=== PATIENT | female | born 1990 | race Caucasian/White ===

== ENCOUNTER 2016-11-12 21:35 | Emergency (ER) | payer OTHER ==
[2016-11-12] MEDS ORDERED: HYDROmorphone 1 MG/ML SYRINGE IM STA (22:03)
[2016-11-12] MEDS ORDERED: DEXAMETHASONE 10 MG/ML VIAL PO STA (22:03)
[2016-11-12] MEDS ORDERED: HYDROmorphone 1 MG/ML SYRINGE ONE (22:05)
[2016-11-12] MEDS ORDERED: DEXAMETHASONE 10 MG/ML VIAL ONE (22:06)
[2016-11-12] MEDS ORDERED: CHERRY SYRUP 10 ML UDC PO ONE (22:06)
== END 2016-11-12 22:32 | disposition home or self-care (01) ==
DX: S39.012A Strain of muscle, fascia and tendon of lower back, initial encounter (principal); V48.4XXA Person boarding or alighting a car injured in noncollision transport accident, initial encounter; M54.41 Lumbago with sciatica, right side; F17.200 Nicotine dependence, unspecified, uncomplicated
CPT/HCPCS: 96372; 99283; 99284; A9270; J1170

== ENCOUNTER 2017-05-27 13:02 | Emergency (ER) | payer OTHER ==
--- NOTE | 2017-05-27 13:28 | ED Physician Documentation ---
History of Present Illness - Stated complaint Stated Complaint: LEFT ARM PX AND SHOULDERS - Chief complaint Chief Complaint: Ext Problem - History obtained from History obtained from: Patient - History of Present Illness Timing: How many weeks ago (1) Pain level max: 6 Pain level now: 6 Improved by: prednisone Worsened by: movement - Additonal information Additional information: Patient is a 27-year-old female who presents to the emergency department complaint of neck pain for the last week. On Monday she saw her primary care provider and was radiating down the right arm. Started on prednisone and Robaxin. States this was improving until she stopped the prednisone because of moodiness. States that now the pain is going down the left arm with numbness and tingling. No chest pain. No shortness of breath. No recent trauma. No falls. 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 : Kidney stones HEENT: None Psych: Depression, Claustrophobia Musculoskeletal: Chronic back pain Derm: None - Past Surgical History Past Surgical History: Yes General: Cholecystectomy, Appendectomy Ortho: Other - Present Medications Home Medications: Ambulatory Orders Medication Instructions Recorded Confirmed traZODone [Desyrel] 25 mg PO QPM 03/31/14 05/27/17 Citalopram [CeleXA] 20 mg PO DAILY PM 08/06/15 05/27/17 traMADol [Ultram] 100 mg PO DAILY 08/06/15 05/27/17 Methocarbamol [Robaxin] 1,000 mg PO Q6H PRN 05/27/17 05/27/17 Prednisone 40 mg PO DAILY 05/27/17 05/27/17 - Allergies Allergies/Adverse Reactions: Allergies Allergy/AdvReac Type Severity Reaction Status Date / Time ketorolac tromethamine * Allergy Severe Respiratory Verified 05/27/17 13:14 [From Toradol] cefazolin Allergy Itching Verified 05/27/17 13:14 latex AdvReac Mild Itching Verified 05/27/17 13:14 - Social History Does the pt smoke?: Yes Smoking Status: Current some day smoker Does the pt drink ETOH?: Yes Does the pt have substance abuse?: No - Immunizations Immunizations are current?: Yes Immunizations: TDAP >10years/unknown - POLST Patient has POLST: No PD ED PE NORMAL - Vitals Vital signs reviewed: Yes - General General: Alert and oriented X 3, No acute distress - HEENT HEENT: Atraumatic, PERRL, Ears normal, Moist mucous membranes, Other (+ spurling test to the L) - Neck Neck: Supple, no meningeal sign, No bony TTP, No JVD, No bruit - Cardiac Cardiac: RRR - Respiratory Respiratory: No respiratory distress, Clear bilaterally - Abdomen Abdomen: Soft, Non tender - Derm Derm: Warm and dry, No rash - Extremities Extremities: No deformity, No tenderness to palpate, Normal ROM s pain, No edema - Neuro Neuro: Alert and oriented X 3, 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, No motor deficit, No sensory deficit, Normal speech - Psych Psych: Normal mood, Normal affect Results - Vitals Vitals: Vital Signs - 24 hr 05/27/17 05/27/17 13:11 15:04 Temperature 36.3 C L 36.0 C L Heart Rate 83 66 Respiratory 16 18 Rate Blood Pressure 105/74 107/74 O2 Saturation 98 98 Oxygen O2 Source Room air - Rads (name of study) c-spine Radiology: Prelim report reviewed, EMP read contemporaneously, See rad report ( normal xray) PD MEDICAL DECISION MAKING - ED course Complexity details: reviewed results, re-evaluated patient, considered differential, d/w patient, d/w family ED course: Patient is a 27-year-old female who presents to the emergency department with what appears to be left-sided cervical radiculopathy. She states that in the past a dose of Dilaudid, Zofran intramuscularly of helped in the past. States has pain medication at home. She was given a dose here as well as a dose of dexamethasone to see if this helps her symptoms more than the prednisone was. She is well-appearing, nontoxic. Afebrile. No history of IV drug use. No fractures. Patient counseled regarding signs and symptoms for which I believe and urgent re-evaluation would be necessary. Patient with good understanding of and agreement to plan and is comfortable going home at this time This document was made in part using voice recognition software. While efforts are made to proofread this document, sound alike and grammatical errors may occur. Departure - Departure Disposition: 01 Home, Self Care Clinical Impression: Cervical radiculopathy Condition: Good Instructions: ED Cervical Radiculopathy Follow-Up: Heraclio Doyle MD [Primary Care Provider] - Within 1 week Comments: Follow up with your doctor in 1 week for repeat evaluation. Return if you worsen. Your doctor may want to pursue an MRI of your neck. Discharge Date/Time: 05/27/17 15:04
[2017-05-27] MEDS ORDERED: HYDROcod/ACETAM 5/325 MG TABLET PO STA (13:51)
[2017-05-27] MEDS ORDERED: HYDROcod/ACETAM 5/325 MG TABLET ONE (13:57)
--- NOTE | 2017-05-27 13:59 | XRAY Preliminary Report ---
Exam: XR Cervical Spine 2 View IMPRESSION: Unremarkable cervical spine series. No evidence of fracture. [facility] SITE ID: [id number]
--- NOTE | 2017-05-27 14:02 | XRAY Report ---
EXAM: CERVICAL SPINE RADIOGRAPHY EXAM DATE: 05/27/2017 01:52 PM. CLINICAL HISTORY: C6-C7 pain and numbness in bilateral upper extremities. COMPARISONS: Cervical spine 04/15/2009. TECHNIQUE: 3 views. FINDINGS: Alignment: Mild kyphosis mid cervical spine. Bones: The cervical vertebral bodies and posterior elements are well visualized from the skull base t hrough C7-T1. No fractures or bone lesions. Disks: Normal. Disk heights are maintained. Facets: No degenerative disease. Soft Tissues: Normal. No prevertebral soft tissue swelling. The visualized lung apices are clear. IMPRESSION: Unremarkable cervical spine series. No evidence of fracture. [facility] Referring Provider Line: [phone] SITE ID: [id number]
[2017-05-27] MEDS ORDERED: HYDROmorphone 1 MG/ML SYRINGE IM STA (14:35)
[2017-05-27] MEDS ORDERED: ONDANSETRON 4 MG/2 ML VIAL IM STA (14:35)
[2017-05-27] MEDS ORDERED: DEXAMETHASONE 10 MG/ML VIAL IM STA (14:35)
[2017-05-27] MEDS ORDERED: HYDROmorphone 1 MG/ML SYRINGE ONE (14:41)
[2017-05-27] MEDS ORDERED: DEXAMETHASONE 10 MG/ML VIAL ONE (14:41)
[2017-05-27] MEDS ORDERED: ONDANSETRON 4 MG/2 ML VIAL ONE (14:41)
[2017-05-27 15:05] VITALS: BP 107/74
== END 2017-05-27 15:04 | disposition home or self-care (01) ==
LOC: ED 13:02
DX: M54.12 Radiculopathy, cervical region (principal); K21.9 Gastro-esophageal reflux disease without esophagitis; G89.29 Other chronic pain; F17.200 Nicotine dependence, unspecified, uncomplicated
CPT/HCPCS: 72040; 96372; 99283; 99284; A9270; J1170

== ENCOUNTER 2017-08-30 14:05 | Emergency (ER) | payer OTHER ==
--- NOTE | 2017-08-30 14:20 | ED Physician Documentation ---
PD HPI ABD PAIN - Stated complaint Stated Complaint: BACK/ABD PX - Chief complaint Chief Complaint: Abd Pain - History obtained from History obtained from: Patient - History of Present Illness Timing - onset: How many days ago (several days of left sided/LUQ abd pains and cramps, with some nausea. Has had less/minimal small BMs for 3 weeks. No dysuria.) Timing - duration: Days (several days of increasing pain and nausea, has had some constipation and occasional cramps for 2-3 weeks.) Timing - details: Gradual onset, Waxing and waning Quality: Cramping, Aching, Pain Location: LUQ Radiation: Left flank Improved by: BM (but only small ones lately). No: Eating Worsened by: No: Eating Associated symptoms: Nausea, Constipation, Loss of appetite. No: Fever, Vomiting, Diarrhea, Melena, Hematochezia, Dysuria, Chest pain, Vaginal bleeding , Vaginal dc Similar symptoms before: Has not had sx before Recently seen: Clinic (give Rx for Miralax which she is using twice daily the past few days without improvement in symptoms.) Review of Systems Constitutional: denies: Fever, Chills Nose: denies: Rhinorrhea / runny nose, Congestion Throat: denies: Sore throat Cardiac: denies: Chest pain / pressure Respiratory: denies: Cough GI: reports: Abdominal Pain, Nausea, Constipation. 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 : Kidney stones HEENT: None Psych: Depression, Claustrophobia Musculoskeletal: Chronic back pain Derm: None - Past Surgical History Past Surgical History: Yes General: Cholecystectomy, Appendectomy Ortho: Other - Present Medications Home Medications: Ambulatory Orders Medication Instructions Recorded Confirmed traMADol [Ultram] 100 mg PO DAILY 08/06/15 08/30/17 Docusate Sodium 100 mg PO DAILY #20 capsule 08/30/17 HYDROcod/ACETAM 5/325 [[place] 5/325] 1 tab PO Q6H PRN #15 tablet 08/30/17 Ondansetron Odt [Zofran] 4 mg TL Q6H PRN #15 tablet 08/30/17 Polyethylene Glycol 3350 [Miralax] 17 gm PO Q1HR PRN #238 g 08/30/17 Varenicline Tartrate [Chantix] 0.5 mg PO DAILY 08/30/17 08/30/17 - Allergies Allergies/Adverse Reactions: Allergies Allergy/AdvReac Type Severity Reaction Status Date / Time ketorolac tromethamine * Allergy Severe Respiratory Verified 08/30/17 14:17 [From Toradol] cefazolin Allergy Itching Verified 08/30/17 14:17 latex AdvReac Mild Itching Verified 08/30/17 14:17 - Social History Does the pt smoke?: Yes Smoking Status: Current every day smoker Does the pt drink ETOH?: Yes Does the pt have substance abuse?: No - Immunizations Immunizations are current?: No Immunizations: TDAP >10years/unknown - POLST Patient has POLST: No PD ED PE NORMAL - Vitals Vital signs reviewed: Yes - General General: Alert and oriented X 3, No acute distress, Well developed/nourished - HEENT HEENT: PERRL (nonicteric), Pharynx benign - Neck Neck: Supple, no meningeal sign, No adenopathy - Cardiac Cardiac: RRR, No murmur - Respiratory Respiratory: Clear bilaterally - Abdomen Abdomen: Normal bowel sounds, Soft, Non distended, No organomegaly, Other ( tender LUQ with some guarding but no percussion tenderness. Lower abd not tender. ) - Female Female : Deferred - Rectal Rectal: Deferred - Back Back: No CVA TTP - Derm Derm: Normal color, No rash - Extremities Extremities: No deformity, Normal ROM s pain, No calf tenderness / cord - Neuro Neuro: Alert and oriented X 3, No motor deficit, Normal speech - Psych Psych: Normal mood, Normal affect Results - Vitals Vitals: Vital Signs - 24 hr 08/30/17 08/30/17 14:15 16:25 Temperature 36.2 C L Heart Rate 81 74 Respiratory 18 18 Rate Blood Pressure 104/67 93/54 L O2 Saturation 100 98 Oxygen O2 Source Room air - Labs Labs: Laboratory Tests 08/30/17 08/30/17 08/30/17 14:40 14:40 15:00 WBC 12.1 H RBC 4.70 Hgb 13.8 Hct 40.7 MCV 86.5 MCH 29.4 MCHC 34.0 RDW 12.9 Plt Count 357 MPV 6.8 L Neut # 6.6 Lymph # 4.3 H [place] # 0.9 Eos # 0.2 Baso # 0.1 Absolute Nucleated RBC 0.01 Nucleated RBC % 0.0 Sodium Potassium Chloride Carbon Dioxide Anion Gap BUN Creatinine Estimated GFR (MDRD) Glucose Calcium Total Bilirubin AST ALT Alkaline Phosphatase Total Protein Albumin Globulin Albumin/Globulin Ratio Lipase Urine Color YELLOW Urine Clarity CLEAR Urine pH 7.0 Ur Specific [place] 1.010 1.010 Urine Protein NEGATIVE Urine Glucose (UA) NEGATIVE Urine Ketones NEGATIVE Urine Occult Blood NEGATIVE Urine Nitrite NEGATIVE Urine Bilirubin NEGATIVE Urine Urobilinogen 0.2 (NORMAL) Ur Leukocyte Esterase NEGATIVE Ur Microscopic Review NOT INDICATED Urine Culture Comments NOT INDICATED Urine HCG, Qual NEGATIVE 08/30/17 15:00 WBC RBC Hgb Hct MCV MCH MCHC RDW Plt Count MPV Neut # Lymph # [place] # Eos # Baso # Absolute Nucleated RBC Nucleated RBC % Sodium 138 Potassium 3.7 Chloride 103 Carbon Dioxide 25 Anion Gap 10.0 BUN 13 Creatinine 0.7 Estimated GFR (MDRD) 99 Glucose 85 Calcium 9.1 Total Bilirubin 0.3 AST 24 ALT 25 Alkaline Phosphatase 60 Total Protein 7.5 Albumin 3.9 Globulin 3.6 Albumin/Globulin Ratio 1.1 Lipase 21 L Urine Color Urine Clarity Urine pH Ur Specific [place] Urine Protein Urine Glucose (UA) Urine Ketones Urine Occult Blood Urine Nitrite Urine Bilirubin Urine Urobilinogen Ur Leukocyte Esterase Ur Microscopic Review Urine Culture Comments Urine HCG, Qual - Rads (name of study) abd CT Radiology: Prelim report reviewed (no acute disease), EMP read contemporaneously (no obvious acute process. Does not look significantly constipated. Pending Radiologist reading. ) PD MEDICAL DECISION MAKING - ED course Complexity details: reviewed results, re-evaluated patient (small stool output with enema. Less nausea and pain initially with meds but pain coming back. Got some more nausea after IV pain meds. She is tender left sided abd with normal UA. Does have elevated WBC, so getting CT to evaluate for stone, divertic, abscess, etc. Her tenderness is higher left/LUQ so not really thinking pelvic at this time. ), considered differential, d/w patient Departure - Departure Disposition: 01 Home, Self Care Clinical Impression: Abdominal pain Qualifiers: Abdominal location: left upper quadrant Qualified Code(s): R10.12 - Left upper quadrant pain Constipation Qualifiers: Constipation type: unspecified constipation type Qualified Code(s): K59.00 - Constipation, unspecified Condition: Stable Record reviewed to determine appropriate education?: Yes Instructions: ED Constipation, ED Abdominal Pain Unkn Cause Follow-Up: Heraclio Doyle MD [Primary Care Provider] - Prescriptions: Polyethylene Glycol 3350 [Miralax] 17 gm PO Q1HR PRN #238 g PRN Reason: Constipation Docusate Sodium 100 mg PO DAILY #20 capsule HYDROcod/ACETAM 5/325 [[place] 5/325] 1 tab PO Q6H PRN #15 tablet PRN Reason: Pain Ondansetron Odt [Zofran] 4 mg TL Q6H PRN #15 tablet PRN Reason: Nausea / Vomiting Comments: . Use docusate stool softener once or twice daily for the next several days. Continue your MiraLAX and for the short-term you can do it every 1-2 hours until good stool output starts. Use Tylenol or ibuprofen if needed for pains. Ondansetron if needed for nausea. Hydrocodone if needed only for worse pain with the concern that that can be constipating of course. Recheck if not improved in the next day or 2. Your CT scan appears normal without any obvious worse condition causing it at this time. We will presume it is the constipation with some irritation of the colon.
[2017-08-30] MEDS ORDERED: ONDANSETRON 4 MG/2 ML VIAL IVP STA ×2 (14:37→16:55)
[2017-08-30] MEDS ORDERED: HYDROmorphone 1 MG/ML SYRINGE IVP STA ×2 (14:38→16:12)
[2017-08-30] MEDS ORDERED: MINERAL OIL ENEMA 133 ML BOTTLE RC STA (14:38)
[2017-08-30] MEDS ORDERED: DOCUSATE SODIUM 100 MG CAPSULE PO STA (14:39)
[2017-08-30] MEDS ORDERED: DOCUSATE SODIUM 100 MG CAPSULE PO ONE (14:52)
[2017-08-30] MEDS ORDERED: ONDANSETRON 4 MG/2 ML VIAL ONE ×2 (14:53→17:04)
[2017-08-30] MEDS ORDERED: HYDROmorphone 1 MG/ML SYRINGE ONE ×2 (14:53→16:34)
[2017-08-30 15:16] LABS: BILIRUBIN,URINE NEGATIVE (NEGATIVE)
[2017-08-30 15:18] LABS: BASOPHILS # (AUTO) 0.1 10^3/uL (0.0-0.1); BASOPHILS % (AUTO) 1.1 %; EOSINOPHILS # (AUTO) 0.2 10^3/uL (0.0-0.7); EOSINOPHILS % (AUTO) 1.7 %; HCT - HEMATOCRIT 40.7 % (37.0-47.0); HGB - HEMOGLOBIN 13.8 g/dL (12.0-16.0); LYMPHOCYTES # (AUTO) 4.3 10^3/uL (1.5-3.5); LYMPHOCYTES % (AUTO) 35.6 %; MEAN CORPUSCULAR HEMOGLOBIN 29.4 pg (27.0-31.0); MEAN CORPUSCULAR VOLUME 86.5 fL (81.0-99.0); MEAN PLATELET VOLUME 6.8 fL (7.9-10.8); MONOCYTES # (AUTO) 0.9 10^3/uL (0.0-1.0); NEUTROPHILS # (AUTO) 6.6 10^3/uL (1.5-6.6); NEUTROPHILS % (AUTO) 54.6 %; RED CELL DISTRIBUTION WIDTH 12.9 % (12.0-15.0); UNCORRECTED WHITE BLOOD COUNT 12.1 x10^3/uL; WHITE BLOOD COUNT 12.1 x10^3/uL (4.8-10.8)
[2017-08-30 15:22] LABS: UA CHARGE (STRIP ONLY) YES; UR CULTURE IF IND NOT INDICATED
[2017-08-30 15:31] LABS: ALBUMIN/GLOBULIN RATIO 1.1 (1.0-2.2); BILIRUBIN,TOTAL 0.3 mg/dL (0.2-1.0); CALCIUM 9.1 mg/dL (8.5-10.3); CREATININE 0.7 mg/dL (0.4-1.0); POTASSIUM 3.7 mmol/L (3.5-5.0); TOTAL PROTEIN 7.5 g/dL (6.7-8.2)
[2017-08-30] MEDS ORDERED: IOPAMIDOL-300 100 ML VIAL ONE (15:59)
[2017-08-30 16:15] LABS: HCG UR QUAL NEGATIVE
[2017-08-30] MEDS ORDERED: SODIUM CHLORIDE 0.9% 1,000 ML IV ONE (16:33)
[2017-08-30] MEDS ORDERED: IOPAMIDOL-300 100 ML VIAL IVP ONE (17:34)
--- NOTE | 2017-08-30 18:13 | CT Preliminary Report ---
Exam: CT ABDOMEN/PELVIS W/ IMPRESSION: No acute disease. [facility] SITE ID: [id number]
--- NOTE | 2017-08-30 18:15 | CT Report ---
EXAM: CT ABDOMEN AND PELVIS EXAM DATE: 08/30/2017 05:25 PM. CLINICAL HISTORY: Left sided abd pain and elevated WBC. COMPARISONS: 05/12/2016. TECHNIQUE: Routine helical CT imaging was performed through the abdomen and pelvis. IV contrast: 100 ML ISOVUE 300. Enteric contrast: No. Reconstructions: Coronal and sagittal. In accordance with CT protocol optimization, one or more of the following dose reduction techniques w ere utilized for this exam: automated exposure control, adjustment of mA and/or KV based on patient s ize, or use of iterative reconstructive technique. FINDINGS: Lung Bases: Unremarkable. Liver: Normal. No masses. Gallbladder/Bile Ducts: Surgically absent. No ductal dilation. Spleen: Normal. Pancreas: Normal. Adrenal Glands: Normal. Kidneys: Normal. No masses or hydronephrosis. Peritoneal Cavity/Bowel: Normal. No free fluid, free air or adenopathy. No masses or acute inflammato ry process. Absent appendix. Pelvic Organs: Normal. The bladder and visualized pelvic organs are within normal limits. Vasculature: No aneurysms or other significant abnormality. Bones: No significant abnormality. Other: None. IMPRESSION: No acute disease. [facility] Referring Provider Line: [phone] SITE ID: [id number]
[2017-08-30 18:42] VITALS: BP 97/63
== END 2017-08-30 18:49 | disposition home or self-care (01) ==
LOC: ED 14:05
DX: R10.12 Left upper quadrant pain (principal); K59.00 Constipation, unspecified; F17.200 Nicotine dependence, unspecified, uncomplicated
CPT/HCPCS: 36415; 74177; 80053; 81003; 81025; 83690; 85025; 96374; 96375; 96376; 99283; 99284; A9270; J1170; Q9967; 81001; 87086

== ENCOUNTER 2017-10-04 06:42 | Outpatient (CLI) | payer OTHER | END 2017-10-04 06:43 | disposition critical access hospital (66) | LOC: EMS 06:42 | PROVIDERS: ATTEND Surgery | DX: M54.9 Dorsalgia, unspecified (principal); V89.2XXA Person injured in unspecified motor-vehicle accident, traffic, initial encounter; Y92.414 Local residential or business street as the place of occurrence of the external cause | CPT/HCPCS: A0425; A0429 ==

== ENCOUNTER 2017-10-04 07:03 | Emergency (ER) | payer OTHER ==
[2017-10-04 07:11] VITALS: BP 128/70
[2017-10-04] MEDS ORDERED: ACETAMINOPHEN 325 MG TABLET PO STA (07:19)
[2017-10-04] MEDS ORDERED: diazePAM 5 MG TABLET PO STA (07:19)
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
[2017-10-04] MEDS ORDERED: LIDOCAINE PATCH 5% TOP STA (08:17)
== END 2017-10-04 08:15 | disposition home or self-care (01) ==
LOC: EDUNIT# → ED 07:03
DX: S23.3XXA Sprain of ligaments of thoracic spine, initial encounter (principal); S13.9XXA Sprain of joints and ligaments of unspecified parts of neck, initial encounter; V43.52XA Car driver injured in collision with other type car in traffic accident, initial encounter; F17.200 Nicotine dependence, unspecified, uncomplicated
CPT/HCPCS: 71046; 72125; 99283; 99284; A9270

== ENCOUNTER 2018-03-12 11:29 | Emergency (ER) | payer OTHER ==
[2018-03-12 12:36] LABS: BILIRUBIN,URINE NEGATIVE (NEGATIVE); GLUCOSE, URINE (UA) NEGATIVE (NEGATIVE); KETONES,URINE (UA) NEGATIVE (NEGATIVE); LEUKOCYTE ESTERASE, URINE NEGATIVE (NEGATIVE); NITRITE,URINE NEGATIVE (NEGATIVE); OCCULT BLOOD,URINE MODERATE (NEGATIVE); PH,URINE 7.5 PH (5.0-7.5); PROTEIN,URINE NEGATIVE (NEGATIVE); UROBILINOGEN,URINE 0.2 (NORMAL) E.U./dL (NORMAL)
--- NOTE | 2018-03-12 12:40 | ED Physician Documentation ---
PD HPI HEADACHE - Stated complaint Stated Complaint: HEAD/NECK PX - Chief complaint Chief Complaint: General - History obtained from History obtained from: Patient - History of Present Illness Timing - onset: Yesterday Timing - onset during: Light activity Timing - duration: Days (1) Timing - details: Gradual onset, Still present, Constant Worst headache ever?: No: Worst headache ever? Location: Right Quality: Throbbing, Aching Associated symptoms: Nausea, Vomiting, Vision changes (blurred vision on right) . No: Fever, Stiff neck, Weakness, Numbness Improved by: Dark room. No: Meds (OTC meds) Worsened by: Light, Noise Contributing factors: No: Recent illness, Trauma Similar symptoms before: Diagnosis (had migraines when younger but had not had one for 10 years or so.) Review of Systems Constitutional: denies: Fever, Chills Nose: denies: Rhinorrhea / runny nose, Congestion Throat: denies: Sore throat Cardiac: denies: Chest pain / pressure, Palpitations Respiratory: denies: Dyspnea, Cough GI: reports: Nausea, Vomiting. denies: Abdominal Pain, Diarrhea : reports: Vaginal bleeding (just some brown discharge, not purulent, like early menses. LMP was in December and concerned about . Had neg home test. ), Missed period (2 months missed). 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 : Kidney stones HEENT: None Psych: Depression, Claustrophobia Musculoskeletal: Chronic back pain Derm: None - Past Surgical History Past Surgical History: Yes General: Cholecystectomy, Appendectomy Ortho: Other - Present Medications Home Medications: Ambulatory Orders Medication Instructions Recorded Confirmed traMADol [Ultram] 100 mg PO DAILY 08/06/15 08/30/17 Docusate Sodium 100 mg PO DAILY #20 capsule 08/30/17 HYDROcod/ACETAM 5/325 [[place] 5/325] 1 tab PO Q6H PRN #15 tablet 08/30/17 Ondansetron Odt [Zofran] 4 mg TL Q6H PRN #15 tablet 08/30/17 Polyethylene Glycol 3350 [Miralax] 17 gm PO Q1HR PRN #238 g 08/30/17 Varenicline Tartrate [Chantix] 0.5 mg PO DAILY 08/30/17 08/30/17 Butalb/Acetaminophen/Caffeine 1 each PO Q6H PRN #15 capsule 03/12/18 [Fioricet 50-300-40 mg Capsule] HYDROcod/ACETAM 5/325 [[place] 5/325] 1 tab PO Q6H PRN #12 tablet 03/12/18 Ondansetron Odt [Zofran] 4 mg TL Q6H PRN #15 tablet 03/12/18 - Allergies Allergies/Adverse Reactions: Allergies Allergy/AdvReac Type Severity Reaction Status Date / Time ketorolac tromethamine * Allergy Severe Respiratory Verified 10/04/17 07:10 [From Toradol] cefazolin Allergy Itching Verified 10/04/17 07:10 latex AdvReac Mild Itching Verified 10/04/17 07:10 - Social History Does the pt smoke?: Yes Smoking Status: Current every day smoker Does the pt drink ETOH?: Yes Does the pt have substance abuse?: No - Immunizations Immunizations are current?: No Immunizations: TDAP >10years/unknown - POLST Patient has POLST: No PD ED PE NORMAL - Vitals Vital signs reviewed: Yes - General General: Alert and oriented X 3, Well developed/nourished - HEENT HEENT: Atraumatic, PERRL (very light sensitive), EOMI, Other (wearing sunglasses ) - Neck Neck: Supple, no meningeal sign, No adenopathy - Cardiac Cardiac: RRR, No murmur - Respiratory Respiratory: Clear bilaterally - Abdomen Abdomen: Soft, Non tender - Back Back: No CVA TTP - Derm Derm: Normal color, Warm and dry - Neuro Neuro: Alert and oriented X 3, cast associate 2-12 intact, No motor deficit, No sensory deficit, Normal speech Results - Vitals Vitals: Oxygen O2 Source Room air - Labs Labs: Laboratory Tests 03/12/18 03/12/18 12:20 13:05 Serum HCG, Qual NEGATIVE Urine Color YELLOW Urine Clarity CLOUDY Urine pH 7.5 Ur Specific [place] 1.015 Urine Protein NEGATIVE Urine Glucose (UA) NEGATIVE Urine Ketones NEGATIVE Urine Occult Blood MODERATE H Urine Nitrite NEGATIVE Urine Bilirubin NEGATIVE Urine Urobilinogen 0.2 (NORMAL) Ur Leukocyte Esterase NEGATIVE Urine RBC 0-5 Urine WBC 0-3 Ur Squamous Epith Cells FEW Squamous Amorphous Sediment Marked Urine Bacteria Rare Ur Microscopic Review INDICATED Urine Culture Comments NOT INDICATED Urine HCG, Qual NEGATIVE PD MEDICAL DECISION MAKING - ED course Complexity details: considered differential (symptoms seem like migraine. Had them when younger but not the past 10 years. No red flags otherwise though.), d/ w patient - Sepsis Event Vital Signs: Oxygen O2 Source Room air Departure - Departure Disposition: 01 Home, Self Care Clinical Impression: Missed period Migraine headache Qualifiers: Migraine type: without aura Status migrainosus presence: with status migrainosus Intractability: not intractable Qualified Code(s): G43.001 - Migraine without aura, not intractable, with status migrainosus Condition: Stable Record reviewed to determine appropriate education?: Yes Instructions: ED Headache Migraine Follow-Up: SANDHYA VEGA DO [Primary Care Provider] - Prescriptions: Butalb/Acetaminophen/Caffeine [Fioricet 50-300-40 mg Capsule] 1 each PO Q6H PRN #15 capsule PRN Reason: Headache HYDROcod/ACETAM 5/325 [[place] 5/325] 1 tab PO Q6H PRN #12 tablet PRN Reason: Pain Ondansetron Odt [Zofran] 4 mg TL Q6H PRN #15 tablet PRN Reason: Nausea / Vomiting Comments: Your test is negative. There can be occasional irregular periods. Follow-up with your primary care if continues to be a regular. Regarding the headache, it sounds like a migraine type headache. For occasional subsequent migraines, you can use ondansetron for nausea and Fioricet as a migraine medicine. Add Tylenol or hydrocodone if needed for pain. Recheck if that does not help. Follow-up with your primary care if you have frequent recurrent migraines as there can be preventative medicines as well. Return if other symptoms develop. Discharge Date/Time: 03/12/18 15:14
[2018-03-12 12:41] LABS: CLARITY,URINE CLOUDY (CLEAR); HCG UR QUAL NEGATIVE
[2018-03-12] MEDS ORDERED: ACETAMINOPHEN 1,000 MG/100 ML 100 ML IV STA (12:43)
[2018-03-12] MEDS ORDERED: diphenhydrAMINE INJ 50 MG/ML VIAL IVP STA (12:43)
[2018-03-12] MEDS ORDERED: METOCLOPRAMIDE 10 MG/2 ML VIAL IVP STA (12:43)
[2018-03-12] MEDS ORDERED: SODIUM CHLORIDE 0.9% 1,000 ML IV ONE (12:43)
[2018-03-12 12:46] LABS: AMORPHOUS SEDIMENT,UR Marked /LPF; BACTERIA,URINE Rare /HPF (None Seen); RBC,URINE 0-5 /HPF (0-5); SQUAMOUS EPITHELIAL CELL,UR FEW Squamous (<= Few)
[2018-03-12] MEDS ORDERED: HYDROmorphone 2 MG/ML VIAL IVP STA (13:29)
[2018-03-12] MEDS ORDERED: DEXAMETHASONE 10 MG/ML VIAL IVP STA (13:29)
[2018-03-12 13:59] LABS: HCG,QUALITATIVE BLOOD NEGATIVE
[2018-03-12 15:13] VITALS: BP 98/72
== END 2018-03-12 15:14 | disposition home or self-care (01) ==
LOC: ED 11:29
DX: N91.2 Amenorrhea, unspecified (principal); G43.001 Migraine without aura, not intractable, with status migrainosus; F17.200 Nicotine dependence, unspecified, uncomplicated
CPT/HCPCS: 36415; 81001; 81025; 84703; 96365; 96375; 99284; J0131; J1170; J1200; J2765; 81003; 87086

== ENCOUNTER 2018-04-18 11:13 | Emergency (ER) | payer OTHER ==
[2018-04-18] MEDS ORDERED: diphenhydrAMINE INJ 50 MG/ML VIAL IVP STA (12:13)
[2018-04-18] MEDS ORDERED: ACETAMINOPHEN 500 MG TABLET PO STA (12:13)
[2018-04-18] MEDS ORDERED: METOCLOPRAMIDE 10 MG/2 ML VIAL IVP STA (12:13)
[2018-04-18] MEDS ORDERED: SODIUM CHLORIDE 0.9% 1,000 ML IV ONE (12:13)
--- NOTE | 2018-04-18 12:20 | ED Physician Documentation ---
History of Present Illness - Stated complaint Stated Complaint: HEAD/NECK PX - Chief complaint Chief Complaint: Neuro - History obtained from History obtained from: Patient - Additonal information Additional information: 28-year-old female presents the emergency department with a headache which started yesterday. The patient describes a throbbing tension in the back of her head, photophobia with nausea and vomiting. The patient's headache has gradually worsened over the past 24 hours. The patient's had no relief with her normal medications. This is similar to other episodes. The patient denies sudden onset, fevers, chills, acute motor or sensory changes. Symptoms are described as moderate. No other associated symptoms. Review of Systems Constitutional: denies: Fever, Chills Eyes: reports: Photophobia. denies: Loss of vision Nose: denies: Congestion Throat: denies: Sore throat Respiratory: denies: Dyspnea GI: reports: Nausea. denies: Abdominal Pain Skin: denies: Rash Neurologic: reports: Headache. 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 : Kidney stones HEENT: None Psych: Depression, Claustrophobia Musculoskeletal: Chronic back pain Derm: None Other Past Medical History: Chronic elevated WBC - Past Surgical History Past Surgical History: Yes General: Cholecystectomy, Appendectomy Ortho: Other - Present Medications Home Medications: Ambulatory Orders Medication Instructions Recorded Confirmed traMADol [Ultram] 50 mg PO DAILY 08/06/15 03/27/18 Ondansetron Odt [Zofran] 4 mg TL Q6H PRN #15 tablet 08/30/17 03/27/18 Cholecalciferol (Vitamin D3) 1 cap PO DAILY 03/27/18 03/27/18 [Vitamin D3] Melatonin 10 mg PO DAILY 03/27/18 03/27/18 Butalb/Acetaminophen/Caffeine 04/18/18 [Fioricet 50-300-40 mg Capsule] - Allergies Allergies/Adverse Reactions: Allergies Allergy/AdvReac Type Severity Reaction Status Date / Time ketorolac tromethamine * Allergy Severe Respiratory Verified 10/04/17 07:10 [From Toradol] cefazolin Allergy Itching Verified 10/04/17 07:10 latex AdvReac Mild Itching Verified 04/18/18 11:24 - Social History Does the pt smoke?: Yes Smoking Status: Current every day smoker Does the pt drink ETOH?: Yes Does the pt have substance abuse?: No - Immunizations Immunizations are current?: No Immunizations: TDAP >10years/unknown - POLST Patient has POLST: No PD ED PE NORMAL - General General: Alert and oriented X 3, No acute distress - HEENT HEENT: Atraumatic, PERRL, EOMI, Ears normal, Moist mucous membranes, Pharynx benign - Neck Neck: Supple, no meningeal sign - Cardiac Cardiac: RRR, Strong equal pulses - Respiratory Respiratory: No respiratory distress, Clear bilaterally - Abdomen Abdomen: Normal bowel sounds, Non tender - Back Back: No CVA TTP - Derm Derm: Normal color - Extremities Extremities: No deformity, Normal ROM s pain - Neuro Neuro: Alert and oriented X 3, filtration operator 2-12 intact, No motor deficit, No sensory deficit, Normal speech - Psych Psych: Normal mood Results - Vitals Vitals: Vital Signs - 24 hr 04/18/18 04/18/18 04/18/18 11:21 12:55 12:56 Temperature 36.6 C Heart Rate 95 70 Respiratory 20 18 Rate Blood Pressure 122/76 107/64 O2 Saturation 96 100 04/18/18 13:16 Temperature Heart Rate 80 Respiratory 14 Rate Blood Pressure 105/60 O2 Saturation 99 Oxygen O2 Source Room air - Rads (name of study) CT head Radiology: Final report received PD MEDICAL DECISION MAKING - ED course ED course: On reevaluation the patient is resting comfortably and her symptoms are improving. The patient appears appropriate for discharge home and and currently there is no evidence to suggest acute subarachnoid hemorrhage or meningitis which would necessitate further workup in the emergency department. I discussed the findings with the patient and recommended follow-up with primary care. I discussed warning signs and recommended returning to the emergency department for any worsening or any concerns. - Sepsis Event Vital Signs: Vital Signs - 24 hr 04/18/18 04/18/18 04/18/18 11:21 12:55 12:56 Temperature 36.6 C Heart Rate 95 70 Respiratory 20 18 Rate Blood Pressure 122/76 107/64 O2 Saturation 96 100 04/18/18 13:16 Temperature Heart Rate 80 Respiratory 14 Rate Blood Pressure 105/60 O2 Saturation 99 Oxygen O2 Source Room air Departure - Departure Disposition: 01 Home, Self Care Clinical Impression: Headache Qualifiers: Headache type: other headache syndrome Qualified Code(s): G44.89 - Other headache syndrome Condition: Good Instructions: ED Cephalgia Unspecified Follow-Up: SANDHYA VEGA DO [Primary Care Provider] - Within 1 week Comments: Please return to the emergency department for worsening symptoms or any concerns
[2018-04-18] MEDS ORDERED: METOCLOPRAMIDE 10 MG/2 ML VIAL ONE (12:43)
--- NOTE | 2018-04-18 12:54 | CT Report ---
Procedure Date: 04/18/2018 Accession Number: [id number] / [id number] Procedure: CT - Head W/O CPT Code: FULL RESULT: EXAM: CT HEAD EXAM DATE: 04/18/2018 12:43 PM. CLINICAL HISTORY: Headache. COMPARISON: None. TECHNIQUE: Multiaxial CT images were obtained from the foramen magnum to the vertex. Reformats: Coronal. IV contrast: None. In accordance with CT protocol optimization, one or more of the following dose reduction techniques were utilized for this exam: automated exposure control, adjustment of mA and/or KV based on patient size, or use of iterative reconstructive technique. FINDINGS: Parenchyma: No intraparenchymal hemorrhage. No evidence of mass, midline shift, or CT findings of infarction. Li-white differentiation is distinct. Extraaxial Spaces: Normal for age. No subdural or epidural collections. Ventricles: Normal in size and position. Sinuses and Orbits: Imaged paranasal sinuses, orbits, and mastoids show no significant abnormality. Bones: Unremarkable. Other: None. IMPRESSION: Normal head CT. RADIA
[2018-04-18] MEDS ORDERED: LORazepam 2 MG/ML VIAL IVP STA (13:04)
[2018-04-18] MEDS ORDERED: SUMAtriptan 6 MG/0.5 ML VIAL SUBQ STA (13:23)
[2018-04-18] MEDS ORDERED: DEXAMETHASONE 10 MG/ML VIAL IVP STA (13:23)
[2018-04-18 14:12] VITALS: BP 104/70
== END 2018-04-18 14:12 | disposition home or self-care (01) ==
LOC: ED 11:13
DX: G44.89 Other headache syndrome (principal); F17.200 Nicotine dependence, unspecified, uncomplicated
CPT/HCPCS: 70450; 96374; 96375; 99283; J1200; J2060; J2765

== ENCOUNTER 2018-04-20 07:45 | Emergency (ER) | payer OTHER ==
[2018-04-20] MEDS ORDERED: SODIUM CHLORIDE 0.9% 1,000 ML IV ONE (08:21)
[2018-04-20] MEDS ORDERED: HYDROmorphone 1 MG/ML CARPUJECT IVP STA (08:21)
[2018-04-20] MEDS ORDERED: PROCHLORPERAZINE 10 MG/2 ML VIAL IVP STA (08:22)
[2018-04-20] MEDS ORDERED: diphenhydrAMINE INJ 50 MG/ML VIAL IVP STA (08:22)
[2018-04-20] MEDS: DEXAMETHASONE 10 MG/ML VIAL IVP STA (08:54)
--- NOTE | 2018-04-20 10:23 | ED Physician Documentation ---
PD HPI HEADACHE - Stated complaint Stated Complaint: HEADACHE/STIFF NECK/FEVER/VOMITING - Chief complaint Chief Complaint: Heent - History obtained from History obtained from: Patient, Family - History of Present Illness Timing - onset: How many days ago (4) Timing - onset during: Rest Timing - duration: Days (4) Timing - details: Gradual onset, Still present Location: Back, Left Quality: Throbbing Associated symptoms: Stiff neck, Nausea, Vomiting. No: Fever, Weakness, Numbness, Syncope, Seizure, Eye pain, Vision changes Improved by: Rest, Dark room, Quiet Worsened by: Noise, Moving Contributing factors: No: Anticoagulated Similar symptoms before: Diagnosis (headache and migraine) Recently seen: Emergency Dept - Additional information Additional information: 28-year-old female is had a four-day history of a tension type headache in the back of her neck and the back of her head. She has throbbing on the left side of her head and she is noise sensitive. She has had nausea and vomiting associated with this. She was seen in the emergency department 2 days ago and treated with intravenous medicines including some metoclopramide which she felt made her legs cramp up on her. She had a similar reaction the prior time she was given this. Review of Systems Constitutional: denies: Fever Eyes: denies: Decreased vision Ears: denies: Ear pain Nose: reports: Congestion Throat: denies: Sore throat Cardiac: denies: Chest pain / pressure, Palpitations Respiratory: denies: Dyspnea GI: reports: Nausea, Vomiting. denies: Abdominal Pain : denies: Dysuria, Frequency Skin: denies: Rash Musculoskeletal: reports: Neck pain. 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 : Kidney stones HEENT: None Psych: Depression, Claustrophobia Musculoskeletal: Chronic back pain Derm: None - Past Surgical History Past Surgical History: Yes General: Cholecystectomy, Appendectomy Ortho: Other - Present Medications Home Medications: Ambulatory Orders Medication Instructions Recorded Confirmed traMADol [Ultram] 50 mg PO DAILY 08/06/15 03/27/18 Ondansetron Odt [Zofran] 4 mg TL Q6H PRN #15 tablet 08/30/17 03/27/18 Cholecalciferol (Vitamin D3) 1 cap PO DAILY 03/27/18 03/27/18 [Vitamin D3] Melatonin 10 mg PO DAILY 03/27/18 03/27/18 Butalb/Acetaminophen/Caffeine 04/18/18 [Fioricet 50-300-40 mg Capsule] Cyclobenzaprine [Flexeril] 10 mg PO TID PRN #20 tablet 04/20/18 HYDROcod/ACETAM 5/325 [[place] 5/325] 1 - 2 ea PO Q6H PRN #15 tablet 04/20/18 - Allergies Allergies/Adverse Reactions: Allergies Allergy/AdvReac Type Severity Reaction Status Date / Time ketorolac tromethamine * Allergy Severe Respiratory Verified 04/20/18 07:55 [From Toradol] cefazolin Allergy Itching Verified 04/20/18 07:55 latex AdvReac Mild Itching Verified 04/20/18 07:55 metoclopramide [From Reglan] AdvReac Cramps Verified 04/20/18 07:56 - Social History Does the pt smoke?: Yes Smoking Status: Current every day smoker Does the pt drink ETOH?: Yes Does the pt have substance abuse?: No - Immunizations Immunizations are current?: No Immunizations: TDAP >10years/unknown - POLST Patient has POLST: No PD ED PE NORMAL - Vitals Vital signs reviewed: Yes (normal ) - General General: Alert and oriented X 3, Well developed/nourished, Other (resting in a darkened room with dark glasses on with an emesis basin in her hands. She appears to be in pain with nurses' aide tone and flattened affect. ) - HEENT HEENT: Atraumatic, PERRL, EOMI, Ears normal, Other (dry mucous membranes) - Neck Neck: Supple, no meningeal sign, No bony TTP, Other (There is dense spasm to the trapezius bilaterally worse on the left at the insertion to the occiput. ) - Cardiac Cardiac: RRR, No murmur - Respiratory Respiratory: No respiratory distress, Clear bilaterally - Abdomen Abdomen: Soft, Non tender - Back Back: No CVA TTP, No spinal TTP - Derm Derm: Normal color, Warm and dry, No rash - Extremities Extremities: No deformity, No edema - Neuro Neuro: Alert and oriented X 3, store manager 2-12 intact, No motor deficit, No sensory deficit, Normal speech Eye Opening: Spontaneous Motor: Obeys Commands Verbal: Oriented GCS Score: 15 - Psych Psych: Normal mood, Normal affect Results - Vitals Vitals: Vital Signs - 24 hr 04/20/18 07:52 Temperature 36.4 C L Heart Rate 92 Respiratory 14 Rate Blood Pressure 121/74 O2 Saturation 98 Oxygen O2 Source Room air PD MEDICAL DECISION MAKING - ED course Complexity details: reviewed old records, reviewed results, re-evaluated patient , considered differential, d/w patient, d/w family ED course: 28-year-old female with a tension type headache in the left occiput associated with insertion of the trapezius to the occiput is a bit dehydrated today and has had some vomiting. Here in the emergency department she is treated with a cocktail of Compazine Benadryl, diluadid, dexamethasone and 1 L of saline. She has marked improvement continues to have some pain in her neck her nausea and headache are improved. - Sepsis Event Vital Signs: Vital Signs - 24 hr 04/20/18 07:52 Temperature 36.4 C L Heart Rate 92 Respiratory 14 Rate Blood Pressure 121/74 O2 Saturation 98 Oxygen O2 Source Room air Departure - Departure Disposition: Home, Self Care Clinical Impression: Tension headache Condition: Stable Instructions: ED Headache Tension Follow-Up: SANDHYA VEGA DO [Primary Care Provider] - Prescriptions: Cyclobenzaprine [Flexeril] 10 mg PO TID PRN #20 tablet PRN Reason: Spasms HYDROcod/ACETAM 5/325 [[place] 5/325] 1 - 2 ea PO Q6H PRN #15 tablet PRN Reason: Pain Forms: Activity restrictions
[2018-04-20 10:54] VITALS: BP 118/64
== END 2018-04-20 11:02 | disposition home or self-care (01) ==
LOC: ED 07:45
DX: G44.209 Tension-type headache, unspecified, not intractable (principal); E86.0 Dehydration
CPT/HCPCS: 96361; 96374; 96375; 99283; 99284; J1170; J1200

== ENCOUNTER 2018-06-18 18:36 | Emergency (ER) | payer OTHER ==
[2018-06-18] MEDS ORDERED: HYDROmorphone 1 MG/ML CARPUJECT IM STA (19:55)
[2018-06-18] MEDS ORDERED: predniSONE 20 MG TABLET PO STA (19:55)
--- NOTE | 2018-06-18 19:57 | ED Physician Documentation ---
PD HPI BACK INJURY - Stated complaint Stated Complaint: BACK PX - History obtained from History obtained from: Patient - History of Present Illness Location: Right (She has a history of chronic back pain and sciatica. 2 nights ago she felt like she slept on it wrong without specific injury but felt a pop in the right hip and has a burning pain down the lateral right hip and in the back. No weakness, numbness, tingling, saddle anesthesia, or fevers. 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 : Kidney stones HEENT: None Psych: Depression, Claustrophobia Musculoskeletal: Chronic back pain Derm: None - Past Surgical History Past Surgical History: Yes General: Cholecystectomy, Appendectomy Ortho: Other - Present Medications Home Medications: Ambulatory Orders Medication Instructions Recorded Confirmed traMADol [Ultram] 50 mg PO DAILY 08/06/15 03/27/18 Ondansetron Odt [Zofran] 4 mg TL Q6H PRN #15 tablet 08/30/17 03/27/18 Melatonin 10 mg PO DAILY 03/27/18 03/27/18 Butalb/Acetaminophen/Caffeine 04/18/18 [Fioricet 50-300-40 mg Capsule] Cyclobenzaprine [Flexeril] 10 mg PO TID PRN #20 tablet 04/20/18 HYDROcod/ACETAM 5/325 [[place] 5/325] 1 - 2 ea PO Q6H PRN #15 tablet 04/20/18 Oxycodone HCl/Acetaminophen 1 - 2 each PO Q6H PRN #14 tablet 06/18/18 [Percocet 5-325 mg Tablet] predniSONE [Deltasone] 20 mg PO [id number] #21 tab 06/18/18 - Allergies Allergies/Adverse Reactions: Allergies Allergy/AdvReac Type Severity Reaction Status Date / Time ketorolac tromethamine * Allergy Severe Respiratory Verified 06/18/18 19:18 [From Toradol] cefazolin Allergy Itching Verified 06/18/18 19:18 latex AdvReac Mild Itching Verified 06/18/18 19:18 metoclopramide [From Reglan] AdvReac Cramps Verified 06/18/18 19:18 - Social History Does the pt smoke?: Yes Smoking Status: Current every day smoker Does the pt drink ETOH?: Yes Does the pt have substance abuse?: No - Immunizations Immunizations are current?: No Immunizations: TDAP >10years/unknown - POLST Patient has POLST: No PD ED PE NORMAL - Vitals Vital signs reviewed: Yes - General General: Alert and oriented X 3, No acute distress, Other (Laying with her weight off of the right buttock. Comfortable at rest but winces with right leg motion.) - Back Back: No spinal TTP, Other (Tender in the right sciatic notch. Slightly diminished sensation over the right thigh but otherwise she has equal sensation throughout the right leg and equal patellar and Achilles reflexes with normal strength in flexion and extension at the ankles knees.) - Neuro Neuro: Alert and oriented X 3, Normal speech Results - Vitals Vitals: Vital Signs - 24 hr 06/18/18 19:14 Temperature 36.8 C Heart Rate 71 Respiratory 16 Rate Blood Pressure 110/66 O2 Saturation 98 Oxygen O2 Source Room air PD MEDICAL DECISION MAKING - ED course ED course: This patient has seemingly uncomplicated musculoskeletal back pain. The patient has no "red flags." Specifically denies IV drug use, fevers, incontinence, saddle anesthesia. Spinal epidural abscess was considered, given that the patient has no fever, is not diabetic, has no spinal tenderness, does not use IV drugs, and has no bilateral neurologic symptoms, the diagnosis of spinal epidural abscess is considered exceedingly unlikely. - Sepsis Event Vital Signs: Vital Signs - 24 hr 06/18/18 19:14 Temperature 36.8 C Heart Rate 71 Respiratory 16 Rate Blood Pressure 110/66 O2 Saturation 98 Oxygen O2 Source Room air Departure - Departure Disposition: 01 Home, Self Care Clinical Impression: Sciatica Qualifiers: Laterality: right Qualified Code(s): M54.31 - Sciatica, right side Condition: Good Record reviewed to determine appropriate education?: Yes Instructions: ED Sciatica Prescriptions: Oxycodone HCl/Acetaminophen [Percocet 5-325 mg Tablet] 1 - 2 each PO Q6H PRN #14 tablet PRN Reason: pain predniSONE [Deltasone] 20 mg PO [id number] #21 tab Comments: Call your doctor to arrange a follow-up appointment, make the next available appointment. In the interim, return anytime if worse or if new symptoms develop. Do not drink or drive while taking narcotic pain medication. Note that many narcotic pain relievers also contain Tylenol/acetaminophen. Please ensure that your total dose of acetaminophen from all sources does not exceed 3 g (3000 mg) per day. You may get constipated while on this medication. Take a stool softener such as Colace twice a day while you are on it. Also add an [id number] laxative such as senna or MiraLAX on any day that you do not have a bowel movement. If you received a narcotic pain medication or sedative while in the emergency department, do not drive for the next 24 hours.
[2018-06-18 20:21] VITALS: BP 93/57
== END 2018-06-18 20:32 | disposition home or self-care (01) ==
LOC: ED 18:36
DX: M54.31 Sciatica, right side (principal); G89.29 Other chronic pain; F17.200 Nicotine dependence, unspecified, uncomplicated
CPT/HCPCS: 96372; 99283; J1170; J7512

== ENCOUNTER 2018-08-04 22:04 | Emergency (ER) | payer OTHER ==
[2018-08-04 22:38] LABS: BASOPHILS % (AUTO) 1.7 %; EOSINOPHILS % (AUTO) 1.6 %; HGB - HEMOGLOBIN 13.5 g/dL (12.0-16.0); LYMPHOCYTES % (AUTO) 34.5 %; MEAN CORPUSCULAR HEMOGLOBIN 29.2 pg (27.0-31.0); MEAN CORPUSCULAR VOLUME 88.5 fL (81.0-99.0); MEAN PLATELET VOLUME 7.5 fL (7.9-10.8); NEUTROPHILS % (AUTO) 55.2 %; PLT - PLATELET COUNT 414 10^3/uL (130-450); RED BLOOD COUNT 4.64 10^6/uL (4.20-5.40); RED CELL DISTRIBUTION WIDTH 13.9 % (12.0-15.0); WHITE BLOOD COUNT 20.1 x10^3/uL (4.8-10.8)
[2018-08-04 22:40] LABS: ABNORMAL LYMPHS % (MANUAL) 0 %
[2018-08-04 22:43] LABS: BILIRUBIN,URINE NEGATIVE (NEGATIVE); GLUCOSE, URINE (UA) NEGATIVE (NEGATIVE); KETONES,URINE (UA) NEGATIVE (NEGATIVE); LEUKOCYTE ESTERASE, URINE NEGATIVE (NEGATIVE); NITRITE,URINE NEGATIVE (NEGATIVE); OCCULT BLOOD,URINE NEGATIVE (NEGATIVE); PH,URINE 6.5 PH (5.0-7.5); PROTEIN,URINE NEGATIVE (NEGATIVE); UROBILINOGEN,URINE 0.2 (NORMAL) E.U./dL (NORMAL)
[2018-08-04 22:47] LABS: CLARITY,URINE CLEAR (CLEAR); HCG UR QUAL NEGATIVE
[2018-08-04 22:52] LABS: ALBUMIN 3.6 g/dL (3.2-5.5); BILIRUBIN,TOTAL 0.8 mg/dL (0.2-1.0); CALCIUM 8.6 mg/dL (8.5-10.3); CREATININE 0.7 mg/dL (0.4-1.0); TOTAL PROTEIN 7.2 g/dL (6.7-8.2)
[2018-08-04 23:03] LABS: BAND NEUTROPHILS % (MANUAL) 1 %; DIFFERENTIAL COMMENT MANUAL DIFFERENTIAL; EOSINOPHILS # (MANUAL) 0.2 10^3/uL (0-0.7); LYMPHOCYTES # (MANUAL) 7.8 10^3/uL (1.5-3.5); LYMPHOCYTES % (MANUAL) 38 %; NEUTROPHILS # (MANUAL) 11.1 10^3/uL (1.5-6.6); NEUTROPHILS % (MANUAL) 54 %; PLATELET ESTIMATE, MANUAL NORMAL (130-450,000) (NORMAL); PLATELET MORPHOLOGY NORMAL APPEARANCE (NORMAL); RBC MORPHOLOGY (MULTIPLE) NORMAL APPEARANCE (NORMAL)
[2018-08-04] MEDS ORDERED: HYDROmorphone 1 MG/ML CARPUJECT IVP STA (23:41)
[2018-08-04] MEDS ORDERED: SODIUM CHLORIDE 0.9% 1,000 ML IV STA (23:41)
[2018-08-04] MEDS ORDERED: IOPAMIDOL-300 100 ML VIAL ONE (23:52)
[2018-08-05] MEDS ORDERED: IOPAMIDOL-300 100 ML VIAL IVP ONE (00:19)
--- NOTE | 2018-08-05 00:34 | CT Report ---
Reason: abd. pain Procedure Date: 08/05/2018 Accession Number: [id number] / [id number] Procedure: CT - Abdomen/Pelvis W/ CPT Code: FULL RESULT: EXAM: CT ABDOMEN AND PELVIS EXAM DATE: 08/05/2018 12:21 AM. CLINICAL HISTORY: Abdominal pain COMPARISONS: 08/30/2017 CT. TECHNIQUE: Routine helical CT imaging was performed through the abdomen and pelvis. IV contrast: ISOVUE 300 100mL. Enteric contrast: No. Reconstructions: Coronal and sagittal. In accordance with CT protocol optimization, one or more of the following dose reduction techniques were utilized for this exam: automated exposure control, adjustment of mA and/or KV based on patient size, or use of iterative reconstructive technique. FINDINGS: Lung Bases: Unremarkable. Liver: The liver demonstrates slightly decreased attenuation. No focal lesions. Gallbladder/Bile Ducts: Status post cholecystectomy. No bile duct dilatation. Spleen: Normal. Pancreas: Normal. Adrenal Glands: Normal. Kidneys: Normal. No masses or hydronephrosis. Peritoneal Cavity/Bowel: Normal. No free fluid, free air or adenopathy. No masses or acute inflammatory process. Status post appendectomy. Pelvic Organs: Normal. The bladder and visualized pelvic organs are within normal limits. Vasculature: No aneurysms or other significant abnormality. Bones: No significant abnormality. Other: None. IMPRESSION: 1. No acute process within the abdomen and pelvis. 2. Mild fatty liver infiltration. RADIA
[2018-08-05] MEDS ORDERED: PANTOPRAZOLE 40 MG VIAL IVP STA (00:44)
[2018-08-05] MEDS ORDERED: HYDROmorphone 1 MG/ML CARPUJECT IVP STA (00:44)
[2018-08-05 01:49] VITALS: BP 121/71
--- NOTE | 2018-08-08 17:18 | ED Physician Documentation ---
PD HPI ABD PAIN - Stated complaint Stated Complaint: UPPER ABD PX/SOA/BACK PX - Chief complaint Chief Complaint: Abd Pain - History obtained from History obtained from: Patient - History of Present Illness Timing - onset: Enter time (17:00), Today Timing - duration: Hours Timing - details: Abrupt onset Pain level max: 10 Pain level now: 8 Quality: Pain Location: RUQ, Epigastric, LUQ Radiation: Lower back, Upper back Improved by: No: Eating, Laying still, Vomiting, BM, Position, Meds Worsened by: Palpation Associated symptoms: Nausea, Vomiting. No: Fever Similar symptoms before: Has not had sx before - Additional information Additional information: 6th [facility] ED visit 2018. 23rd [facility] ED visit since 2012. c/o upper abd. pain radiating to back, onset 5 pm after eating dinner tonight. had similar, milder episode yesterday. dyspnea when pain is severe. denies constipation, diarrhea. mild nausea, no vomiting. Review of Systems Constitutional: reports: Reviewed and negative Cardiac: reports: Reviewed and negative Respiratory: reports: Reviewed and negative GI: reports: Abdominal Pain, Nausea. 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 : Kidney stones HEENT: None Psych: Depression, Claustrophobia Musculoskeletal: Chronic back pain Derm: None - Past Surgical History Past Surgical History: Yes General: Cholecystectomy, Appendectomy Ortho: Other - Present Medications Home Medications: Ambulatory Orders Medication Instructions Recorded Confirmed traMADol [Ultram] 50 mg PO DAILY 08/06/15 03/27/18 Melatonin 10 mg PO DAILY 03/27/18 03/27/18 Butalb/Acetaminophen/Caffeine 04/18/18 [Fioricet 50-300-40 mg Capsule] Pregabalin [Lyrica] 75 mg PO TID 08/04/18 08/04/18 - Allergies Allergies/Adverse Reactions: Allergies Allergy/AdvReac Type Severity Reaction Status Date / Time ketorolac tromethamine * Allergy Severe Respiratory Verified 08/04/18 22:09 [From Toradol] cefazolin Allergy Itching Verified 08/04/18 22:09 latex AdvReac Mild Itching Verified 08/04/18 22:09 metoclopramide [From Reglan] AdvReac Cramps Verified 08/04/18 22:09 - Social History Does the pt smoke?: Yes Smoking Status: Current every day smoker Does the pt drink ETOH?: Yes Does the pt have substance abuse?: No - Immunizations Immunizations are current?: No Immunizations: TDAP >10years/unknown - POLST Patient has POLST: No PD ED PE NORMAL - Vitals Vital signs reviewed: Yes - General General: Alert and oriented X 3, No acute distress, Well developed/nourished - Cardiac Cardiac: No murmur - Respiratory Respiratory: No respiratory distress, Clear bilaterally - Abdomen Abdomen: Normal bowel sounds, Soft, Non tender, Non distended, No organomegaly - Back Back: No CVA TTP - Derm Derm: Normal color, Warm and dry, No rash - Extremities Extremities: No edema - Neuro Eye Opening: Spontaneous Motor: Obeys Commands Verbal: Oriented GCS Score: 15 PD ED PE EXPANDED - Cardiac Cardiac: Tachy, Regular Rhythm Results - Vitals Vitals: Oxygen O2 Source Room air - EKG (time done) No standard instances Rate: Rate (enter#) (97) Rhythm: NSR Alexis: Normal Intervals: Normal [place] QRS: Normal Ischemia: Normal ST segments - Labs Labs: Laboratory Tests 08/04/18 08/04/18 08/04/18 22:25 22:25 22:25 WBC 20.1 H RBC 4.64 Hgb 13.5 Hct 41.1 MCV 88.5 MCH 29.2 MCHC 33.0 RDW 13.9 Plt Count 414 MPV 7.5 L Neut # (Auto) Not Reportable Lymph # (Auto) Not Reportable [place] # (Auto) Not Reportable Eos # (Auto) Not Reportable Baso # (Auto) Not Reportable Absolute Nucleated RBC Not Reportable Total Counted 100 Band Neuts % (Manual) 1 Reactive Lymphs % (Man) 1 Abnorm Lymph % (Manual) 0 Nucleated RBC % Not Reportable Neutrophils # (Manual) 11.1 H Lymphocytes # (Manual) 7.8 H Monocytes # (Manual) 1.0 Eosinophils # (Manual) 0.2 Basophils # (Manual) 0.0 Differential Comment MANUAL DIFFERENTIAL Platelet Estimate NORMAL (130-450,000) Platelet Morphology NORMAL APPEARANCE RBC Morph Micro Appear NORMAL APPEARANCE Sodium 138 Potassium 4.2 Chloride 105 Carbon Dioxide 23 Anion Gap 10.0 BUN 12 Creatinine 0.7 Estimated GFR (MDRD) 98 Glucose 117 H Calcium 8.6 Total Bilirubin 0.8 AST 28 ALT 33 Alkaline Phosphatase 71 Troponin I < 0.04 Total Protein 7.2 Albumin 3.6 Globulin 3.6 Albumin/Globulin Ratio 1.0 Lipase 23 Urine Color Urine Clarity Urine pH Ur Specific [place] Urine Protein Urine Glucose (UA) Urine Ketones Urine Occult Blood Urine Nitrite Urine Bilirubin Urine Urobilinogen Ur Leukocyte Esterase Ur Microscopic Review Urine Culture Comments Urine HCG, Qual 08/04/18 22:38 WBC RBC Hgb Hct MCV MCH MCHC RDW Plt Count MPV Neut # (Auto) Lymph # (Auto) [place] # (Auto) Eos # (Auto) Baso # (Auto) Absolute Nucleated RBC Total Counted Band Neuts % (Manual) Reactive Lymphs % (Man) Abnorm Lymph % (Manual) Nucleated RBC % Neutrophils # (Manual) Lymphocytes # (Manual) Monocytes # (Manual) Eosinophils # (Manual) Basophils # (Manual) Differential Comment Platelet Estimate Platelet Morphology RBC Morph Micro Appear Sodium Potassium Chloride Carbon Dioxide Anion Gap BUN Creatinine Estimated GFR (MDRD) Glucose Calcium Total Bilirubin AST ALT Alkaline Phosphatase Troponin I Total Protein Albumin Globulin Albumin/Globulin Ratio Lipase Urine Color YELLOW Urine Clarity CLEAR Urine pH 6.5 Ur Specific [place] 1.015 Urine Protein NEGATIVE Urine Glucose (UA) NEGATIVE Urine Ketones NEGATIVE Urine Occult Blood NEGATIVE Urine Nitrite NEGATIVE Urine Bilirubin NEGATIVE Urine Urobilinogen 0.2 (NORMAL) Ur Leukocyte Esterase NEGATIVE Ur Microscopic Review NOT INDICATED Urine Culture Comments NOT INDICATED Urine HCG, Qual NEGATIVE - Rads (name of study) CT A/P Radiology: Prelim report reviewed, See rad report PD MEDICAL DECISION MAKING - ED course Complexity details: reviewed old records, reviewed results, re-evaluated patient, considered differential, d/w patient ED course: allergies include toradol. already taken tramadol today without relief, does not list morphine as allergy, but says she cannot take it because it makes her agitated (per patient). eventually had adequate relief with two doses of IV dilaudid. also given IV flu ids and protonix signficiant leukocytosis (wbc 20) and thus CT A/P performed; fortunately, no acute findings on this study to suggest cause of leukocytosis and abdominal pain. gastritis/PUD is among diagnoses I would still consider on differential, but no evidence of perforation nor uncontrolled symptoms. will discharge, return if worse, f/u PMD Departure - Departure Disposition: 01 Home, Self Care Clinical Impression: Upper abdominal pain Condition: Good Instructions: ED Abdominal Pain Unkn Cause Follow-Up: SANDHYA VEGA DO [Primary Care Provider] - (Call to arrange for next available appointment) Comments: I recommend that you take either Prilosec or Nexium once per day for two weeks; these are [id number] medications and thus do not need a prescription. Follow the instructions on the label. Discharge Date/Time: 08/05/18 01:05 PDT
== END 2018-08-05 01:05 | disposition home or self-care (01) ==
LOC: ED 22:04
DX: R10.10 Upper abdominal pain, unspecified (principal); K21.9 Gastro-esophageal reflux disease without esophagitis; G89.29 Other chronic pain; M54.9 Dorsalgia, unspecified; F17.200 Nicotine dependence, unspecified, uncomplicated; Z79.891 Long term (current) use of opiate analgesic; Z87.442 Personal history of urinary calculi
CPT/HCPCS: 36415; 74177; 80053; 81003; 81025; 83690; 84484; 85025; 93005; 96361; 96374; 96375; 96376; 99284; J1170; Q9967; 81001; 87086

== ENCOUNTER 2018-08-08 23:25 | Emergency (ER) | payer OTHER ==
[2018-08-09 00:01] LABS: BASOPHILS % (AUTO) 0.9 %; EOSINOPHILS % (AUTO) 1.3 %; HGB - HEMOGLOBIN 13.7 g/dL (12.0-16.0); LYMPHOCYTES % (AUTO) 20.2 %; MEAN CORPUSCULAR HEMOGLOBIN 29.9 pg (27.0-31.0); MEAN CORPUSCULAR VOLUME 87.9 fL (81.0-99.0); MEAN PLATELET VOLUME 6.8 fL (7.9-10.8); MONOCYTES % (AUTO) 5.2 %; NEUTROPHILS % (AUTO) 72.4 %; PLT - PLATELET COUNT 356 10^3/uL (130-450); RED BLOOD COUNT 4.59 10^6/uL (4.20-5.40); RED CELL DISTRIBUTION WIDTH 14.1 % (12.0-15.0); WHITE BLOOD COUNT 21.2 x10^3/uL (4.8-10.8)
[2018-08-09 00:03] LABS: ABNORMAL LYMPHS % (MANUAL) 0 %
[2018-08-09 00:15] LABS: ALBUMIN 3.7 g/dL (3.2-5.5); ALBUMIN/GLOBULIN RATIO 1.1 (1.0-2.2); BILIRUBIN,TOTAL 0.3 mg/dL (0.2-1.0); CALCIUM 8.7 mg/dL (8.5-10.3); CREATININE 0.7 mg/dL (0.4-1.0); TOTAL PROTEIN 7.1 g/dL (6.7-8.2)
[2018-08-09 00:42] LABS: HCG,QUALITATIVE BLOOD NEGATIVE
[2018-08-09] MEDS ORDERED: ONDANSETRON ODT 4 MG TABLET TL STA (00:43)
[2018-08-09 00:44] LABS: BAND NEUTROPHILS % (MANUAL) 3 %; DIFFERENTIAL COMMENT MANUAL DIFFERENTIAL; LYMPHOCYTES # (MANUAL) 4.9 10^3/uL (1.5-3.5); LYMPHOCYTES % (MANUAL) 23 %; MONOCYTES # (MANUAL) 1.1 10^3/uL (0.0-1.0); NEUTROPHILS # (MANUAL) 15.3 10^3/uL (1.5-6.6); NEUTROPHILS % (MANUAL) 69 %; PLATELET ESTIMATE, MANUAL NORMAL (130-450,000) (NORMAL); RBC MORPHOLOGY (MULTIPLE) NORMAL APPEARANCE (NORMAL)
--- NOTE | 2018-08-09 01:21 | ED Physician Documentation ---
History of Present Illness - Stated complaint Stated Complaint: SHORTNESS OF BREATH - Chief complaint Chief Complaint: Resp - Additonal information Additional information: 28-year-old female presents the emergency department with chest pain and shortness of breath which started this evening while at rest. The patient's symptoms have been ongoing for the past 45 minutes. There is no radiation of of the symptoms. Symptoms are described as moderate. The patient also reports epigastric discomfort which is been ongoing for quite some time. The patient also reports bilateral peripheral edema. The patient is scheduled to have a echocardiogram performed as an outpatient. No triggering factors. No relieving factors. No other associated symptoms Review of Systems Constitutional: denies: Fever Eyes: denies: Discharge Ears: denies: Ear pain Nose: denies: Rhinorrhea / runny nose Throat: denies: Sore throat Cardiac: reports: Chest pain / pressure, Pedal edema Respiratory: reports: Dyspnea, Cough. 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 : Kidney stones HEENT: None Psych: Depression, Claustrophobia Musculoskeletal: Chronic back pain Derm: None - Past Surgical History Past Surgical History: Yes General: Cholecystectomy, Appendectomy Ortho: Other - Present Medications Home Medications: Ambulatory Orders Medication Instructions Recorded Confirmed RX: traMADol [Ultram] 50 mg PO DAILY 08/06/15 03/27/18 RX: Melatonin 10 mg PO DAILY 03/27/18 03/27/18 Butalb/Acetaminophen/Caffeine 04/18/18 [Fioricet 50-300-40 mg Capsule] Pregabalin [Lyrica] 75 mg PO TID 08/04/18 08/04/18 RX: Albuterol Sulf [Ventolin Hfa 1 - 2 puffs INH Q4HR PRN #1 inhaler 08/09/18 Inhaler] RX: Doxycycline Hyclate 100 mg PO BID #20 capsule 08/09/18 - Allergies Allergies/Adverse Reactions: Allergies Allergy/AdvReac Type Severity Reaction Status Date / Time ketorolac tromethamine * Allergy Severe Respiratory Verified 08/08/18 23:31 [From Toradol] cefazolin Allergy Itching Verified 08/08/18 23:31 latex AdvReac Mild Itching Verified 08/08/18 23:31 metoclopramide [From Reglan] AdvReac Cramps Verified 08/08/18 23:31 - Social History Does the pt smoke?: Yes Smoking Status: Current every day smoker Does the pt drink ETOH?: Yes Does the pt have substance abuse?: No - Immunizations Immunizations are current?: No Immunizations: TDAP >10years/unknown - POLST Patient has POLST: No PD ED PE NORMAL - General General: Alert and oriented X 3 - HEENT HEENT: Atraumatic, PERRL, EOMI, Ears normal - Neck Neck: Supple, no meningeal sign, No JVD - Cardiac Cardiac: Strong equal pulses, Other (Regular tachycardia) - Respiratory Respiratory: No respiratory distress, Clear bilaterally - Abdomen Abdomen: Soft, Non distended. No: Non tender (The patient has epigastric tenderness, no rebound or peritoneal signs. No tenderness in the lower abdomen) - Back Back: No CVA TTP - Derm Derm: Normal color - Extremities Extremities: No deformity, Normal ROM s pain. No: No edema (The patient has 1+ edema) - Neuro Neuro: Alert and oriented X 3, Normal speech - Psych Psych: Normal affect Results - Vitals Vitals: Vital Signs - 24 hr 08/08/18 08/09/18 08/09/18 23:27 00:02 01:07 Temperature 36.2 C L Heart Rate 116 H 98 84 Respiratory 18 27 H 33 H Rate Blood Pressure 129/78 104/72 114/75 O2 Saturation 98 100 08/09/18 08/09/18 08/09/18 01:50 02:23 02:46 Temperature 36.9 C Heart Rate 91 89 85 Respiratory 26 H 22 25 H Rate Blood Pressure 96/53 L 95/56 L 111/71 O2 Saturation 96 95 08/09/18 08/09/18 03:17 04:01 Temperature Heart Rate 84 83 Respiratory 24 20 Rate Blood Pressure 100/47 L 95/63 O2 Saturation 96 97 Oxygen O2 Source Room air - EKG (time done) No standard instances Rhythm: Sinus tachycardia Quinn: Normal Intervals: Normal [place], QRS normal Ischemia: Normal ST segments - Labs Labs: Laboratory Tests 08/08/18 08/08/1808/08/18 23:50 23:50 23:50 WBC 21.2 H RBC 4.59 Hgb 13.7 Hct 40.3 MCV 87.9 MCH 29.9 MCHC 34.0 RDW 14.1 Plt Count 356 MPV 6.8 L Neut # (Auto) Not Reportable Lymph # (Auto) Not Reportable [place] # (Auto) Not Reportable Eos # (Auto) Not Reportable Baso # (Auto) Not Reportable Absolute Nucleated RBC Not Reportable Total Counted 100 Band Neuts % (Manual) 3 Abnorm Lymph % (Manual) 0 Nucleated RBC % Not Reportable Neutrophils # (Manual) 15.3 H Lymphocytes # (Manual) 4.9 H Monocytes # (Manual) 1.1 H Eosinophils # (Manual) 0.0 Basophils # (Manual) 0.0 Differential Comment MANUAL DIFFERENTIAL Platelet Estimate NORMAL (130-450,000) RBC Morph Micro Appear NORMAL APPEARANCE D-Dimer Sodium 135 Potassium 3.9 Chloride 101 Carbon Dioxide 26 Anion Gap 8.0 BUN 8 Creatinine 0.7 Estimated GFR (MDRD) 98 Glucose 111 H Calcium 8.7 Total Bilirubin 0.3 AST 30 ALT 39 Alkaline Phosphatase 64 Total Creatine Kinase 79 Troponin I < 0.04 B-Natriuretic Peptide Total Protein 7.1 Albumin 3.7 Globulin 3.4 Albumin/Globulin Ratio 1.1 Lipase 20 L Serum HCG, Qual 08/08/18 08/08/18 08/08/18 23:50 23:50 23:50 WBC RBC Hgb Hct MCV MCH MCHC RDW Plt Count MPV Neut # (Auto) Lymph # (Auto) [place] # (Auto) Eos # (Auto) Baso # (Auto) Absolute Nucleated RBC Total Counted Band Neuts % (Manual) Abnorm Lymph % (Manual) Nucleated RBC % Neutrophils # (Manual) Lymphocytes # (Manual) Monocytes # (Manual) Eosinophils # (Manual) Basophils # (Manual) Differential Comment Platelet Estimate RBC Morph Micro Appear D-Dimer < 200.0 L Sodium Potassium Chloride Carbon Dioxide Anion Gap BUN Creatinine Estimated GFR (MDRD) Glucose Calcium Total Bilirubin AST ALT Alkaline Phosphatase Total Creatine Kinase Troponin I B-Natriuretic Peptide 15 Total Protein Albumin Globulin Albumin/Globulin Ratio Lipase Serum HCG, Qual NEGATIVE - Rads (name of study) CTA chest Radiology: Final report received, See rad report (IMPRESSION: 1. No pulmonary emboli seen. 2. Borderline heart size. 3. Suspect mild interstitial infiltrate or edema. 4. Fatty liver. ) CXR Radiology: Final report received, See rad report (IMPRESSION: Normal 2-view c hest radiography. ) CT abd/pelvis from 08/05/2018 Radiology: Final report received, See rad report (1. No acute process within the abdomen and pelvis) PD MEDICAL DECISION MAKING - ED course ED course: On reevaluation the patient is resting comfortably and appears to be in no significant distress. The patient's workup reveals evidence of a pulmonary infiltrate. The patient will be started on a course of oral antibiotics, the patient appears appropriate for ongoing outpatient management. The patient's white blood cell count is elevated in the emergency department today, this may go along with her findings seen on CT scan. On looking back on previous white blood cell counts the patient has had white blood cell counts similar to this in the past. The patient has no findings presently that would necessitate admission to the hospital and the patient appears appropriate for a trial at outpatient management for the pneumonia. I discussed with her the findings and plan. The patient understands and agrees. I discussed with the patient warning signs and recommended returning to the emergency department immediately for any worsening or any concerns. Departure - Departure Disposition: 01 Home, Self Care Clinical Impression: Shortness of breath Pneumonia Qualifiers: Pneumonia type: due to unspecified organism Laterality: unspecified laterality Lung location: unspecified part of lung Qualified Code(s): J18.9 - Pneumonia, unspecified organism Chest pain Qualifiers: Chest pain type: unspecified Qualified Code(s): R07.9 - Chest pain, unspecified Condition: Good Instructions: ED Pneumonia Adult, ED Pneumonia Ch Follow-Up: SANDHYA VEGA DO [Primary Care Provider] - Within 3 Days Prescriptions: RX: Albuterol Sulf [Ventolin Hfa Inhaler] 1 - 2 puffs INH Q4HR PRN #1 inhaler PRN Reason: Shortness Of Air/Wheezing RX: Doxycycline Hyclate 100 mg PO BID #20 capsule Comments: Please follow-up with primary care for further workup and evaluation of your symptoms. Please return to the emergency department for any worsening or any concerns. Discharge Date/Time: 08/09/18 04:09
--- NOTE | 2018-08-09 01:49 | XRAY Report ---
Reason: SOB Procedure Date: 08/09/2018 Accession Number: [id number] / [id number] Procedure: XR - Chest 2 View X-Ray CPT Code: 34652 FULL RESULT: EXAM: CHEST RADIOGRAPHY EXAM DATE: 08/09/2018 12:29 AM. CLINICAL HISTORY: Shortness of breath COMPARISON: None. TECHNIQUE: 2 views. FINDINGS: Lungs/Pleura: No focal opacities evident. No pleural effusion. No pneumothorax. Normal volumes. Mediastinum: Heart and mediastinal contours are unremarkable. Other: None. IMPRESSION: Normal 2-view chest radiography. RADIA
[2018-08-09] MEDS ORDERED: MORPHINE 2 MG/ML CARPUJECT IVP STA (01:55)
[2018-08-09] MEDS ORDERED: PROMETHAZINE INJ 25 MG in SODIUM CHLORIDE 0.9% 50 ML IV STA (01:55)
[2018-08-09] MEDS ORDERED: IOPAMIDOL-300 100 ML VIAL ONE (02:53)
[2018-08-09] MEDS ORDERED: IOPAMIDOL-300 100 ML VIAL IVP ONE (03:17)
--- NOTE | 2018-08-09 03:34 | CT Report ---
Reason: increasing SOA Procedure Date: 08/09/2018 Accession Number: [id number] / [id number] Procedure: CT - Chest Angio (PE) CPT Code: FULL RESULT: EXAM: CT ANGIOGRAM CHEST EXAM DATE: 08/09/2018 03:16 AM. CLINICAL HISTORY: Increasing shortness of breath. COMPARISON: CHEST ANGIO 04/06/2014 8:06 PM. TECHNIQUE: Routine helical imaging was performed through the chest in the pulmonary arterial phase. IV Contrast: ISOVUE 300 80mL. Reconstructions: Coronal 3-D MIP reconstructions.Sagittal and coronal. In accordance with CT protocol optimization, one or more of the following dose reduction techniques were utilized for this exam: automated exposure control, adjustment of mA and/or KV based on patient size, or use of iterative reconstructive technique. FINDINGS: Pulmonary Arteries: Diagnostic quality: Adequate through the segmental arteries. No evidence for acute or chronic pulmonary emboli. No evidence of right heart strain. Lungs/Pleura: Mild interstitial infiltrate or edema suspected. No pleural effusion. No pneumothorax. Mediastinum: Heart size upper normal. No lymphadenopathy seen. Thoracic Aorta: No aneurysm or dissection. Upper Abdomen: Fatty liver. Status post cholecystectomy. Other: None. IMPRESSION: 1. No pulmonary emboli seen. 2. Borderline heart size. 3. Suspect mild interstitial infiltrate or edema. 4. Fatty liver. RADIA
[2018-08-09] MEDS ORDERED: HYDROcod/ACETAM 10 MG/325 MG TABLET PO STA (03:41)
[2018-08-09] MEDS ORDERED: DOXYCYCLINE 100 MG TABLET PO STA (03:42)
[2018-08-09 04:02] VITALS: BP 95/63
== END 2018-08-09 04:09 | disposition home or self-care (01) ==
LOC: ED 23:25
DX: J18.9 Pneumonia, unspecified organism (principal); R07.9 Chest pain, unspecified; R00.0 Tachycardia, unspecified; K21.9 Gastro-esophageal reflux disease without esophagitis; G89.29 Other chronic pain; M54.9 Dorsalgia, unspecified; F17.200 Nicotine dependence, unspecified, uncomplicated; Z79.891 Long term (current) use of opiate analgesic; Z87.442 Personal history of urinary calculi; Z90.49 Acquired absence of other specified parts of digestive tract
CPT/HCPCS: 36415; 71046; 71275; 80053; 82550; 83690; 83880; 84484; 84703; 85025; 85379; 93005; 96365; 96375; 99283; A9270; J7040; Q0162; Q9967; 99284

== ENCOUNTER 2018-08-25 12:43 | Outpatient (CLI) | payer OTHER | END 2018-08-25 12:44 | disposition home or self-care (01) | LOC: DI 12:43 | PROVIDERS: ATTEND Family Medicine | DX: R06.09 Other forms of dyspnea (principal); R60.0 Localized edema | CPT/HCPCS: 93306 ==

== ENCOUNTER 2019-01-02 12:19 | Emergency (ER) | payer OTHER ==
[2019-01-02 12:28] VITALS: BP 123/74
--- NOTE | 2019-01-02 12:58 | ED Physician Documentation ---
PD HPI BACK PAIN - Stated complaint Stated Complaint: BACK PX - Chief complaint Chief Complaint: Back Pain - History obtained from History obtained from: Patient, Family - History of Present Illness Timing - onset: How many days ago (4) Timing - duration: Days (4) Timing - details: Abrupt onset, Still present Location: Lower, Right Quality: Pain, Spasm, Sharp, Similar to prior episodes Associated symptoms: No: Fever, Weakness, Numbness, Incontinent of urine, Unable to urinate, Hematuria, Incontinent of stool Improves with: Rest, Position, Meds Worsened by: Movement Contributing factors: Other (moved a heavy bucket that started the pain and then re-injured yesterday) Similar symptoms before: Diagnosis (sciatica) Recently seen: Not recently seen - Additional information Additional information: 28-year-old female with fibromyalgia and a prior history of sciatica has developed low back pain 4 days ago after lifting a heavy bucket. She had a second injury yesterday and the pain is now much worse. She is barely able to move and has pain radiating down the right leg. Review of Systems Constitutional: denies: Fever Respiratory: denies: Cough GI: denies: Vomiting : denies: Dysuria, Frequency Skin: denies: Rash Musculoskeletal: reports: Back pain, Extremity pain. 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 : Kidney stones HEENT: None Psych: Depression, Claustrophobia Musculoskeletal: Chronic back pain Derm: None - Past Surgical History Past Surgical History: Yes General: Cholecystectomy, Appendectomy Ortho: Other - Present Medications Home Medications: Ambulatory Orders Medication Instructions Recorded Confirmed traMADol [Ultram] 50 mg PO DAILY 08/06/15 03/27/18 Butalb/Acetaminophen/Caffeine 04/18/18 [Fioricet 50-300-40 mg Capsule] Pregabalin [Lyrica] 75 mg PO TID 08/04/18 08/04/18 Albuterol Sulf [Ventolin Hfa 1 - 2 puffs INH Q4HR PRN #1 inhaler 08/09/18 Inhaler] Cyclobenzaprine [Flexeril] 10 mg PO 01/02/19 01/02/19 Hydrocodone/Acetaminophen 1 - 2 each PO Q6H PRN #14 tablet 01/02/19 [Hydrocodon-Acetaminophen 5-325] - Allergies Allergies/Adverse Reactions: Allergies Allergy/AdvReac Type Severity Reaction Status Date / Time ketorolac tromethamine * Allergy Severe Respiratory Verified 01/02/19 12:28 [From Toradol] cefazolin Allergy Itching Verified 01/02/19 12:28 latex AdvReac Mild Itching Verified 01/02/19 12:28 metoclopramide [From Reglan] AdvReac Cramps Verified 01/02/19 12:28 - Social History Does the pt smoke?: Yes Smoking Status: Current every day smoker Does the pt drink ETOH?: Yes Does the pt have substance abuse?: No - Immunizations Immunizations are current?: No Immunizations: TDAP >10years/unknown - POLST Patient has POLST: No PD ED PE NORMAL - Vitals Vital signs reviewed: Yes (tachy ) - General General: Alert and oriented X 3, Well developed/nourished, Other (laying on the left side motionless and appears stiff. ) - HEENT HEENT: Atraumatic, PERRL, EOMI - Respiratory Respiratory: No respiratory distress - Back Back: No CVA TTP, No spinal TTP, Other (There is tenderness to the paraspinous muscles on the right side of the lower lumbar region extending into the sciatic notch on the right side. 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 Departure - Departure Disposition: 01 Home, Self Care Clinical Impression: Sciatica Qualifiers: Laterality: right Qualified Code(s): M54.31 - Sciatica, right side Condition: Stable Instructions: ED Sciatica Follow-Up: SANDHYA VEGA DO [Primary Care Provider] - Prescriptions: Hydrocodone/Acetaminophen [Hydrocodon-Acetaminophen 5-325] 1 - 2 each PO Q6H PRN #14 tablet PRN Reason: pain
[2019-01-02] MEDS: ONDANSETRON ODT 4 MG TABLET TL STA (13:01)
[2019-01-02] MEDS: HYDROmorphone 1 MG/ML CARPUJECT IM STA (13:01)
[2019-01-02] MEDS: DEXAMETHASONE 10 MG/ML VIAL PO STA (13:01)
== END 2019-01-02 13:25 | disposition home or self-care (01) ==
LOC: ED 12:19
DX: M54.31 Sciatica, right side (principal); M79.7 Fibromyalgia; F17.200 Nicotine dependence, unspecified, uncomplicated
CPT/HCPCS: 96372; 99283

== ENCOUNTER 2019-02-04 16:04 | Emergency (ER) | payer OTHER ==
[2019-02-04 16:40] LABS: BASOPHILS # (AUTO) 0.1 10^3/uL (0.0-0.1); BASOPHILS % (AUTO) 0.9 %; EOSINOPHILS # (AUTO) 0.2 10^3/uL (0.0-0.7); EOSINOPHILS % (AUTO) 1.8 %; HGB - HEMOGLOBIN 13.6 g/dL (12.0-16.0); LYMPHOCYTES % (AUTO) 36.3 %; MEAN CORPUSCULAR HEMOGLOBIN 28.9 pg (27.0-31.0); MEAN CORPUSCULAR HGB CONC 32.6 g/dL (32.0-36.0); MEAN CORPUSCULAR VOLUME 88.5 fL (81.0-99.0); MONOCYTES # (AUTO) 0.7 10^3/uL (0.0-1.0); MONOCYTES % (AUTO) 5.2 %; NEUTROPHILS # (AUTO) 7.7 10^3/uL (1.5-6.6); NEUTROPHILS % (AUTO) 55.8 %; PLT - PLATELET COUNT 337 10^3/uL (130-450); RED BLOOD COUNT 4.71 10^6/uL (4.20-5.40); RED CELL DISTRIBUTION WIDTH 14.7 % (12.0-15.0); WHITE BLOOD COUNT 13.8 x10^3/uL (4.8-10.8)
[2019-02-04 16:53] LABS: ALBUMIN 3.7 g/dL (3.2-5.5); ALBUMIN/GLOBULIN RATIO 0.9 (1.0-2.2); ALKALINE PHOSPHATASE 71 IU/L (42-121); ALT ALANINE AMINOTRANSFERASE 45 IU/L (10-60); AST ASPARTATE AMINOTRANSFERASE 31 IU/L (10-42); BILIRUBIN,TOTAL < 0.2 mg/dL (0.2-1.0); BUN - BLOOD UREA NITROGEN 9 mg/dL (6-20); CALCIUM 9.1 mg/dL (8.5-10.3); CARBON DIOXIDE - CO2 21 mmol/L (21-32); CHLORIDE 103 mmol/L (101-111); CREATININE 0.6 mg/dL (0.4-1.0); GFR - MDRD 117 (>89); GLUCOSE 134 mg/dL (70-100); LIPASE 24 U/L (22-51); SODIUM 135 mmol/L (135-145); TOTAL PROTEIN 7.6 g/dL (6.7-8.2)
[2019-02-04 18:32] LABS: BILIRUBIN,URINE NEGATIVE (NEGATIVE); GLUCOSE, URINE (UA) NEGATIVE (NEGATIVE); KETONES,URINE (UA) NEGATIVE (NEGATIVE); LEUKOCYTE ESTERASE, URINE NEGATIVE (NEGATIVE); NITRITE,URINE NEGATIVE (NEGATIVE); OCCULT BLOOD,URINE NEGATIVE (NEGATIVE); PH,URINE 6.5 PH (5.0-7.5); PROTEIN,URINE NEGATIVE (NEGATIVE); UROBILINOGEN,URINE 0.2 (NORMAL) E.U./dL (NORMAL)
[2019-02-04 18:34] LABS: CLARITY,URINE CLEAR (CLEAR)
[2019-02-04 18:35] LABS: HCG UR QUAL NEGATIVE
--- NOTE | 2019-02-04 19:04 | ED Physician Documentation ---
PD HPI ABD PAIN - Stated complaint Stated Complaint: R SIDE PX - Chief complaint Chief Complaint: Abd Pain - History obtained from History obtained from: Patient - History of Present Illness Timing - onset: Other (3 days of epigastric pressure/pain radiating to R back. Increasing. 101 temp 2 days ago, not since. [place] somewhat better this AM and went to work but got worse again. Associated with nausea which is worse today.) Review of Systems Ten Systems: 10 systems reviewed and negative Constitutional: reports: Fever, Chills, Myalgias, Fatigue Nose: denies: Rhinorrhea / runny nose, Congestion Cardiac: denies: Chest pain / pressure, Palpitations Respiratory: reports: Dyspnea, Cough GI: reports: Abdominal Pain, Nausea. 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 : Kidney stones HEENT: None Psych: Depression, Claustrophobia Musculoskeletal: Chronic back pain Derm: None - Past Surgical History Past Surgical History: Yes General: Cholecystectomy, Appendectomy Ortho: Other - Present Medications Home Medications: Ambulatory Orders Medication Instructions Recorded Confirmed RX: traMADol [Ultram] 50 mg PO DAILY 08/06/15 03/27/18 Butalb/Acetaminophen/Caffeine 04/18/18 [Fioricet 50-300-40 mg Capsule] Pregabalin [Lyrica] 75 mg PO TID 08/04/18 08/04/18 RX: Albuterol Sulf [Ventolin Hfa 1 - 2 puffs INH Q4HR PRN #1 inhaler 08/09/18 Inhaler] Cyclobenzaprine [Flexeril] 10 mg PO 01/02/19 01/02/19 Hydrocodone/Acetaminophen 1 - 2 each PO Q6H PRN #14 tablet 01/02/19 [Hydrocodon-Acetaminophen 5-325] Oxycodone HCl/Acetaminophen 1 - 2 each PO Q6H PRN #7 tablet 02/04/19 [Percocet 5-325 mg Tablet] - Allergies Allergies/Adverse Reactions: Allergies Allergy/AdvReac Type Severity Reaction Status Date / Time ketorolac tromethamine * Allergy Severe Respiratory Verified 01/02/19 12:28 [From Toradol] cefazolin Allergy Itching Verified 01/02/19 12:28 latex AdvReac Mild Itching Verified 01/02/19 12:28 metoclopramide [From Reglan] AdvReac Cramps Verified 01/02/19 12:28 - Social History Does the pt smoke?: Yes Smoking Status: Current every day smoker Does the pt drink ETOH?: Yes Does the pt have substance abuse?: No - Family History Family history: reports: Non contributory - Immunizations Immunizations are current?: No Immunizations: TDAP >10years/unknown - POLST Patient has POLST: No PD ED PE NORMAL - Vitals Vital signs reviewed: Yes - General General: Alert and oriented X 3, No acute distress - HEENT HEENT: PERRL, EOMI - Neck Neck: Supple, no meningeal sign, No bony TTP - Cardiac Cardiac: RRR, No murmur - Respiratory Respiratory: No respiratory distress, Clear bilaterally - Abdomen Abdomen: Normal bowel sounds, Soft, Other (Mild RUQ TTP s G/R/M) - Extremities Extremities: No deformity, No tenderness to palpate, No edema, No calf tenderness / cord - Neuro Neuro: Alert and oriented X 3, Normal speech - Psych Psych: Normal mood, Normal affect Results - Vitals Vitals: Vital Signs - 24 hr 02/04/19 02/04/19 02/04/19 16:21 18:17 19:29 Temperature 37 C 36.2 C L Heart Rate 113 H 103 H 86 Respiratory 18 18 14 Rate Blood Pressure 122/70 111/72 100/67 O2 Saturation 99 99 97 02/04/19 20:35 Temperature Heart Rate 66 Respiratory 16 Rate Blood Pressure 100/60 O2 Saturation Oxygen O2 Source Room air - Labs Labs: Laboratory Tests 02/04/19 02/04/19 02/04/19 16:33 16:33 17:00 WBC 13.8 H RBC 4.71 Hgb 13.6 Hct 41.7 MCV 88.5 MCH 28.9 MCHC 32.6 RDW 14.7 Plt Count 337 MPV 7.0 L Neut # (Auto) 7.7 H Lymph # (Auto) 5.0 H [place] # (Auto) 0.7 Eos # (Auto) 0.2 Baso # (Auto) 0.1 Absolute Nucleated RBC 0.01 Nucleated RBC % 0.1 Sodium 135 Potassium 3.5 Chloride 103 Carbon Dioxide 21 Anion Gap 11.0 BUN 9 Creatinine 0.6 Estimated GFR (MDRD) 117 Glucose 134 H Calcium 9.1 Total Bilirubin < 0.2 L AST 31 ALT 45 Alkaline Phosphatase 71 Total Protein 7.6 Albumin 3.7 Globulin 3.9 Albumin/Globulin Ratio 0.9 L Lipase 24 Urine Color YELLOW Urine Clarity CLEAR Urine pH 6.5 Ur Specific [place] 1.015 Urine Protein NEGATIVE Urine Glucose (UA) NEGATIVE Urine Ketones NEGATIVE Urine Occult Blood NEGATIVE Urine Nitrite NEGATIVE Urine Bilirubin NEGATIVE Urine Urobilinogen 0.2 (NORMAL) Ur Leukocyte Esterase NEGATIVE Ur Microscopic Review NOT INDICATED Urine Culture Comments NOT INDICATED Urine HCG, Qual 02/04/19 17:00 WBC RBC Hgb Hct MCV MCH MCHC RDW Plt Count MPV Neut # (Auto) Lymph # (Auto) [place] # (Auto) Eos # (Auto) Baso # (Auto) Absolute Nucleated RBC Nucleated RBC % Sodium Potassium Chloride Carbon Dioxide Anion Gap BUN Creatinine Estimated GFR (MDRD) Glucose Calcium Total Bilirubin AST ALT Alkaline Phosphatase Total Protein Albumin Globulin Albumin/Globulin Ratio Lipase Urine Color Urine Clarity Urine pH Ur Specific [place] 1.015 Urine Protein Urine Glucose (UA) Urine Ketones Urine Occult Blood Urine Nitrite Urine Bilirubin Urine Urobilinogen Ur Leukocyte Esterase Ur Microscopic Review Urine Culture Comments Urine HCG, Qual NEGATIVE PD MEDICAL DECISION MAKING - ED course ED course: 29-year-old woman with epigastric pain radiating around to the right back, some rib tenderness. Review of the chart shows relatively frequent emergency department visits and a lot of CT scans over the years. She had a visit in August of last year which seemed very similar but she says this pain is different. We discussed potentially repeat CT scanning noting that she does not have a gallbladder or appendix. She declined and would like to try some pain medications first. Her lab work is unremarkable (chronic leukocytosis, 13k is good for her) After the administration of pain medication she was feeling better and was nontender on reevaluation. We discussed the options again and she would like a trial of home management and watchful waiting as opposed to another CAT scan which she has had many of. She was advised to return tomorrow if not better, anytime if worsening. Departure - Departure Disposition: 01 Home, Self Care Clinical Impression: Upper abdominal pain Condition: Good Record reviewed to determine appropriate education?: Yes Instructions: Abdominal Pain Prescriptions: Oxycodone HCl/Acetaminophen [Percocet 5-325 mg Tablet] 1 - 2 each PO Q6H PRN #7 tablet PRN Reason: pain Comments: As discussed, given the frequent CAT scans you had in the past I think it is appropriate and in your best interest to rest and give this a little time to see if he gets better or worse. If it gets better, you can follow-up with your physician as needed. If worse return tomorrow for reevaluation. Forms: Activity restrictions Discharge Date/Time: 02/04/19 21:24
[2019-02-04] MEDS ORDERED: ONDANSETRON 4 MG/2 ML VIAL IVP STA (19:06)
[2019-02-04] MEDS ORDERED: SODIUM CHLORIDE 0.9% 1,000 ML IV ONE (19:06)
[2019-02-04] MEDS ORDERED: HYDROmorphone 1 MG/ML CARPUJECT IVP STA ×2 (19:12→20:02)
[2019-02-04 20:36] VITALS: BP 100/60
[2019-02-04] MEDS ORDERED: oxyCODONE/ACET 5/325 Prepack 4 PO STA (20:48)
== END 2019-02-04 21:24 | disposition home or self-care (01) ==
LOC: ED 16:04
DX: R10.10 Upper abdominal pain, unspecified (principal); F17.200 Nicotine dependence, unspecified, uncomplicated
CPT/HCPCS: 36415; 80053; 81003; 81025; 83690; 85025; 96361; 96374; 96375; 96376; 99283; J1170; 81001; 87086

== ENCOUNTER 2019-04-16 14:12 | Emergency (ER) | payer OTHER ==
[2019-04-16 15:06] LABS: BASOPHILS # (AUTO) 0.1 10^3/uL (0.0-0.1); BASOPHILS % (AUTO) 0.4 %; EOSINOPHILS # (AUTO) 0.1 10^3/uL (0.0-0.7); EOSINOPHILS % (AUTO) 0.7 %; LYMPHOCYTES # (AUTO) 4.2 10^3/uL (1.5-3.5); LYMPHOCYTES % (AUTO) 21.8 %; MEAN CORPUSCULAR HEMOGLOBIN 29.7 pg (27.0-31.0); MEAN CORPUSCULAR HGB CONC 33.6 g/dL (32.0-36.0); MEAN CORPUSCULAR VOLUME 88.3 fL (81.0-99.0); MEAN PLATELET VOLUME 8.8 fL (7.9-10.8); MONOCYTES # (AUTO) 0.9 10^3/uL (0.0-1.0); MONOCYTES % (AUTO) 4.7 %; NEUTROPHILS # (AUTO) 13.9 10^3/uL (1.5-6.6); NEUTROPHILS % (AUTO) 71.7 %; PLT - PLATELET COUNT 412 10^3/uL (130-450); RED BLOOD COUNT 5.05 10^6/uL (4.20-5.40); RED CELL DISTRIBUTION WIDTH 13.2 % (12.0-15.0); WHITE BLOOD COUNT 19.3 x10^3/uL (4.8-10.8)
[2019-04-16 15:19] LABS: ALBUMIN 4.2 g/dL (3.2-5.5); ALBUMIN/GLOBULIN RATIO 1.1 (1.0-2.2); BILIRUBIN,TOTAL 0.3 mg/dL (0.2-1.0); CREATININE 0.7 mg/dL (0.4-1.0); TOTAL PROTEIN 8.1 g/dL (6.7-8.2)
[2019-04-16] MEDS ORDERED: SODIUM CHLORIDE 0.9% 1,000 ML IV ONE ×2 (15:43)
[2019-04-16] MEDS ORDERED: MORPHINE 2 MG/ML CARPUJECT IVP STA ×2 (15:43→16:34)
--- NOTE | 2019-04-16 15:45 | ED Physician Documentation ---
History of Present Illness - Stated complaint Stated Complaint: POST OP ABD PX - Chief complaint Chief Complaint: Abd Pain - History obtained from History obtained from: Patient - History of Present Illness Timing: Yesterday Pain level max: 8 Pain level now: 8 - Additonal information Additional information: 29-year-old female with intermittent chronic abdominal pain. States she had a colonoscopy yesterday and then started having more abdominal pain last night accompanied by vomiting. States she has not urinated today. Denies any possibility of . Worse with movement and palpation. Nothing makes it better. No diarrhea. No constipation. Review of Systems Constitutional: denies: Fever, Myalgias Cardiac: denies: Chest pain / pressure Respiratory: denies: Cough, Wheezing GI: reports: Abdominal Pain, Nausea, Vomiting. 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 : Kidney stones HEENT: None Psych: Depression, Claustrophobia Musculoskeletal: Chronic back pain Derm: None - Past Surgical History Past Surgical History: Yes General: Cholecystectomy, Appendectomy Ortho: Other - Present Medications Home Medications: Ambulatory Orders Medication Instructions Recorded Confirmed traMADol [Ultram] 50 mg PO DAILY 08/06/15 03/27/18 Butalb/Acetaminophen/Caffeine 04/18/18 [Fioricet 50-300-40 mg Capsule] Pregabalin [Lyrica] 75 mg PO TID 08/04/18 08/04/18 Albuterol Sulf [Ventolin Hfa 1 - 2 puffs INH Q4HR PRN #1 inhaler 08/09/18 Inhaler] Cyclobenzaprine [Flexeril] 10 mg PO 01/02/19 01/02/19 Hydrocodone/Acetaminophen 1 - 2 each PO Q6H PRN #14 tablet 01/02/19 [Hydrocodon-Acetaminophen 5-325] Oxycodone HCl/Acetaminophen 1 - 2 each PO Q6H PRN #7 tablet 02/04/19 [Percocet 5-325 mg Tablet] Oxycodone HCl/Acetaminophen 1 - 2 each PO Q6H PRN #10 tablet 04/16/19 [Percocet 5-325 mg Tablet] - Allergies Allergies/Adverse Reactions: Allergies Allergy/AdvReac Type Severity Reaction Status Date / Time ketorolac tromethamine * Allergy Severe Respiratory Verified 04/16/19 14:49 [From Toradol] cefazolin Allergy Itching Verified 04/16/19 14:49 latex AdvReac Mild Itching Verified 04/16/19 14:49 metoclopramide [From Reglan] AdvReac Cramps Verified 04/16/19 14:49 - Social History Does the pt smoke?: Yes Smoking Status: Current every day smoker Does the pt drink ETOH?: Yes Does the pt have substance abuse?: No - Immunizations Immunizations are current?: No Immunizations: TDAP >10years/unknown - POLST Patient has POLST: No PD ED PE NORMAL - Vitals Vital signs reviewed: Yes - General General: Alert and oriented X 3, No acute distress, Well developed/nourished - HEENT HEENT: PERRL, Moist mucous membranes - Neck Neck: Supple, no meningeal sign - Cardiac Cardiac: RRR, Strong equal pulses - Respiratory Respiratory: No respiratory distress, Clear bilaterally - Abdomen Abdomen: Soft, Non distended, Other (Tender to palpation left upper quadrant left lower quadrant. No peritoneal signs.) - Back Back: No CVA TTP, No spinal TTP - Derm Derm: Warm and dry - Extremities Extremities: No edema, No calf tenderness / cord - Neuro Neuro: Alert and oriented X 3 - Psych Psych: Normal mood, Normal affect Results - Vitals Vitals: Vital Signs - 24 hr 04/16/19 04/16/19 04/16/19 14:44 16:06 17:47 Temperature 36.6 C Heart Rate 77 78 76 Respiratory 20 16 16 Rate Blood Pressure 109/70 100/67 136/78 H O2 Saturation 97 99 98 Oxygen O2 Source Room air - Labs Labs: Laboratory Tests 04/16/19 04/16/19 04/16/19 15:01 15:01 15:01 WBC 19.3 H RBC 5.05 Hgb 15.0 Hct 44.6 MCV 88.3 MCH 29.7 MCHC 33.6 RDW 13.2 Plt Count 412 MPV 8.8 Neut # (Auto) 13.9 H Lymph # (Auto) 4.2 H [place] # (Auto) 0.9 Eos # (Auto) 0.1 Baso # (Auto) 0.1 Absolute Nucleated RBC 0.00 Nucleated RBC % 0.0 Sodium 138 Potassium 4.0 Chloride 105 Carbon Dioxide 21 Anion Gap 12.0 BUN 11 Creatinine 0.7 Estimated GFR (MDRD) 98 Glucose 97 Calcium 10.0 Total Bilirubin 0.3 AST 39 ALT 57 Alkaline Phosphatase 66 Total Protein 8.1 Albumin 4.2 Globulin 3.9 Albumin/Globulin Ratio 1.1 Lipase 22 Serum HCG, Qual NEGATIVE Urine Color Urine Clarity Urine pH Ur Specific [place] Urine Protein Urine Glucose (UA) Urine Ketones Urine Occult Blood Urine Nitrite Urine Bilirubin Urine Urobilinogen Ur Leukocyte Esterase Ur Microscopic Review Urine Culture Comments Urine HCG, Qual 04/16/19 17:04 WBC RBC Hgb Hct MCV MCH MCHC RDW Plt Count MPV Neut # (Auto) Lymph # (Auto) [place] # (Auto) Eos # (Auto) Baso # (Auto) Absolute Nucleated RBC Nucleated RBC % Sodium Potassium Chloride Carbon Dioxide Anion Gap BUN Creatinine Estimated GFR (MDRD) Glucose Calcium Total Bilirubin AST ALT Alkaline Phosphatase Total Protein Albumin Globulin Albumin/Globulin Ratio Lipase Serum HCG, Qual Urine Color YELLOW Urine Clarity CLEAR Urine pH 7.0 Ur Specific [place] <=1.005 Urine Protein NEGATIVE Urine Glucose (UA) NEGATIVE Urine Ketones NEGATIVE Urine Occult Blood TRACE-LYSE Urine Nitrite NEGATIVE Urine Bilirubin NEGATIVE Urine Urobilinogen 0.2 (NORMAL) Ur Leukocyte Esterase NEGATIVE Ur Microscopic Review NOT INDICATED Urine Culture Comments NOT INDICATED Urine HCG, Qual NEGATIVE - Rads (name of study) CT abdomen pelvis Radiology: Prelim report reviewed, EMP read contemporaneously, See rad report (No free air, free fluid, or acute process identified in the abdomen and pelvis. 2. Colonic diverticulosis without diverticulitis. 3. Stable mild hepatic steatosis. ) PD MEDICAL DECISION MAKING - ED course Complexity details: reviewed results, re-evaluated patient, considered different ial, d/w patient ED course: Patient feels better after IV fluids. No significant acute laboratory abnormalities. She appears to have a chronic leukocytosis on review of her prior labs. Pain well controlled. No acute findings on CT. We will follow-up with her doctor for further care. Patient counseled regarding signs and symptoms for which I believe and urgent re-evaluation would be necessary. Patient with good understanding of and agreement to plan and is comfortable going home at this time This document was made in part using voice recognition software. While efforts are made to proofread this document, sound alike and grammatical errors may occur. Departure - Departure Disposition: 01 Home, Self Care Clinical Impression: Abdominal pain Condition: Good Instructions: ED Abdominal Pain Unkn Cause Follow-Up: SANDHYA VEGA DO [Primary Care Provider] - Within 3 Days Prescriptions: Oxycodone HCl/Acetaminophen [Percocet 5-325 mg Tablet] 1 - 2 each PO Q6H PRN #10 tablet PRN Reason: pain Comments: The cause of your symptoms is unclear. Your laboratory testing and CT scan did not show any abnormalities to explain your symptoms. Return if you worsen. Do not drink alcohol or drive while on narcotic pain medicine. Note that many narcotic pain relievers also contain tylenol/acetaminophen. Please ensure that your total dose of acetaminophen from all sources does not exceed 3 grams (3000mg) per day. You may constipated on this medication, take a stool softener such as "Colace" twice a day while you are on it. Also recommend a azld-ctt-[id number] laxative such as senna or MiraLAX any day that you do not have a bowel movement. If you received narcotic pain medication in the emergency department, do not drive or operate machinery for the next 24 hours. Discharge Date/Time: 04/16/19 17:48
[2019-04-16] MEDS ORDERED: IOVERSOL 320 100 ML VIAL IVP ONE ×2 (15:52→16:57)
[2019-04-16 16:41] LABS: HCG,QUALITATIVE BLOOD NEGATIVE
[2019-04-16 17:20] LABS: BILIRUBIN,URINE NEGATIVE (NEGATIVE); GLUCOSE, URINE (UA) NEGATIVE (NEGATIVE); KETONES,URINE (UA) NEGATIVE (NEGATIVE); LEUKOCYTE ESTERASE, URINE NEGATIVE (NEGATIVE); NITRITE,URINE NEGATIVE (NEGATIVE); OCCULT BLOOD,URINE TRACE-LYSE (NEGATIVE); PROTEIN,URINE NEGATIVE (NEGATIVE); UROBILINOGEN,URINE 0.2 (NORMAL) E.U./dL (NORMAL)
--- NOTE | 2019-04-16 17:20 | CT Report ---
Reason: abd pain s/p colonoscopy Procedure Date: 04/16/2019 Accession Number: [id number] / [id number] Procedure: CT - Abdomen/Pelvis W CPT Code: FULL RESULT: EXAM: CT ABDOMEN AND PELVIS EXAM DATE: 04/16/2019 04:55 PM. CLINICAL HISTORY: Abd pain s/p colonoscopy. COMPARISONS: CT abdomen pelvis 08/05/2018. TECHNIQUE: Routine helical CT imaging was performed through the abdomen and pelvis. IV contrast: 100 cc Optiray 320. Enteric contrast: No. Reconstructions: Coronal and sagittal. In accordance with CT protocol optimization, one or more of the following dose reduction techniques were utilized for this exam: automated exposure control, adjustment of mA and/or KV based on patient size, or use of iterative reconstructive technique. FINDINGS: Lung Bases: Mild dependent change. Liver: Stable mild diffuse steatosis and mild splenomegaly. No focal lesion or irregular capsule. Widely patent portal and hepatic veins. Gallbladder/Bile Ducts: No dilated bile ducts status post cholecystectomy. Spleen: Normal. Pancreas: Unremarkable. Adrenal Glands: No nodule. Kidneys: Unremarkable. No hydronephrosis, mass, or abnormal parenchymal enhancement. Peritoneal Cavity/Bowel: No free fluid, free air, or hematoma. No intestinal dilatation. Colonic diverticulosis without signs of diverticulitis. Status post appendectomy. Retroperitoneum: No mass or adenopathy. Pelvic Organs: Unremarkable bladder. Grossly unremarkable pelvic organs. No adnexal mass/cyst, abnormal fluid collection, or adenopathy. Vasculature: No aneurysm or significant abnormality. Bones: No significant abnormality. IMPRESSION: 1. No free air, free fluid, or acute process identified in the abdomen and pelvis. 2. Colonic diverticulosis without diverticulitis. 3. Stable mild hepatic steatosis. RADIA
[2019-04-16 17:23] LABS: CLARITY,URINE CLEAR (CLEAR); HCG UR QUAL NEGATIVE
[2019-04-16 17:48] VITALS: BP 136/78
== END 2019-04-16 17:48 | disposition home or self-care (01) ==
LOC: ED 14:12
DX: R10.9 Unspecified abdominal pain (principal); F17.200 Nicotine dependence, unspecified, uncomplicated; Z98.890 Other specified postprocedural states
CPT/HCPCS: 36415; 74177; 80053; 81003; 81025; 83690; 84703; 85025; 96361; 96374; 96376; 99284; Q9967; 81001; 87086

== ENCOUNTER 2019-06-27 20:26 | Emergency (ER) | payer OTHER ==
[2019-06-27] MEDS ORDERED: HYDROcod/ACETAM 5/325 MG TABLET PO STA (20:49)
--- NOTE | 2019-06-27 20:52 | ED Physician Documentation ---
PD HPI LOWER EXT INJURY - Stated complaint Stated Complaint: LEFT KNEE - Chief complaint Chief Complaint: Ext Problem - History obtained from History obtained from: Patient - History of Present Illness PD HPI LOW EXT INJURY LOCATION: Left (Tripped and fell landing on her knee earlier today. Has moderate anterior and lateral knee pain radiating up to the hip. 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 : Kidney stones HEENT: None Psych: Depression, Claustrophobia Musculoskeletal: Chronic back pain Derm: None - Past Surgical History Past Surgical History: Yes General: Cholecystectomy, Appendectomy Ortho: Other - Present Medications Home Medications: Ambulatory Orders Medication Instructions Recorded Confirmed traMADol [Ultram] 50 mg PO DAILY 08/06/15 03/27/18 Butalb/Acetaminophen/Caffeine 04/18/18 [Fioricet 50-300-40 mg Capsule] Pregabalin [Lyrica] 75 mg PO TID 08/04/18 08/04/18 Albuterol Sulf [Ventolin Hfa 1 - 2 puffs INH Q4HR PRN #1 inhaler 08/09/18 Inhaler] Cyclobenzaprine [Flexeril] 10 mg PO 01/02/19 01/02/19 Hydrocodone/Acetaminophen 1 - 2 each PO Q6H PRN #14 tablet 01/02/19 [Hydrocodon-Acetaminophen 5-325] Oxycodone HCl/Acetaminophen 1 - 2 each PO Q6H PRN #7 tablet 02/04/19 [Percocet 5-325 mg Tablet] Oxycodone HCl/Acetaminophen 1 - 2 each PO Q6H PRN #10 tablet 04/16/19 [Percocet 5-325 mg Tablet] - Allergies Allergies/Adverse Reactions: Allergies Allergy/AdvReac Type Severity Reaction Status Date / Time ketorolac tromethamine * Allergy Severe Respiratory Verified 06/27/19 20:32 [From Toradol] cefazolin Allergy Itching Verified 06/27/19 20:32 latex AdvReac Mild Itching Verified 06/27/19 20:32 metoclopramide [From Reglan] AdvReac Cramps Verified 06/27/19 20:32 - Social History Does the pt smoke?: Yes Smoking Status: Current every day smoker Does the pt drink ETOH?: Yes Does the pt have substance abuse?: No - Immunizations Immunizations are current?: No Immunizations: TDAP >10years/unknown - POLST Patient has POLST: No PD ED PE NORMAL - Vitals Vital signs reviewed: Yes - General General: Alert and oriented X 3, No acute distress - Extremities Extremities: Other (There is an abrasion that is shallow just inferior to the left patella with some tibial plateau tenderness more so than the patella. Lateral joint line is mildly tender, the medial joint line and posteriorly are not. There is no deformity or effusion. ACL, LCL, MCL, PCL and testing are intact. Negative grind testing except she does have pain rating up to the hip with grind testing. She has mild pain of the lateral hip with internal and external rotation and she is tender over the greater trochanter without deformity.) - Neuro Neuro: Alert and oriented X 3, Normal speech Results - Vitals Vitals: Vital Signs - 24 hr 06/27/19 06/27/19 20:33 21:40 Temperature 36.6 C Heart Rate 79 74 Respiratory 16 12 Rate Blood Pressure 110/78 114/78 O2 Saturation 99 99 Oxygen O2 Source Room air - Rads (name of study) XR L hip and KNee Radiology: EMP read contemporaneously (neg) Departure - Departure Disposition: 01 Home, Self Care Clinical Impression: Abrasion, left knee, initial encounter Contusion of left knee Qualifiers: Encounter type: initial encounter Qualified Code(s): S80.02XA - Contusion of left knee, initial encounter Sprain of left hip Qualifiers: Encounter type: initial encounter Qualified Code(s): S73.102A - Unspecified sprain of left hip, initial encounter Condition: Good Record reviewed to determine appropriate education?: Yes Instructions: ED Sprain Knee Comments: Tylenol as needed for the pain, return for new worsening symptoms. You can take the hydrocodone, 1 every 6 hours as needed for severe pain. Do not drink or drive with that. Discharge Date/Time: 06/27/19 21:41
[2019-06-27] MEDS ORDERED: ONDANSETRON ODT 4 MG Prepack 2 TL STA (21:29)
[2019-06-27] MEDS ORDERED: HYDROcod/ACET 5/325 Prepack 4 PO STA (21:29)
[2019-06-27] MEDS ORDERED: ONDANSETRON ODT 4 MG TABLET TL STA (21:29)
[2019-06-27 21:41] VITALS: BP 114/78
--- NOTE | 2019-06-27 22:01 | XRAY Report ---
Reason: hip inj Procedure Date: 06/27/2019 Accession Number: [id number] / [id number] Procedure: XR - Hip w/Pelvis 2-3V LT CPT Code: FULL RESULT: EXAM: LEFT HIP RADIOGRAPHY EXAM DATE: 06/27/2019 09:25 PM. CLINICAL HISTORY: Left hip pain after ground level fall today. COMPARISON: None. TECHNIQUE: 2 views. FINDINGS: Bones: Normal. No fractures or bone lesion. Joints: Normal. No dislocation. The hip joint space is preserved. Soft Tissues: Normal. No soft tissue swelling. IMPRESSION: Normal hip radiography. RADIA
--- NOTE | 2019-06-27 22:02 | XRAY Report ---
Reason: knee inj Procedure Date: 06/27/2019 Accession Number: [id number] / [id number] Procedure: XR - Knee 4 View LT CPT Code: FULL RESULT: EXAM: LEFT KNEE RADIOGRAPHY. EXAM DATE: 06/27/2019 09:25 PM. CLINICAL HISTORY: Knee injury. COMPARISON: None. TECHNIQUE: 4 views. FINDINGS: Bones: Normal. No fractures or bone lesions. Joints: Normal. No effusion. No subluxations. Soft Tissues: Normal. No soft tissue swelling. IMPRESSION: Normal knee radiography. RADIA
== END 2019-06-27 21:41 | disposition home or self-care (01) ==
LOC: ED 20:26
DX: S73.102A Unspecified sprain of left hip, initial encounter (principal); S80.212A Abrasion, left knee, initial encounter; S80.02XA Contusion of left knee, initial encounter; W01.0XXA Fall on same level from slipping, tripping and stumbling without subsequent striking against object, initial encounter; F17.200 Nicotine dependence, unspecified, uncomplicated
CPT/HCPCS: 73502; 73564; 99282; 99284; A9270; Q0162

== ENCOUNTER 2019-10-30 10:15 | Outpatient (CLI) | payer OTHER | END 2019-10-30 10:16 | disposition critical access hospital (66) | LOC: EMS 10:15 | PROVIDERS: ATTEND Surgery | DX: R11.2 Nausea with vomiting, unspecified (principal); R42 Dizziness and giddiness | CPT/HCPCS: A0425; A0427 ==

== ENCOUNTER 2019-10-30 10:24 | Emergency (ER) | payer OTHER ==
--- NOTE | 2019-10-30 11:53 | ED Physician Documentation ---
PD HPI NVD - Stated complaint Stated Complaint: N/V - Chief complaint Chief Complaint: Abd Pain - History obtained from History obtained from: Patient, EMS - History of Present Illness Timing - onset: Today (this morning) Timing - duration: Hours Timing - details: Abrupt onset, Still present Associated symptoms: Loss of appetite. No: Fever, Abdominal pain (cramping intermittent, not continuous), Hematemesis, Near syncope / syncope Contributing factors: No: Sick contact, Bad food, Travel, Recent antibiotics Similar symptoms before: Has not had sx before Recently seen: Not recently seen Review of Systems Constitutional: reports: Myalgias (chronic due to FM and worse today). denies: Fever, Chills Nose: denies: Rhinorrhea / runny nose, Congestion Throat: denies: Sore throat Respiratory: denies: Cough GI: reports: Nausea, Vomiting. denies: Abdominal Swelling, Diarrhea : denies: Dysuria, Frequency Neurologic: denies: Altered mental status, Headache PD PAST MEDICAL HISTORY - Past Medical History Cardiovascular: None Respiratory: None Neuro: Migraines Endocrine/Autoimmune: None GI: GERD LAND AGENT: None : Kidney stones HEENT: None Psych: Depression, Claustrophobia Musculoskeletal: Fibromyalgia, Chronic back pain Derm: None - Past Surgical History Past Surgical History: Yes General: Cholecystectomy, Appendectomy Ortho: Other - Present Medications Home Medications: Ambulatory Orders Medication Instructions Recorded Confirmed traMADol [Ultram] 50 mg PO DAILY 08/06/15 03/27/18 Butalb/Acetaminophen/Caffeine 04/18/18 [Fioricet 50-300-40 mg Capsule] Pregabalin [Lyrica] 75 mg PO TID 08/04/18 08/04/18 Albuterol Sulf [Ventolin Hfa 1 - 2 puffs INH Q4HR PRN #1 inhaler 08/09/18 Inhaler] Cyclobenzaprine [Flexeril] 10 mg PO 01/02/19 01/02/19 Hydrocodone/Acetaminophen 1 - 2 each PO Q6H PRN #14 tablet 01/02/19 [Hydrocodon-Acetaminophen 5-325] Oxycodone HCl/Acetaminophen 1 - 2 each PO Q6H PRN #7 tablet 02/04/19 [Percocet 5-325 mg Tablet] Oxycodone HCl/Acetaminophen 1 - 2 each PO Q6H PRN #10 tablet 04/16/19 [Percocet 5-325 mg Tablet] Hydrocodone/Acetaminophen [[place] 1 each PO Q6H PRN #15 tablet 10/30/19 5-325 Tablet] Promethazine [Phenergan] 25 mg PO Q6H PRN #10 tab 10/30/19 - Allergies Allergies/Adverse Reactions: Allergies Allergy/AdvReac Type Severity Reaction Status Date / Time ketorolac tromethamine * Allergy Severe Respiratory Verified 10/30/19 10:36 [From Toradol] cefazolin Allergy Itching Verified 10/30/19 10:36 latex AdvReac Mild Itching Verified 10/30/19 10:36 metoclopramide [From Reglan] AdvReac Cramps Verified 10/30/19 10:36 - Social History Does the pt smoke?: Yes Smoking Status: Current every day smoker Does the pt drink ETOH?: Yes Does the pt have substance abuse?: No - Immunizations Immunizations are current?: No Immunizations: TDAP >10years/unknown - POLST Patient has POLST: No PD ED PE NORMAL - Vitals Vital signs reviewed: Yes - General General: Alert and oriented X 3, Well developed/nourished, Other (holding emesis bag) - HEENT HEENT: Moist mucous membranes, Pharynx benign - Neck Neck: Supple, no meningeal sign, No adenopathy - Cardiac Cardiac: RRR, No murmur - Respiratory Respiratory: Clear bilaterally - Abdomen Abdomen: Soft, Non tender, Non distended, No organomegaly. No: Normal bowel sounds (hyperactive diffusely) - Back Back: No CVA TTP - Derm Derm: Normal color, Warm and dry - Extremities Extremities: No tenderness to palpate, Normal ROM s pain - Neuro Neuro: Alert and oriented X 3, No motor deficit, Normal speech Results - Vitals Vitals: Vital Signs - 24 hr 10/30/19 10/30/19 10/30/19 10:30 15:11 15:26 Temperature 36.8 C 37 C Heart Rate 70 68 76 Respiratory 14 12 14 Rate Blood Pressure 117/72 108/76 117/76 O2 Saturation 98 96 100 Oxygen O2 Source Room air - Labs Labs: Laboratory Tests 10/30/19 10/30/19 10/30/19 12:13 12:13 12:48 WBC 10.2 RBC 4.83 Hgb 14.0 Hct 42.3 MCV 87.6 MCH 29.0 MCHC 33.1 RDW 13.2 Plt Count 329 MPV 9.0 Neut # (Auto) 6.0 Lymph # (Auto) 3.3 [place] # (Auto) 0.7 Eos # (Auto) 0.1 Baso # (Auto) 0.1 Absolute Nucleated RBC 0.00 Nucleated RBC % 0.0 ESR Sodium Potassium Chloride Carbon Dioxide Anion Gap BUN Creatinine Estimated GFR (MDRD) Glucose Calcium Magnesium Total Bilirubin AST ALT Alkaline Phosphatase Total Protein Albumin Globulin Albumin/Globulin Ratio Lipase Urine Color YELLOW Urine Clarity CLEAR Urine pH 8.0 H Ur Specific [place] 1.010 1.010 Urine Protein NEGATIVE Urine Glucose (UA) NEGATIVE Urine Ketones NEGATIVE Urine Occult Blood NEGATIVE Urine Nitrite NEGATIVE Urine Bilirubin NEGATIVE Urine Urobilinogen 0.2 (NORMAL) Ur Leukocyte Esterase NEGATIVE Ur Microscopic Review NOT INDICATED Urine Culture Comments NOT INDICATED Urine HCG, Qual NEGATIVE Influenza A (Rapid) Influenza B (Rapid) 10/30/19 10/30/19 10/30/19 12:48 12:48 13:20 WBC RBC Hgb Hct MCV MCH MCHC RDW Plt Count MPV Neut # (Auto) Lymph # (Auto) [place] # (Auto) Eos # (Auto) Baso # (Auto) Absolute Nucleated RBC Nucleated RBC % ESR 16 Sodium 137 Potassium 4.3 Chloride 105 Carbon Dioxide 24 Anion Gap 8.0 BUN 8 Creatinine 0.7 Estimated GFR (MDRD) 98 Glucose 93 Calcium 8.8 Magnesium 2.1 Total Bilirubin 0.5 AST 21 ALT 31 Alkaline Phosphatase 59 Total Protein 7.2 Albumin 3.6 Globulin 3.6 Albumin/Globulin Ratio 1.0 Lipase 22 Urine Color Urine Clarity Urine pH Ur Specific [place] Urine Protein Urine Glucose (UA) Urine Ketones Urine Occult Blood Urine Nitrite Urine Bilirubin Urine Urobilinogen Ur Leukocyte Esterase Ur Microscopic Review Urine Culture Comments Urine HCG, Qual Influenza A (Rapid) Negative Influenza B (Rapid) Negative PD MEDICAL DECISION MAKING - ED course Complexity details: considered differential (had pain here mainly from low back and muscles c/w her fibromyalgia. Not abd pain itself. Nausea improved with Phenergan. Able to take PO liquids and crackers afterward. Abdomen without any focal tenderness and abrupt onset with the nausea vomiting and some loose stool seems more consistent with a viral GE.), d/w patient Departure - Departure Disposition: 01 Home, Self Care Clinical Impression: Nausea & vomiting Qualifiers: Vomiting type: unspecified Vomiting Intractability: non-intractable Qualified Code(s): R11.2 - Nausea with vomiting, unspecified Abdominal pain Qualifiers: Abdominal location: generalized Qualified Code(s): R10.84 - Generalized abdominal pain Condition: Stable Record reviewed to determine appropriate education?: Yes Instructions: ED Nausea Vomiting Follow-Up: SANDHYA VEGA DO [Primary Care Provider] - Prescriptions: Hydrocodone/Acetaminophen [[place] 5-325 Tablet] 1 each PO Q6H PRN #15 tablet PRN Reason: Pain Promethazine [Phenergan] 25 mg PO Q6H PRN #10 tab PRN Reason: Nausea / Vomiting Comments: Small frequent fluids. Promethazine if needed for nausea. Add Tylenol or hydrocodone if needed for cramps and pains. This sounds likely to be a viral illness and as such I would anticipate just being ill for 2 or 3 days. Recheck if not improved during that timeframe and return sooner if worsening symptoms overall. Discharge Date/Time: 10/30/19 15:35
[2019-10-30] MEDS ORDERED: PROMETHAZINE INJ 25 MG in SODIUM CHLORIDE 0.9% 50 ML IV STA ×2 (12:07→14:27)
[2019-10-30] MEDS ORDERED: SODIUM CHLORIDE 0.9% 1,000 ML IV ONE (12:07)
[2019-10-30 12:50] LABS: BILIRUBIN,URINE NEGATIVE (NEGATIVE); GLUCOSE, URINE (UA) NEGATIVE (NEGATIVE); KETONES,URINE (UA) NEGATIVE (NEGATIVE); LEUKOCYTE ESTERASE, URINE NEGATIVE (NEGATIVE); NITRITE,URINE NEGATIVE (NEGATIVE); OCCULT BLOOD,URINE NEGATIVE (NEGATIVE); PROTEIN,URINE NEGATIVE (NEGATIVE); UROBILINOGEN,URINE 0.2 (NORMAL) E.U./dL (NORMAL)
[2019-10-30 12:51] LABS: CLARITY,URINE CLEAR (CLEAR)
[2019-10-30 12:53] LABS: HCG UR QUAL NEGATIVE
[2019-10-30 13:11] LABS: BASOPHILS # (AUTO) 0.1 10^3/uL (0.0-0.1); BASOPHILS % (AUTO) 0.5 %; EOSINOPHILS # (AUTO) 0.1 10^3/uL (0.0-0.7); EOSINOPHILS % (AUTO) 1.1 %; LYMPHOCYTES # (AUTO) 3.3 10^3/uL (1.5-3.5); LYMPHOCYTES % (AUTO) 32.7 %; MEAN CORPUSCULAR HGB CONC 33.1 g/dL (32.0-36.0); MEAN CORPUSCULAR VOLUME 87.6 fL (81.0-99.0); MONOCYTES # (AUTO) 0.7 10^3/uL (0.0-1.0); MONOCYTES % (AUTO) 6.9 %; NEUTROPHILS % (AUTO) 58.4 %; PLT - PLATELET COUNT 329 10^3/uL (130-450); RED BLOOD COUNT 4.83 10^6/uL (4.20-5.40); RED CELL DISTRIBUTION WIDTH 13.2 % (12.0-15.0); WHITE BLOOD COUNT 10.2 x10^3/uL (4.8-10.8)
[2019-10-30] MEDS ORDERED: HYDROmorphone 1 MG/ML CARPUJECT IVP STA ×2 (13:18→14:27)
[2019-10-30 13:30] LABS: ALBUMIN 3.6 g/dL (3.2-5.5); BILIRUBIN,TOTAL 0.5 mg/dL (0.2-1.0); CALCIUM 8.8 mg/dL (8.5-10.3); CREATININE 0.7 mg/dL (0.4-1.0); MAGNESIUM 2.1 mg/dL (1.7-2.8); TOTAL PROTEIN 7.2 g/dL (6.7-8.2)
[2019-10-30 15:27] VITALS: BP 117/76
== END 2019-10-30 15:35 | disposition home or self-care (01) ==
LOC: EDUNIT# → ED 10:24
DX: R11.2 Nausea with vomiting, unspecified (principal); R10.84 Generalized abdominal pain; M79.7 Fibromyalgia; F17.200 Nicotine dependence, unspecified, uncomplicated
CPT/HCPCS: 36415; 80053; 81003; 81025; 83690; 83735; 85025; 85651; 87275; 87276; 96361; 96365; 96375; 96376; 99284; J1170; J7040; 81001; 87086

== ENCOUNTER 2020-02-11 07:57 | Emergency (ER) | payer OTHER ==
--- NOTE | 2020-02-11 08:24 | ED Physician Documentation ---
PD HPI BACK PAIN - Stated complaint Stated Complaint: FLANK PX - Chief complaint Chief Complaint: Back Pain - History obtained from History obtained from: Patient - History of Present Illness Timing - onset: Last night Timing - duration: Hours Timing - details: Abrupt onset, Still present Location: Mid, Right Quality: Pain, Spasm, Sharp Associated symptoms: No: Fever, Weakness, Numbness, Incontinent of urine, Unable to urinate, Hematuria, Incontinent of stool Improves with: Meds Worsened by: Other (nothing) Contributing factors: No: Lifting, Twisting Similar symptoms before: Diagnosis (kidney stone, chronic back pain) Recently seen: Not recently seen - Additional information Additional information: 30-year-old female with a history of irritable bowel and fibromyalgia with chronic back pain has developed some pain in her right flank abruptly last night peaking at a 10. She did get some relief with use of some Valium but has persistence of the pain and comes in today with unmodifiable pain. She states pain is always there does not seem to get worse with movement, breathing or palpation. Review of Systems Constitutional: denies: Fever, Chills, Myalgias Eyes: denies: Decreased vision Nose: denies: Congestion Throat: denies: Sore throat Cardiac: denies: Chest pain / pressure Respiratory: denies: Dyspnea, Cough GI: reports: Abdominal Pain, Nausea. denies: Vomiting, Constipation, Diarrhea : denies: Dysuria, Frequency, Hematuria Skin: denies: Rash Musculoskeletal: reports: Back pain. 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 : Kidney stones HEENT: None Psych: Depression, Claustrophobia Musculoskeletal: Fibromyalgia, Chronic back pain Derm: None Other Past Medical History: IBS - Past Surgical History Past Surgical History: Yes General: Cholecystectomy, Appendectomy Ortho: Other - Present Medications Home Medications: Ambulatory Orders Medication Instructions Recorded Confirmed traMADol [Ultram] 50 mg PO BID 08/06/15 02/11/20 Diazepam [Valium] 10 mg PO DAILY PRN 02/11/20 02/11/20 Dicyclomine HCl 20 mg PO BID PRN 02/11/20 02/11/20 Doxycycline Hyclate 100 mg PO DAILY PRN 02/11/20 02/11/20 Ibuprofen 800 mg PO BID PRN 02/11/20 02/11/20 Ondansetron Odt [Zofran] 4 mg TL Q6H PRN #10 tablet 02/11/20 Oxycodone HCl/Acetaminophen 1 - 2 each PO Q6H PRN #14 tablet 02/11/20 [Percocet 5-325 mg Tablet] buPROPion [Wellbutrin Sr] 150 mg ORAL DAILY 02/11/20 02/11/20 - Allergies Allergies/Adverse Reactions: Allergies Allergy/AdvReac Type Severity Reaction Status Date / Time ketorolac tromethamine * Allergy Severe Respiratory Verified 02/11/20 08:00 [From Toradol] cefazolin Allergy Itching Verified 02/11/20 08:00 latex AdvReac Mild Itching Verified 02/11/20 08:00 metoclopramide [From Reglan] AdvReac Cramps Verified 02/11/20 08:00 - Social History Does the pt smoke?: Yes Smoking Status: Current every day smoker Does the pt drink ETOH?: Yes Does the pt have substance abuse?: No - Immunizations Immunizations are current?: No Immunizations: TDAP >10years/unknown - POLST Patient has POLST: No PD ED PE NORMAL - Vitals Vital signs reviewed: Yes (normal ) - General General: Alert and oriented X 3, No acute distress, Well developed/nourished - HEENT HEENT: Atraumatic, PERRL, EOMI - Neck Neck: Supple, no meningeal sign - Cardiac Cardiac: RRR, No murmur - Respiratory Respiratory: No respiratory distress, Clear bilaterally - Abdomen Abdomen: Normal bowel sounds, Soft, Non tender, Non distended, No organomegaly - Back Back: No spinal TTP, Other (mild right flank tenderness) - Derm Derm: Normal color, Warm and dry, No rash - Extremities Extremities: No deformity, No edema, No calf tenderness / cord - Neuro Neuro: Alert and oriented X 3, mortgage analyst 2-12 intact, No motor deficit, No sensory deficit, Normal speech Eye Opening: Spontaneous Motor: Obeys Commands Verbal: Oriented GCS Score: 15 - Psych Psych: Normal mood, Normal affect Results - Vitals Vitals: Vital Signs - 24 hr 02/11/20 02/11/20 02/11/20 08:00 08:32 10:52 Temperature 36.4 C L 36.2 C L Heart Rate 82 64 58 L Respiratory 16 18 16 Rate Blood Pressure 110/78 99/68 89/65 L O2 Saturation 97 96 96 Oxygen O2 Source Room air - Labs Labs: Laboratory Tests 02/11/20 08:40 Urine Color YELLOW Urine Clarity SL. CLOUDY Urine pH 6.0 Ur Specific [place] >=1.030 H Urine Protein 30 H Urine Glucose (UA) NEGATIVE Urine Ketones NEGATIVE Urine Occult Blood NEGATIVE Urine Nitrite NEGATIVE Urine Bilirubin NEGATIVE Urine Urobilinogen 0.2 (NORMAL) Ur Leukocyte Esterase NEGATIVE Urine RBC 0-5 Urine WBC 4-5 Ur Squamous Epith Cells MANY Squamous H Urine Bacteria Few Urine Mucus Moderate Strands Ur Microscopic Review INDICATED Urine Culture Comments NOT INDICATED Urine HCG, Qual NEGATIVE - Rads (name of study) CT ab/pel w/o Radiology: Prelim report reviewed (Impression: 1. Right kidney and collecting system: No urinary tract stones or obstruction. 2 left kidney and collecting system: No urinary tract stones or obstruction. 3 fatty liver. No mass or intrahepatic bile duct dilation. 4 Gallbladder surgically absent. Normal common bile duct. 5 diverticulosis. Postoperative changes of the cecum without with previous appendectomy. No obstruction or acute inflammatory changes. I ), EMP read indepedently, See rad report PD MEDICAL DECISION MAKING - ED course Complexity details: reviewed old records, reviewed results, re-evaluated patient, considered differential, d/w patient ED course: 30-year-old female with right flank pain does not appear modifiable has some improvement with use of intravenous Dilaudid. She has no evidence of urinary pathology to account for the flank pain. She has no explanation for an injury to the area or strain of the area. We will treat for flank pain of uncertain etiology. Departure - Departure Disposition: 01 Home, Self Care Clinical Impression: Flank pain Condition: Stable Instructions: ED Flank Pain Uncertain Cause Follow-Up: SANDHYA VEGA DO [Primary Care Provider] - Prescriptions: Ondansetron Odt [Zofran] 4 mg TL Q6H PRN #10 tablet PRN Reason: Nausea / Vomiting Oxycodone HCl/Acetaminophen [Percocet 5-325 mg Tablet] 1 - 2 each PO Q6H PRN #14 tablet PRN Reason: pain Discharge Date/Time: 02/11/20 11:26
[2020-02-11] MEDS: ONDANSETRON ODT 4 MG TABLET TL STA (08:30)
[2020-02-11] MEDS: HYDROmorphone 1 MG/ML CARPUJECT IM STA (08:31)
[2020-02-11 08:57] LABS: GLUCOSE, URINE (UA) NEGATIVE (NEGATIVE); KETONES,URINE (UA) NEGATIVE (NEGATIVE); LEUKOCYTE ESTERASE, URINE NEGATIVE (NEGATIVE); NITRITE,URINE NEGATIVE (NEGATIVE); OCCULT BLOOD,URINE NEGATIVE (NEGATIVE); PROTEIN,URINE 30 mg/dL (NEGATIVE); UROBILINOGEN,URINE 0.2 (NORMAL) E.U./dL (NORMAL)
[2020-02-11 09:17] LABS: CLARITY,URINE SL. CLOUDY (CLEAR)
[2020-02-11 09:18] LABS: BILIRUBIN,URINE NEGATIVE (NEGATIVE); HCG UR QUAL NEGATIVE; ICTOTEST,URINE NEGATIVE
[2020-02-11 09:21] LABS: BACTERIA,URINE Few /HPF (None Seen); MUCUS,URINE Moderate Strands; RBC,URINE 0-5 /HPF (0-5); SQUAMOUS EPITHELIAL CELL,UR MANY Squamous (<= Few)
--- NOTE | 2020-02-11 09:59 | CT Report ---
Reason: R flank pain Procedure Date: 02/11/2020 Accession Number: [id number] / [id number] Procedure: CT - Abdomen/Pelvis WO CPT Code: Final Report FULL RESULT: EXAM: CT ABDOMEN AND PELVIS (CT KUB) EXAM DATE: 02/11/2020 09:35 AM. CLINICAL HISTORY: Right flank pain. COMPARISONS: ABDOMEN/PELVIS W/ 04/16/2019 4:53 PM. TECHNIQUE: Routine axial helical CT imaging was performed through the abdomen and pelvis without IV contrast. Reconstructions: Coronal and sagittal. In accordance with CT protocol optimization, one or more of the following dose reduction techniques were utilized for this exam: automated exposure control, adjustment of mA and/or KV based on patient size, or use of iterative reconstructive technique. FINDINGS: Lung Bases: Mild dependent atelectasis is noted. Right Kidney/Ureter: No stones, hydronephrosis, or hydroureter. No perinephric fat stranding. Left Kidney/Ureter: No stones, hydronephrosis, or hydroureter. No perinephric fat stranding. Other Solid Organs: Fatty liver. No mass or intrahepatic bile duct dilation. Gallbladder is surgically absent. Normal caliber common bile duct. Normal pancreas, adrenal glands and spleen. Gallbladder/Bile Ducts: Unremarkable. Peritoneal Cavity: No free fluid, free air or petros adenopathy. Bowel is grossly unremarkable. Postoperative changes are noted at the level of the cecum with the appendix also absent. Scattered colonic diverticula are noted. No obvious inflammatory changes in the large or small bowel. No dilated bowel is present. No inguinal or umbilical hernia is noted. Pelvic Organs: 1.7 cm low density right ovarian cyst is incompletely evaluated on image 3, 122. No bladder stones or wall thickening. Otherwise the noncontrast images of the visualized pelvic organs are unremarkable. Vasculature: Unremarkable. Other: None. IMPRESSION: 1. Right kidney and collecting system: -No urinary tract stones or obstruction. 2. Left kidney and collecting system: -No urinary tract stones or obstruction. 3. Fatty liver. No mass or intrahepatic bile duct dilation. 4. Gallbladder surgically absent. Normal common bile duct. 5. Diverticulosis. Postoperative changes in the cecum with previous appendectomy. No obstruction or acute inflammatory changes. RADIA
[2020-02-11 10:53] VITALS: BP 89/65
== END 2020-02-11 11:26 | disposition home or self-care (01) ==
LOC: ED 07:57
DX: R10.9 Unspecified abdominal pain (principal); R11.0 Nausea; M54.9 Dorsalgia, unspecified; G89.29 Other chronic pain; M79.7 Fibromyalgia; K76.0 Fatty (change of) liver, not elsewhere classified; K57.30 Diverticulosis of large intestine without perforation or abscess without bleeding; Z87.19 Personal history of other diseases of the digestive system; Z90.49 Acquired absence of other specified parts of digestive tract; F17.200 Nicotine dependence, unspecified, uncomplicated
CPT/HCPCS: 74176; 81001; 81025; 96372; 99284; J1170; Q0162; 81003; 87086

== ENCOUNTER 2020-09-16 07:50 | Outpatient (CLI) | payer OTHER | END 2020-09-16 07:51 | disposition home or self-care (01) | LOC: DI 07:50 | PROVIDERS: ATTEND Family Medicine | DX: R07.9 Chest pain, unspecified (principal); R00.2 Palpitations | CPT/HCPCS: 93306 ==

== ENCOUNTER 2021-12-14 18:34 | Emergency (ER) | payer BC, OTHER ==
[2021-12-14] MEDS ORDERED: IBUPROFEN 600 MG TABLET PO STA (18:54)
--- NOTE | 2021-12-14 18:55 | ED Physician Documentation ---
PD HPI ABD PAIN - Stated complaint Stated Complaint: L FLANK PX - Chief complaint Chief Complaint: Abd Pain - History obtained from History obtained from: Patient - Additional information Additional information: 31-year-old woman developed left flank pain at noon yesterday which has become more constant and painful since. It is associated with nausea and frequent urination. Of note she is to be here frequently with similar symptoms, usually on the right without clear cause. She states that no clear cause was noted other than fibromyalgia and when she got off pain medications her issues got a lot better. She denies fevers or chills. No dysuria per se. 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 : Kidney stones HEENT: None Psych: Depression, Claustrophobia Musculoskeletal: Fibromyalgia, Chronic back pain Derm: None - Past Surgical History Past Surgical History: Yes General: Cholecystectomy, Appendectomy Ortho: Other - Present Medications Home Medications: Ambulatory Orders Medication Instructions Recorded Confirmed Budesonide/Formoterol Fumarate 2 puffs IH Q6HR PRN 12/14/21 12/14/21 [Symbicort 160-4.5 Mcg Inhaler] Cholecalciferol [Vitamin D3] 50,000 unit PO ONCE 12/14/21 12/14/21 Ciprofloxacin HCl [Cipro] 500 mg PO BID #20 tablet 12/14/21 Dextroamphetamine/Amphetamine 5 mg PO BID 12/14/21 12/14/21 [Dextroamp-Amphetamine 5 mg Tab] Fluconazole [Diflucan] 150 mg PO ONCE PRN #1 tablet 12/14/21 Ipratropium/Albuterol [Duoneb] 3 ml INH Q6H PRN 12/14/21 12/14/21 Zolpidem Tartrate [Ambien] 10 mg PO HS 12/14/21 12/14/21 - Allergies Allergies/Adverse Reactions: Allergies Allergy/AdvReac Type Severity Reaction Status Date / Time ketorolac tromethamine * Allergy Severe Respiratory Verified 12/14/21 18:41 [From Toradol] cefazolin Allergy Itching Verified 12/14/21 18:41 doxycycline Allergy Hives Verified 12/14/21 18:41 latex AdvReac Mild Itching Verified 12/14/21 18:41 metoclopramide [From Reglan] AdvReac Cramps Verified 12/14/21 18:41 - Social History Does the pt smoke?: Yes Smoking Status: Current every day smoker Does the pt drink ETOH?: Yes Does the pt have substance abuse?: No - Immunizations Immunizations are current?: No Immunizations: TDAP >10years/unknown - POLST Patient has POLST: No PD ED PE NORMAL - Vitals Vital signs reviewed: Yes - General General: Alert and oriented X 3 - Abdomen Abdomen: Normal bowel sounds, Soft, Non tender, Other (Some tenderness of the left flank, no skin changes no suprapubic tenderness.) - Neuro Neuro: Alert and oriented X 3, No motor deficit, No sensory deficit, Normal speech Results - Vitals Vitals: Vital Signs - 24 hr 12/14/21 12/14/21 18:38 19:53 Temperature 35.7 C L 37.0 C Heart Rate 88 72 Respiratory 16 18 Rate Blood Pressure 121/78 122/78 O2 Saturation 100 100 Oxygen O2 Source Room air - Labs Labs: Laboratory Tests 12/14/21 18:44 Urine Color YELLOW Urine Clarity HAZY Urine pH 7.5 Ur Specific [place] 1.015 Urine Protein NEGATIVE Urine Glucose (UA) NEGATIVE Urine Ketones NEGATIVE Urine Occult Blood NEGATIVE Urine Nitrite POSITIVE H Urine Bilirubin NEGATIVE Urine Urobilinogen 1 (NORMAL) Ur Leukocyte Esterase SMALL H Urine RBC 0-5 Urine WBC 6-10 H Ur Squamous Epith Cells MOD Squamous H Urine Bacteria Few Ur Microscopic Review INDICATED Urine Culture Comments NOT INDICATED Urine HCG, Qual NEGATIVE Urine Opiates Screen NEGATIVE Ur Oxycodone Screen NEGATIVE Urine Methadone Screen NEGATIVE Ur Propoxyphene Screen NEGATIVE Ur Barbiturates Screen NEGATIVE Ur Tricyclics Screen NEGATIVE Ur Phencyclidine Scrn NEGATIVE Ur Amphetamine Screen POSITIVE H U Methamphetamines Scrn NEGATIVE U Benzodiazepines Scrn NEGATIVE Urine Cocaine Screen NEGATIVE U Cannabinoids Screen POSITIVE H PD MEDICAL DECISION MAKING - ED course ED course: 31-year-old woman with flank pain and urinary symptoms, UA positive with nitrate and will treat for pyelonephritis. She requests as needed Diflucan which was prescribed as well. Departure - Departure Disposition: 01 Home, Self Care Clinical Impression: Pyelonephritis Condition: Good Record reviewed to determine appropriate education?: Yes Instructions: Pyelonephritis Dc Prescriptions: Ciprofloxacin HCl [Cipro] 500 mg PO BID #20 tablet Fluconazole [Diflucan] 150 mg PO ONCE PRN #1 tablet PRN Reason: yeast infection Comments: I sent your prescription electronically to [facility] in [place]. We will culture your urine, the results should be done in 48-72 hours. If an antibiotic change is necessary we will call you. Return if worse in the meantime, especially if you develop increasing flank pain, fevers, or cannot keep down the medication. Discharge Date/Time: 12/14/21 19:30
[2021-12-14 18:59] LABS: MUDS CUTOFF CONCENTRATIONS CUTOFF CONC BELOW:
[2021-12-14 19:02] LABS: BILIRUBIN,URINE NEGATIVE (NEGATIVE); GLUCOSE, URINE (UA) NEGATIVE (NEGATIVE); KETONES,URINE (UA) NEGATIVE (NEGATIVE); LEUKOCYTE ESTERASE, URINE SMALL (NEGATIVE); NITRITE,URINE POSITIVE (NEGATIVE); OCCULT BLOOD,URINE NEGATIVE (NEGATIVE); PH,URINE 7.5 PH (5.0-7.5); PROTEIN,URINE NEGATIVE (NEGATIVE); UROBILINOGEN,URINE 1 (NORMAL) E.U./dL (NORMAL)
[2021-12-14 19:04] LABS: HCG UR QUAL NEGATIVE
[2021-12-14 19:11] LABS: BACTERIA,URINE Few /HPF (None Seen); CLARITY,URINE HAZY (CLEAR); RBC,URINE 0-5 /HPF (0-5); SQUAMOUS EPITHELIAL CELL,UR MOD Squamous (<= Few)
[2021-12-14 19:13] LABS: AMPHETAMINE SCREEN,URINE POSITIVE (NEGATIVE); BARBITURATE SCREEN,UR NEGATIVE (NEGATIVE); BENZODIAZEPINES SCREEN, URINE NEGATIVE (NEGATIVE); COCAINE SCREEN URINE NEGATIVE (NEGATIVE); METHADONE SCREEN, URINE NEGATIVE (NEGATIVE); METHAMPHETAMINES SCREEN, URINE NEGATIVE (NEGATIVE); OPIATE SCREEN, URINE NEGATIVE (NEGATIVE); OXYCODONE SCREEN, URINE NEGATIVE (NEGATIVE); PROPOXYPHENE SCREEN, URINE NEGATIVE (NEGATIVE); THC CANNABINOID SCREEN, URINE POSITIVE (NEGATIVE); TRICYCLIC ANTIDEPRESSANT,URINE NEGATIVE (NEGATIVE)
[2021-12-14] MEDS ORDERED: CIPROFLOXACIN 250 MG TABLET PO STA (19:18)
--- OUTSIDE RECORDS SUMMARY | 2021-12-14 19:47 | EXTERNAL MEDICAL SUMMARY RPT | Continuity of Care Document ---
:1990 Author Organization [facility] Address [address] [place] [address] Phone Care Team Providers Name Role Phone Horras Unavailable Unavailable Horras Unavailable Unavailable Allergies No information. Encounters No information. 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 Vital Signs date measurement value source 20211116 weight_standard 79.38 lb 20211116 weight_metric 36.01 kg 20211116 temperature_standard 98 F 20211116 temperature_metric 36.67 C 20211116 respiration_rate 20 /min 20211116 height_standard 65 in 20211116 height_metric 165.1 cm 20211116 heart_rate 114 /min 20211116 BP_systolic 118 mm[Hg] 20211116 BP_diastolic 88 mm[Hg] 20211116 BMI 29.1 kg/m2
[2021-12-14 19:55] VITALS: BP 122/78
== END 2021-12-14 19:30 | disposition home or self-care (01) ==
LOC: ED 18:34
DX: N12 Tubulo-interstitial nephritis, not specified as acute or chronic (principal); F17.200 Nicotine dependence, unspecified, uncomplicated
CPT/HCPCS: 80306; 81001; 81025; 87086; 99283; A9270; 81003

== ENCOUNTER 2023-01-06 12:14 | Emergency (ER) | payer BC, OTHER ==
--- OUTSIDE RECORDS SUMMARY | 2023-01-06 12:34 | EXTERNAL MEDICAL SUMMARY RPT | Continuity of Care Document ---
:1990 Author Organization [facility] Address [address] [place] [address] Phone Care Team Providers Name Role Phone Marcell Fong Unavailable Unavailable Allergies No information. Encounters No information. Functional Status No information. Immunizations No information. Medications date description facility 2023-01-04 00:00 Naproxen [facility] 2023-01-04 00:00 Rifampin [facility] 2022-11-25 00:00 Nirmatrelvir-Ritonavir [facility] 2023-01-04 00:00 Clindamycin Hcl [facility] 2022-11-21 00:00 Clindamycin Phosphate [facility] 2022-11-07 00:00 Cholecalciferol (Vitamin D3) [facility] 2022-11-08 00:00 [facility] 2022-12-13 00:00 [facility] Problems date description facility 2022-11-28 08:29 Unspecified lump in the left breast, [facility] unspecified quadrant 2023-01-04 00:00 Hidradenitis suppurativa [facility] Procedures date description facility 2022-11-28 00:00 Diagnostic mammography of both breasts [facility] 2022-11-28 00:00 breast [facility] Results/Labs test date author facility value unit interpret ation Result panel 1 (unknown) (no (unknown) (unknown) (no value) (units (unk nown) date) unknown) (unknown) (no (unknown) (unknown) 11/11/22 (units (unkno wn) date) unknown) (unknown) (no (unknown) (unknown) : [id number] (units (u nknown) date) unknown) (unknown) (no (unknown) (unknown) Age/Sex: 32 / F (units (unknown) date) Date of Service: unknown) (unknown) (no (unknown) (unknown) Allergies (units (unkn own) date) unknown) (unknown) (no (unknown) (unknown) [place], [place] (units ( unknown) date) [id number] unknown) (unknown) (no (unknown) (unknown) Anaphylaxis (units (un known) date) unknown) (unknown) (no (unknown) (unknown) Attending Dr: (units ( unknown) date) David Cruz unknown) D.O. (unknown) (no (unknown) (unknown) : 1990 (units (unknown) date) Acct:[id number] unknown) (unknown) (no (unknown) (unknown) Dept at (units (unkno wn) date) . unknown) (unknown) (no (unknown) (unknown) Documented By: (units (unknown) date) David Cruz unknown) D.O. 11/11/22 1053 (unknown) (no (unknown) (unknown) Draft (units (unkno wn) date) unknown) (unknown) (no (unknown) (unknown) [facility]) (unknown) (no (unknown) (unknown) Intake performed (units (unknown) date) by: Candy Montgomery unknown) (unknown) (no (unknown) (unknown) Intake (units (unkno wn) date) unknown) (unknown) (no (unknown) (unknown) Intake- Clincial (units (unknown) date) Staff unknown) (unknown) (no (unknown) (unknown) Loc: [facility] (units (unkno wn) date) unknown) (unknown) (no (unknown) (unknown) Nurse Office (units (u nknown) date) Visit unknown) (unknown) (no (unknown) (unknown) Patient: (units (unkno wn) date) LewisAlia gutierrez unknown) e D MR# (unknown) (no (unknown) (unknown) Reason For Visit (units (unknown) date) unknown) (unknown) (no (unknown) (unknown) Signed By: (units (unk nown) date) unknown) (unknown) (no (unknown) (unknown) Smoking Status: (units (unknown) date) Current every day unknown) smoker (unknown) (no (unknown) (unknown) THROAT CLOSURE (units (unknown) date) unknown) (unknown) (no (unknown) (unknown) This note may (units ( unknown) date) have been all or unknown) partially generated using voice recognition (unknown) (no (unknown) (unknown) Tobacco Status (units (unknown) date) unknown) (unknown) (no (unknown) (unknown) Visit Reasons: (units (unknown) date) B-12 shot unknown) (unknown) (no (unknown) (unknown) cefazolin (units (unkn own) date) Allergy (Verified unknown) 06/30/22 09:58) (unknown) (no (unknown) (unknown) cefprozil (units (unkn own) date) [CEFPROZIL] unknown) Adverse Reaction (Unknown, Verified 06/30/22 09:58) (unknown) (no (unknown) (unknown) doxycycline (units (un known) date) Allergy (Verified unknown) 06/30/22 09:58) (unknown) (no (unknown) (unknown) have occurred. (units (unknown) date) If there are any unknown) questions, please contact the Medical Records (unknown) (no (unknown) (unknown) ketorolac (units (unkn own) date) [KETOROLAC] unknown) Adverse Reaction (Unknown, Verified 06/30/22 09:58) (unknown) (no (unknown) (unknown) latex [LATEX] (units ( unknown) date) Allergy (Unknown, unknown) Verified 06/30/22 09:58) (unknown) (no (unknown) (unknown) may occur. (units (unk nown) date) Occasional unknown) wrong-word or 'sound-alike' substitutions may have (unknown) (no (unknown) (unknown) metoclopramide (units (unknown) date) [From Reglan] unknown) Adverse Reaction (Verified 06/30/22 09:58) (unknown) (no (unknown) (unknown) occurred due to (units (unknown) date) the inherent unknown) limitations of voice recognition software. Please (unknown) (no (unknown) (unknown) read the note (units ( unknown) date) carefully and unknown) recognize, using context, where these substitutions (unknown) (no (unknown) (unknown) shrimp Allergy (units (unknown) date) (Severe, Verified unknown) 06/30/22 09:58) (unknown) (no (unknown) (unknown) software. (units (unkn own) date) Although every unknown) effort is made to edit content, sales expert errors Result panel 2 (unknown) (no (unknown) (unknown) (no value) (units (unk nown) date) unknown) (unknown) (no (unknown) (unknown) 11/11/22 (units (unkno wn) date) unknown) (unknown) (no (unknown) (unknown) 13:12 (units (unkno wn) date) unknown) (unknown) (no (unknown) (unknown) : [id number] (units (u nknown) date) unknown) (unknown) (no (unknown) (unknown) Age/Sex: 32 / F (units (unknown) date) Date of Service: unknown) (unknown) (no (unknown) (unknown) Allergies (units (unkn own) date) unknown) (unknown) (no (unknown) (unknown) [place], [place] (units ( unknown) date) [id number] unknown) (unknown) (no (unknown) (unknown) Anaphylaxis (units (un known) date) unknown) (unknown) (no (unknown) (unknown) Attending Dr: (units ( unknown) date) David Cruz unknown) D.O. (unknown) (no (unknown) (unknown) BMI 32.7 (units (unkno wn) date) unknown) (unknown) (no (unknown) (unknown) : 1990 (units (unknown) date) Acct:[id number] unknown) (unknown) (no (unknown) (unknown) Dept at (units (unkno wn) date) . unknown) (unknown) (no (unknown) (unknown) Documented By: (units (unknown) date) David Cruz unknown) D.O. 11/11/22 1053 (unknown) (no (unknown) (unknown) Draft (units (unkno wn) date) unknown) (unknown) (no (unknown) (unknown) [facility]) (unknown) (no (unknown) (unknown) Height 5 ft 1.5 (units (unknown) date) in unknown) (unknown) (no (unknown) (unknown) Intake Note: (units (u nknown) date) unknown) (unknown) (no (unknown) (unknown) Intake performed (units (unknown) date) by: Candy Montgomrey unknown) (unknown) (no (unknown) (unknown) Intake (units (unkno wn) date) unknown) (unknown) (no (unknown) (unknown) Intake- Clincial (units (unknown) date) Staff unknown) (unknown) (no (unknown) (unknown) Loc: [facility] (units (unkno wn) date) unknown) (unknown) (no (unknown) (unknown) Nurse Office (units (u nknown) date) Visit unknown) (unknown) (no (unknown) (unknown) Oxygen Delivery (units (unknown) date) Method room air unknown) (unknown) (no (unknown) (unknown) Patient here for (units (unknown) date) B-12 injection. unknown) States wants to be able to do at home. Missed (unknown) (no (unknown) (unknown) Patient: (units (unkno wn) date) Alia Lewis unknown) e D MR# (unknown) (no (unknown) (unknown) Pulse 84 (units (unkno wn) date) unknown) (unknown) (no (unknown) (unknown) Pulse Oximetry (units (unknown) date) (%) 98 unknown) (unknown) (no (unknown) (unknown) Pulse Source (units (u nknown) date) Monitor unknown) (unknown) (no (unknown) (unknown) Reason For Visit (units (unknown) date) unknown) (unknown) (no (unknown) (unknown) Respiration 16 (units (unknown) date) unknown) (unknown) (no (unknown) (unknown) Signed By: (units (unk nown) date) unknown) (unknown) (no (unknown) (unknown) Smoking Status: (units (unknown) date) Current every day unknown) smoker (unknown) (no (unknown) (unknown) THROAT CLOSURE (units (unknown) date) unknown) (unknown) (no (unknown) (unknown) This note may (units ( unknown) date) have been all or unknown) partially generated using voice recognition (unknown) (no (unknown) (unknown) Tobacco Status (units (unknown) date) unknown) (unknown) (no (unknown) (unknown) Visit Reasons: (units (unknown) date) B-12 shot unknown) (unknown) (no (unknown) (unknown) Vitals (units (unkno wn) date) unknown) (unknown) (no (unknown) (unknown) Weight 176 lb 4 (units (unknown) date) oz unknown) (unknown) (no (unknown) (unknown) cefazolin (units (unkn own) date) Allergy (Verified unknown) 06/30/22 09:58) (unknown) (no (unknown) (unknown) cefprozil (units (unkn own) date) [CEFPROZIL] unknown) Adverse Reaction (Unknown, Verified 06/30/22 09:58) (unknown) (no (unknown) (unknown) doxycycline (units (un known) date) Allergy (Verified unknown) 06/30/22 09:58) (unknown) (no (unknown) (unknown) have occurred. (units (unknown) date) If there are any unknown) questions, please contact the Medical Records (unknown) (no (unknown) (unknown) incidence. (units (unk nown) date) Patient education unknown) on drawing up medication and possible injection (unknown) (no (unknown) (unknown) ketorolac (units (unkn own) date) [KETOROLAC] unknown) Adverse Reaction (Unknown, Verified 06/30/22 09:58) (unknown) (no (unknown) (unknown) last month's (units (u nknown) date) injection due to unknown) schedule. Vitamin B-12 administered without (unknown) (no (unknown) (unknown) latex [LATEX] (units ( unknown) date) Allergy (Unknown, unknown) Verified 06/30/22 09:58) (unknown) (no (unknown) (unknown) may occur. (units (unk nown) date) Occasional unknown) wrong-word or 'sound-alike' substitutions may have (unknown) (no (unknown) (unknown) metoclopramide (units (unknown) date) [From Reglan] unknown) Adverse Reaction (Verified 06/30/22 09:58) (unknown) (no (unknown) (unknown) occurred due to (units (unknown) date) the inherent unknown) limitations of voice recognition software. Please (unknown) (no (unknown) (unknown) read the note (units ( unknown) date) carefully and unknown) recognize, using context, where these substitutions (unknown) (no (unknown) (unknown) shrimp Allergy (units (unknown) date) (Severe, Verified unknown) 06/30/22 09:58) (unknown) (no (unknown) (unknown) sites if doing (units (unknown) date) at home. Will unknown) send request to Dr. Fong. (unknown) (no (unknown) (unknown) software. (units (unkn own) date) Although every unknown) effort is made to edit content, sales expert errors Result panel 3 (unknown) (no (unknown) (unknown) (no value) (units (unk nown) date) unknown) (unknown) (no (unknown) (unknown) 11/11/22 (units (unkno wn) date) unknown) (unknown) (no (unknown) (unknown) 1,000 mcg IM (units (u nknown) date) abdomen [id number] unknown) 03/02/25 91028-136-84 PB LYNN (unknown) (no (unknown) (unknown) 13:12 (units (unkno wn) date) unknown) (unknown) (no (unknown) (unknown) : [id number] (units (u nknown) date) unknown) (unknown) (no (unknown) (unknown) Administered by: (units (unknown) date) Candy Montgomery LPN unknown) on 11/11/22 13:13 (unknown) (no (unknown) (unknown) Age/Sex: 32 / F (units (unknown) date) Date of Service: unknown) (unknown) (no (unknown) (unknown) Allergies (units (unkn own) date) unknown) (unknown) (no (unknown) (unknown) [place], [place] (units ( unknown) date) [id number] unknown) (unknown) (no (unknown) (unknown) Anaphylaxis (units (un known) date) unknown) (unknown) (no (unknown) (unknown) Attending Dr: (units ( unknown) date) David Cruz unknown) D.O. (unknown) (no (unknown) (unknown) BMI 32.7 (units (unkno wn) date) unknown) (unknown) (no (unknown) (unknown) : 1990 (units (unknown) date) Acct:[id number] unknown) (unknown) (no (unknown) (unknown) Dept at (units (unkno wn) date) . unknown) (unknown) (no (unknown) (unknown) Documented By: (units (unknown) date) David Cruz unknown) D.O. 11/11/22 1053 (unknown) (no (unknown) (unknown) Dose Route Admin (units (unknown) date) Location Lot unknown) Number Expiration Date NDC (unknown) (no (unknown) (unknown) Dr. Fong. (units (un known) date) unknown) (unknown) (no (unknown) (unknown) Draft (units (unkno wn) date) unknown) (unknown) (no (unknown) (unknown) [facility]) (unknown) (no (unknown) (unknown) Height 5 ft 1.5 (units (unknown) date) in unknown) (unknown) (no (unknown) (unknown) Intake Note: (units (u nknown) date) unknown) (unknown) (no (unknown) (unknown) Intake performed (units (unknown) date) by: Candy Montgomery unknown) (unknown) (no (unknown) (unknown) Intake (units (unkno wn) date) unknown) (unknown) (no (unknown) (unknown) Intake- Clincial (units (unknown) date) Staff unknown) (unknown) (no (unknown) (unknown) Loc: [facility] (units (unkno wn) date) unknown) (unknown) (no (unknown) (unknown) [facility] (units (u nknown) date) unknown) (unknown) (no (unknown) (unknown) Nurse Office (units (u nknown) date) Visit unknown) (unknown) (no (unknown) (unknown) Office Meds (units (un known) date) unknown) (unknown) (no (unknown) (unknown) Oxygen Delivery (units (unknown) date) Method room air unknown) (unknown) (no (unknown) (unknown) Patient here for (units (unknown) date) B-12 injection. unknown) States wants to be able to do at home. Missed (unknown) (no (unknown) (unknown) Patient: (units (unkno wn) date) Alia Lewis unknown) josé Hernandez MR# (unknown) (no (unknown) (unknown) Performing (units (unk nown) date) Provider: David Joya unknown) DO Anthony (unknown) (no (unknown) (unknown) Pulse 84 (units (unkno wn) date) unknown) (unknown) (no (unknown) (unknown) Pulse Oximetry (units (unknown) date) (%) 98 unknown) (unknown) (no (unknown) (unknown) Pulse Source (units (u nknown) date) Monitor unknown) (unknown) (no (unknown) (unknown) Reason For Visit (units (unknown) date) unknown) (unknown) (no (unknown) (unknown) Respiration 16 (units (unknown) date) unknown) (unknown) (no (unknown) (unknown) Signed By: (units (unk nown) date) unknown) (unknown) (no (unknown) (unknown) Smoking Status: (units (unknown) date) Current every day unknown) smoker (unknown) (no (unknown) (unknown) THROAT CLOSURE (units (unknown) date) unknown) (unknown) (no (unknown) (unknown) This note may (units ( unknown) date) have been all or unknown) partially generated using voice recognition (unknown) (no (unknown) (unknown) Tobacco Status (units (unknown) date) unknown) (unknown) (no (unknown) (unknown) Visit Reasons: (units (unknown) date) B-12 shot unknown) (unknown) (no (unknown) (unknown) Vitals (units (unkno wn) date) unknown) (unknown) (no (unknown) (unknown) Weight 176 lb 4 (units (unknown) date) oz unknown) (unknown) (no (unknown) (unknown) cefazolin (units (unkn own) date) Allergy (Verified unknown) 06/30/22 09:58) (unknown) (no (unknown) (unknown) cefprozil (units (unkn own) date) [CEFPROZIL] unknown) Adverse Reaction (Unknown, Verified 06/30/22 09:58) (unknown) (no (unknown) (unknown) cyanocobalamin (units (unknown) date) (vitamin B-12) unknown) (unknown) (no (unknown) (unknown) doxycycline (units (un known) date) Allergy (Verified unknown) 06/30/22 09:58) (unknown) (no (unknown) (unknown) have occurred. (units (unknown) date) If there are any unknown) questions, please contact the Medical Records (unknown) (no (unknown) (unknown) ketorolac (units (unkn own) date) [KETOROLAC] unknown) Adverse Reaction (Unknown, Verified 06/30/22 09:58) (unknown) (no (unknown) (unknown) last month's (units (u nknown) date) injection due to unknown) schedule. Vitamin B-12 administered left upper (unknown) (no (unknown) (unknown) latex [LATEX] (units ( unknown) date) Allergy (Unknown, unknown) Verified 06/30/22 09:58) (unknown) (no (unknown) (unknown) may occur. (units (unk nown) date) Occasional unknown) wrong-word or 'sound-alike' substitutions may have (unknown) (no (unknown) (unknown) medication and (units (unknown) date) possible unknown) injection sites if doing at home. Will send request to (unknown) (no (unknown) (unknown) metoclopramide (units (unknown) date) [From Reglan] unknown) Adverse Reaction (Verified 06/30/22 09:58) (unknown) (no (unknown) (unknown) occurred due to (units (unknown) date) the inherent unknown) limitations of voice recognition software. Please (unknown) (no (unknown) (unknown) quadrant of (units (un known) date) abdomen, without unknown) incident. Patient education on drawing up (unknown) (no (unknown) (unknown) read the note (units ( unknown) date) carefully and unknown) recognize, using context, where these substitutions (unknown) (no (unknown) (unknown) shrimp Allergy (units (unknown) date) (Severe, Verified unknown) 06/30/22 09:58) (unknown) (no (unknown) (unknown) software. (units (unkn own) date) Although every unknown) effort is made to edit content, sales expert errors Result panel 4 (unknown) (no (unknown) (unknown) (no value) (units (unk nown) date) unknown) (unknown) (no (unknown) (unknown) 11/11/22 1737 (units ( unknown) date) unknown) (unknown) (no (unknown) (unknown) 11/11/22 (units (unkno wn) date) unknown) (unknown) (no (unknown) (unknown) 1,000 mcg IM (units (u nknown) date) abdomen [id number] unknown) 03/02/25 [id number] PB LYNN (unknown) (no (unknown) (unknown) 13:12 (units (unkno wn) date) unknown) (unknown) (no (unknown) (unknown) : [id number] (units (u nknown) date) unknown) (unknown) (no (unknown) (unknown) Administered by: (units (unknown) date) Candy Montgomery LPN unknown) on 11/11/22 13:13 (unknown) (no (unknown) (unknown) Age/Sex: 32 / F (units (unknown) date) Date of Service: unknown) (unknown) (no (unknown) (unknown) Allergies (units (unkn own) date) unknown) (unknown) (no (unknown) (unknown) [place], [place] (units ( unknown) date) [address] unknown) (unknown) (no (unknown) (unknown) Anaphylaxis (units (un known) date) unknown) (unknown) (no (unknown) (unknown) Attending Dr: (units ( unknown) date) David Cruz unknown) D.O. (unknown) (no (unknown) (unknown) BMI 32.7 (units (unkno wn) date) unknown) (unknown) (no (unknown) (unknown) : 1990 (units (unknown) date) Acct:[id number] unknown) (unknown) (no (unknown) (unknown) Dept at (units (unkno wn) date) . unknown) (unknown) (no (unknown) (unknown) Documented By: (units (unknown) date) David Cruz unknown) D.O. 11/11/22 1053 (unknown) (no (unknown) (unknown) Dose Route Admin (units (unknown) date) Location Lot unknown) Number Expiration Date NDC (unknown) (no (unknown) (unknown) Dr. Fong. (units (un known) date) unknown) (unknown) (no (unknown) (unknown) [facility] ([facility] date[facility]) (unknown) (no (unknown) (unknown) Height 5 ft 1.5 (units (unknown) date) in unknown) (unknown) (no (unknown) (unknown) Intake Note: (units (u nknown) date) unknown) (unknown) (no (unknown) (unknown) Intake performed (units (unknown) date) by: Candy Montgomery unknown) (unknown) (no (unknown) (unknown) Intake (units (unkno wn) date) unknown) (unknown) (no (unknown) (unknown) Intake- Clincial (units (unknown) date) Staff unknown) (unknown) (no (unknown) (unknown) Loc: [facility] (units (unkno wn) date) unknown) (unknown) (no (unknown) (unknown) [facility] (units (u nknown) date) unknown) (unknown) (no (unknown) (unknown) Nurse Office (units (u nknown) date) Visit unknown) (unknown) (no (unknown) (unknown) Office Meds (units (un known) date) unknown) (unknown) (no (unknown) (unknown) Oxygen Delivery (units (unknown) date) Method room air unknown) (unknown) (no (unknown) (unknown) Patient here for (units (unknown) date) B-12 injection. unknown) States wants to be able to do at home. Missed (unknown) (no (unknown) (unknown) Patient: (units (unkno wn) date) Alia Lewis unknown) e D MR# (unknown) (no (unknown) (unknown) Performing (units (unk nown) date) Provider: David Joya unknown) DO Anthony (unknown) (no (unknown) (unknown) Pulse 84 (units (unkno wn) date) unknown) (unknown) (no (unknown) (unknown) Pulse Oximetry (units (unknown) date) (%) 98 unknown) (unknown) (no (unknown) (unknown) Pulse Source (units (u nknown) date) Monitor unknown) (unknown) (no (unknown) (unknown) Reason For Visit (units (unknown) date) unknown) (unknown) (no (unknown) (unknown) Respiration 16 (units (unknown) date) unknown) (unknown) (no (unknown) (unknown) Signed By: (units (unk nown) date) <Electronically unknown) signed by David Cruz D.O.> (unknown) (no (unknown) (unknown) Signed (units (unkno wn) date) unknown) (unknown) (no (unknown) (unknown) Smoking Status: (units (unknown) date) Current every day unknown) smoker (unknown) (no (unknown) (unknown) THROAT CLOSURE (units (unknown) date) unknown) (unknown) (no (unknown) (unknown) This note may (units ( unknown) date) have been all or unknown) partially generated using voice recognition (unknown) (no (unknown) (unknown) Tobacco Status (units (unknown) date) unknown) (unknown) (no (unknown) (unknown) Visit Reasons: (units (unknown) date) B-12 shot unknown) (unknown) (no (unknown) (unknown) Vitals (units (unkno wn) date) unknown) (unknown) (no (unknown) (unknown) Weight 176 lb 4 (units (unknown) date) oz unknown) (unknown) (no (unknown) (unknown) cefazolin (units (unkn own) date) Allergy (Verified unknown) 06/30/22 09:58) (unknown) (no (unknown) (unknown) cefprozil (units (unkn own) date) [CEFPROZIL] unknown) Adverse Reaction (Unknown, Verified 06/30/22 09:58) (unknown) (no (unknown) (unknown) cyanocobalamin (units (unknown) date) (vitamin B-12) unknown) (unknown) (no (unknown) (unknown) doxycycline (units (un known) date) Allergy (Verified unknown) 06/30/22 09:58) (unknown) (no (unknown) (unknown) have occurred. (units (unknown) date) If there are any unknown) questions, please contact the Medical Records (unknown) (no (unknown) (unknown) ketorolac (units (unkn own) date) [KETOROLAC] unknown) Adverse Reaction (Unknown, Verified 06/30/22 09:58) (unknown) (no (unknown) (unknown) last month's (units (u nknown) date) injection due to unknown) schedule. Vitamin B-12 administered left upper (unknown) (no (unknown) (unknown) latex [LATEX] (units ( unknown) date) Allergy (Unknown, unknown) Verified 06/30/22 09:58) (unknown) (no (unknown) (unknown) may occur. (units (unk nown) date) Occasional unknown) wrong-word or 'sound-alike' substitutions may have (unknown) (no (unknown) (unknown) medication and (units (unknown) date) possible unknown) injection sites if doing at home. Will send request to (unknown) (no (unknown) (unknown) metoclopramide (units (unknown) date) [From Reglan] unknown) Adverse Reaction (Verified 06/30/22 09:58) (unknown) (no (unknown) (unknown) occurred due to (units (unknown) date) the inherent unknown) limitations of voice recognition software. Please (unknown) (no (unknown) (unknown) quadrant of (units (un known) date) abdomen, without unknown) incident. Patient education on drawing up (unknown) (no (unknown) (unknown) read the note (units ( unknown) date) carefully and unknown) recognize, using context, where these substitutions (unknown) (no (unknown) (unknown) shrimp Allergy (units (unknown) date) (Severe, Verified unknown) 06/30/22 09:58) (unknown) (no (unknown) (unknown) software. (units (unkn own) date) Although every unknown) effort is made to edit content, sales expert errors Result panel 5 (unknown) (no (unknown) (unknown) (no value) (units (unk nown) date) unknown) (unknown) (no (unknown) (unknown) #: [id number] (units ( unknown) date) unknown) (unknown) (no (unknown) (unknown) 11/28/22 (units (unkno wn) date) unknown) (unknown) (no (unknown) (unknown) [address] [place] [address] (units (unknown) date) unknown) (unknown) (no (unknown) (unknown) 01/18/2021 (units (unkn own) date) ultrasound - unknown) [facility]. (unknown) (no (unknown) (unknown) A 5 year (units (unkno wn) date) screening unknown) mammogram is recommended. (unknown) (no (unknown) (unknown) Accession Number: (units (unknown) date) [id number] unknown) (unknown) (no (unknown) (unknown) Age/Sex: 32 / F (units (unknown) date) Date of Service: unknown) (unknown) (no (unknown) (unknown) [place], [place] (units ( unknown) date) [id number] unknown) (unknown) (no (unknown) (unknown) CLINICAL: (units (unkn own) date) Palpable left unknown) breast lump and focal pain. (unknown) (no (unknown) (unknown) Comparison is (units ( unknown) date) made to exams unknown) dated: 11/28/2022 mammogram, 01/18/2021 mammogram, (unknown) (no (unknown) (unknown) : 1990 (units (unknown) date) Acct:[id number] unknown) (unknown) (no (unknown) (unknown) Electronically (units (unknown) date) Signed By: Earle luong) Jose M Doan (unknown) (no (unknown) (unknown) Li scale (units (unk nown) date) unknown) (unknown) (no (unknown) (unknown) IMPRESSION: (units (un known) date) NEGATIVE unknown) (unknown) (no (unknown) (unknown) [facility] (units (unknown) date) unknown) (unknown) (no (unknown) (unknown) LIMITED (units (unkno wn) date) ULTRASOUND OF LEFT unknown) BREAST: 11/28/2022 (unknown) (no (unknown) (unknown) Loc: MAMMO (units (unk nown) date) unknown) (unknown) (no (unknown) (unknown) No significant (units (unknown) date) abnormalities were unknown) seen sonographically in the left breast. (unknown) (no (unknown) (unknown) Ordering (units (unkno wn) date) Provider: unknown) Marcell Fong MD (unknown) (no (unknown) (unknown) Patient: (units (unkno wn) date) Kimberly Lewis unknown) D MR (unknown) (no (unknown) (unknown) Procedure: US (units ( unknown) date) breast LT limited unknown) (unknown) (no (unknown) (unknown) Real-time (units (unkn own) date) ultrasound of the unknown) left breast 7-8 o'clock region was performed. (unknown) (no (unknown) (unknown) Signed (units (unkno wn) date) unknown) (unknown) (no (unknown) (unknown) There is no (units (un known) date) abnormality seen unknown) in the left breast to correspond with the palpable (unknown) (no (unknown) (unknown) There is no (units (un known) date) sonographic unknown) evidence of malignancy. (unknown) (no (unknown) (unknown) This exam was (units ( unknown) date) interpreted at unknown) Station ID: [id number]. (unknown) (no (unknown) (unknown) Ultrasound (units (unk nown) date) BI-RADS: 1 unknown) Negative (unknown) (no (unknown) (unknown) Ultrasound Report (units (unknown) date) unknown) (unknown) (no (unknown) (unknown) abnormality and (units (unknown) date) pain, however, unknown) clinical followup is recommended. (unknown) (no (unknown) (unknown) and (units (unkno wn) date) unknown) (unknown) (no (unknown) (unknown) ar/penrad:11/28/19 (units (unknown) date) 09:48:45 unknown) (unknown) (no (unknown) (unknown) images of the (units ( unknown) date) real-time unknown) examination were reviewed. (unknown) (no (unknown) (unknown) letter sent: (units (u nknown) date) Clinical unknown) Evaluation Result panel 6 (unknown) (no (unknown) (unknown) (no value) (units (unk nown) date) unknown) (unknown) (no (unknown) (unknown) #: [id number] (units ( unknown) date) unknown) (unknown) (no (unknown) (unknown) (category c / (units ( unknown) date) unknown) (unknown) (no (unknown) (unknown) 11/28/22 (units (unkno wn) date) unknown) (unknown) (no (unknown) (unknown) [address] [place] [address] (units (unknown) date) unknown) (unknown) (no (unknown) (unknown) 15% of breast (units ( unknown) date) malignancies will unknown) not be visualized mammographically. In the (unknown) (no (unknown) (unknown) 51-75% glandular (units (unknown) date) tissue). unknown) (unknown) (no (unknown) (unknown) ACR BI-RADS (units (un known) date) Category 0: unknown) Incomplete [id number] (unknown) (no (unknown) (unknown) Accession Number: (units (unknown) date) [id number] unknown) (unknown) (no (unknown) (unknown) Age/Sex: 32 / F (units (unknown) date) Date of Service: unknown) (unknown) (no (unknown) (unknown) [place], [place] (units ( unknown) date) [id number] unknown) (unknown) (no (unknown) (unknown) Approximately (units ( unknown) date) unknown) (unknown) (no (unknown) (unknown) BILATERAL DIGITAL (units (unknown) date) DIAGNOSTIC unknown) MAMMOGRAM 3D/2D: 11/28/2022 (unknown) (no (unknown) (unknown) Both breasts are (units (unknown) date) heterogeneously unknown) dense, which may obscure small masses (unknown) (no (unknown) (unknown) CLINICAL: Left (units (unknown) date) breast lump. unknown) (unknown) (no (unknown) (unknown) Comparison is (units ( unknown) date) made to exam unknown) dated: 01/18/2021 mammogram - [facility]. (unknown) (no (unknown) (unknown) : 1990 (units (unknown) date) Acct:[id number] unknown) (unknown) (no (unknown) (unknown) Electronically (units (unknown) date) Signed By: Earle luong) Jose M Doan (unknown) (no (unknown) (unknown) IMPRESSION: (units (un known) date) INCOMPLETE: NEEDS unknown) ADDITIONAL IMAGING EVALUATION (unknown) (no (unknown) (unknown) [facility] (units (unknown) date) unknown) (unknown) (no (unknown) (unknown) Loc: MAMMO (units (unk nown) date) unknown) (unknown) (no (unknown) (unknown) Mammography (units (un known) date) Report unknown) (unknown) (no (unknown) (unknown) NOTE: For (units (unkn own) date) mammograms, a unknown) report in lay terms will be sent to the patient. (unknown) (no (unknown) (unknown) No significant (units (unknown) date) masses, unknown) calcifications, or other findings are seen in either (unknown) (no (unknown) (unknown) Ordering (units (unkno wn) date) Provider: unknown) Marcell Fong MD (unknown) (no (unknown) (unknown) Patient: (units (unkno wn) date) Kimberly Lewis unknown) D MR (unknown) (no (unknown) (unknown) Procedure: MM (units ( unknown) date) diagnostic mammo unknown) BI (unknown) (no (unknown) (unknown) Signed (units (unkno wn) date) unknown) (unknown) (no (unknown) (unknown) There has been no (units (unknown) date) significant unknown) interval change. (unknown) (no (unknown) (unknown) There is no (units (un known) date) abnormality seen unknown) in the left breast to correspond with the palpable (unknown) (no (unknown) (unknown) This exam was (units ( unknown) date) interpreted at unknown) Station ID: [id number]. (unknown) (no (unknown) (unknown) a palpable breast (units (unknown) date) mass, a negative unknown) mammogram must not discourage biopsy of a (unknown) (no (unknown) (unknown) abnormality and (units (unknown) date) pain in the lower unknown) inner quadrant, however, ultrasound is (unknown) (no (unknown) (unknown) ar/penrad:11/28/19 (units (unknown) date) 23 09:46:42 unknown) (unknown) (no (unknown) (unknown) breast. (units (unkno wn) date) unknown) (unknown) (no (unknown) (unknown) clinically (units (unk nown) date) unknown) (unknown) (no (unknown) (unknown) management of (units ( unknown) date) unknown) (unknown) (no (unknown) (unknown) recommended. (units (u nknown) date) unknown) (unknown) (no (unknown) (unknown) suspicious (units (unk nown) date) lesion. unknown) Result panel 7 (unknown) (no (unknown) (unknown) (no value) (units (unk nown) date) unknown) (unknown) (no (unknown) (unknown) (1) Chronic (units (un known) date) fatigue: unknown) (unknown) (no (unknown) (unknown) 12/27/22 (units (unkno wn) date) unknown) (unknown) (no (unknown) (unknown) : [id number] (units (u nknown) date) unknown) (unknown) (no (unknown) (unknown) Acute neck pain (units (unknown) date) unknown) (unknown) (no (unknown) (unknown) Acute thoracic (units (unknown) date) back pain unknown) (unknown) (no (unknown) (unknown) Age/Sex: 32 / F (units (unknown) date) Date of Service: unknown) (unknown) (no (unknown) (unknown) All participants (units (unknown) date) + their role: unknown) (Providers,Parent ,Spouse,etc): (unknown) (no (unknown) (unknown) Allergies (units (unkn own) date) unknown) (unknown) (no (unknown) (unknown) [place], [place] (units ( unknown) date) [id number] unknown) (unknown) (no (unknown) (unknown) Anaphylaxis (units (un known) date) unknown) (unknown) (no (unknown) (unknown) Assessment + (units (u nknown) date) Plan unknown) (unknown) (no (unknown) (unknown) Attending Dr: (units ( unknown) date) Marcell Fong unknown) (unknown) (no (unknown) (unknown) Autonomic (units (unkn own) date) dysfunction unknown) (unknown) (no (unknown) (unknown) Cellulitis (units (unk nown) date) unknown) (unknown) (no (unknown) (unknown) Cervical somatic (units (unknown) date) dysfunction unknown) (unknown) (no (unknown) (unknown) Chief Complaint (units (unknown) date) unknown) (unknown) (no (unknown) (unknown) Chief Complaint: (units (unknown) date) allergy unknown) questions, medication follow-up (unknown) (no (unknown) (unknown) Chronic (units (unkno wn) date) bilateral low unknown) back pain without sciatica (unknown) (no (unknown) (unknown) Chronic cough (units ( unknown) date) unknown) (unknown) (no (unknown) (unknown) Counseling and (units (unknown) date) educating the unknown) patient/family/ca regiver: 5 (unknown) (no (unknown) (unknown) Cranial somatic (units (unknown) date) dysfunction unknown) (unknown) (no (unknown) (unknown) : 1990 (units (unknown) date) Acct:[id number] unknown) (unknown) (no (unknown) (unknown) Dept at (units (unkno wn) date) . unknown) (unknown) (no (unknown) (unknown) Details: (units (unkno wn) date) unknown) (unknown) (no (unknown) (unknown) Documented By: (units (unknown) date) Marcell Fong unknown) 12/27/22 1310 (unknown) (no (unknown) (unknown) Documenting (units (un known) date) clinical unknown) information in EHR/Medical record: 6 (unknown) (no (unknown) (unknown) Draft (units (unkno wn) date) unknown) (unknown) (no (unknown) (unknown) Exam Narrative (units (unknown) date) unknown) (unknown) (no (unknown) (unknown) Exam Narrative: (units (unknown) date) unknown) (unknown) (no (unknown) (unknown) Exam (units (unkno wn) date) unknown) (unknown) (no (unknown) (unknown) Family Practice (units (unknown) date) Office Visit unknown) (unknown) (no (unknown) (unknown) Fibromyalgia (units (u nknown) date) unknown) (unknown) (no (unknown) (unknown) [facility]) (unknown) (no (unknown) (unknown) HPI (units (unkno wn) date) unknown) (unknown) (no (unknown) (unknown) Intake (units (unkno wn) date) unknown) (unknown) (no (unknown) (unknown) Left breast lump (units (unknown) date) unknown) (unknown) (no (unknown) (unknown) Loc: [facility] (units (unkno wn) date) unknown) (unknown) (no (unknown) (unknown) Location of (units (un known) date) patient:: Her unknown) home (unknown) (no (unknown) (unknown) Location of (units (un known) date) provider[facility] (unknown) (no (unknown) (unknown) Lumbar region (units ( unknown) date) somatic unknown) dysfunction (unknown) (no (unknown) (unknown) Medical History (units (unknown) date) (Reviewed unknown) 12/23/21 @ 13:44 by SHIRLEY Duran) (unknown) (no (unknown) (unknown) Kimberly is a (units ( unknown) date) 32-year-old unknown) female with ADHD here for follow-up. She did develop (unknown) (no (unknown) (unknown) Neck muscle (units (un known) date) spasm unknown) (unknown) (no (unknown) (unknown) Neck stiffness (units (unknown) date) unknown) (unknown) (no (unknown) (unknown) Neck strain (units (un known) date) unknown) (unknown) (no (unknown) (unknown) PFSH (units (unkno wn) date) unknown) (unknown) (no (unknown) (unknown) PTSD (units (unkno wn) date) (post-traumatic unknown) stress disorder) (unknown) (no (unknown) (unknown) Patient and (units (un known) date) provider unknown) (unknown) (no (unknown) (unknown) Patient (units (unkno wn) date) consented to unknown) receive services via telehealth?: Yes (unknown) (no (unknown) (unknown) Patient: (units (unkno wn) date) Lewis,Michell unknown) e D MR# (unknown) (no (unknown) (unknown) Pelvic somatic (units (unknown) date) dysfunction unknown) (unknown) (no (unknown) (unknown) Performing a (units (u nknown) date) medically unknown) appropriate exam and/or evaluation: 5 (unknown) (no (unknown) (unknown) Preparing to see (units (unknown) date) the patient, unknown) i.e., chart review, review of tests: 5 (unknown) (no (unknown) (unknown) Psoas syndrome (units (unknown) date) unknown) (unknown) (no (unknown) (unknown) Real-time,sychro (units (unknown) date) nous services unknown) were performed via:: [facility] (unknown) (no (unknown) (unknown) Reason For Visit (units (unknown) date) unknown) (unknown) (no (unknown) (unknown) Sacral region (units ( unknown) date) somatic unknown) dysfunction (unknown) (no (unknown) (unknown) Segmental and (units ( unknown) date) somatic unknown) dysfunction of abdomen and other regions (unknown) (no (unknown) (unknown) Sensation of (units (u nknown) date) feeling cold unknown) (unknown) (no (unknown) (unknown) She appears (units (un known) date) healthy, no acute unknown) distress. Speaking in complete sentences. (unknown) (no (unknown) (unknown) Signed By: (units (unk nown) date) unknown) (unknown) (no (unknown) (unknown) Smoking Status: (units (unknown) date) Current every day unknown) smoker (unknown) (no (unknown) (unknown) THROAT CLOSURE (units (unknown) date) unknown) (unknown) (no (unknown) (unknown) Tachycardia (units (un known) date) unknown) (unknown) (no (unknown) (unknown) TeleHealth (units (unk nown) date) unknown) (unknown) (no (unknown) (unknown) Telehealth. (units (un known) date) unknown) (unknown) (no (unknown) (unknown) This note may (units ( unknown) date) have been all or unknown) partially generated using voice recognition (unknown) (no (unknown) (unknown) Thoracic region (units (unknown) date) somatic unknown) dysfunction (unknown) (no (unknown) (unknown) Time Coding (units (un known) date) Minutes Spent: unknown) (must be on same date of service/appointme nt) (unknown) (no (unknown) (unknown) Time Spent (units (unk nown) date) unknown) (unknown) (no (unknown) (unknown) Tobacco + (units (unkn own) date) Substance Use unknown) (unknown) (no (unknown) (unknown) Tobacco Status (units (unknown) date) unknown) (unknown) (no (unknown) (unknown) Tobacco: How (units (u nknown) date) many years used: unknown) 13 (unknown) (no (unknown) (unknown) Total Time: 21 (units (unknown) date) unknown) (unknown) (no (unknown) (unknown) Visit Reasons: (units (unknown) date) 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) referral/mammo f/u *COMMENT* (unknown) (no (unknown) (unknown) Were services (units ( unknown) date) performed via unknown) telephone only?: No (unknown) (no (unknown) (unknown) alcohol intake: (units (unknown) date) current unknown) (unknown) (no (unknown) (unknown) cefazolin (units (unkn own) date) Allergy (Verified unknown) 06/30/22 09:58) (unknown) (no (unknown) (unknown) cefprozil (units (unkn own) date) [CEFPROZIL] unknown) Adverse Reaction (Unknown, Verified 06/30/22 09:58) (unknown) (no (unknown) (unknown) doxycycline (units (un known) date) Allergy (Verified unknown) 06/30/22 09:58) (unknown) (no (unknown) (unknown) has been (units (unkno wn) date) meditating at unknown) home exercising, working on ways to improve concentration (unknown) (no (unknown) (unknown) have occurred. (units (unknown) date) If there are any unknown) questions, please contact the Medical Records (unknown) (no (unknown) (unknown) ketorolac (units (unkn own) date) [KETOROLAC] unknown) Adverse Reaction (Unknown, Verified 06/30/22 09:58) (unknown) (no (unknown) (unknown) kidney stones (units ( unknown) date) being on Adderall unknown) and it was not very helpful for her. Kimberly (unknown) (no (unknown) (unknown) latex [LATEX] (units ( unknown) date) Allergy (Unknown, unknown) Verified 06/30/22 09:58) (unknown) (no (unknown) (unknown) may occur. (units (unk nown) date) Occasional unknown) wrong-word or 'sound-alike' substitutions may have (unknown) (no (unknown) (unknown) metoclopramide (units (unknown) date) [From Reglan] unknown) Adverse Reaction (Verified 06/30/22 09:58) (unknown) (no (unknown) (unknown) occurred due to (units (unknown) date) the inherent unknown) limitations of voice recognition software. Please (unknown) (no (unknown) (unknown) quit status: (units (u nknown) date) considering unknown) quitting (unknown) (no (unknown) (unknown) read the note (units ( unknown) date) carefully and unknown) recognize, using context, where these substitutions (unknown) (no (unknown) (unknown) shrimp Allergy (units (unknown) date) (Severe, Verified unknown) 06/30/22 09:58) (unknown) (no (unknown) (unknown) software. (units (unkn own) date) Although every unknown) effort is made to edit content, sales expert errors (unknown) (no (unknown) (unknown) stimulant (units (unkn own) date) medication and is unknown) hoping for more natural option. (unknown) (no (unknown) (unknown) substance use (units ( unknown) date) type: does not unknown) use (unknown) (no (unknown) (unknown) though this has (units (unknown) date) not been overly unknown) successful. She is nervous about starting a Result panel 8 (unknown) (no (unknown) (unknown) (no value) (units (unk nown) date) unknown) (unknown) (no (unknown) (unknown) (1) Chronic (units (un known) date) fatigue: unknown) (unknown) (no (unknown) (unknown) (2) Urticaria: (units (unknown) date) unknown) (unknown) (no (unknown) (unknown) (3) Allergic (units (u nknown) date) contact unknown) dermatitis due to dental material: (unknown) (no (unknown) (unknown) 12/27/22 (units (unkno wn) date) unknown) (unknown) (no (unknown) (unknown) : [id number] (units (u nknown) date) unknown) (unknown) (no (unknown) (unknown) Acute neck pain (units (unknown) date) unknown) (unknown) (no (unknown) (unknown) Acute thoracic (units (unknown) date) back pain unknown) (unknown) (no (unknown) (unknown) Age/Sex: 32 / F (units (unknown) date) Date of Service: unknown) (unknown) (no (unknown) (unknown) All participants (units (unknown) date) + their role: unknown) (Providers,Parent ,Spouse,etc): (unknown) (no (unknown) (unknown) Allergies (units (unkn own) date) unknown) (unknown) (no (unknown) (unknown) [place], [place] (units ( unknown) date) [id number] unknown) (unknown) (no (unknown) (unknown) Anaphylaxis (units (un known) date) unknown) (unknown) (no (unknown) (unknown) Assessment + (units (u nknown) date) Plan unknown) (unknown) (no (unknown) (unknown) Attending Dr: (units ( unknown) date) Marcell Fong unknown) (unknown) (no (unknown) (unknown) Autonomic (units (unkn own) date) dysfunction unknown) (unknown) (no (unknown) (unknown) Cellulitis (units (unk nown) date) unknown) (unknown) (no (unknown) (unknown) Cervical somatic (units (unknown) date) dysfunction unknown) (unknown) (no (unknown) (unknown) Chief Complaint (units (unknown) date) unknown) (unknown) (no (unknown) (unknown) Chief Complaint: (units (unknown) date) allergy unknown) questions, medication follow-up (unknown) (no (unknown) (unknown) Chronic (units (unkno wn) date) bilateral low unknown) back pain without sciatica (unknown) (no (unknown) (unknown) Chronic cough (units ( unknown) date) unknown) (unknown) (no (unknown) (unknown) Counseling and (units (unknown) date) educating the unknown) patient/family/ca regiver: 5 (unknown) (no (unknown) (unknown) Cranial somatic (units (unknown) date) dysfunction unknown) (unknown) (no (unknown) (unknown) : 1990 (units (unknown) date) Acct:[id number] unknown) (unknown) (no (unknown) (unknown) Dept at (units (unkno wn) date) . unknown) (unknown) (no (unknown) (unknown) Details: (units (unkno wn) date) unknown) (unknown) (no (unknown) (unknown) Documented By: (units (unknown) date) Marcell Fong unknownEdil AGEE 12/27/22 1310 (unknown) (no (unknown) (unknown) Documenting (units (un known) date) clinical unknown) information in EHR/Medical record: 6 (unknown) (no (unknown) (unknown) Draft (units (unkno wn) date) unknown) (unknown) (no (unknown) (unknown) Exam Narrative (units (unknown) date) unknown) (unknown) (no (unknown) (unknown) Exam Narrative: (units (unknown) date) unknown) (unknown) (no (unknown) (unknown) Exam (units (unkno wn) date) unknown) (unknown) (no (unknown) (unknown) Family Practice (units (unknown) date) Office Visit unknown) (unknown) (no (unknown) (unknown) Fibromyalgia (units (u nknown) date) unknown) (unknown) (no (unknown) (unknown) [facility]) (unknown) (no (unknown) (unknown) HPI (units (unkno wn) date) unknown) (unknown) (no (unknown) (unknown) Intake (units (unkno wn) date) unknown) (unknown) (no (unknown) (unknown) Left breast lump (units (unknown) date) unknown) (unknown) (no (unknown) (unknown) Loc: [facility] (units (unkno wn) date) unknown) (unknown) (no (unknown) (unknown) Location of (units (un known) date) patient:: Her unknown) home (unknown) (no (unknown) (unknown) Location of (units (un known) date) provider:: [facility] (unknown) (no (unknown) (unknown) Lumbar region (units ( unknown) date) somatic unknown) dysfunction (unknown) (no (unknown) (unknown) Medical History (units (unknown) date) (Reviewed unknown) 12/23/21 @ 13:44 by SHIRLEY Duran) (unknown) (no (unknown) (unknown) Kimberly is a (units ( unknown) date) 32-year-old unknown) female with ADHD here for follow-up. She did develop (unknown) (no (unknown) (unknown) Neck muscle (units (un known) date) spasm unknown) (unknown) (no (unknown) (unknown) Neck stiffness (units (unknown) date) unknown) (unknown) (no (unknown) (unknown) Neck strain (units (un known) date) unknown) (unknown) (no (unknown) (unknown) Orders: (units (unkno wn) date) unknown) (unknown) (no (unknown) (unknown) PFSH (units (unkno wn) date) unknown) (unknown) (no (unknown) (unknown) PTSD (units (unkno wn) date) (post-traumatic unknown) stress disorder) (unknown) (no (unknown) (unknown) Patient and (units (un known) date) provider unknown) (unknown) (no (unknown) (unknown) Patient (units (unkno wn) date) consented to unknown) receive services via telehealth?: Yes (unknown) (no (unknown) (unknown) Patient: (units (unkno wn) date) Alia Lewis unknown) e D MR# (unknown) (no (unknown) (unknown) Pelvic somatic (units (unknown) date) dysfunction unknown) (unknown) (no (unknown) (unknown) Performing a (units (u nknown) date) medically unknown) appropriate exam and/or evaluation: 5 (unknown) (no (unknown) (unknown) Preparing to see (units (unknown) date) the patient, unknown) i.e., chart review, review of tests: 5 (unknown) (no (unknown) (unknown) Psoas syndrome (units (unknown) date) unknown) (unknown) (no (unknown) (unknown) Real-time,sychro (units (unknown) date) nous services unknown) were performed via:: [facility] (unknown) (no (unknown) (unknown) Reason For Visit (units (unknown) date) unknown) (unknown) (no (unknown) (unknown) Referral Allergy (units (unknown) date) and Immunology unknown) L23.89 - Allergic contact dermatitis due to (unknown) (no (unknown) (unknown) Referrals (units (unkn own) date) unknown) (unknown) (no (unknown) (unknown) Sacral region (units ( unknown) date) somatic unknown) dysfunction (unknown) (no (unknown) (unknown) Segmental and (units ( unknown) date) somatic unknown) dysfunction of abdomen and other regions (unknown) (no (unknown) (unknown) Sensation of (units (u nknown) date) feeling cold unknown) (unknown) (no (unknown) (unknown) She appears (units (un known) date) healthy, no acute unknown) distress. Speaking in complete sentences. (unknown) (no (unknown) (unknown) Signed By: (units (unk nown) date) unknown) (unknown) (no (unknown) (unknown) Smoking Status: (units (unknown) date) Current every day unknown) smoker (unknown) (no (unknown) (unknown) THROAT CLOSURE (units (unknown) date) unknown) (unknown) (no (unknown) (unknown) Tachycardia (units (un known) date) unknown) (unknown) (no (unknown) (unknown) TeleHealth (units (unk nown) date) unknown) (unknown) (no (unknown) (unknown) Telehealth. (units (un known) date) unknown) (unknown) (no (unknown) (unknown) This note may (units ( unknown) date) have been all or unknown) partially generated using voice recognition (unknown) (no (unknown) (unknown) Thoracic region (units (unknown) date) somatic unknown) dysfunction (unknown) (no (unknown) (unknown) Time Coding (units (un known) date) Minutes Spent: unknown) (must be on same date of service/appointme nt) (unknown) (no (unknown) (unknown) Time Spent (units (unk nown) date) unknown) (unknown) (no (unknown) (unknown) Tobacco + (units (unkn own) date) Substance Use unknown) (unknown) (no (unknown) (unknown) Tobacco Status (units (unknown) date) unknown) (unknown) (no (unknown) (unknown) Tobacco: How (units (u nknown) date) many years used: unknown) 13 (unknown) (no (unknown) (unknown) Total Time: 21 (units (unknown) date) unknown) (unknown) (no (unknown) (unknown) Visit Reasons: (units (unknown) date) 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) referral/mammo f/u *COMMENT* (unknown) (no (unknown) (unknown) Were services (units ( unknown) date) performed via unknown) telephone only?: No (unknown) (no (unknown) (unknown) alcohol intake: (units (unknown) date) current unknown) (unknown) (no (unknown) (unknown) cefazolin (units (unkn own) date) Allergy (Verified unknown) 06/30/22 09:58) (unknown) (no (unknown) (unknown) cefprozil (units (unkn own) date) [CEFPROZIL] unknown) Adverse Reaction (Unknown, Verified 06/30/22 09:58) (unknown) (no (unknown) (unknown) doxycycline (units (un known) date) Allergy (Verified unknown) 06/30/22 09:58) (unknown) (no (unknown) (unknown) has been (units (unkno wn) date) meditating at unknown) home exercising, working on ways to improve concentration (unknown) (no (unknown) (unknown) have occurred. (units (unknown) date) If there are any unknown) questions, please contact the Medical Records (unknown) (no (unknown) (unknown) ketorolac (units (unkn own) date) [KETOROLAC] unknown) Adverse Reaction (Unknown, Verified 06/30/22 09:58) (unknown) (no (unknown) (unknown) kidney stones (units ( unknown) date) being on Adderall unknown) and it was not very helpful for her. Kimberly (unknown) (no (unknown) (unknown) latex [LATEX] (units ( unknown) date) Allergy (Unknown, unknown) Verified 06/30/22 09:58) (unknown) (no (unknown) (unknown) may occur. (units (unk nown) date) Occasional unknown) wrong-word or 'sound-alike' substitutions may have (unknown) (no (unknown) (unknown) metoclopramide (units (unknown) date) [From Reglan] unknown) Adverse Reaction (Verified 06/30/22 09:58) (unknown) (no (unknown) (unknown) occurred due to (units (unknown) date) the inherent unknown) limitations of voice recognition software. Please (unknown) (no (unknown) (unknown) other agents, (units ( unknown) date) L50.9 - unknown) Urticaria, unspecified (unknown) (no (unknown) (unknown) quit status: (units (u nknown) date) considering unknown) quitting (unknown) (no (unknown) (unknown) read the note (units ( unknown) date) carefully and unknown) recognize, using context, where these substitutions (unknown) (no (unknown) (unknown) shrimp Allergy (units (unknown) date) (Severe, Verified unknown) 06/30/22 09:58) (unknown) (no (unknown) (unknown) software. (units (unkn own) date) Although every unknown) effort is made to edit content, sales expert errors (unknown) (no (unknown) (unknown) stimulant (units (unkn own) date) medication and is unknown) hoping for more natural option. (unknown) (no (unknown) (unknown) substance use (units ( unknown) date) type: does not unknown) use (unknown) (no (unknown) (unknown) though this has (units (unknown) date) not been overly unknown) successful. She is nervous about starting a Result panel 9 (unknown) (no (unknown) (unknown) (no value) (units (unk nown) date) unknown) (unknown) (no (unknown) (unknown) (1) Chronic (units (un known) date) fatigue: unknown) (unknown) (no (unknown) (unknown) (2) Urticaria: (units (unknown) date) unknown) (unknown) (no (unknown) (unknown) (3) Allergic (units (u nknown) date) contact unknown) dermatitis due to dental material: (unknown) (no (unknown) (unknown) 12/27/22 1355 (units ( unknown) date) unknown) (unknown) (no (unknown) (unknown) 12/27/22 (units (unkno wn) date) unknown) (unknown) (no (unknown) (unknown) : [id number] (units (u nknown) date) unknown) (unknown) (no (unknown) (unknown) Acute neck pain (units (unknown) date) unknown) (unknown) (no (unknown) (unknown) Acute thoracic (units (unknown) date) back pain unknown) (unknown) (no (unknown) (unknown) Age/Sex: 32 / F (units (unknown) date) Date of Service: unknown) (unknown) (no (unknown) (unknown) All participants (units (unknown) date) + their role: unknown) (Providers,Parent ,Spouse,etc): (unknown) (no (unknown) (unknown) Allergies (units (unkn own) date) unknown) (unknown) (no (unknown) (unknown) [place], [place] (units ( unknown) date) [id number] unknown) (unknown) (no (unknown) (unknown) Anaphylaxis (units (un known) date) unknown) (unknown) (no (unknown) (unknown) Assessment + (units (u nknown) date) Plan unknown) (unknown) (no (unknown) (unknown) Attending Dr: (units ( unknown) date) Marcell Fong unknown) (unknown) (no (unknown) (unknown) Autonomic (units (unkn own) date) dysfunction unknown) (unknown) (no (unknown) (unknown) Cellulitis (units (unk nown) date) unknown) (unknown) (no (unknown) (unknown) Cervical somatic (units (unknown) date) dysfunction unknown) (unknown) (no (unknown) (unknown) Chief Complaint (units (unknown) date) unknown) (unknown) (no (unknown) (unknown) Chief Complaint: (units (unknown) date) allergy unknown) questions, medication follow-up (unknown) (no (unknown) (unknown) Chronic (units (unkno wn) date) bilateral low unknown) back pain without sciatica (unknown) (no (unknown) (unknown) Chronic cough (units ( unknown) date) unknown) (unknown) (no (unknown) (unknown) Counseling and (units (unknown) date) educating the unknown) patient/family/ca regiver: 5 (unknown) (no (unknown) (unknown) Cranial somatic (units (unknown) date) dysfunction unknown) (unknown) (no (unknown) (unknown) : 1990 (units (unknown) date) Acct:[id number] unknown) (unknown) (no (unknown) (unknown) Dept at (units (unkno wn) date) . unknown) (unknown) (no (unknown) (unknown) Details: (units (unkno wn) date) unknown) (unknown) (no (unknown) (unknown) Documented By: (units (unknown) date) Marcell Fong unknown) 12/27/22 1310 (unknown) (no (unknown) (unknown) Documenting (units (un known) date) clinical unknown) information in EHR/Medical record: 6 (unknown) (no (unknown) (unknown) Exam Narrative (units (unknown) date) unknown) (unknown) (no (unknown) (unknown) Exam Narrative: (units (unknown) date) unknown) (unknown) (no (unknown) (unknown) Exam (units (unkno wn) date) unknown) (unknown) (no (unknown) (unknown) Family Practice (units (unknown) date) Office Visit unknown) (unknown) (no (unknown) (unknown) Fibromyalgia (units (u nknown) date) unknown) (unknown) (no (unknown) (unknown) [facility]) (unknown) (no (unknown) (unknown) HPI (units (unkno wn) date) unknown) (unknown) (no (unknown) (unknown) Intake (units (unkno wn) date) unknown) (unknown) (no (unknown) (unknown) Left breast lump (units (unknown) date) unknown) (unknown) (no (unknown) (unknown) Loc: [facility] (units (unkno wn) date) unknown) (unknown) (no (unknown) (unknown) Location of (units (un known) date) patient:: Her unknown) home (unknown) (no (unknown) (unknown) Location of (units (un known) date) provider[facility] (unknown) (no (unknown) (unknown) Lumbar region (units ( unknown) date) somatic unknown) dysfunction (unknown) (no (unknown) (unknown) Medical History (units (unknown) date) (Reviewed unknown) 12/23/21 @ 13:44 by SHIRLEY Duran) (unknown) (no (unknown) (unknown) Kimberly is a (units ( unknown) date) 32-year-old unknown) female with ADHD here for follow-up. She did develop (unknown) (no (unknown) (unknown) Neck muscle (units (un known) date) spasm unknown) (unknown) (no (unknown) (unknown) Neck stiffness (units (unknown) date) unknown) (unknown) (no (unknown) (unknown) Neck strain (units (un known) date) unknown) (unknown) (no (unknown) (unknown) Orders: (units (unkno wn) date) unknown) (unknown) (no (unknown) (unknown) PFSH (units (unkno wn) date) unknown) (unknown) (no (unknown) (unknown) PTSD (units (unkno wn) date) (post-traumatic unknown) stress disorder) (unknown) (no (unknown) (unknown) Patient and (units (un known) date) provider unknown) (unknown) (no (unknown) (unknown) Patient (units (unkno wn) date) consented to unknown) receive services via telehealth?: Yes (unknown) (no (unknown) (unknown) Patient: (units (unkno wn) date) Alia Lewis unknown) e D MR# (unknown) (no (unknown) (unknown) Pelvic somatic (units (unknown) date) dysfunction unknown) (unknown) (no (unknown) (unknown) Performing a (units (u nknown) date) medically unknown) appropriate exam and/or evaluation: 5 (unknown) (no (unknown) (unknown) Preparing to see (units (unknown) date) the patient, unknown) i.e., chart review, review of tests: 5 (unknown) (no (unknown) (unknown) Psoas syndrome (units (unknown) date) unknown) (unknown) (no (unknown) (unknown) Real-time,sychro (units (unknown) date) nous services unknown) were performed via:: [facility] (unknown) (no (unknown) (unknown) Reason For Visit (units (unknown) date) unknown) (unknown) (no (unknown) (unknown) Referral Allergy (units (unknown) date) and Immunology unknown) L23.89 - Allergic contact dermatitis due to (unknown) (no (unknown) (unknown) Referrals (units (unkn own) date) unknown) (unknown) (no (unknown) (unknown) Sacral region (units ( unknown) date) somatic unknown) dysfunction (unknown) (no (unknown) (unknown) Segmental and (units ( unknown) date) somatic unknown) dysfunction of abdomen and other regions (unknown) (no (unknown) (unknown) Sensation of (units (u nknown) date) feeling cold unknown) (unknown) (no (unknown) (unknown) She appears (units (un known) date) healthy, no acute unknown) distress. Speaking in complete sentences. (unknown) (no (unknown) (unknown) Signed By: (units (unk nown) date) <Electronically unknown) signed by Marcell Fong MD> (unknown) (no (unknown) (unknown) Signed (units (unkno wn) date) unknown) (unknown) (no (unknown) (unknown) Smoking Status: (units (unknown) date) Current every day unknown) smoker (unknown) (no (unknown) (unknown) THROAT CLOSURE (units (unknown) date) unknown) (unknown) (no (unknown) (unknown) Tachycardia (units (un known) date) unknown) (unknown) (no (unknown) (unknown) TeleHealth (units (unk nown) date) unknown) (unknown) (no (unknown) (unknown) Telehealth. (units (un known) date) unknown) (unknown) (no (unknown) (unknown) This note may (units ( unknown) date) have been all or unknown) partially generated using voice recognition (unknown) (no (unknown) (unknown) Thoracic region (units (unknown) date) somatic unknown) dysfunction (unknown) (no (unknown) (unknown) Time Coding (units (un known) date) Minutes Spent: unknown) (must be on same date of service/appointme nt) (unknown) (no (unknown) (unknown) Time Spent (units (unk nown) date) unknown) (unknown) (no (unknown) (unknown) Tobacco + (units (unkn own) date) Substance Use unknown) (unknown) (no (unknown) (unknown) Tobacco Status (units (unknown) date) unknown) (unknown) (no (unknown) (unknown) Tobacco: How (units (u nknown) date) many years used: unknown) 13 (unknown) (no (unknown) (unknown) Total Time: 21 (units (unknown) date) unknown) (unknown) (no (unknown) (unknown) Visit Reasons: (units (unknown) date) 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) referral/mammo f/u *COMMENT* (unknown) (no (unknown) (unknown) Were services (units ( unknown) date) performed via unknown) telephone only?: No (unknown) (no (unknown) (unknown) alcohol intake: (units (unknown) date) current unknown) (unknown) (no (unknown) (unknown) cefazolin (units (unkn own) date) Allergy (Verified unknown) 06/30/22 09:58) (unknown) (no (unknown) (unknown) cefprozil (units (unkn own) date) [CEFPROZIL] unknown) Adverse Reaction (Unknown, Verified 06/30/22 09:58) (unknown) (no (unknown) (unknown) doxycycline (units (un known) date) Allergy (Verified unknown) 06/30/22 09:58) (unknown) (no (unknown) (unknown) has been (units (unkno wn) date) meditating at unknown) home exercising, working on ways to improve concentration (unknown) (no (unknown) (unknown) have occurred. (units (unknown) date) If there are any unknown) questions, please contact the Medical Records (unknown) (no (unknown) (unknown) ketorolac (units (unkn own) date) [KETOROLAC] unknown) Adverse Reaction (Unknown, Verified 06/30/22 09:58) (unknown) (no (unknown) (unknown) kidney stones (units ( unknown) date) being on Adderall unknown) and it was not very helpful for her. Kimberly (unknown) (no (unknown) (unknown) latex [LATEX] (units ( unknown) date) Allergy (Unknown, unknown) Verified 06/30/22 09:58) (unknown) (no (unknown) (unknown) may occur. (units (unk nown) date) Occasional unknown) wrong-word or 'sound-alike' substitutions may have (unknown) (no (unknown) (unknown) metoclopramide (units (unknown) date) [From Reglan] unknown) Adverse Reaction (Verified 06/30/22 09:58) (unknown) (no (unknown) (unknown) occurred due to (units (unknown) date) the inherent unknown) limitations of voice recognition software. Please (unknown) (no (unknown) (unknown) other agents, (units ( unknown) date) L50.9 - unknown) Urticaria, unspecified (unknown) (no (unknown) (unknown) quit status: (units (u nknown) date) considering unknown) quitting (unknown) (no (unknown) (unknown) read the note (units ( unknown) date) carefully and unknown) recognize, using context, where these substitutions (unknown) (no (unknown) (unknown) shrimp Allergy (units (unknown) date) (Severe, Verified unknown) 06/30/22 09:58) (unknown) (no (unknown) (unknown) software. (units (unkn own) date) Although every unknown) effort is made to edit content, sales expert errors (unknown) (no (unknown) (unknown) stimulant (units (unkn own) date) medication and is unknown) hoping for more natural option. (unknown) (no (unknown) (unknown) substance use (units ( unknown) date) type: does not unknown) use (unknown) (no (unknown) (unknown) though this has (units (unknown) date) not been overly unknown) successful. She is nervous about starting a Result panel 10 (unknown) (no (unknown) (unknown) (no value) (units (unk nown) date) unknown) (unknown) (no (unknown) (unknown) 01/04/23 (units (unkno wn) date) unknown) (unknown) (no (unknown) (unknown) : [id number] (units (u nknown) date) unknown) (unknown) (no (unknown) (unknown) Acute neck pain (units (unknown) date) unknown) (unknown) (no (unknown) (unknown) Acute thoracic (units (unknown) date) back pain unknown) (unknown) (no (unknown) (unknown) Age/Sex: 32 / F (units (unknown) date) Date of Service: unknown) (unknown) (no (unknown) (unknown) Allergies (units (unkn own) date) unknown) (unknown) (no (unknown) (unknown) [place], [place] (units ( unknown) date) [id number] unknown) (unknown) (no (unknown) (unknown) Anaphylaxis (units (un known) date) unknown) (unknown) (no (unknown) (unknown) Attending Dr: (units ( unknown) date) Marcell Fong unknown) (unknown) (no (unknown) (unknown) Autonomic (units (unkn own) date) dysfunction unknown) (unknown) (no (unknown) (unknown) Cellulitis (units (unk nown) date) unknown) (unknown) (no (unknown) (unknown) Cervical somatic (units (unknown) date) dysfunction unknown) (unknown) (no (unknown) (unknown) Chronic (units (unkno wn) date) bilateral low unknown) back pain without sciatica (unknown) (no (unknown) (unknown) Chronic cough (units ( unknown) date) unknown) (unknown) (no (unknown) (unknown) Cranial somatic (units (unknown) date) dysfunction unknown) (unknown) (no (unknown) (unknown) : 1990 (units (unknown) date) Acct:[id number] unknown) (unknown) (no (unknown) (unknown) Dept at (units (unkno wn) date) . unknown) (unknown) (no (unknown) (unknown) Documented By: (units (unknown) date) Marcell Fong unknownEdil AGEE 01/04/23 1517 (unknown) (no (unknown) (unknown) Draft (units (unkno wn) date) unknown) (unknown) (no (unknown) (unknown) Family Practice (units (unknown) date) Office Visit unknown) (unknown) (no (unknown) (unknown) Fibromyalgia (units (u nknown) date) unknown) (unknown) (no (unknown) (unknown) [facility]) (unknown) (no (unknown) (unknown) Intake (units (unkno wn) date) unknown) (unknown) (no (unknown) (unknown) Left breast lump (units (unknown) date) unknown) (unknown) (no (unknown) (unknown) Loc: [facility] (units (unkno wn) date) unknown) (unknown) (no (unknown) (unknown) Lumbar region (units ( unknown) date) somatic unknown) dysfunction (unknown) (no (unknown) (unknown) Medical History (units (unknown) date) (Reviewed unknown) 12/23/21 @ 13:44 by SHIRLEY Duran) (unknown) (no (unknown) (unknown) Neck muscle (units (un known) date) spasm unknown) (unknown) (no (unknown) (unknown) Neck stiffness (units (unknown) date) unknown) (unknown) (no (unknown) (unknown) Neck strain (units (un known) date) unknown) (unknown) (no (unknown) (unknown) PFSH (units (unkno wn) date) unknown) (unknown) (no (unknown) (unknown) PTSD (units (unkno wn) date) (post-traumatic unknown) stress disorder) (unknown) (no (unknown) (unknown) Patient: (units (unkno wn) date) Alia Lewis unknown) e D MR# (unknown) (no (unknown) (unknown) Pelvic somatic (units (unknown) date) dysfunction unknown) (unknown) (no (unknown) (unknown) Psoas syndrome (units (unknown) date) unknown) (unknown) (no (unknown) (unknown) Reason For Visit (units (unknown) date) unknown) (unknown) (no (unknown) (unknown) Sacral region (units ( unknown) date) somatic unknown) dysfunction (unknown) (no (unknown) (unknown) Segmental and (units ( unknown) date) somatic unknown) dysfunction of abdomen and other regions (unknown) (no (unknown) (unknown) Sensation of (units (u nknown) date) feeling cold unknown) (unknown) (no (unknown) (unknown) Signed By: (units (unk nown) date) unknown) (unknown) (no (unknown) (unknown) Smoking Status: (units (unknown) date) Current every day unknown) smoker (unknown) (no (unknown) (unknown) THROAT CLOSURE (units (unknown) date) unknown) (unknown) (no (unknown) (unknown) Tachycardia (units (un known) date) unknown) (unknown) (no (unknown) (unknown) This note may (units ( unknown) date) have been all or unknown) partially generated using voice recognition (unknown) (no (unknown) (unknown) Thoracic region (units (unknown) date) somatic unknown) dysfunction (unknown) (no (unknown) (unknown) Tobacco + (units (unkn own) date) Substance Use unknown) (unknown) (no (unknown) (unknown) Tobacco Status (units (unknown) date) unknown) (unknown) (no (unknown) (unknown) Tobacco: How (units (u nknown) date) many years used: unknown) 13 (unknown) (no (unknown) (unknown) Visit Reasons: (units (unknown) date) Painful lump in unknown) breast (unknown) (no (unknown) (unknown) alcohol intake: (units (unknown) date) current unknown) (unknown) (no (unknown) (unknown) cefazolin (units (unkn own) date) Allergy (Verified unknown) 06/30/22 09:58) (unknown) (no (unknown) (unknown) cefprozil (units (unkn own) date) [CEFPROZIL] unknown) Adverse Reaction (Unknown, Verified 06/30/22 09:58) (unknown) (no (unknown) (unknown) doxycycline (units (un known) date) Allergy (Verified unknown) 06/30/22 09:58) (unknown) (no (unknown) (unknown) have occurred. (units (unknown) date) If there are any unknown) questions, please contact the Medical Records (unknown) (no (unknown) (unknown) ketorolac (units (unkn own) date) [KETOROLAC] unknown) Adverse Reaction (Unknown, Verified 06/30/22 09:58) (unknown) (no (unknown) (unknown) latex [LATEX] (units ( unknown) date) Allergy (Unknown, unknown) Verified 06/30/22 09:58) (unknown) (no (unknown) (unknown) may occur. (units (unk nown) date) Occasional unknown) wrong-word or 'sound-alike' substitutions may have (unknown) (no (unknown) (unknown) metoclopramide (units (unknown) date) [From Reglan] unknown) Adverse Reaction (Verified 06/30/22 09:58) (unknown) (no (unknown) (unknown) occurred due to (units (unknown) date) the inherent unknown) limitations of voice recognition software. Please (unknown) (no (unknown) (unknown) quit status: (units (u nknown) date) considering unknown) quitting (unknown) (no (unknown) (unknown) read the note (units ( unknown) date) carefully and unknown) recognize, using context, where these substitutions (unknown) (no (unknown) (unknown) shrimp Allergy (units (unknown) date) (Severe, Verified unknown) 06/30/22 09:58) (unknown) (no (unknown) (unknown) software. (units (unkn own) date) Although every unknown) effort is made to edit content, sales expert errors (unknown) (no (unknown) (unknown) substance use (units ( unknown) date) type: does not unknown) use Result panel 11 (unknown) (no (unknown) (unknown) (no value) (units (unk nown) date) unknown) (unknown) (no (unknown) (unknown) #1 ea 10/06/22 (units (unknown) date) [Rx Confirmed unknown) 01/04/23] (unknown) (no (unknown) (unknown) #12 caps 11/07/22 (units (unknown) date) [Rx Confirmed unknown) 01/04/23] (unknown) (no (unknown) (unknown) #60 mL 11/21/22 (units (unknown) date) [Rx Confirmed unknown) 01/04/23] (unknown) (no (unknown) (unknown) 12/13/22 [Rx (units (u nknown) date) Confirmed unknown) 01/04/23] (unknown) (no (unknown) (unknown) 01/04/23 (units (unkno wn) date) unknown) (unknown) (no (unknown) (unknown) 01/04/23] (units (unkn own) date) unknown) (unknown) (no (unknown) (unknown) 15:24 (units (unkno wn) date) unknown) (unknown) (no (unknown) (unknown) 2 puff inhalation (units (unknown) date) BID #10.2 grams unknown) 03/17/22 [Rx Confirmed 01/04/23] (unknown) (no (unknown) (unknown) 3 ml syringe/ 25g (units (unknown) date) 1 1/2 needle #1 ea unknown) 10/06/22 [Rx Confirmed 01/04/23] (unknown) (no (unknown) (unknown) 32 Y/O Female (units ( unknown) date) presents today for unknown) a follow up of a painful spot under her Left (unknown) (no (unknown) (unknown) : [id number] (units (u nknown) date) unknown) (unknown) (no (unknown) (unknown) Acute neck pain (units (unknown) date) unknown) (unknown) (no (unknown) (unknown) Acute thoracic (units (unknown) date) back pain unknown) (unknown) (no (unknown) (unknown) Age/Sex: 32 / F (units (unknown) date) Date of Service: unknown) (unknown) (no (unknown) (unknown) Allergies (units (unkn own) date) unknown) (unknown) (no (unknown) (unknown) [place], [place] (units ( unknown) date) [id number] unknown) (unknown) (no (unknown) (unknown) Anaphylaxis (units (un known) date) unknown) (unknown) (no (unknown) (unknown) Attending Dr: (units ( unknown) date) Marcell Fong unknown) (unknown) (no (unknown) (unknown) Autonomic (units (unkn own) date) dysfunction unknown) (unknown) (no (unknown) (unknown) BD #5106 needles (units (unknown) date) 30gx1/2 #100 ea unknown) 12/01/22 [Rx Confirmed 01/04/23] (unknown) (no (unknown) (unknown) BMI 30.7 (units (unkno wn) date) unknown) (unknown) (no (unknown) (unknown) BP 116/70 (units (unkn own) date) unknown) (unknown) (no (unknown) (unknown) Blood Pressure (units (unknown) date) Location Lt unknown) brachial (unknown) (no (unknown) (unknown) Cellulitis (units (unk nown) date) unknown) (unknown) (no (unknown) (unknown) Cervical somatic (units (unknown) date) dysfunction unknown) (unknown) (no (unknown) (unknown) Chief Complaint (units (unknown) date) unknown) (unknown) (no (unknown) (unknown) Chief Complaint: (units (unknown) date) Chest discomfort unknown) (unknown) (no (unknown) (unknown) Chronic bilateral (units (unknown) date) low back pain unknown) without sciatica (unknown) (no (unknown) (unknown) Chronic cough (units ( unknown) date) unknown) (unknown) (no (unknown) (unknown) Confirmed (units (unkn own) date) 01/04/23] unknown) (unknown) (no (unknown) (unknown) Cranial somatic (units (unknown) date) dysfunction unknown) (unknown) (no (unknown) (unknown) : 1990 (units (unknown) date) Acct:[id number] unknown) (unknown) (no (unknown) (unknown) Dept at (units (unkno wn) date) . unknown) (unknown) (no (unknown) (unknown) Details: (units (unkno wn) date) unknown) (unknown) (no (unknown) (unknown) Documented By: (units (unknown) date) Marcell Fong unknownEdil AGEE 01/04/23 1517 (unknown) (no (unknown) (unknown) Draft (units (unkno wn) date) unknown) (unknown) (no (unknown) (unknown) Family Practice (units (unknown) date) Office Visit unknown) (unknown) (no (unknown) (unknown) Fibromyalgia (units (u nknown) date) unknown) (unknown) (no (unknown) (unknown) [facility]units ([facility] date[facility]) (unknown) (no (unknown) (unknown) HPI (units (unkno wn) date) unknown) (unknown) (no (unknown) (unknown) Height 5 ft 1.5 (units (unknown) date) in unknown) (unknown) (no (unknown) (unknown) Intake Note: (units (u nknown) date) unknown) (unknown) (no (unknown) (unknown) Intake performed (units (unknown) date) by: hSarri Kamara unknown) (unknown) (no (unknown) (unknown) Intake (units (unkno wn) date) unknown) (unknown) (no (unknown) (unknown) Intake- Clincial (units (unknown) date) Staff unknown) (unknown) (no (unknown) (unknown) Left breast lump (units (unknown) date) unknown) (unknown) (no (unknown) (unknown) Loc: [facility] (units (unkno wn) date) unknown) (unknown) (no (unknown) (unknown) Lumbar region (units ( unknown) date) somatic unknown) dysfunction (unknown) (no (unknown) (unknown) Medical History (units (unknown) date) (Reviewed 12/23/21 unknown) @ 13:44 by SHIRLEY Duran) (unknown) (no (unknown) (unknown) Medications (units (un known) date) unknown) (unknown) (no (unknown) (unknown) Kimberly is a (units ( unknown) date) 32-year-old female unknown) with ADHD here for follow-up. She did develop (unknown) (no (unknown) (unknown) Neck muscle spasm (units (unknown) date) unknown) (unknown) (no (unknown) (unknown) Neck stiffness (units (unknown) date) unknown) (unknown) (no (unknown) (unknown) Neck strain (units (un known) date) unknown) (unknown) (no (unknown) (unknown) Oxygen Delivery (units (unknown) date) Method room air unknown) (unknown) (no (unknown) (unknown) PFSH (units (unkno wn) date) unknown) (unknown) (no (unknown) (unknown) PTSD (units (unkno wn) date) (post-traumatic unknown) stress disorder) (unknown) (no (unknown) (unknown) Patient: (units (unkno wn) date) Kimberly Lewis unknown) D MR# (unknown) (no (unknown) (unknown) Pelvic somatic (units (unknown) date) dysfunction unknown) (unknown) (no (unknown) (unknown) Position Sitting (units (unknown) date) unknown) (unknown) (no (unknown) (unknown) Psoas syndrome (units (unknown) date) unknown) (unknown) (no (unknown) (unknown) Pulse 98 H (units (unk nown) date) unknown) (unknown) (no (unknown) (unknown) Pulse Oximetry (units (unknown) date) (%) 98 unknown) (unknown) (no (unknown) (unknown) Pulse Source (units (u nknown) date) Monitor unknown) (unknown) (no (unknown) (unknown) Reason For Visit (units (unknown) date) unknown) (unknown) (no (unknown) (unknown) Sacral region (units ( unknown) date) somatic unknown) dysfunction (unknown) (no (unknown) (unknown) Segmental and (units ( unknown) date) somatic unknown) dysfunction of abdomen and other regions (unknown) (no (unknown) (unknown) Sensation of (units (u nknown) date) feeling cold unknown) (unknown) (no (unknown) (unknown) Signed By: (units (unk nown) date) unknown) (unknown) (no (unknown) (unknown) Smoking Status: (units (unknown) date) Former smoker unknown) (unknown) (no (unknown) (unknown) THROAT CLOSURE (units (unknown) date) unknown) (unknown) (no (unknown) (unknown) Tachycardia (units (un known) date) unknown) (unknown) (no (unknown) (unknown) This note may (units ( unknown) date) have been all or unknown) partially generated using voice recognition (unknown) (no (unknown) (unknown) Thoracic region (units (unknown) date) somatic unknown) dysfunction (unknown) (no (unknown) (unknown) Tobacco + (units (unkn own) date) Substance Use unknown) (unknown) (no (unknown) (unknown) Tobacco Status (units (unknown) date) unknown) (unknown) (no (unknown) (unknown) Tobacco: How many (units (unknown) date) years used: 13 unknown) (unknown) (no (unknown) (unknown) Visit Reasons: (units (unknown) date) Painful lump in unknown) breast (unknown) (no (unknown) (unknown) Vitals (units (unkno wn) date) unknown) (unknown) (no (unknown) (unknown) Weight 165 lb 2 (units (unknown) date) oz unknown) (unknown) (no (unknown) (unknown) [Rx Confirmed (units ( unknown) date) 01/04/23] unknown) (unknown) (no (unknown) (unknown) alcohol intake: (units (unknown) date) current unknown) (unknown) (no (unknown) (unknown) benzonatate 100 (units (unknown) date) mg capsule 100 mg unknown) PO BID-TID PRN cough #60 caps 09/09/22 [Rx (unknown) (no (unknown) (unknown) breast. She has (units (unknown) date) recently had a unknown) Mammogram and a breast ultra sound. She states it (unknown) (no (unknown) (unknown) budesonide-formot (units (unknown) date) terence HFA 160 unknown) mcg-4.5 mcg/actuation aerosol inhaler (Symbicort) (unknown) (no (unknown) (unknown) cefazolin Allergy (units (unknown) date) (Verified 01/04/23 unknown) 15:22) (unknown) (no (unknown) (unknown) cefprozil (units (unkn own) date) [CEFPROZIL] unknown) Adverse Reaction (Unknown, Verified 01/04/23 15:22) (unknown) (no (unknown) (unknown) cholecalciferol (units (unknown) date) (vitamin D3) 1,250 unknown) mcg (50,000 unit) capsule 1,250 mcg PO QWEEK (unknown) (no (unknown) (unknown) clindamycin (units (un known) date) phosphate 1 % unknown) topical solution See Rx Instructions .Route .COMPLEX (unknown) (no (unknown) (unknown) doxycycline (units (un known) date) Allergy (Verified unknown) 01/04/23 15:22) (unknown) (no (unknown) (unknown) epinephrine 0.3 (units (unknown) date) mg/0.3 mL unknown) injection, auto-injector (EpiPen 2-Kaleb) 0.3 mg (0.3 (unknown) (no (unknown) (unknown) has been (units (unkno wn) date) meditating at home unknown) exercising, working on ways to improve concentration (unknown) (no (unknown) (unknown) have occurred. If (units (unknown) date) there are any unknown) questions, please contact the Medical Records (unknown) (no (unknown) (unknown) ibuprofen 800 mg (units (unknown) date) tablet See Rx unknown) Instructions .Route .COMPLEX #90 tabs 10/17/22 (unknown) (no (unknown) (unknown) is still hurting (units (unknown) date) as of today. unknown) (unknown) (no (unknown) (unknown) ketorolac (units (unkn own) date) [KETOROLAC] unknown) Adverse Reaction (Unknown, Verified 01/04/23 15:22) (unknown) (no (unknown) (unknown) kidney stones (units ( unknown) date) being on Adderall unknown) and it was not very helpful for her. Kimberly (unknown) (no (unknown) (unknown) latex [LATEX] (units ( unknown) date) Allergy (Unknown, unknown) Verified 01/04/23 15:22) (unknown) (no (unknown) (unknown) mL) IM Q5-15M PRN (units (unknown) date) anaphylaxis #2 ea unknown) 06/29/21 [Rx Confirmed 01/04/23] (unknown) (no (unknown) (unknown) may occur. (units (unk nown) date) Occasional unknown) wrong-word or 'sound-alike' substitutions may have (unknown) (no (unknown) (unknown) mecobalamin (units (unk nown) date) (vitamin B12) unknown) 10,000 mcg solution for injection 1,000 mcg IM MONTHLY (unknown) (no (unknown) (unknown) metoclopramide (units (unknown) date) [From Reglan] unknown) Adverse Reaction (Verified 01/04/23 15:22) (unknown) (no (unknown) (unknown) multivitamin (units (u nknown) date) (Daily unknown) Multi-Vitamin tablet) 1 tab PO DAILY 01/04/23 [History (unknown) (no (unknown) (unknown) occurred due to (units (unknown) date) the inherent unknown) limitations of voice recognition software. Please (unknown) (no (unknown) (unknown) phentermine 37.5 (units (unknown) date) mg tablet 18.75 mg unknown) PO DAILY #90 tabs 07/21/22 [Rx Confirmed (unknown) (no (unknown) (unknown) quit status: (units (u nknown) date) considering unknown) quitting (unknown) (no (unknown) (unknown) read the note (units ( unknown) date) carefully and unknown) recognize, using context, where these substitutions (unknown) (no (unknown) (unknown) shrimp Allergy (units (unknown) date) (Severe, Verified unknown) 01/04/23 15:22) (unknown) (no (unknown) (unknown) software. (units (unkn own) date) Although every unknown) effort is made to edit content, sales expert errors (unknown) (no (unknown) (unknown) stimulant (units (unkn own) date) medication and is unknown) hoping for more natural option. (unknown) (no (unknown) (unknown) substance use (units ( unknown) date) type: does not use unknown) (unknown) (no (unknown) (unknown) though this has (units (unknown) date) not been overly unknown) successful. She is nervous about starting a (unknown) (no (unknown) (unknown) zolpidem 10 mg (units (unknown) date) tablet See Rx unknown) Instructions PO BEDTIME PRN insomnia #30 tabs Result panel 12 (unknown) (no (unknown) (unknown) (no value) (units (unk nown) date) unknown) (unknown) (no (unknown) (unknown) #1 ea 10/06/22 (units (unknown) date) [Rx Confirmed unknown) 01/04/23] (unknown) (no (unknown) (unknown) #12 caps 11/07/22 (units (unknown) date) [Rx Confirmed unknown) 01/04/23] (unknown) (no (unknown) (unknown) #60 mL 11/21/22 (units (unknown) date) [Rx Confirmed unknown) 01/04/23] (unknown) (no (unknown) (unknown) (1) Left breast (units (unknown) date) lump: unknown) (unknown) (no (unknown) (unknown) 12/13/22 [Rx (units (u nknown) date) Confirmed unknown) 01/04/23] (unknown) (no (unknown) (unknown) 01/04/23 (units (unkno wn) date) unknown) (unknown) (no (unknown) (unknown) 01/04/23] (units (unkn own) date) unknown) (unknown) (no (unknown) (unknown) 15:24 (units (unkno wn) date) unknown) (unknown) (no (unknown) (unknown) 2 puff inhalation (units (unknown) date) BID #10.2 grams unknown) 03/17/22 [Rx Confirmed 01/04/23] (unknown) (no (unknown) (unknown) 3 ml syringe/ 25g (units (unknown) date) 1 1/2 needle #1 ea unknown) 10/06/22 [Rx Confirmed 01/04/23] (unknown) (no (unknown) (unknown) 32 Y/O Female (units ( unknown) date) presents today for unknown) a follow up of a painful spot under her Left (unknown) (no (unknown) (unknown) : [id number] (units (u nknown) date) unknown) (unknown) (no (unknown) (unknown) Acute neck pain (units (unknown) date) unknown) (unknown) (no (unknown) (unknown) Acute thoracic (units (unknown) date) back pain unknown) (unknown) (no (unknown) (unknown) Age/Sex: 32 / F (units (unknown) date) Date of Service: unknown) (unknown) (no (unknown) (unknown) Allergies (units (unkn own) date) unknown) (unknown) (no (unknown) (unknown) [place], [place] (units ( unknown) date) [id number] unknown) (unknown) (no (unknown) (unknown) Anaphylaxis (units (un known) date) unknown) (unknown) (no (unknown) (unknown) Assessment + Plan (units (unknown) date) unknown) (unknown) (no (unknown) (unknown) Attending Dr: (units ( unknown) date) Marcell Fong unknown) (unknown) (no (unknown) (unknown) Autonomic (units (unkn own) date) dysfunction unknown) (unknown) (no (unknown) (unknown) BD #5106 needles (units (unknown) date) 30gx1/2 #100 ea unknown) 12/01/22 [Rx Confirmed 01/04/23] (unknown) (no (unknown) (unknown) BMI 30.7 (units (unkno wn) date) unknown) (unknown) (no (unknown) (unknown) BP 116/70 (units (unkn own) date) unknown) (unknown) (no (unknown) (unknown) Blood Pressure (units (unknown) date) Location Lt unknown) brachial (unknown) (no (unknown) (unknown) Cellulitis (units (unk nown) date) unknown) (unknown) (no (unknown) (unknown) Cervical somatic (units (unknown) date) dysfunction unknown) (unknown) (no (unknown) (unknown) Chaperoned by (units ( unknown) date) Alessandra Kamara MA unknown) (unknown) (no (unknown) (unknown) Chief Complaint (units (unknown) date) unknown) (unknown) (no (unknown) (unknown) Chief Complaint: (units (unknown) date) Chest discomfort unknown) (unknown) (no (unknown) (unknown) Chronic bilateral (units (unknown) date) low back pain unknown) without sciatica (unknown) (no (unknown) (unknown) Chronic cough (units ( unknown) date) unknown) (unknown) (no (unknown) (unknown) Confirmed (units (unkn own) date) 01/04/23] unknown) (unknown) (no (unknown) (unknown) Cranial somatic (units (unknown) date) dysfunction unknown) (unknown) (no (unknown) (unknown) : 1990 (units (unknown) date) Acct:[id number] unknown) (unknown) (no (unknown) (unknown) Dept at (units (unkno wn) date) . unknown) (unknown) (no (unknown) (unknown) Details: (units (unkno wn) date) unknown) (unknown) (no (unknown) (unknown) Documented By: (units (unknown) date) Marcell Fong unknownEdil AGEE 01/04/23 1517 (unknown) (no (unknown) (unknown) Draft (units (unkno wn) date) unknown) (unknown) (no (unknown) (unknown) Exam Narrative (units (unknown) date) unknown) (unknown) (no (unknown) (unknown) Exam Narrative: (units (unknown) date) unknown) (unknown) (no (unknown) (unknown) Exam (units (unkno wn) date) unknown) (unknown) (no (unknown) (unknown) [facility] (units (unknown) date) Office Visit unknown) (unknown) (no (unknown) (unknown) Fibromyalgia (units (u nknown) date) unknown) (unknown) (no (unknown) (unknown) [facility]) (unknown) (no (unknown) (unknown) HPI (units (unkno wn) date) unknown) (unknown) (no (unknown) (unknown) Height 5 ft 1.5 (units (unknown) date) in unknown) (unknown) (no (unknown) (unknown) Intake Note: (units (u nknown) date) unknown) (unknown) (no (unknown) (unknown) Intake performed (units (unknown) date) by: Sharri Kamara unknown) (unknown) (no (unknown) (unknown) Intake (units (unkno wn) date) unknown) (unknown) (no (unknown) (unknown) Intake- Clincial (units (unknown) date) Staff unknown) (unknown) (no (unknown) (unknown) Left breast lump (units (unknown) date) unknown) (unknown) (no (unknown) (unknown) Loc: [facility] (units (unkno wn) date) unknown) (unknown) (no (unknown) (unknown) Lumbar region (units ( unknown) date) somatic unknown) dysfunction (unknown) (no (unknown) (unknown) Medical History (units (unknown) date) (Reviewed 12/23/21 unknown) @ 13:44 by SHIRLEY Duran) (unknown) (no (unknown) (unknown) Medications (units (un known) date) unknown) (unknown) (no (unknown) (unknown) Kimberly is a (units ( unknown) date) 32-year-old female unknown) with ADHD here for follow-up. She did develop (unknown) (no (unknown) (unknown) Kimberly is (units (un known) date) sitting up, unknown) pleasant, no acute distress (unknown) (no (unknown) (unknown) Neck muscle spasm (units (unknown) date) unknown) (unknown) (no (unknown) (unknown) Neck stiffness (units (unknown) date) unknown) (unknown) (no (unknown) (unknown) Neck strain (units (un known) date) unknown) (unknown) (no (unknown) (unknown) Oxygen Delivery (units (unknown) date) Method room air unknown) (unknown) (no (unknown) (unknown) PFSH (units (unkno wn) date) unknown) (unknown) (no (unknown) (unknown) PTSD (units (unkno wn) date) (post-traumatic unknown) stress disorder) (unknown) (no (unknown) (unknown) Patient: (units (unkno wn) date) Kimberly Lewis unknown) D MR# (unknown) (no (unknown) (unknown) Pelvic somatic (units (unknown) date) dysfunction unknown) (unknown) (no (unknown) (unknown) Position Sitting (units (unknown) date) unknown) (unknown) (no (unknown) (unknown) Psoas syndrome (units (unknown) date) unknown) (unknown) (no (unknown) (unknown) Pulse 98 H (units (unk nown) date) unknown) (unknown) (no (unknown) (unknown) Pulse Oximetry (units (unknown) date) (%) 98 unknown) (unknown) (no (unknown) (unknown) Pulse Source (units (u nknown) date) Monitor unknown) (unknown) (no (unknown) (unknown) Reason For Visit (units (unknown) date) unknown) (unknown) (no (unknown) (unknown) Sacral region (units ( unknown) date) somatic unknown) dysfunction (unknown) (no (unknown) (unknown) Segmental and (units ( unknown) date) somatic unknown) dysfunction of abdomen and other regions (unknown) (no (unknown) (unknown) Sensation of (units (u nknown) date) feeling cold unknown) (unknown) (no (unknown) (unknown) Signed By: (units (unk nown) date) unknown) (unknown) (no (unknown) (unknown) Smoking Status: (units (unknown) date) Former smoker unknown) (unknown) (no (unknown) (unknown) Status: Acute (units ( unknown) date) unknown) (unknown) (no (unknown) (unknown) THROAT CLOSURE (units (unknown) date) unknown) (unknown) (no (unknown) (unknown) Tachycardia (units (un known) date) unknown) (unknown) (no (unknown) (unknown) This note may (units ( unknown) date) have been all or unknown) partially generated using voice recognition (unknown) (no (unknown) (unknown) Thoracic region (units (unknown) date) somatic unknown) dysfunction (unknown) (no (unknown) (unknown) Tobacco + (units (unkn own) date) Substance Use unknown) (unknown) (no (unknown) (unknown) Tobacco Status (units (unknown) date) unknown) (unknown) (no (unknown) (unknown) Tobacco: How many (units (unknown) date) years used: 13 unknown) (unknown) (no (unknown) (unknown) Visit Reasons: (units (unknown) date) Painful lump in unknown) breast (unknown) (no (unknown) (unknown) Vitals (units (unkno wn) date) unknown) (unknown) (no (unknown) (unknown) Weight 165 lb 2 (units (unknown) date) oz unknown) (unknown) (no (unknown) (unknown) [Rx Confirmed (units ( unknown) date) 01/04/23] unknown) (unknown) (no (unknown) (unknown) alcohol intake: (units (unknown) date) current unknown) (unknown) (no (unknown) (unknown) benzonatate 100 (units (unknown) date) mg capsule 100 mg unknown) PO BID-TID PRN cough #60 caps 09/09/22 [Rx (unknown) (no (unknown) (unknown) breast. She has (units (unknown) date) recently had a unknown) Mammogram and a breast ultra sound. She states it (unknown) (no (unknown) (unknown) budesonide-formot (units (unknown) date) terence HFA 160 unknown) mcg-4.5 mcg/actuation aerosol inhaler (Symbicort) (unknown) (no (unknown) (unknown) cefazolin Allergy (units (unknown) date) (Verified 01/04/23 unknown) 15:22) (unknown) (no (unknown) (unknown) cefprozil (units (unkn own) date) [CEFPROZIL] unknown) Adverse Reaction (Unknown, Verified 01/04/23 15:22) (unknown) (no (unknown) (unknown) cholecalciferol (units (unknown) date) (vitamin D3) 1,250 unknown) mcg (50,000 unit) capsule 1,250 mcg PO QWEEK (unknown) (no (unknown) (unknown) clindamycin (units (un known) date) phosphate 1 % unknown) topical solution See Rx Instructions .Route .COMPLEX (unknown) (no (unknown) (unknown) doxycycline (units (un known) date) Allergy (Verified unknown) 01/04/23 15:22) (unknown) (no (unknown) (unknown) epinephrine 0.3 (units (unknown) date) mg/0.3 mL unknown) injection, auto-injector (EpiPen 2-Kaleb) 0.3 mg (0.3 (unknown) (no (unknown) (unknown) has been (units (unkno wn) date) meditating at home unknown) exercising, working on ways to improve concentration (unknown) (no (unknown) (unknown) have occurred. If (units (unknown) date) there are any unknown) questions, please contact the Medical Records (unknown) (no (unknown) (unknown) ibuprofen 800 mg (units (unknown) date) tablet See Rx unknown) Instructions .Route .COMPLEX #90 tabs 10/17/22 (unknown) (no (unknown) (unknown) is still hurting (units (unknown) date) as of today. unknown) (unknown) (no (unknown) (unknown) ketorolac (units (unkn own) date) [KETOROLAC] unknown) Adverse Reaction (Unknown, Verified 01/04/23 15:22) (unknown) (no (unknown) (unknown) kidney stones (units ( unknown) date) being on Adderall unknown) and it was not very helpful for her. Kimberly (unknown) (no (unknown) (unknown) latex [LATEX] (units ( unknown) date) Allergy (Unknown, unknown) Verified 01/04/23 15:22) (unknown) (no (unknown) (unknown) mL) IM Q5-15M PRN (units (unknown) date) anaphylaxis #2 ea unknown) 06/29/21 [Rx Confirmed 01/04/23] (unknown) (no (unknown) (unknown) may occur. (units (unk nown) date) Occasional unknown) wrong-word or 'sound-alike' substitutions may have (unknown) (no (unknown) (unknown) mecobalamin (units (unk nown) date) (vitamin B12) unknown) 10,000 mcg solution for injection 1,000 mcg IM MONTHLY (unknown) (no (unknown) (unknown) metoclopramide (units (unknown) date) [From Reglan] unknown) Adverse Reaction (Verified 01/04/23 15:22) (unknown) (no (unknown) (unknown) multivitamin (units (u nknown) date) (Daily unknown) Multi-Vitamin tablet) 1 tab PO DAILY 01/04/23 [History (unknown) (no (unknown) (unknown) occurred due to (units (unknown) date) the inherent unknown) limitations of voice recognition software. Please (unknown) (no (unknown) (unknown) phentermine 37.5 (units (unknown) date) mg tablet 18.75 mg unknown) PO DAILY #90 tabs 07/21/22 [Rx Confirmed (unknown) (no (unknown) (unknown) quit status: (units (u nknown) date) considering unknown) quitting (unknown) (no (unknown) (unknown) read the note (units ( unknown) date) carefully and unknown) recognize, using context, where these substitutions (unknown) (no (unknown) (unknown) shrimp Allergy (units (unknown) date) (Severe, Verified unknown) 01/04/23 15:22) (unknown) (no (unknown) (unknown) software. (units (unkn own) date) Although every unknown) effort is made to edit content, sales expert errors (unknown) (no (unknown) (unknown) stimulant (units (unkn own) date) medication and is unknown) hoping for more natural option. (unknown) (no (unknown) (unknown) substance use (units ( unknown) date) type: does not use unknown) (unknown) (no (unknown) (unknown) though this has (units (unknown) date) not been overly unknown) successful. She is nervous about starting a (unknown) (no (unknown) (unknown) zolpidem 10 mg (units (unknown) date) tablet See Rx unknown) Instructions PO BEDTIME PRN insomnia #30 tabs Result panel 13 (unknown) (no (unknown) (unknown) (no value) (units (unk nown) date) unknown) (unknown) (no (unknown) (unknown) #1 ea 10/06/22 (units (unknown) date) [Rx Confirmed unknown) 01/04/23] (unknown) (no (unknown) (unknown) #12 caps 11/07/22 (units (unknown) date) [Rx Confirmed unknown) 01/04/23] (unknown) (no (unknown) (unknown) #60 mL 11/21/22 (units (unknown) date) [Rx Confirmed unknown) 01/04/23] (unknown) (no (unknown) (unknown) (1) Hidradenitis (units (unknown) date) suppurativa: unknown) (unknown) (no (unknown) (unknown) (2) Chest wall (units (unknown) date) pain: unknown) (unknown) (no (unknown) (unknown) 12/13/22 [Rx (units (u nknown) date) Confirmed unknown) 01/04/23] (unknown) (no (unknown) (unknown) 01/04/23 (units (unkno wn) date) unknown) (unknown) (no (unknown) (unknown) 01/04/23] (units (unkn own) date) unknown) (unknown) (no (unknown) (unknown) 15:24 (units (unkno wn) date) unknown) (unknown) (no (unknown) (unknown) 2 puff inhalation (units (unknown) date) BID #10.2 grams unknown) 03/17/22 [Rx Confirmed 01/04/23] (unknown) (no (unknown) (unknown) 3 ml syringe/ 25g (units (unknown) date) 1 1/2 needle #1 ea unknown) 10/06/22 [Rx Confirmed 01/04/23] (unknown) (no (unknown) (unknown) 32 Y/O Female (units ( unknown) date) presents today for unknown) a follow up of a painful spot under her Left (unknown) (no (unknown) (unknown) : [id number] (units (u nknown) date) unknown) (unknown) (no (unknown) (unknown) Acute neck pain (units (unknown) date) unknown) (unknown) (no (unknown) (unknown) Acute thoracic (units (unknown) date) back pain unknown) (unknown) (no (unknown) (unknown) Age/Sex: 32 / F (units (unknown) date) Date of Service: unknown) (unknown) (no (unknown) (unknown) Allergies (units (unkn own) date) unknown) (unknown) (no (unknown) (unknown) [place], [place] (units ( unknown) date) [id number] unknown) (unknown) (no (unknown) (unknown) Anaphylaxis (units (un known) date) unknown) (unknown) (no (unknown) (unknown) Assessment + Plan (units (unknown) date) unknown) (unknown) (no (unknown) (unknown) Attending Dr: (units ( unknown) date) Marcell Fong unknown) (unknown) (no (unknown) (unknown) Autonomic (units (unkn own) date) dysfunction unknown) (unknown) (no (unknown) (unknown) BD #5106 needles (units (unknown) date) 30gx1/2 #100 ea unknown) 12/01/22 [Rx Confirmed 01/04/23] (unknown) (no (unknown) (unknown) BMI 30.7 (units (unkno wn) date) unknown) (unknown) (no (unknown) (unknown) BP 116/70 (units (unkn own) date) unknown) (unknown) (no (unknown) (unknown) Blood Pressure (units (unknown) date) Location Lt unknown) brachial (unknown) (no (unknown) (unknown) Cellulitis (units (unk nown) date) unknown) (unknown) (no (unknown) (unknown) Cervical somatic (units (unknown) date) dysfunction unknown) (unknown) (no (unknown) (unknown) Chaperoned by (units ( unknown) date) Alessandra Kamara MA unknown) (unknown) (no (unknown) (unknown) Chief Complaint (units (unknown) date) unknown) (unknown) (no (unknown) (unknown) Chief Complaint: (units (unknown) date) Chest discomfort unknown) (unknown) (no (unknown) (unknown) Chronic bilateral (units (unknown) date) low back pain unknown) without sciatica (unknown) (no (unknown) (unknown) Chronic cough (units ( unknown) date) unknown) (unknown) (no (unknown) (unknown) Confirmed (units (unkn own) date) 01/04/23] unknown) (unknown) (no (unknown) (unknown) Cranial somatic (units (unknown) date) dysfunction unknown) (unknown) (no (unknown) (unknown) : 1990 (units (unknown) date) Acct:[id number] unknown) (unknown) (no (unknown) (unknown) Dept at (units (unkno wn) date) . unknown) (unknown) (no (unknown) (unknown) Details: (units (unkno wn) date) unknown) (unknown) (no (unknown) (unknown) Documented By: (units (unknown) date) Marcell Fong unknown) 01/04/23 1517 (unknown) (no (unknown) (unknown) Draft (units (unkno wn) date) unknown) (unknown) (no (unknown) (unknown) Exam Narrative (units (unknown) date) unknown) (unknown) (no (unknown) (unknown) Exam Narrative: (units (unknown) date) unknown) (unknown) (no (unknown) (unknown) Exam (units (unkno wn) date) unknown) (unknown) (no (unknown) (unknown) [facility] (units (unknown) date) Office Visit unknown) (unknown) (no (unknown) (unknown) Fibromyalgia (units (u nknown) date) unknown) (unknown) (no (unknown) (unknown) [facility]) (unknown) (no (unknown) (unknown) HPI (units (unkno wn) date) unknown) (unknown) (no (unknown) (unknown) Height 5 ft 1.5 (units (unknown) date) in unknown) (unknown) (no (unknown) (unknown) Hidradenitis (units (u nknown) date) suppurativa unknown) (unknown) (no (unknown) (unknown) Intake Note: (units (u nknown) date) unknown) (unknown) (no (unknown) (unknown) Intake performed (units (unknown) date) by: Sharri Kamara unknown) (unknown) (no (unknown) (unknown) Intake (units (unkno wn) date) unknown) (unknown) (no (unknown) (unknown) Intake- Clincial (units (unknown) date) Staff unknown) (unknown) (no (unknown) (unknown) Left breast lump (units (unknown) date) unknown) (unknown) (no (unknown) (unknown) Loc: [facility] (units (unkno wn) date) unknown) (unknown) (no (unknown) (unknown) Lumbar region (units ( unknown) date) somatic unknown) dysfunction (unknown) (no (unknown) (unknown) Medical History (units (unknown) date) (Updated 01/04/23 unknown) @ 15:47 by Marcell Fong MD) (unknown) (no (unknown) (unknown) Medications (units (un known) date) unknown) (unknown) (no (unknown) (unknown) Kimberly is a (units ( unknown) date) 32-year-old female unknown) with ADHD here for follow-up. She did develop (unknown) (no (unknown) (unknown) Kimberly is (units (un known) date) sitting up, unknown) pleasant, no acute distress (unknown) (no (unknown) (unknown) Neck muscle spasm (units (unknown) date) unknown) (unknown) (no (unknown) (unknown) Neck stiffness (units (unknown) date) unknown) (unknown) (no (unknown) (unknown) Neck strain (units (un known) date) unknown) (unknown) (no (unknown) (unknown) Oxygen Delivery (units (unknown) date) Method room air unknown) (unknown) (no (unknown) (unknown) PFSH (units (unkno wn) date) unknown) (unknown) (no (unknown) (unknown) PTSD (units (unkno wn) date) (post-traumatic unknown) stress disorder) (unknown) (no (unknown) (unknown) Patient: (units (unkno wn) date) Kimberly Lewis unknown) D MR# (unknown) (no (unknown) (unknown) Pelvic somatic (units (unknown) date) dysfunction unknown) (unknown) (no (unknown) (unknown) Position Sitting (units (unknown) date) unknown) (unknown) (no (unknown) (unknown) Psoas syndrome (units (unknown) date) unknown) (unknown) (no (unknown) (unknown) Pulse 98 H (units (unk nown) date) unknown) (unknown) (no (unknown) (unknown) Pulse Oximetry (units (unknown) date) (%) 98 unknown) (unknown) (no (unknown) (unknown) Pulse Source (units (u nknown) date) Monitor unknown) (unknown) (no (unknown) (unknown) Reason For Visit (units (unknown) date) unknown) (unknown) (no (unknown) (unknown) Sacral region (units ( unknown) date) somatic unknown) dysfunction (unknown) (no (unknown) (unknown) Segmental and (units ( unknown) date) somatic unknown) dysfunction of abdomen and other regions (unknown) (no (unknown) (unknown) Sensation of (units (u nknown) date) feeling cold unknown) (unknown) (no (unknown) (unknown) Signed By: (units (unk nown) date) unknown) (unknown) (no (unknown) (unknown) Smoking Status: (units (unknown) date) Former smoker unknown) (unknown) (no (unknown) (unknown) Status: Acute (units ( unknown) date) unknown) (unknown) (no (unknown) (unknown) THROAT CLOSURE (units (unknown) date) unknown) (unknown) (no (unknown) (unknown) Tachycardia (units (un known) date) unknown) (unknown) (no (unknown) (unknown) This note may (units ( unknown) date) have been all or unknown) partially generated using voice recognition (unknown) (no (unknown) (unknown) Thoracic region (units (unknown) date) somatic unknown) dysfunction (unknown) (no (unknown) (unknown) Tobacco + (units (unkn own) date) Substance Use unknown) (unknown) (no (unknown) (unknown) Tobacco Status (units (unknown) date) unknown) (unknown) (no (unknown) (unknown) Tobacco: How many (units (unknown) date) years used: 13 unknown) (unknown) (no (unknown) (unknown) Visit Reasons: (units (unknown) date) Painful lump in unknown) breast (unknown) (no (unknown) (unknown) Vitals (units (unkno wn) date) unknown) (unknown) (no (unknown) (unknown) Weight 165 lb 2 (units (unknown) date) oz unknown) (unknown) (no (unknown) (unknown) [Rx Confirmed (units ( unknown) date) 01/04/23] unknown) (unknown) (no (unknown) (unknown) alcohol intake: (units (unknown) date) current unknown) (unknown) (no (unknown) (unknown) benzonatate 100 (units (unknown) date) mg capsule 100 mg unknown) PO BID-TID PRN cough #60 caps 09/09/22 [Rx (unknown) (no (unknown) (unknown) breast. She has (units (unknown) date) recently had a unknown) Mammogram and a breast ultra sound. She states it (unknown) (no (unknown) (unknown) budesonide-formot (units (unknown) date) terence HFA 160 unknown) mcg-4.5 mcg/actuation aerosol inhaler (Symbicort) (unknown) (no (unknown) (unknown) cefazolin Allergy (units (unknown) date) (Verified 01/04/23 unknown) 15:22) (unknown) (no (unknown) (unknown) cefprozil (units (unkn own) date) [CEFPROZIL] unknown) Adverse Reaction (Unknown, Verified 01/04/23 15:22) (unknown) (no (unknown) (unknown) cholecalciferol (units (unknown) date) (vitamin D3) 1,250 unknown) mcg (50,000 unit) capsule 1,250 mcg PO QWEEK (unknown) (no (unknown) (unknown) clindamycin (units (un known) date) phosphate 1 % unknown) topical solution See Rx Instructions .Route .COMPLEX (unknown) (no (unknown) (unknown) doxycycline (units (un known) date) Allergy (Verified unknown) 01/04/23 15:22) (unknown) (no (unknown) (unknown) epinephrine 0.3 (units (unknown) date) mg/0.3 mL unknown) injection, auto-injector (EpiPen 2-Kaleb) 0.3 mg (0.3 (unknown) (no (unknown) (unknown) has been (units (unkno wn) date) meditating at home unknown) exercising, working on ways to improve concentration (unknown) (no (unknown) (unknown) have occurred. If (units (unknown) date) there are any unknown) questions, please contact the Medical Records (unknown) (no (unknown) (unknown) ibuprofen 800 mg (units (unknown) date) tablet See Rx unknown) Instructions .Route .COMPLEX #90 tabs 10/17/22 (unknown) (no (unknown) (unknown) is still hurting (units (unknown) date) as of today. unknown) (unknown) (no (unknown) (unknown) ketorolac (units (unkn own) date) [KETOROLAC] unknown) Adverse Reaction (Unknown, Verified 01/04/23 15:22) (unknown) (no (unknown) (unknown) kidney stones (units ( unknown) date) being on Adderall unknown) and it was not very helpful for her. Kimberly (unknown) (no (unknown) (unknown) latex [LATEX] (units ( unknown) date) Allergy (Unknown, unknown) Verified 01/04/23 15:22) (unknown) (no (unknown) (unknown) mL) IM Q5-15M PRN (units (unknown) date) anaphylaxis #2 ea unknown) 06/29/21 [Rx Confirmed 01/04/23] (unknown) (no (unknown) (unknown) may occur. (units (unk nown) date) Occasional unknown) wrong-word or 'sound-alike' substitutions may have (unknown) (no (unknown) (unknown) mecobalamin (units (unk nown) date) (vitamin B12) unknown) 10,000 mcg solution for injection 1,000 mcg IM MONTHLY (unknown) (no (unknown) (unknown) metoclopramide (units (unknown) date) [From Reglan] unknown) Adverse Reaction (Verified 01/04/23 15:22) (unknown) (no (unknown) (unknown) multivitamin (units (u nknown) date) (Daily unknown) Multi-Vitamin tablet) 1 tab PO DAILY 01/04/23 [History (unknown) (no (unknown) (unknown) occurred due to (units (unknown) date) the inherent unknown) limitations of voice recognition software. Please (unknown) (no (unknown) (unknown) phentermine 37.5 (units (unknown) date) mg tablet 18.75 mg unknown) PO DAILY #90 tabs 07/21/22 [Rx Confirmed (unknown) (no (unknown) (unknown) quit status: (units (u nknown) date) considering unknown) quitting (unknown) (no (unknown) (unknown) read the note (units ( unknown) date) carefully and unknown) recognize, using context, where these substitutions (unknown) (no (unknown) (unknown) shrimp Allergy (units (unknown) date) (Severe, Verified unknown) 01/04/23 15:22) (unknown) (no (unknown) (unknown) software. (units (unkn own) date) Although every unknown) effort is made to edit content, sales expert errors (unknown) (no (unknown) (unknown) stimulant (units (unkn own) date) medication and is unknown) hoping for more natural option. (unknown) (no (unknown) (unknown) substance use (units ( unknown) date) type: does not use unknown) (unknown) (no (unknown) (unknown) though this has (units (unknown) date) not been overly unknown) successful. She is nervous about starting a (unknown) (no (unknown) (unknown) zolpidem 10 mg (units (unknown) date) tablet See Rx unknown) Instructions PO BEDTIME PRN insomnia #30 tabs Result panel 14 (unknown) (no (unknown) (unknown) (no value) (units (unk nown) date) unknown) (unknown) (no (unknown) (unknown) #1 ea 10/06/22 (units (unknown) date) [Rx Confirmed unknown) 01/04/23] (unknown) (no (unknown) (unknown) #12 caps 11/07/22 (units (unknown) date) [Rx Confirmed unknown) 01/04/23] (unknown) (no (unknown) (unknown) #60 mL 11/21/22 (units (unknown) date) [Rx Confirmed unknown) 01/04/23] (unknown) (no (unknown) (unknown) (1) Hidradenitis (units (unknown) date) suppurativa: unknown) (unknown) (no (unknown) (unknown) (2) Chest wall (units (unknown) date) pain: unknown) (unknown) (no (unknown) (unknown) 12/13/22 [Rx (units (u nknown) date) Confirmed unknown) 01/04/23] (unknown) (no (unknown) (unknown) 01/04/23 1556 (units ( unknown) date) unknown) (unknown) (no (unknown) (unknown) 01/04/23 (units (unkno wn) date) unknown) (unknown) (no (unknown) (unknown) 01/04/23] (units (unkn own) date) unknown) (unknown) (no (unknown) (unknown) 15:24 (units (unkno wn) date) unknown) (unknown) (no (unknown) (unknown) 2 puff inhalation (units (unknown) date) BID #10.2 grams unknown) 03/17/22 [Rx Confirmed 01/04/23] (unknown) (no (unknown) (unknown) 3 ml syringe/ 25g (units (unknown) date) 1 1/2 needle #1 ea unknown) 10/06/22 [Rx Confirmed 01/04/23] (unknown) (no (unknown) (unknown) 32 Y/O Female (units ( unknown) date) presents today for unknown) a follow up of a painful spot under her Left (unknown) (no (unknown) (unknown) : [id number] (units (u nknown) date) unknown) (unknown) (no (unknown) (unknown) Acute neck pain (units (unknown) date) unknown) (unknown) (no (unknown) (unknown) Acute thoracic (units (unknown) date) back pain unknown) (unknown) (no (unknown) (unknown) Age/Sex: 32 / F (units (unknown) date) Date of Service: unknown) (unknown) (no (unknown) (unknown) Allergies (units (unkn own) date) unknown) (unknown) (no (unknown) (unknown) [place], [place] (units ( unknown) date) [id number] unknown) (unknown) (no (unknown) (unknown) Anaphylaxis (units (un known) date) unknown) (unknown) (no (unknown) (unknown) Assessment + Plan (units (unknown) date) unknown) (unknown) (no (unknown) (unknown) Attending Dr: (units ( unknown) date) Marcell Fong unknown) (unknown) (no (unknown) (unknown) Autonomic (units (unkn own) date) dysfunction unknown) (unknown) (no (unknown) (unknown) BD #5106 needles (units (unknown) date) 30gx1/2 #100 ea unknown) 12/01/22 [Rx Confirmed 01/04/23] (unknown) (no (unknown) (unknown) BMI 30.7 (units (unkno wn) date) unknown) (unknown) (no (unknown) (unknown) BP 116/70 (units (unkn own) date) unknown) (unknown) (no (unknown) (unknown) Blood Pressure (units (unknown) date) Location Lt unknown) brachial (unknown) (no (unknown) (unknown) Cellulitis (units (unk nown) date) unknown) (unknown) (no (unknown) (unknown) Cervical somatic (units (unknown) date) dysfunction unknown) (unknown) (no (unknown) (unknown) Chaperoned by (units ( unknown) date) Alessandra Kamara MA unknown) (unknown) (no (unknown) (unknown) Chief Complaint (units (unknown) date) unknown) (unknown) (no (unknown) (unknown) Chief Complaint: (units (unknown) date) Chest discomfort unknown) (unknown) (no (unknown) (unknown) Chronic bilateral (units (unknown) date) low back pain unknown) without sciatica (unknown) (no (unknown) (unknown) Chronic cough (units ( unknown) date) unknown) (unknown) (no (unknown) (unknown) Confirmed (units (unkn own) date) 01/04/23] unknown) (unknown) (no (unknown) (unknown) Cranial somatic (units (unknown) date) dysfunction unknown) (unknown) (no (unknown) (unknown) : 1990 (units (unknown) date) Acct:[id number] unknown) (unknown) (no (unknown) (unknown) Dept at (units (unkno wn) date) . unknown) (unknown) (no (unknown) (unknown) Details: (units (unkno wn) date) unknown) (unknown) (no (unknown) (unknown) Documented By: (units (unknown) date) Marcell Fong unknownEdil AGEE 01/04/23 1517 (unknown) (no (unknown) (unknown) Exam Narrative (units (unknown) date) unknown) (unknown) (no (unknown) (unknown) Exam Narrative: (units (unknown) date) unknown) (unknown) (no (unknown) (unknown) Exam (units (unkno wn) date) unknown) (unknown) (no (unknown) (unknown) Family Practice (units (unknown) date) Office Visit unknown) (unknown) (no (unknown) (unknown) Fibromyalgia (units (u nknown) date) unknown) (unknown) (no (unknown) (unknown) [facility]) (unknown) (no (unknown) (unknown) HPI (units (unkno wn) date) unknown) (unknown) (no (unknown) (unknown) Height 5 ft 1.5 (units (unknown) date) in unknown) (unknown) (no (unknown) (unknown) Hidradenitis (units (u nknown) date) suppurativa unknown) (unknown) (no (unknown) (unknown) I do suspect her (units (unknown) date) chest wall unknown) discomfort is related to underlying hidradenitis (unknown) (no (unknown) (unknown) Intake Note: (units (u nknown) date) unknown) (unknown) (no (unknown) (unknown) Intake performed (units (unknown) date) by: Sharri Kamara unknown) (unknown) (no (unknown) (unknown) Intake (units (unkno wn) date) unknown) (unknown) (no (unknown) (unknown) Intake- Clincial (units (unknown) date) Staff unknown) (unknown) (no (unknown) (unknown) Left breast lump (units (unknown) date) unknown) (unknown) (no (unknown) (unknown) Left chest wall, (units (unknown) date) inferior to left unknown) breast along rib with a few, very small (unknown) (no (unknown) (unknown) Loc: [facility] (units (unkno wn) date) unknown) (unknown) (no (unknown) (unknown) Lumbar region (units ( unknown) date) somatic unknown) dysfunction (unknown) (no (unknown) (unknown) Medical History (units (unknown) date) (Updated 01/04/23 unknown) @ 15:47 by Marcell Fong MD) (unknown) (no (unknown) (unknown) Medications (units (un known) date) unknown) (unknown) (no (unknown) (unknown) Medications: (units (u nknown) date) unknown) (unknown) (no (unknown) (unknown) Kimberly is a (units ( unknown) date) 32-year-old female unknown) with ADHD here for follow-up of left chest (unknown) (no (unknown) (unknown) Kimberly is (units (un known) date) sitting up, unknown) pleasant, no acute distress (unknown) (no (unknown) (unknown) Neck muscle spasm (units (unknown) date) unknown) (unknown) (no (unknown) (unknown) Neck stiffness (units (unknown) date) unknown) (unknown) (no (unknown) (unknown) Neck strain (units (un known) date) unknown) (unknown) (no (unknown) (unknown) New (units (unkno wn) date) unknown) (unknown) (no (unknown) (unknown) Oxygen Delivery (units (unknown) date) Method room air unknown) (unknown) (no (unknown) (unknown) PFSH (units (unkno wn) date) unknown) (unknown) (no (unknown) (unknown) PTSD (units (unkno wn) date) (post-traumatic unknown) stress disorder) (unknown) (no (unknown) (unknown) Patient: (units (unkno wn) date) Kimberly Lewis unknown) D MR# (unknown) (no (unknown) (unknown) Pelvic somatic (units (unknown) date) dysfunction unknown) (unknown) (no (unknown) (unknown) Plan (units (unkno wn) date) unknown) (unknown) (no (unknown) (unknown) Position Sitting (units (unknown) date) unknown) (unknown) (no (unknown) (unknown) Psoas syndrome (units (unknown) date) unknown) (unknown) (no (unknown) (unknown) Pulse 98 H (units (unk nown) date) unknown) (unknown) (no (unknown) (unknown) Pulse Oximetry (units (unknown) date) (%) 98 unknown) (unknown) (no (unknown) (unknown) Pulse Source (units (u nknown) date) Monitor unknown) (unknown) (no (unknown) (unknown) Reason For Visit (units (unknown) date) unknown) (unknown) (no (unknown) (unknown) Sacral region (units ( unknown) date) somatic unknown) dysfunction (unknown) (no (unknown) (unknown) Segmental and (units ( unknown) date) somatic unknown) dysfunction of abdomen and other regions (unknown) (no (unknown) (unknown) Sensation of (units (u nknown) date) feeling cold unknown) (unknown) (no (unknown) (unknown) Signed By: (units (unk nown) date) <Electronically unknown) signed by Marcell Fong MD> (unknown) (no (unknown) (unknown) Signed (units (unkno wn) date) unknown) (unknown) (no (unknown) (unknown) Smoking Status: (units (unknown) date) Former smoker unknown) (unknown) (no (unknown) (unknown) Status: Acute (units ( unknown) date) unknown) (unknown) (no (unknown) (unknown) THROAT CLOSURE (units (unknown) date) unknown) (unknown) (no (unknown) (unknown) Tachycardia (units (un known) date) unknown) (unknown) (no (unknown) (unknown) This note may (units ( unknown) date) have been all or unknown) partially generated using voice recognition (unknown) (no (unknown) (unknown) Thoracic region (units (unknown) date) somatic unknown) dysfunction (unknown) (no (unknown) (unknown) Tobacco + (units (unkn own) date) Substance Use unknown) (unknown) (no (unknown) (unknown) Tobacco Status (units (unknown) date) unknown) (unknown) (no (unknown) (unknown) Tobacco: How many (units (unknown) date) years used: 13 unknown) (unknown) (no (unknown) (unknown) Visit Reasons: (units (unknown) date) Painful lump in unknown) breast (unknown) (no (unknown) (unknown) Vitals (units (unkno wn) date) unknown) (unknown) (no (unknown) (unknown) Weight 165 lb 2 (units (unknown) date) oz unknown) (unknown) (no (unknown) (unknown) [Rx Confirmed (units ( unknown) date) 01/04/23] unknown) (unknown) (no (unknown) (unknown) alcohol intake: (units (unknown) date) current unknown) (unknown) (no (unknown) (unknown) benzonatate 100 (units (unknown) date) mg capsule 100 mg unknown) PO BID-TID PRN cough #60 caps 09/09/22 [Rx (unknown) (no (unknown) (unknown) breast. She has (units (unknown) date) recently had a unknown) Mammogram and a breast ultra sound. She states it (unknown) (no (unknown) (unknown) budesonide-formot (units (unknown) date) terence HFA 160 unknown) mcg-4.5 mcg/actuation aerosol inhaler (Symbicort) (unknown) (no (unknown) (unknown) cefazolin Allergy (units (unknown) date) (Verified 01/04/23 unknown) 15:22) (unknown) (no (unknown) (unknown) cefprozil (units (unkn own) date) [CEFPROZIL] unknown) Adverse Reaction (Unknown, Verified 01/04/23 15:22) (unknown) (no (unknown) (unknown) cholecalciferol (units (unknown) date) (vitamin D3) 1,250 unknown) mcg (50,000 unit) capsule 1,250 mcg PO QWEEK (unknown) (no (unknown) (unknown) clindamycin HCl (units (unknown) date) 300 mg PO BID 60 unknown) caps 1RF (unknown) (no (unknown) (unknown) clindamycin HCl (units (unknown) date) 300 mg capsule 300 unknown) mg PO BID #60 caps 01/04/23 [Rx Confirmed (unknown) (no (unknown) (unknown) clindamycin (units (un known) date) phosphate 1 % unknown) topical solution See Rx Instructions .Route .COMPLEX (unknown) (no (unknown) (unknown) discomfort. She (units (unknown) date) does have family unknown) history of breast cancer as well as personal (unknown) (no (unknown) (unknown) doxycycline (units (un known) date) Allergy (Verified unknown) 01/04/23 15:22) (unknown) (no (unknown) (unknown) epinephrine 0.3 (units (unknown) date) mg/0.3 mL unknown) injection, auto-injector (EpiPen 2-Kaleb) 0.3 mg (0.3 (unknown) (no (unknown) (unknown) exam and tender. (units (unknown) date) Will treat with unknown) rifampin and clindamycin, treatment as well as (unknown) (no (unknown) (unknown) fairly (units (unkno wn) date) unremarkable. unknown) There are small nodules long chest wall that are mobile on (unknown) (no (unknown) (unknown) have occurred. If (units (unknown) date) there are any unknown) questions, please contact the Medical Records (unknown) (no (unknown) (unknown) her symptoms. (units ( unknown) date) Pain is worse when unknown) she moves around or sits up. Pain is better (unknown) (no (unknown) (unknown) history of (units (unk nown) date) hidradenitis unknown) suppurativa. She is had this left chest wall discomfort (unknown) (no (unknown) (unknown) ibuprofen 800 mg (units (unknown) date) tablet See Rx unknown) Instructions .Route .COMPLEX #90 tabs 10/17/22 (unknown) (no (unknown) (unknown) is still hurting (units (unknown) date) as of today. unknown) (unknown) (no (unknown) (unknown) ketorolac (units (unkn own) date) [KETOROLAC] unknown) Adverse Reaction (Unknown, Verified 01/04/23 15:22) (unknown) (no (unknown) (unknown) latex [LATEX] (units ( unknown) date) Allergy (Unknown, unknown) Verified 01/04/23 15:22) (unknown) (no (unknown) (unknown) mL) IM Q5-15M PRN (units (unknown) date) anaphylaxis #2 ea unknown) 06/29/21 [Rx Confirmed 01/04/23] (unknown) (no (unknown) (unknown) may occur. (units (unk nown) date) Occasional unknown) wrong-word or 'sound-alike' substitutions may have (unknown) (no (unknown) (unknown) mecobalamin (units (unk nown) date) (vitamin B12) unknown) 10,000 mcg solution for injection 1,000 mcg IM MONTHLY (unknown) (no (unknown) (unknown) metoclopramide (units (unknown) date) [From Reglan] unknown) Adverse Reaction (Verified 01/04/23 15:22) (unknown) (no (unknown) (unknown) multivitamin (units (u nknown) date) (Daily unknown) Multi-Vitamin tablet) 1 tab PO DAILY 01/04/23 [History (unknown) (no (unknown) (unknown) naproxen 250 mg (units (unknown) date) PO BID 30 tabs 0RF unknown) (unknown) (no (unknown) (unknown) naproxen 250 mg (units (unknown) date) tablet 250 mg PO unknown) BID #30 tabs 01/04/23 [Rx Confirmed 01/04/23] (unknown) (no (unknown) (unknown) naproxen. This (units (unknown) date) treatment can take unknown) up to 12 weeks to be fully effective but we (unknown) (no (unknown) (unknown) nodules that are (units (unknown) date) tender as well as unknown) some tissue that is tender. No discharge. (unknown) (no (unknown) (unknown) occurred due to (units (unknown) date) the inherent unknown) limitations of voice recognition software. Please (unknown) (no (unknown) (unknown) phentermine 37.5 (units (unknown) date) mg tablet 18.75 mg unknown) PO DAILY #90 tabs 07/21/22 [Rx Confirmed (unknown) (no (unknown) (unknown) quit status: (units (u nknown) date) considering unknown) quitting (unknown) (no (unknown) (unknown) read the note (units ( unknown) date) carefully and unknown) recognize, using context, where these substitutions (unknown) (no (unknown) (unknown) rifampin 300 mg (units (unknown) date) PO BID 60 caps 1RF unknown) (unknown) (no (unknown) (unknown) rifampin 300 mg (units (unknown) date) capsule 300 mg PO unknown) BID #60 caps 01/04/23 [Rx Confirmed 01/04/23] (unknown) (no (unknown) (unknown) shrimp Allergy (units (unknown) date) (Severe, Verified unknown) 01/04/23 15:22) (unknown) (no (unknown) (unknown) since about 2020. (units (unknown) date) Recently had unknown) mammogram and ultrasound without clear cause of (unknown) (no (unknown) (unknown) software. (units (unkn own) date) Although every unknown) effort is made to edit content, sales expert errors (unknown) (no (unknown) (unknown) substance use (units ( unknown) date) type: does not use unknown) (unknown) (no (unknown) (unknown) suppurativa, (units (u nknown) date) which is present unknown) her axilla as well. Ultrasound mammogram were (unknown) (no (unknown) (unknown) when lays down (units (unknown) date) with warm unknown) compresses. No discharge. (unknown) (no (unknown) (unknown) will begin with (units (unknown) date) one-month and go unknown) from there. (unknown) (no (unknown) (unknown) zolpidem 10 mg (units (unknown) date) tablet See Rx unknown) Instructions PO BEDTIME PRN insomnia #30 tabs Social History date description facility 2022-11-11 00:00 Smokes tobacco daily (finding) [facility] 2022-12-27 00:00 Smokes tobacco daily (finding) [facility] 2023-01-04 00:00 Ex-smoker (finding) [facility] Vital Signs date measurement value units 2022-11-11 00:00 BMI 32.7 kg/m2 2022-11-11 00:00 heart_rate 84 /min 2022-11-11 00:00 height_metric 156.21 cm 2022-11-11 00:00 height_standard 61.5 in 2022-11-11 00:00 o2_saturation 98 % 2022-11-11 00:00 respiration_rate 16 /min 2022-11-11 00:00 weight_metric 79.94 kg 2022-11-11 00:00 weight_standard 176.24 lb 2023-01-04 00:00 BMI 30.7 kg/m2 2023-01-04 00:00 BP_diastolic 70 mmHg 2023-01-04 00:00 BP_systolic 116 mmHg 2023-01-04 00:00 heart_rate 98 /min 2023-01-04 00:00 height_metric 156.21 cm 2023-01-04 00:00 height_standard 61.5 in 2023-01-04 00:00 o2_saturation 98 % 2023-01-04 00:00 weight_metric 74.89 kg 2023-01-04 00:00 weight_standard 165.1 lb
[2023-01-06] MEDS ORDERED: IBUPROFEN 800 MG TABLET PO STA (13:16)
--- NOTE | 2023-01-06 13:21 | ED Physician Documentation ---
History of Present Illness - Stated complaint Stated Complaint: BODYACHES, JOINT PX - Chief complaint Chief Complaint: General - History obtained from History obtained from: Patient - History of Present Illness Pain level max: 5 Pain level now: 5 - Additonal information Additional information: 32-year-old female presents to the emergency department stating that she started on rifampin and clindamycin for possible hidradenitis suppurativa 3 days ago. The next day she started having body aches, joint aches. No fevers. Has had chills. No cough or congestion. Nothing seems to make it better or worse. She states that she has had chest wall pain for the last 4 months. She states that she does not currently have any cysts or abscesses. Review of Systems Constitutional: denies: Fever Nose: denies: Rhinorrhea / runny nose GI: denies: Vomiting, Diarrhea Skin: denies: Rash Musculoskeletal: reports: Joint pain (Patient states that she has pain in all her joints. Does have a history of fibromyalgia). denies: Neck pain, Back pain Neurologic: denies: Headache PD PAST MEDICAL HISTORY - Past Medical History Past Medical History: Yes Cardiovascular: None Respiratory: None Neuro: Migraines Endocrine/Autoimmune: None GI: GERD, Other [employer]: None : Kidney stones HEENT: None Psych: Depression, Claustrophobia Musculoskeletal: Fibromyalgia, Chronic back pain Derm: None - Past Surgical History Past Surgical History: Yes General: Cholecystectomy, Appendectomy Ortho: Other - Present Medications Home Medications: Ambulatory Orders Medication Instructions Recorded Confirmed Budesonide/Formoterol Fumarate 2 puffs IH Q6HR PRN 12/14/21 12/14/21 [Symbicort 160-4.5 Mcg Inhaler] Cholecalciferol [Vitamin D3] 50,000 unit PO ONCE 12/14/21 12/14/21 Ciprofloxacin HCl [Cipro] 500 mg PO BID #20 tablet 12/14/21 Dextroamphetamine/Amphetamine 5 mg PO BID 12/14/21 12/14/21 [Dextroamp-Amphetamine 5 mg Tab] Fluconazole [Diflucan] 150 mg PO ONCE PRN #1 tablet 12/14/21 Ipratropium/Albuterol [Duoneb] 3 ml INH Q6H PRN 12/14/21 12/14/21 Zolpidem Tartrate [Ambien] 10 mg PO HS 12/14/21 12/14/21 - Allergies Allergies/Adverse Reactions: Allergies Allergy/AdvReac Type Severity Reaction Status Date / Time ketorolac tromethamine * Allergy Severe Respiratory Verified 01/06/23 12:24 [From Toradol] cefazolin Allergy Itching Verified 01/06/23 12:24 doxycycline Allergy Hives Verified 01/06/23 12:24 latex AdvReac Mild Itching Verified 01/06/23 12:24 metoclopramide [From Reglan] AdvReac Cramps Verified 01/06/23 12:24 - Social History Does the pt smoke?: Yes Smoking Status: Current every day smoker Does the pt drink ETOH?: Yes Does the pt have substance abuse?: No - Immunizations Immunizations are current?: No Immunizations: TDAP >10years/unknown - POLST Patient has POLST: No PD ED PE NORMAL - Vitals Vital signs reviewed: Yes - General General: Alert and oriented X 3, No acute distress - HEENT HEENT: PERRL, Moist mucous membranes - Neck Neck: Supple, no meningeal sign - Cardiac Cardiac: RRR, Strong equal pulses - Respiratory Respiratory: No respiratory distress, Clear bilaterally - Abdomen Abdomen: Soft, Non tender, Non distended - Derm Derm: Warm and dry - Extremities Extremities: No edema, No calf tenderness / cord - Neuro Neuro: Alert and oriented X 3 - Psych Psych: Normal mood, Normal affect Results - Vitals Vitals: Vital Signs - 24 hr 01/06/23 01/06/23 12:20 14:23 Temperature 36.5 C 36.6 C Heart Rate 96 70 Respiratory 16 18 Rate Blood Pressure 116/86 H 118/79 O2 Saturation 99 99 Oxygen O2 Source Room air - Labs Labs: Laboratory Tests 01/06/23 01/06/23 01/06/23 13:16 13:23 13:23 WBC 7.8 RBC 4.53 Hgb 13.1 Hct 39.7 MCV 87.6 MCH 28.9 MCHC 33.0 RDW 12.6 Plt Count 370 MPV 9.2 Neut # (Auto) 4.2 Lymph # (Auto) 3.0 [place] # (Auto) 0.5 Eos # (Auto) 0.1 Baso # (Auto) 0.1 Absolute Nucleated RBC 0.00 Nucleated RBC % 0.0 Sodium 137 Potassium 3.6 Chloride 107 Carbon Dioxide 25 Anion Gap 5.0 L BUN 9 Creatinine 0.7 Estimated GFR (MDRD) 96 Glucose 117 H Calcium 8.7 Total Bilirubin 1.0 AST 21 ALT 32 Alkaline Phosphatase 52 Total Protein 7.4 Albumin 4.0 Globulin 3.4 Albumin/Globulin Ratio 1.2 Lipase 25 Urine Color Urine Clarity Urine pH Ur Specific [place] Urine Protein Urine Glucose (UA) Urine Ketones Urine Occult Blood Urine Nitrite Urine Bilirubin Urine Urobilinogen Ur Leukocyte Esterase Urine RBC Urine WBC Ur Squamous Epith Cells Urine Bacteria Ur Microscopic Review Urine Culture Comments Urine HCG, Qual Nasal Adenovirus (PCR) NOT DETECTED Nasal B. parapertussis DNA (PCR) NOT DETECTED Nasal Coronavir 229E PCR NOT DETECTED Nasal Coronavir HKU1 PCR NOT DETECTED Nasal Coronavir NL63 PCR NOT DETECTED Nasal Coronavir OC43 PCR NOT DETECTED Nasal Enterovir/Rhinovir PCR NOT DETECTED Nasal Influenza B PCR NOT DETECTED Nasal Influenza A PCR NOT DETECTED Nasal Parainfluen 1 PCR NOT DETECTED Nasal Parainfluen 2 PCR NOT DETECTED Nasal Parainfluen 3 PCR NOT DETECTED Nasal Parainfluen 4 PCR NOT DETECTED Nasal RSV (PCR) NOT DETECTED Nasal B.pertussis DNA PCR NOT DETECTED Nasal C.pneumoniae (PCR) NOT DETECTED [place] Human Metapneumo PCR NOT DETECTED Nasal M.pneumoniae (PCR) NOT DETECTED Nasal SARS-CoV-2 (PCR) DETECTED A 01/06/23 13:30 WBC RBC Hgb Hct MCV MCH MCHC RDW Plt Count MPV Neut # (Auto) Lymph # (Auto) [place] # (Auto) Eos # (Auto) Baso # (Auto) Absolute Nucleated RBC Nucleated RBC % Sodium Potassium Chloride Carbon Dioxide Anion Gap BUN Creatinine Estimated GFR (MDRD) Glucose Calcium Total Bilirubin AST ALT Alkaline Phosphatase Total Protein Albumin Globulin Albumin/Globulin Ratio Lipase Urine Color ORANGE Urine Clarity CLEAR Urine pH 7.0 Ur Specific [place] 1.010 Urine Protein NEGATIVE Urine Glucose (UA) NEGATIVE Urine Ketones NEGATIVE Urine Occult Blood Urine Nitrite NEGATIVE Urine Bilirubin NEGATIVE Urine Urobilinogen 0.2 (NORMAL) Ur Leukocyte Esterase NEGATIVE Urine RBC 6-10 H Urine WBC 0-3 Ur Squamous Epith Cells FEW Squamous Urine Bacteria Rare Ur Microscopic Review INDICATED Urine Culture Comments NOT INDICATED Urine HCG, Qual NEGATIVE Nasal Adenovirus (PCR) Nasal B. parapertussis DNA (PCR) Nasal Coronavir 229E PCR Nasal Coronavir HKU1 PCR Nasal Coronavir NL63 PCR Nasal Coronavir OC43 PCR Nasal Enterovir/Rhinovir PCR Nasal Influenza B PCR Nasal Influenza A PCR Nasal Parainfluen 1 PCR Nasal Parainfluen 2 PCR Nasal Parainfluen 3 PCR Nasal Parainfluen 4 PCR Nasal RSV (PCR) Nasal B.pertussis DNA PCR Nasal C.pneumoniae (PCR) [place] Human Metapneumo PCR Nasal M.pneumoniae (PCR) Nasal SARS-CoV-2 (PCR) PD Medical Decision Making - ED course Complexity details: reviewed results, re-evaluated patient, considered differential, d/w patient ED course: 32-year-old female with body aches and joint aches after starting rifampin and clindamycin. She is positive for COVID, this could explain her body aches. She is not vaccinated. She declines any antiviral therapy. We will have her stop the rifampin and clindamycin as well, it is unclear why she is on these. She states she has no cysts, cellulitis or any inflammation. No fevers. We will have her follow-up with her doctor for further care. Patient counseled regarding signs and symptoms for which I believe and urgent re-evaluation would be necessary. Patient with good understanding of and agreement to plan and is comfortable going home at this time This document was made in part using voice recognition software. While efforts are made to proofread this document, sound alike and grammatical errors may occur. Departure - Departure Disposition: 01 Home, Self Care Clinical Impression: COVID Condition: Good Instructions: ED Viral Syndrome Ch Follow-Up: your,doctor in 1 week [Other] Comments: You have tested positive for COVID today, this could be the cause of your body aches and joint pains. Rifampin can also cause these side effects. We will have you stop the antibiotics and see if the symptoms resolve. You can follow- up with your doctor next week to determine if you would like you to continue the antibiotics or try a different treatment for hidradenitis suppurativa. Discharge Date/Time: 01/06/23 14:55
[2023-01-06 13:35] LABS: BILIRUBIN,URINE NEGATIVE (NEGATIVE); GLUCOSE, URINE (UA) NEGATIVE (NEGATIVE); KETONES,URINE (UA) NEGATIVE (NEGATIVE); LEUKOCYTE ESTERASE, URINE NEGATIVE (NEGATIVE); NITRITE,URINE NEGATIVE (NEGATIVE); PROTEIN,URINE NEGATIVE (NEGATIVE); UROBILINOGEN,URINE 0.2 (NORMAL) E.U./dL (NORMAL)
[2023-01-06 13:37] LABS: CLARITY,URINE CLEAR (CLEAR)
[2023-01-06 13:38] LABS: HCG UR QUAL NEGATIVE
[2023-01-06 13:44] LABS: BACTERIA,URINE Rare /HPF (None Seen); SQUAMOUS EPITHELIAL CELL,UR FEW Squamous (<= Few); WBC,URINE 0-3 /HPF (0-5)
[2023-01-06 13:44] LABS: BASOPHILS # (AUTO) 0.1 10^3/uL (0.0-0.1); BASOPHILS % (AUTO) 0.8 %; EOSINOPHILS # (AUTO) 0.1 10^3/uL (0.0-0.7); EOSINOPHILS % (AUTO) 1.3 %; HCT - HEMATOCRIT 39.7 % (37.0-47.0); HGB - HEMOGLOBIN 13.1 g/dL (12.0-16.0); LYMPHOCYTES % (AUTO) 38.2 %; MEAN CORPUSCULAR HEMOGLOBIN 28.9 pg (27.0-31.0); MEAN CORPUSCULAR VOLUME 87.6 fL (81.0-99.0); MEAN PLATELET VOLUME 9.2 fL (7.9-10.8); MONOCYTES # (AUTO) 0.5 10^3/uL (0.0-1.0); NEUTROPHILS # (AUTO) 4.2 10^3/uL (1.5-6.6); NEUTROPHILS % (AUTO) 53.6 %; PLT - PLATELET COUNT 370 10^3/uL (130-450); RED BLOOD COUNT 4.53 10^6/uL (4.20-5.40); RED CELL DISTRIBUTION WIDTH 12.6 % (12.0-15.0); WHITE BLOOD COUNT 7.8 x10^3/uL (4.8-10.8)
[2023-01-06 13:48] LABS: ALBUMIN/GLOBULIN RATIO 1.2 (1.0-2.2); CALCIUM 8.7 mg/dL (8.5-10.3); CREATININE 0.7 mg/dL (0.4-1.0); POTASSIUM 3.6 mmol/L (3.5-5.0); TOTAL PROTEIN 7.4 g/dL (6.7-8.2)
[2023-01-06 14:19] LABS: B. PARAPERTUSSIS- RESP PCR PAN NOT DETECTED; B. PERTUSSIS- RESP PCR PANEL NOT DETECTED; C. PNEUMONIAE- RESP PCR PANEL NOT DETECTED; CORONAVIRUS 229E-RESP PCR NOT DETECTED; CORONAVIRUS HKU1-RESP PCR NOT DETECTED; CORONAVIRUS NL63-RESP PCR NOT DETECTED; CORONAVIRUS OC43-RESP PCR NOT DETECTED; HUMAN METAPNEUMOVIRUS NOT DETECTED; INFLUENZA A- RESP PCR PANEL NOT DETECTED; INFLUENZA B - RESP PCR PANEL NOT DETECTED; M. PNEUMONIAE- RESP PCR PANEL NOT DETECTED; PARAINFLUENZA VIRUS 1 NOT DETECTED; PARAINFLUENZA VIRUS 2 NOT DETECTED; PARAINFLUENZA VIRUS 3 NOT DETECTED; PARAINFLUENZA VIRUS 4 NOT DETECTED; RHINOVIRUS/ENTEROVIRUS NOT DETECTED; RSV- RESP PCR PANEL NOT DETECTED
[2023-01-06 14:22] LABS: SARS-CoV-2 -RESP PCR PANEL DETECTED
[2023-01-06 14:54] VITALS: BP 118/79
== END 2023-01-06 14:55 | disposition home or self-care (01) ==
LOC: ED 12:14
DX: U07.1 COVID-19 (principal); Z28.310 Unvaccinated for COVID-19; F17.200 Nicotine dependence, unspecified, uncomplicated; Z79.51 Long term (current) use of inhaled steroids; Z79.899 Other long term (current) drug therapy
CPT/HCPCS: 36415; 80053; 81001; 81025; 83690; 85025; 87633; 99283; A9270; 81003; 87086

== ENCOUNTER 2023-02-27 18:55 | Emergency (ER) | payer BC, OTHER ==
--- OUTSIDE RECORDS SUMMARY | 2023-02-27 19:19 | EXTERNAL MEDICAL SUMMARY RPT | Continuity of Care Document ---
Author Name Unknown Address [address] [place] [address] Phone Organization [facility] Address [address] [place] [address] Phone Care Team Providers Care Board Saw Runner Name Role Phone Marcell Fong Unavailable Unavailable Medications date description facility 2023-01-23 00:00 Epinephrine [facility] 2023-01-04 00:00 Naproxen [facility] 2023-01-04 00:00 Rifampin [facility] 2023-01-04 00:00 Clindamycin Hcl [facility] 2022-12-13 00:00 [facility] 2023-01-10 00:00 [facility] Problems date description facility 2023-01-04 00:00 Hidradenitis suppurativa [facility] 2023-01-09 07:31 Allergic contact dermatitis due to other agents [facility] 2023-01-09 07:31 Urticaria, unspecified [facility] 2023-01-09 07:31 Chronic fatigue, unspecified [facility] 2023-01-23 00:00 Nodule of chest wall [facility] Results/Labs test date author facility value unit interpretation Result panel 1 (unknown) (no date) (unknown) (unknown) (no value) (units unknown) (unknown) (unknown) (no date) (unknown) (unknown) #: [id number] (units unknown) (unknown) (unknown) (no date) (unknown) (unknown) 11/28/22 (units unknown) (unknown) (unknown) (no date) (unknown) (unknown) [address] [place] [address] (un its unknown) (unknown) (unknown) (no date) (unknown) (unknown) 01/18/2021 [facility]. (units unknown) (unknown) (unknown) (no date) (unknown) (unknown) A 5 year scree [place] mammogram is recommended. (units unknown) (unknown) (unknown) (no date) (unknown) (unknown) Accession Numb er: [id number] (units unknown) (unknown) (unknown) (no date) (unknown) (unknown) Age/Sex: 32 / F Date of Service: (units unknown) (unknown) (unknown) (no date) (unknown) (unknown) [place] [address] (units unknown) (unknown) (unknown) (no date) (unknown) (unknown) CLINICAL: Palp able left breast lump and focal pain. (units unknown) (unknown) (unknown) (no date) (unknown) (unknown) Comparison is made to exams dated: 11/28/2022 mammogram, 01/18/2021 mammogram, (units unknown) (unknown) (unknown) (no date) (unknown) (unknown) : 8 Acct:[id number] (units unknown) (unknown) (unknown) (no date) (unknown) (unknown) Electronically Signed By: Earle Salguero M.D. (units unknown) (unknown) (unknown) (no date) (unknown) (unknown) Li scale (units unknown) (unknown) (unknown) (no date) (unknown) (unknown) IMPRESSION: NEGATIVE (units unknown) (unknown) (unknown) (no date) (unknown) (unknown) [facility] (uni ts unknown) (unknown) (unknown) (no date) (unknown) (unknown) LIMITED ULTRAS OUND OF LEFT BREAST: 11/28/2022 (units unknown) (unknown) (unknown) (no date) (unknown) (unknown) Loc: MAMMO (units unknown) (unknown) (unknown) (no date) (unknown) (unknown) No significant abnormalities were seen sonographically in the left breast. (units unknown) (unknown) (unknown) (no date) (unknown) (unknown) Ordering Provi cedric: Marcell Fong MD (units unknown) (unknown) (unknown) (no date) (unknown) (unknown) Patient: LewisKimberly David ROSS (units unknown) (unknown) (unknown) (no date) (unknown) (unknown) Procedure: US breast LT limited (units unknown) (unknown) (unknown) (no date) (unknown) (unknown) Real-time ultr asound of the left breast 7-8 o'clock region was performed. (units unknown) (unknown) (unknown) (no date) (unknown) (unknown) Signed (units unknown) (unknown) (unknown) (no date) (unknown) (unknown) There is no abnormality seen in the left breast to correspond with the palpable (units unknown) (unknown) (unknown) (no date) (unknown) (unknown) There is no sonographic evidence of malignancy. (units unknown) (unknown) (unknown) (no date) (unknown) (unknown) This exam was interpreted at Station ID: [id number]. (units unknown) (unknown) (unknown) (no date) (unknown) (unknown) Ultrasound BI- RADS: 1 Negative (units unknown) (unknown) (unknown) (no date) (unknown) (unknown) Ultrasound Report (u nits unknown) (unknown) (unknown) (no date) (unknown) (unknown) abnormality an d pain, however, clinical followup is recommended. (units unknown) (unknown) (unknown) (no date) (unknown) (unknown) and (units unknown) (unknown) (unknown) (no date) (unknown) (unknown) ar/penrad:11/28 09:48:45 (units unknown) (unknown) (unknown) (no date) (unknown) (unknown) images of the real-time examination were reviewed. (units unknown) (unknown) (unknown) (no date) (unknown) (unknown) letter sent: Clinical Evaluation (units unknown) (unknown) Result panel 2 (unknown) (no date) (unknown) (unknown) (no value) (units unknown) (unknown) (unknown) (no date) (unknown) (unknown) #: [id number] (units unknown) (unknown) (unknown) (no date) (unknown) (unknown) (category c / (units unknown) (unknown) (unknown) (no date) (unknown) (unknown) 11/28/22 (units unknown) (unknown) (unknown) (no date) (unknown) (unknown) [address] [place] [address] (un its unknown) (unknown) (unknown) (no date) (unknown) (unknown) 15% of breast malignancies will not be visualized mammographically. In the (units unknown) (unknown) (unknown) (no date) (unknown) (unknown) 51-75% glandul ar tissue). (units unknown) (unknown) (unknown) (no date) (unknown) (unknown) ACR BI-RADS Ca tegory 0: Incomplete [id number] (units unknown) (unknown) (unknown) (no date) (unknown) (unknown) Accession Numb er: [id number] (units unknown) (unknown) (unknown) (no date) (unknown) (unknown) Age/Sex: 32 / F Date of Service: (units unknown) (unknown) (unknown) (no date) (unknown) (unknown) [place] [address] (units unknown) (unknown) (unknown) (no date) (unknown) (unknown) Approximately (units unknown) (unknown) (unknown) (no date) (unknown) (unknown) BILATERAL DIGI MESFIN DIAGNOSTIC MAMMOGRAM 3D/2D: 11/28/2022 (units unknown) (unknown) (unknown) (no date) (unknown) (unknown) Both breasts a re heterogeneously dense, which may obscure small masses (units unknown) (unknown) (unknown) (no date) (unknown) (unknown) CLINICAL: Left breast lump. (units unknown) (unknown) (unknown) (no date) (unknown) (unknown) Comparison is made to exam dated: 01/18/2021 mammogram - [facility]. (units unknown) (unknown) (unknown) (no date) (unknown) (unknown) : 8 Acct:[id number] (units unknown) (unknown) (unknown) (no date) (unknown) (unknown) Electronically Signed By: Earle Salguero M.D. (units unknown) (unknown) (unknown) (no date) (unknown) (unknown) IMPRESSION: INCOMPLETE: NEEDS ADDITIONAL IMAGING EVALUATION (units unknown) (unknown) (unknown) (no date) (unknown) (unknown) [facility] (uni ts unknown) (unknown) (unknown) (no date) (unknown) (unknown) Loc: MAMMO (units unknown) (unknown) (unknown) (no date) (unknown) (unknown) Mammography Report ( units unknown) (unknown) (unknown) (no date) (unknown) (unknown) NOTE: For mammograms, a report in lay terms will be sent to the patient. (units unknown) (unknown) (unknown) (no date) (unknown) (unknown) No significant masses, calcifications, or other findings are seen in either (units unknown) (unknown) (unknown) (no date) (unknown) (unknown) Ordering Provi cedric: Marcell Fong MD (units unknown) (unknown) (unknown) (no date) (unknown) (unknown) Patient: Kimberly Lewis MR (units unknown) (unknown) (unknown) (no date) (unknown) (unknown) Procedure: MM diagnostic mammo BI (units unknown) (unknown) (unknown) (no date) (unknown) (unknown) Signed (units unknown) (unknown) (unknown) (no date) (unknown) (unknown) There has been no significant interval change. (units unknown) (unknown) (unknown) (no date) (unknown) (unknown) There is no abnormality seen in the left breast to correspond with the palpable (units unknown) (unknown) (unknown) (no date) (unknown) (unknown) This exam was interpreted at Station ID: [id number]. (units unknown) (unknown) (unknown) (no date) (unknown) (unknown) a palpable kala ast mass, a negative mammogram must not discourage biopsy of a (units unknown) (unknown) (unknown) (no date) (unknown) (unknown) abnormality an d pain in the lower inner quadrant, however, ultrasound is (units unknown) (unknown) (unknown) (no date) (unknown) (unknown) shukri/jordana:11/28 09:46:42 (units unknown) (unknown) (unknown) (no date) (unknown) (unknown) breast. (units unknown) (unknown) (unknown) (no date) (unknown) (unknown) clinically (units unknown) (unknown) (unknown) (no date) (unknown) (unknown) management of (units unknown) (unknown) (unknown) (no date) (unknown) (unknown) recommended. (units unknown) (unknown) (unknown) (no date) (unknown) (unknown) suspicious lesion. ( units unknown) (unknown) Result panel 3 (unknown) (no date) (unknown) (unknown) (no value) (units unknown) (unknown) (unknown) (no date) (unknown) (unknown) (1) Chronic fatigue: (units unknown) (unknown) (unknown) (no date) (unknown) (unknown) 12/27/22 (units unknown) (unknown) (unknown) (no date) (unknown) (unknown) : [id number] (units unknown) (unknown) (unknown) (no date) (unknown) (unknown) Acute neck pain (uni ts unknown) (unknown) (unknown) (no date) (unknown) (unknown) Acute thoracic back pain (units unknown) (unknown) (unknown) (no date) (unknown) (unknown) Age/Sex: 32 / F Date of Service: (units unknown) (unknown) (unknown) (no date) (unknown) (unknown) All participan ts + their role: (Providers,Parent,Sp ouse,etc): (units unknown) (unknown) (unknown) (no date) (unknown) (unknown) Allergies (units unknown) (unknown) (unknown) (no date) (unknown) (unknown) [place] [address] (units unknown) (unknown) (unknown) (no date) (unknown) (unknown) Anaphylaxis (units unknown) (unknown) (unknown) (no date) (unknown) (unknown) Assessment + Plan (u nits unknown) (unknown) (unknown) (no date) (unknown) (unknown) Attending Dr: Marcell Fong MD (units unknown) (unknown) (unknown) (no date) (unknown) (unknown) Autonomic dysfunction (units unknown) (unknown) (unknown) (no date) (unknown) (unknown) Cellulitis (units unknown) (unknown) (unknown) (no date) (unknown) (unknown) Cervical somat ic dysfunction (units unknown) (unknown) (unknown) (no date) (unknown) (unknown) Chief Complaint (uni ts unknown) (unknown) (unknown) (no date) (unknown) (unknown) Chief Complain t: allergy questions, medication follow-up (units unknown) (unknown) (unknown) (no date) (unknown) (unknown) Chronic bilate ral low back pain without sciatica (units unknown) (unknown) (unknown) (no date) (unknown) (unknown) Chronic cough (units unknown) (unknown) (unknown) (no date) (unknown) (unknown) Counseling and educating the patient/family/careg iver: 5 (units unknown) (unknown) (unknown) (no date) (unknown) (unknown) Cranial somati c dysfunction (units unknown) (unknown) (unknown) (no date) (unknown) (unknown) : 8 Acct:[id number] (units unknown) (unknown) (unknown) (no date) (unknown) (unknown) Dept at . (units unknown) (unknown) (unknown) (no date) (unknown) (unknown) Details: (units unknown) (unknown) (unknown) (no date) (unknown) (unknown) Documented By: Marcell Fong MD 12/27/22 1310 (units unknown) (unknown) (unknown) (no date) (unknown) (unknown) Documenting cl inical information in EHR/Medical record: 6 (units unknown) (unknown) (unknown) (no date) (unknown) (unknown) Draft (units unknown) (unknown) (unknown) (no date) (unknown) (unknown) Exam Narrative (unit s unknown) (unknown) (unknown) (no date) (unknown) (unknown) Exam Narrative: (uni ts unknown) (unknown) (unknown) (no date) (unknown) (unknown) Exam (units unknown) (unknown) (unknown) (no date) (unknown) (unknown) Family Practic e Office Visit (units unknown) (unknown) (unknown) (no date) (unknown) (unknown) Fibromyalgia (units unknown) (unknown) (unknown) (no date) (unknown) (unknown) [facility] (units unknown) (unknown) (unknown) (no date) (unknown) (unknown) HPI (units unknown) (unknown) (unknown) (no date) (unknown) (unknown) Intake (units unknown) (unknown) (unknown) (no date) (unknown) (unknown) Left breast lump (un its unknown) (unknown) (unknown) (no date) (unknown) (unknown) Loc: [facility] (units unknown) (unknown) (unknown) (no date) (unknown) (unknown) Location of patient:: Her home (units unknown) (unknown) (unknown) (no date) (unknown) (unknown) Location of provider:: [facility] (units unknown) (unknown) (unknown) (no date) (unknown) (unknown) Lumbar region somatic dysfunction (units unknown) (unknown) (unknown) (no date) (unknown) (unknown) Medical Histor y (units unknown) (unknown) (unknown) (no date) (unknown) (unknown) Kimberly is a 32-year-old female with ADHD here for follow-up. She did develop (units unknown) (unknown) (unknown) (no date) (unknown) (unknown) Neck muscle spasm (u nits unknown) (unknown) (unknown) (no date) (unknown) (unknown) Neck stiffness (unit s unknown) (unknown) (unknown) (no date) (unknown) (unknown) Neck strain (units unknown) (unknown) (unknown) (no date) (unknown) (unknown) PFSH (units unknown) (unknown) (unknown) (no date) (unknown) (unknown) PTSD (post-tra umatic stress disorder) (units unknown) (unknown) (unknown) (no date) (unknown) (unknown) Patient and provider (units unknown) (unknown) (unknown) (no date) (unknown) (unknown) Patient consen scotty to receive services via telehealth?: Yes (units unknown) (unknown) (unknown) (no date) (unknown) (unknown) Patient: Kimberly Lewis MR# (units unknown) (unknown) (unknown) (no date) (unknown) (unknown) Pelvic somatic dysfunction (units unknown) (unknown) (unknown) (no date) (unknown) (unknown) Performing a medically appropriate exam and/or evaluation: 5 (units unknown) (unknown) (unknown) (no date) (unknown) (unknown) Preparing to s ee the patient, i.e., chart review, review of tests: 5 (units unknown) (unknown) (unknown) (no date) (unknown) (unknown) Psoas syndrome (unit s unknown) (unknown) (unknown) (no date) (unknown) (unknown) Real-time,sy ronous services were performed via:: [facility] (units unknown) (unknown) (unknown) (no date) (unknown) (unknown) Reason For Visit (un its unknown) (unknown) (unknown) (no date) (unknown) (unknown) Sacral region somatic dysfunction (units unknown) (unknown) (unknown) (no date) (unknown) (unknown) Segmental and somatic dysfunction of abdomen and other regions (units unknown) (unknown) (unknown) (no date) (unknown) (unknown) Sensation of f eeling cold (units unknown) (unknown) (unknown) (no date) (unknown) (unknown) She appears he althy, no acute distress. Speaking in complete sentences. (units unknown) (unknown) (unknown) (no date) (unknown) (unknown) Signed By: (units unknown) (unknown) (unknown) (no date) (unknown) (unknown) Smoking Status : Current every day smoker (units unknown) (unknown) (unknown) (no date) (unknown) (unknown) THROAT CLOSURE (unit s unknown) (unknown) (unknown) (no date) (unknown) (unknown) Tachycardia (units unknown) (unknown) (unknown) (no date) (unknown) (unknown) TeleHealth (units unknown) (unknown) (unknown) (no date) (unknown) (unknown) Telehealth. (units unknown) (unknown) (unknown) (no date) (unknown) (unknown) This note may have been all or partially generated using voice recognition (units unknown) (unknown) (unknown) (no date) (unknown) (unknown) Thoracic regio n somatic dysfunction (units unknown) (unknown) (unknown) (no date) (unknown) (unknown) Time Coding Mi nutes Spent: (must be on same date of service/appointment) (units unknown) (unknown) (unknown) (no date) (unknown) (unknown) Time Spent (units unknown) (unknown) (unknown) (no date) (unknown) (unknown) Tobacco + Subs tance Use (units unknown) (unknown) (unknown) (no date) (unknown) (unknown) Tobacco Status (unit s unknown) (unknown) (unknown) (no date) (unknown) (unknown) Tobacco: How m any years used: 13 (units unknown) (unknown) (unknown) (no date) (unknown) (unknown) Total Time: 21 (unit s unknown) (unknown) (unknown) (no date) (unknown) (unknown) 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 *COMMENT* (units unknown) (unknown) (unknown) (no date) (unknown) (unknown) Were services performed via telephone only?: No (units unknown) (unknown) (unknown) (no date) (unknown) (unknown) alcohol intake : current (units unknown) (unknown) (unknown) (no date) (unknown) (unknown) cefazolin Mc rgy (Verified 06/30/22 09:58) (units unknown) (unknown) (unknown) (no date) (unknown) (unknown) cefprozil [CEFPROZIL] Adverse Reaction (Unknown, Verified 06/30/22 09:58) (units unknown) (unknown) (unknown) (no date) (unknown) (unknown) doxycycline Al lermarian (Verified 06/30/22 09:58) (units unknown) (unknown) (unknown) (no date) (unknown) (unknown) has been medit ating at home exercising, working on ways to improve concentration (units unknown) (unknown) (unknown) (no date) (unknown) (unknown) have occurred. If there are any questions, please contact the Medical Records (units unknown) (unknown) (unknown) (no date) (unknown) (unknown) ketorolac [KETOROLAC] Adverse Reaction (Unknown, Verified 06/30/22 09:58) (units unknown) (unknown) (unknown) (no date) (unknown) (unknown) kidney stones being on Adderall and it was not very helpful for her. Kimberly (units unknown) (unknown) (unknown) (no date) (unknown) (unknown) latex [LATEX] Allergy (Unknown, Verified 06/30/22 09:58) (units unknown) (unknown) (unknown) (no date) (unknown) (unknown) may occur. Occasional wrong-word or 'sound-alike' substitutions may have (units unknown) (unknown) (unknown) (no date) (unknown) (unknown) metoclopramide [From Reglan] Adverse Reaction (Verified 06/30/22 09:58) (units unknown) (unknown) (unknown) (no date) (unknown) (unknown) occurred due t o the inherent limitations of voice recognition software. Please (units unknown) (unknown) (unknown) (no date) (unknown) (unknown) quit status: considering quitting (units unknown) (unknown) (unknown) (no date) (unknown) (unknown) read the note carefully and recognize, using context, where these substitutions (units unknown) (unknown) (unknown) (no date) (unknown) (unknown) shrimp Allergy (Severe, Verified 06/30/22 09:58) (units unknown) (unknown) (unknown) (no date) (unknown) (unknown) software. Alth ough every effort is made to edit content, manager shift errors (units unknown) (unknown) (unknown) (no date) (unknown) (unknown) stimulant medi cation and is hoping for more natural option. (units unknown) (unknown) (unknown) (no date) (unknown) (unknown) substance use type: does not use (units unknown) (unknown) (unknown) (no date) (unknown) (unknown) though this robert s not been overly successful. She is nervous about starting a (units unknown) (unknown) Result panel 4 (unknown) (no date) (unknown) (unknown) (no value) (units unknown) (unknown) (unknown) (no date) (unknown) (unknown) (1) Chronic fatigue: (units unknown) (unknown) (unknown) (no date) (unknown) (unknown) (2) Urticaria: (unit s unknown) (unknown) (unknown) (no date) (unknown) (unknown) (3) Allergic c ontact dermatitis due to dental material: (units unknown) (unknown) (unknown) (no date) (unknown) (unknown) 12/27/22 (units unknown) (unknown) (unknown) (no date) (unknown) (unknown) : [id number] (units unknown) (unknown) (unknown) (no date) (unknown) (unknown) Acute neck pain (uni ts unknown) (unknown) (unknown) (no date) (unknown) (unknown) Acute thoracic back pain (units unknown) (unknown) (unknown) (no date) (unknown) (unknown) Age/Sex: 32 / F Date of Service: (units unknown) (unknown) (unknown) (no date) (unknown) (unknown) All participan ts + their role: (Providers,Parent,Sp ouse,etc): (units unknown) (unknown) (unknown) (no date) (unknown) (unknown) Allergies (units unknown) (unknown) (unknown) (no date) (unknown) (unknown) [place], [place] [address] (units unknown) (unknown) (unknown) (no date) (unknown) (unknown) Anaphylaxis (units unknown) (unknown) (unknown) (no date) (unknown) (unknown) Assessment + Plan (u nits unknown) (unknown) (unknown) (no date) (unknown) (unknown) Attending Dr: Marcell Fong MD (units unknown) (unknown) (unknown) (no date) (unknown) (unknown) Autonomic dysfunction (units unknown) (unknown) (unknown) (no date) (unknown) (unknown) Cellulitis (units unknown) (unknown) (unknown) (no date) (unknown) (unknown) Cervical somat ic dysfunction (units unknown) (unknown) (unknown) (no date) (unknown) (unknown) Chief Complaint (uni ts unknown) (unknown) (unknown) (no date) (unknown) (unknown) Chief Complain t: allergy questions, medication follow-up (units unknown) (unknown) (unknown) (no date) (unknown) (unknown) Chronic bilate ral low back pain without sciatica (units unknown) (unknown) (unknown) (no date) (unknown) (unknown) Chronic cough (units unknown) (unknown) (unknown) (no date) (unknown) (unknown) Counseling and educating the patient/family/careg iver: 5 (units unknown) (unknown) (unknown) (no date) (unknown) (unknown) Cranial somati c dysfunction (units unknown) (unknown) (unknown) (no date) (unknown) (unknown) : 8 Acct:[id number] (units unknown) (unknown) (unknown) (no date) (unknown) (unknown) Dept at . (units unknown) (unknown) (unknown) (no date) (unknown) (unknown) Details: (units unknown) (unknown) (unknown) (no date) (unknown) (unknown) Documented By: Marcell Fong MD 12/27/22 1310 (units unknown) (unknown) (unknown) (no date) (unknown) (unknown) Documenting cl inical information in EHR/Medical record: 6 (units unknown) (unknown) (unknown) (no date) (unknown) (unknown) Draft (units unknown) (unknown) (unknown) (no date) (unknown) (unknown) Exam Narrative (unit s unknown) (unknown) (unknown) (no date) (unknown) (unknown) Exam Narrative: (uni ts unknown) (unknown) (unknown) (no date) (unknown) (unknown) Exam (units unknown) (unknown) (unknown) (no date) (unknown) (unknown) Family Practic e Office Visit (units unknown) (unknown) (unknown) (no date) (unknown) (unknown) Fibromyalgia (units unknown) (unknown) (unknown) (no date) (unknown) (unknown) [facility] (units unknown) (unknown) (unknown) (no date) (unknown) (unknown) HPI (units unknown) (unknown) (unknown) (no date) (unknown) (unknown) Intake (units unknown) (unknown) (unknown) (no date) (unknown) (unknown) Left breast lump (un its unknown) (unknown) (unknown) (no date) (unknown) (unknown) Loc: [facility] (units unknown) (unknown) (unknown) (no date) (unknown) (unknown) Location of patient:: Her home (units unknown) (unknown) (unknown) (no date) (unknown) (unknown) Location of provider:: [facility] (units unknown) (unknown) (unknown) (no date) (unknown) (unknown) Lumbar region somatic dysfunction (units unknown) (unknown) (unknown) (no date) (unknown) (unknown) Medical Histor y (units unknown) (unknown) (unknown) (no date) (unknown) (unknown) Kimberly is a 32-year-old female with ADHD here for follow-up. She did develop (units unknown) (unknown) (unknown) (no date) (unknown) (unknown) Neck muscle spasm (u nits unknown) (unknown) (unknown) (no date) (unknown) (unknown) Neck stiffness (unit s unknown) (unknown) (unknown) (no date) (unknown) (unknown) Neck strain (units unknown) (unknown) (unknown) (no date) (unknown) (unknown) Orders: (units unknown) (unknown) (unknown) (no date) (unknown) (unknown) PFSH (units unknown) (unknown) (unknown) (no date) (unknown) (unknown) PTSD (post-tra umatic stress disorder) (units unknown) (unknown) (unknown) (no date) (unknown) (unknown) Patient and provider (units unknown) (unknown) (unknown) (no date) (unknown) (unknown) Patient consen scotty to receive services via telehealth?: Yes (units unknown) (unknown) (unknown) (no date) (unknown) (unknown) Patient: Kimberly Lewis MR# (units unknown) (unknown) (unknown) (no date) (unknown) (unknown) Pelvic somatic dysfunction (units unknown) (unknown) (unknown) (no date) (unknown) (unknown) Performing a medically appropriate exam and/or evaluation: 5 (units unknown) (unknown) (unknown) (no date) (unknown) (unknown) Preparing to s ee the patient, i.e., chart review, review of tests: 5 (units unknown) (unknown) (unknown) (no date) (unknown) (unknown) Psoas syndrome (unit s unknown) (unknown) (unknown) (no date) (unknown) (unknown) [facility] (units unknown) (unknown) (unknown) (no date) (unknown) (unknown) Reason For Visit (un its unknown) (unknown) (unknown) (no date) (unknown) (unknown) Referral Aller gy and Immunology L23.89 - Allergic contact dermatitis due to (units unknown) (unknown) (unknown) (no date) (unknown) (unknown) Referrals (units unknown) (unknown) (unknown) (no date) (unknown) (unknown) Sacral region somatic dysfunction (units unknown) (unknown) (unknown) (no date) (unknown) (unknown) Segmental and somatic dysfunction of abdomen and other regions (units unknown) (unknown) (unknown) (no date) (unknown) (unknown) Sensation of f eeling cold (units unknown) (unknown) (unknown) (no date) (unknown) (unknown) She appears he althy, no acute distress. Speaking in complete sentences. (units unknown) (unknown) (unknown) (no date) (unknown) (unknown) Signed By: (units unknown) (unknown) (unknown) (no date) (unknown) (unknown) Smoking Status : Current every day smoker (units unknown) (unknown) (unknown) (no date) (unknown) (unknown) THROAT CLOSURE (unit s unknown) (unknown) (unknown) (no date) (unknown) (unknown) Tachycardia (units unknown) (unknown) (unknown) (no date) (unknown) (unknown) TeleHealth (units unknown) (unknown) (unknown) (no date) (unknown) (unknown) Telehealth. (units unknown) (unknown) (unknown) (no date) (unknown) (unknown) This note may have been all or partially generated using voice recognition (units unknown) (unknown) (unknown) (no date) (unknown) (unknown) Thoracic regio n somatic dysfunction (units unknown) (unknown) (unknown) (no date) (unknown) (unknown) Time Coding Mi nutes Spent: (must be on same date of service/appointment) (units unknown) (unknown) (unknown) (no date) (unknown) (unknown) Time Spent (units unknown) (unknown) (unknown) (no date) (unknown) (unknown) Tobacco + Subs tance Use (units unknown) (unknown) (unknown) (no date) (unknown) (unknown) Tobacco Status (unit s unknown) (unknown) (unknown) (no date) (unknown) (unknown) Tobacco: How m any years used: 13 (units unknown) (unknown) (unknown) (no date) (unknown) (unknown) Total Time: 21 (unit s unknown) (unknown) (unknown) (no date) (unknown) (unknown) 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 *COMMENT* (units unknown) (unknown) (unknown) (no date) (unknown) (unknown) Were services performed via telephone only?: No (units unknown) (unknown) (unknown) (no date) (unknown) (unknown) alcohol intake : current (units unknown) (unknown) (unknown) (no date) (unknown) (unknown) cefazolin Mc rgy (Verified 06/30/22 09:58) (units unknown) (unknown) (unknown) (no date) (unknown) (unknown) cefprozil [CEFPROZIL] Adverse Reaction (Unknown, Verified 06/30/22 09:58) (units unknown) (unknown) (unknown) (no date) (unknown) (unknown) doxycycline Maxim aragon (Verified 06/30/22 09:58) (units unknown) (unknown) (unknown) (no date) (unknown) (unknown) has been medit ating at home exercising, working on ways to improve concentration (units unknown) (unknown) (unknown) (no date) (unknown) (unknown) have occurred. If there are any questions, please contact the Medical Records (units unknown) (unknown) (unknown) (no date) (unknown) (unknown) ketorolac [KETOROLAC] Adverse Reaction (Unknown, Verified 06/30/22 09:58) (units unknown) (unknown) (unknown) (no date) (unknown) (unknown) kidney stones being on Adderall and it was not very helpful for her. Kimberly (units unknown) (unknown) (unknown) (no date) (unknown) (unknown) latex [LATEX] Allergy (Unknown, Verified 06/30/22 09:58) (units unknown) (unknown) (unknown) (no date) (unknown) (unknown) may occur. Occasional wrong-word or 'sound-alike' substitutions may have (units unknown) (unknown) (unknown) (no date) (unknown) (unknown) metoclopramide [From Reglan] Adverse Reaction (Verified 06/30/22 09:58) (units unknown) (unknown) (unknown) (no date) (unknown) (unknown) occurred due t o the inherent limitations of voice recognition software. Please (units unknown) (unknown) (unknown) (no date) (unknown) (unknown) other agents, L50.9 - Urticaria, unspecified (units unknown) (unknown) (unknown) (no date) (unknown) (unknown) quit status: considering quitting (units unknown) (unknown) (unknown) (no date) (unknown) (unknown) read the note carefully and recognize, using context, where these substitutions (units unknown) (unknown) (unknown) (no date) (unknown) (unknown) shrimp Allergy (Severe, Verified 06/30/22 09:58) (units unknown) (unknown) (unknown) (no date) (unknown) (unknown) software. Alth ough every effort is made to edit content, manager shift errors (units unknown) (unknown) (unknown) (no date) (unknown) (unknown) stimulant medi cation and is hoping for more natural option. (units unknown) (unknown) (unknown) (no date) (unknown) (unknown) substance use type: does not use (units unknown) (unknown) (unknown) (no date) (unknown) (unknown) though this robert s not been overly successful. She is nervous about starting a (units unknown) (unknown) Result panel 5 (unknown) (no date) (unknown) (unknown) (no value) (units unknown) (unknown) (unknown) (no date) (unknown) (unknown) (1) Chronic fatigue: (units unknown) (unknown) (unknown) (no date) (unknown) (unknown) (2) Urticaria: (unit s unknown) (unknown) (unknown) (no date) (unknown) (unknown) (3) Allergic c ontact dermatitis due to dental material: (units unknown) (unknown) (unknown) (no date) (unknown) (unknown) 12/27/22 1355 (units unknown) (unknown) (unknown) (no date) (unknown) (unknown) 12/27/22 (units unknown) (unknown) (unknown) (no date) (unknown) (unknown) : [id number] (units unknown) (unknown) (unknown) (no date) (unknown) (unknown) Acute neck pain (uni ts unknown) (unknown) (unknown) (no date) (unknown) (unknown) Acute thoracic back pain (units unknown) (unknown) (unknown) (no date) (unknown) (unknown) Age/Sex: 32 / F Date of Service: (units unknown) (unknown) (unknown) (no date) (unknown) (unknown) All participan ts + their role: (Providers,Parent,Sp ouse,etc): (units unknown) (unknown) (unknown) (no date) (unknown) (unknown) Allergies (units unknown) (unknown) (unknown) (no date) (unknown) (unknown) [place] Michel [id number] (units unknown) (unknown) (unknown) (no date) (unknown) (unknown) Anaphylaxis (units unknown) (unknown) (unknown) (no date) (unknown) (unknown) Assessment + Plan (u nits unknown) (unknown) (unknown) (no date) (unknown) (unknown) Attending Dr: Marcell Fong MD (units unknown) (unknown) (unknown) (no date) (unknown) (unknown) Autonomic dysfunction (units unknown) (unknown) (unknown) (no date) (unknown) (unknown) Cellulitis (units unknown) (unknown) (unknown) (no date) (unknown) (unknown) Cervical somat ic dysfunction (units unknown) (unknown) (unknown) (no date) (unknown) (unknown) Chief Complaint (uni ts unknown) (unknown) (unknown) (no date) (unknown) (unknown) Chief Complain t: allergy questions, medication follow-up (units unknown) (unknown) (unknown) (no date) (unknown) (unknown) Chronic bilate ral low back pain without sciatica (units unknown) (unknown) (unknown) (no date) (unknown) (unknown) Chronic cough (units unknown) (unknown) (unknown) (no date) (unknown) (unknown) Counseling and educating the patient/family/careg iver: 5 (units unknown) (unknown) (unknown) (no date) (unknown) (unknown) Cranial somati c dysfunction (units unknown) (unknown) (unknown) (no date) (unknown) (unknown) : 8 Acct:[id number] (units unknown) (unknown) (unknown) (no date) (unknown) (unknown) Dept at . (units unknown) (unknown) (unknown) (no date) (unknown) (unknown) Details: (units unknown) (unknown) (unknown) (no date) (unknown) (unknown) Documented By: Marcell Fong MD 12/27/22 1310 (units unknown) (unknown) (unknown) (no date) (unknown) (unknown) Documenting cl inical information in EHR/Medical record: 6 (units unknown) (unknown) (unknown) (no date) (unknown) (unknown) Exam Narrative (unit s unknown) (unknown) (unknown) (no date) (unknown) (unknown) Exam Narrative: (uni ts unknown) (unknown) (unknown) (no date) (unknown) (unknown) Exam (units unknown) (unknown) (unknown) (no date) (unknown) (unknown) Family Practic e Office Visit (units unknown) (unknown) (unknown) (no date) (unknown) (unknown) Fibromyalgia (units unknown) (unknown) (unknown) (no date) (unknown) (unknown) [facility] (units unknown) (unknown) (unknown) (no date) (unknown) (unknown) HPI (units unknown) (unknown) (unknown) (no date) (unknown) (unknown) Intake (units unknown) (unknown) (unknown) (no date) (unknown) (unknown) Left breast lump (un its unknown) (unknown) (unknown) (no date) (unknown) (unknown) Loc: [facility] (units unknown) (unknown) (unknown) (no date) (unknown) (unknown) Location of patient:: Her home (units unknown) (unknown) (unknown) (no date) (unknown) (unknown) Location of provider:: [facility] (units unknown) (unknown) (unknown) (no date) (unknown) (unknown) Lumbar region somatic dysfunction (units unknown) (unknown) (unknown) (no date) (unknown) (unknown) Medical Histor y (units unknown) (unknown) (unknown) (no date) (unknown) (unknown) Kimberly is a 32-year-old female with ADHD here for follow-up. She did develop (units unknown) (unknown) (unknown) (no date) (unknown) (unknown) Neck muscle spasm (u nits unknown) (unknown) (unknown) (no date) (unknown) (unknown) Neck stiffness (unit s unknown) (unknown) (unknown) (no date) (unknown) (unknown) Neck strain (units unknown) (unknown) (unknown) (no date) (unknown) (unknown) Orders: (units unknown) (unknown) (unknown) (no date) (unknown) (unknown) PFSH (units unknown) (unknown) (unknown) (no date) (unknown) (unknown) PTSD (post-tra umatic stress disorder) (units unknown) (unknown) (unknown) (no date) (unknown) (unknown) Patient and provider (units unknown) (unknown) (unknown) (no date) (unknown) (unknown) Patient consen scotty to receive services via telehealth?: Yes (units unknown) (unknown) (unknown) (no date) (unknown) (unknown) Patient: Kimberly Lewis MR# (units unknown) (unknown) (unknown) (no date) (unknown) (unknown) Pelvic somatic dysfunction (units unknown) (unknown) (unknown) (no date) (unknown) (unknown) Performing a medically appropriate exam and/or evaluation: 5 (units unknown) (unknown) (unknown) (no date) (unknown) (unknown) Preparing to s ee the patient, i.e., chart review, review of tests: 5 (units unknown) (unknown) (unknown) (no date) (unknown) (unknown) Psoas syndrome (unit s unknown) (unknown) (unknown) (no date) (unknown) (unknown) [facility] (units unknown) (unknown) (unknown) (no date) (unknown) (unknown) Reason For Visit (un its unknown) (unknown) (unknown) (no date) (unknown) (unknown) Referral Aller gy and Immunology L23.89 - Allergic contact dermatitis due to (units unknown) (unknown) (unknown) (no date) (unknown) (unknown) Referrals (units unknown) (unknown) (unknown) (no date) (unknown) (unknown) Sacral region somatic dysfunction (units unknown) (unknown) (unknown) (no date) (unknown) (unknown) Segmental and somatic dysfunction of abdomen and other regions (units unknown) (unknown) (unknown) (no date) (unknown) (unknown) Sensation of f eeling cold (units unknown) (unknown) (unknown) (no date) (unknown) (unknown) She appears he althy, no acute distress. Speaking in complete sentences. (units unknown) (unknown) (unknown) (no date) (unknown) (unknown) Signed By: <Electronically signed by Marcell Fong MD> (units unknown) (unknown) (unknown) (no date) (unknown) (unknown) Signed (units unknown) (unknown) (unknown) (no date) (unknown) (unknown) Smoking Status : Current every day smoker (units unknown) (unknown) (unknown) (no date) (unknown) (unknown) THROAT CLOSURE (unit s unknown) (unknown) (unknown) (no date) (unknown) (unknown) Tachycardia (units unknown) (unknown) (unknown) (no date) (unknown) (unknown) TeleHealth (units unknown) (unknown) (unknown) (no date) (unknown) (unknown) Telehealth. (units unknown) (unknown) (unknown) (no date) (unknown) (unknown) This note may have been all or partially generated using voice recognition (units unknown) (unknown) (unknown) (no date) (unknown) (unknown) Thoracic regio n somatic dysfunction (units unknown) (unknown) (unknown) (no date) (unknown) (unknown) Time Coding Mi nutes Spent: (must be on same date of service/appointment) (units unknown) (unknown) (unknown) (no date) (unknown) (unknown) Time Spent (units unknown) (unknown) (unknown) (no date) (unknown) (unknown) Tobacco + Subs tance Use (units unknown) (unknown) (unknown) (no date) (unknown) (unknown) Tobacco Status (unit s unknown) (unknown) (unknown) (no date) (unknown) (unknown) Tobacco: How m any years used: 13 (units unknown) (unknown) (unknown) (no date) (unknown) (unknown) Total Time: 21 (unit s unknown) (unknown) (unknown) (no date) (unknown) (unknown) 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 *COMMENT* (units unknown) (unknown) (unknown) (no date) (unknown) (unknown) Were services performed via telephone only?: No (units unknown) (unknown) (unknown) (no date) (unknown) (unknown) alcohol intake : current (units unknown) (unknown) (unknown) (no date) (unknown) (unknown) cefazolin Mc rgy (Verified 06/30/22 09:58) (units unknown) (unknown) (unknown) (no date) (unknown) (unknown) cefprozil [CEFPROZIL] Adverse Reaction (Unknown, Verified 06/30/22 09:58) (units unknown) (unknown) (unknown) (no date) (unknown) (unknown) doxycycline Maxim aragon (Verified 06/30/22 09:58) (units unknown) (unknown) (unknown) (no date) (unknown) (unknown) has been medit ating at home exercising, working on ways to improve concentration (units unknown) (unknown) (unknown) (no date) (unknown) (unknown) have occurred. If there are any questions, please contact the Medical Records (units unknown) (unknown) (unknown) (no date) (unknown) (unknown) ketorolac [KETOROLAC] Adverse Reaction (Unknown, Verified 06/30/22 09:58) (units unknown) (unknown) (unknown) (no date) (unknown) (unknown) kidney stones being on Adderall and it was not very helpful for her. Kimberly (units unknown) (unknown) (unknown) (no date) (unknown) (unknown) latex [LATEX] Allergy (Unknown, Verified 06/30/22 09:58) (units unknown) (unknown) (unknown) (no date) (unknown) (unknown) may occur. Occasional wrong-word or 'sound-alike' substitutions may have (units unknown) (unknown) (unknown) (no date) (unknown) (unknown) metoclopramide [From Reglan] Adverse Reaction (Verified 06/30/22 09:58) (units unknown) (unknown) (unknown) (no date) (unknown) (unknown) occurred due t o the inherent limitations of voice recognition software. Please (units unknown) (unknown) (unknown) (no date) (unknown) (unknown) other agents, L50.9 - Urticaria, unspecified (units unknown) (unknown) (unknown) (no date) (unknown) (unknown) quit status: considering quitting (units unknown) (unknown) (unknown) (no date) (unknown) (unknown) read the note carefully and recognize, using context, where these substitutions (units unknown) (unknown) (unknown) (no date) (unknown) (unknown) shrimp Allergy (Severe, Verified 06/30/22 09:58) (units unknown) (unknown) (unknown) (no date) (unknown) (unknown) software. Alth ough every effort is made to edit content, manager shift errors (units unknown) (unknown) (unknown) (no date) (unknown) (unknown) stimulant medi cation and is hoping for more natural option. (units unknown) (unknown) (unknown) (no date) (unknown) (unknown) substance use type: does not use (units unknown) (unknown) (unknown) (no date) (unknown) (unknown) though this robert s not been overly successful. She is nervous about starting a (units unknown) (unknown) Result panel 6 (unknown) (no date) (unknown) (unknown) (no value) (units unknown) (unknown) (unknown) (no date) (unknown) (unknown) 01/04/23 (units unknown) (unknown) (unknown) (no date) (unknown) (unknown) : [id number] (units unknown) (unknown) (unknown) (no date) (unknown) (unknown) Acute neck pain (uni ts unknown) (unknown) (unknown) (no date) (unknown) (unknown) Acute thoracic back pain (units unknown) (unknown) (unknown) (no date) (unknown) (unknown) Age/Sex: 32 / F Date of Service: (units unknown) (unknown) (unknown) (no date) (unknown) (unknown) Allergies (units unknown) (unknown) (unknown) (no date) (unknown) (unknown) [place] [address] (units unknown) (unknown) (unknown) (no date) (unknown) (unknown) Anaphylaxis (units unknown) (unknown) (unknown) (no date) (unknown) (unknown) Attending Dr: Marcell Fong MD (units unknown) (unknown) (unknown) (no date) (unknown) (unknown) Autonomic dysfunction (units unknown) (unknown) (unknown) (no date) (unknown) (unknown) Cellulitis (units unknown) (unknown) (unknown) (no date) (unknown) (unknown) Cervical somat ic dysfunction (units unknown) (unknown) (unknown) (no date) (unknown) (unknown) Chronic bilate ral low back pain without sciatica (units unknown) (unknown) (unknown) (no date) (unknown) (unknown) Chronic cough (units unknown) (unknown) (unknown) (no date) (unknown) (unknown) Cranial somati c dysfunction (units unknown) (unknown) (unknown) (no date) (unknown) (unknown) : 8 Acct:[id number] (units unknown) (unknown) (unknown) (no date) (unknown) (unknown) Dept at . (units unknown) (unknown) (unknown) (no date) (unknown) (unknown) Documented By: Marcell Fong MD 01/04/23 1517 (units unknown) (unknown) (unknown) (no date) (unknown) (unknown) Draft (units unknown) (unknown) (unknown) (no date) (unknown) (unknown) Family Practic e Office Visit (units unknown) (unknown) (unknown) (no date) (unknown) (unknown) Fibromyalgia (units unknown) (unknown) (unknown) (no date) (unknown) (unknown) [facility] (units unknown) (unknown) (unknown) (no date) (unknown) (unknown) Intake (units unknown) (unknown) (unknown) (no date) (unknown) (unknown) Left breast lump (un its unknown) (unknown) (unknown) (no date) (unknown) (unknown) Loc: [facility] (units unknown) (unknown) (unknown) (no date) (unknown) (unknown) Lumbar region somatic dysfunction (units unknown) (unknown) (unknown) (no date) (unknown) (unknown) Medical Histor y (units unknown) (unknown) (unknown) (no date) (unknown) (unknown) Neck muscle spasm (u nits unknown) (unknown) (unknown) (no date) (unknown) (unknown) Neck stiffness (unit s unknown) (unknown) (unknown) (no date) (unknown) (unknown) Neck strain (units unknown) (unknown) (unknown) (no date) (unknown) (unknown) PFSH (units unknown) (unknown) (unknown) (no date) (unknown) (unknown) PTSD (post-tra umatic stress disorder) (units unknown) (unknown) (unknown) (no date) (unknown) (unknown) Patient: LewisKimberly MR# (units unknown) (unknown) (unknown) (no date) (unknown) (unknown) Pelvic somatic dysfunction (units unknown) (unknown) (unknown) (no date) (unknown) (unknown) Psoas syndrome (unit s unknown) (unknown) (unknown) (no date) (unknown) (unknown) Reason For Visit (un its unknown) (unknown) (unknown) (no date) (unknown) (unknown) Sacral region somatic dysfunction (units unknown) (unknown) (unknown) (no date) (unknown) (unknown) Segmental and somatic dysfunction of abdomen and other regions (units unknown) (unknown) (unknown) (no date) (unknown) (unknown) Sensation of f eeling cold (units unknown) (unknown) (unknown) (no date) (unknown) (unknown) Signed By: (units unknown) (unknown) (unknown) (no date) (unknown) (unknown) Smoking Status : Current every day smoker (units unknown) (unknown) (unknown) (no date) (unknown) (unknown) THROAT CLOSURE (unit s unknown) (unknown) (unknown) (no date) (unknown) (unknown) Tachycardia (units unknown) (unknown) (unknown) (no date) (unknown) (unknown) This note may have been all or partially generated using voice recognition (units unknown) (unknown) (unknown) (no date) (unknown) (unknown) Thoracic regio n somatic dysfunction (units unknown) (unknown) (unknown) (no date) (unknown) (unknown) Tobacco + Subs tance Use (units unknown) (unknown) (unknown) (no date) (unknown) (unknown) Tobacco Status (unit s unknown) (unknown) (unknown) (no date) (unknown) (unknown) Tobacco: How m any years used: 13 (units unknown) (unknown) (unknown) (no date) (unknown) (unknown) Visit Reasons: Painful lump in breast (units unknown) (unknown) (unknown) (no date) (unknown) (unknown) alcohol intake : current (units unknown) (unknown) (unknown) (no date) (unknown) (unknown) cefazolin Mc rgy (Verified 06/30/22 09:58) (units unknown) (unknown) (unknown) (no date) (unknown) (unknown) cefprozil [CEFPROZIL] Adverse Reaction (Unknown, Verified 06/30/22 09:58) (units unknown) (unknown) (unknown) (no date) (unknown) (unknown) doxycycline Al lergy (Verified 06/30/22 09:58) (units unknown) (unknown) (unknown) (no date) (unknown) (unknown) have occurred. If there are any questions, please contact the Medical Records (units unknown) (unknown) (unknown) (no date) (unknown) (unknown) ketorolac [KETOROLAC] Adverse Reaction (Unknown, Verified 06/30/22 09:58) (units unknown) (unknown) (unknown) (no date) (unknown) (unknown) latex [LATEX] Allergy (Unknown, Verified 06/30/22 09:58) (units unknown) (unknown) (unknown) (no date) (unknown) (unknown) may occur. Occasional wrong-word or 'sound-alike' substitutions may have (units unknown) (unknown) (unknown) (no date) (unknown) (unknown) metoclopramide [From Reglan] Adverse Reaction (Verified 06/30/22 09:58) (units unknown) (unknown) (unknown) (no date) (unknown) (unknown) occurred due t o the inherent limitations of voice recognition software. Please (units unknown) (unknown) (unknown) (no date) (unknown) (unknown) quit status: considering quitting (units unknown) (unknown) (unknown) (no date) (unknown) (unknown) read the note carefully and recognize, using context, where these substitutions (units unknown) (unknown) (unknown) (no date) (unknown) (unknown) shrimp Allergy (Severe, Verified 06/30/22 09:58) (units unknown) (unknown) (unknown) (no date) (unknown) (unknown) software. Alth ough every effort is made to edit content, manager shift errors (units unknown) (unknown) (unknown) (no date) (unknown) (unknown) substance use type: does not use (units unknown) (unknown) Result panel 7 (unknown) (no date) (unknown) (unknown) (no value) (units unknown) (unknown) (unknown) (no date) (unknown) (unknown) #1 ea 10/06/22 [Rx Confirmed 01/04/23] (units unknown) (unknown) (unknown) (no date) (unknown) (unknown) #12 caps 11/07 [Rx Confirmed 01/04/23] (units unknown) (unknown) (unknown) (no date) (unknown) (unknown) #60 mL 3 [Rx Confirmed 01/04/23] (units unknown) (unknown) (unknown) (no date) (unknown) (unknown) 12/13/22 [Rx Confirmed 01/04/23] (units unknown) (unknown) (unknown) (no date) (unknown) (unknown) 01/04/23 (units unknown) (unknown) (unknown) (no date) (unknown) (unknown) 01/04/23] (units unknown) (unknown) (unknown) (no date) (unknown) (unknown) 15:24 (units unknown) (unknown) (unknown) (no date) (unknown) (unknown) 2 puff inhalat ion BID #10.2 grams 03/17/22 [Rx Confirmed 01/04/23] (units unknown) (unknown) (unknown) (no date) (unknown) (unknown) 3 ml syringe/ 25g 1 2 needle #1 ea 10/06/22 [Rx Confirmed 01/04/23] (units unknown) (unknown) (unknown) (no date) (unknown) (unknown) 32 Y/O Female presents today for a follow up of a painful spot under her Left (units unknown) (unknown) (unknown) (no date) (unknown) (unknown) : [id number] (units unknown) (unknown) (unknown) (no date) (unknown) (unknown) Acute neck pain (uni ts unknown) (unknown) (unknown) (no date) (unknown) (unknown) Acute thoracic back pain (units unknown) (unknown) (unknown) (no date) (unknown) (unknown) Age/Sex: 32 / F Date of Service: (units unknown) (unknown) (unknown) (no date) (unknown) (unknown) Allergies (units unknown) (unknown) (unknown) (no date) (unknown) (unknown) [place], [place] [address] (units unknown) (unknown) (unknown) (no date) (unknown) (unknown) Anaphylaxis (units unknown) (unknown) (unknown) (no date) (unknown) (unknown) Attending Dr: Marcell Fong MD (units unknown) (unknown) (unknown) (no date) (unknown) (unknown) Autonomic dysfunction (units unknown) (unknown) (unknown) (no date) (unknown) (unknown) BD #[id number] needl es 30gx1/2 #100 ea 12/01/22 [Rx Confirmed 01/04/23] (units unknown) (unknown) (unknown) (no date) (unknown) (unknown) BMI 30.7 (units unknown) (unknown) (unknown) (no date) (unknown) (unknown) BP 116/70 (units unknown) (unknown) (unknown) (no date) (unknown) (unknown) Blood Pressure Location Lt brachial (units unknown) (unknown) (unknown) (no date) (unknown) (unknown) Cellulitis (units unknown) (unknown) (unknown) (no date) (unknown) (unknown) Cervical somat ic dysfunction (units unknown) (unknown) (unknown) (no date) (unknown) (unknown) Chief Complaint (uni ts unknown) (unknown) (unknown) (no date) (unknown) (unknown) Chief Complain t: Chest discomfort (units unknown) (unknown) (unknown) (no date) (unknown) (unknown) Chronic bilate ral low back pain without sciatica (units unknown) (unknown) (unknown) (no date) (unknown) (unknown) Chronic cough (units unknown) (unknown) (unknown) (no date) (unknown) (unknown) Confirmed 01/04/23] (units unknown) (unknown) (unknown) (no date) (unknown) (unknown) Cranial somati c dysfunction (units unknown) (unknown) (unknown) (no date) (unknown) (unknown) : 8 Acct:[id number] (units unknown) (unknown) (unknown) (no date) (unknown) (unknown) Dept at . (units unknown) (unknown) (unknown) (no date) (unknown) (unknown) Details: (units unknown) (unknown) (unknown) (no date) (unknown) (unknown) Documented By: Marcell Fong MD 01/04/23 1517 (units unknown) (unknown) (unknown) (no date) (unknown) (unknown) Draft (units unknown) (unknown) (unknown) (no date) (unknown) (unknown) Family Practic e Office Visit (units unknown) (unknown) (unknown) (no date) (unknown) (unknown) Fibromyalgia (units unknown) (unknown) (unknown) (no date) (unknown) (unknown) [facility] (units unknown) (unknown) (unknown) (no date) (unknown) (unknown) HPI (units unknown) (unknown) (unknown) (no date) (unknown) (unknown) Height 5 ft 1.5 in ( units unknown) (unknown) (unknown) (no date) (unknown) (unknown) Intake Note: (units unknown) (unknown) (unknown) (no date) (unknown) (unknown) Intake perform ed by: Sharri Kamara (units unknown) (unknown) (unknown) (no date) (unknown) (unknown) Intake (units unknown) (unknown) (unknown) (no date) (unknown) (unknown) Intake- [facility] (units unknown) (unknown) (unknown) (no date) (unknown) (unknown) Left breast lump (un its unknown) (unknown) (unknown) (no date) (unknown) (unknown) Loc: [facility] (units unknown) (unknown) (unknown) (no date) (unknown) (unknown) Lumbar region somatic dysfunction (units unknown) (unknown) (unknown) (no date) (unknown) (unknown) Medical Histor y (units unknown) (unknown) (unknown) (no date) (unknown) (unknown) Medications (units unknown) (unknown) (unknown) (no date) (unknown) (unknown) Kimberly is a 32-year-old female with ADHD here for follow-up. She did develop (units unknown) (unknown) (unknown) (no date) (unknown) (unknown) Neck muscle spasm (u nits unknown) (unknown) (unknown) (no date) (unknown) (unknown) Neck stiffness (unit s unknown) (unknown) (unknown) (no date) (unknown) (unknown) Neck strain (units unknown) (unknown) (unknown) (no date) (unknown) (unknown) Oxygen Deliver y Method room air (units unknown) (unknown) (unknown) (no date) (unknown) (unknown) PFSH (units unknown) (unknown) (unknown) (no date) (unknown) (unknown) PTSD (post-tra umatic stress disorder) (units unknown) (unknown) (unknown) (no date) (unknown) (unknown) Patient: Kimberly Lewis MR# (units unknown) (unknown) (unknown) (no date) (unknown) (unknown) Pelvic somatic dysfunction (units unknown) (unknown) (unknown) (no date) (unknown) (unknown) Position Sitting (un its unknown) (unknown) (unknown) (no date) (unknown) (unknown) Psoas syndrome (unit s unknown) (unknown) (unknown) (no date) (unknown) (unknown) Pulse 98 H (units unknown) (unknown) (unknown) (no date) (unknown) (unknown) Pulse Oximetry (%) 98 (units unknown) (unknown) (unknown) (no date) (unknown) (unknown) Pulse Source Monitor (units unknown) (unknown) (unknown) (no date) (unknown) (unknown) Reason For Visit (un its unknown) (unknown) (unknown) (no date) (unknown) (unknown) Sacral region somatic dysfunction (units unknown) (unknown) (unknown) (no date) (unknown) (unknown) Segmental and somatic dysfunction of abdomen and other regions (units unknown) (unknown) (unknown) (no date) (unknown) (unknown) Sensation of f eeling cold (units unknown) (unknown) (unknown) (no date) (unknown) (unknown) Signed By: (units unknown) (unknown) (unknown) (no date) (unknown) (unknown) Smoking Status : Former smoker (units unknown) (unknown) (unknown) (no date) (unknown) (unknown) THROAT CLOSURE (unit s unknown) (unknown) (unknown) (no date) (unknown) (unknown) Tachycardia (units unknown) (unknown) (unknown) (no date) (unknown) (unknown) This note may have been all or partially generated using voice recognition (units unknown) (unknown) (unknown) (no date) (unknown) (unknown) Thoracic regio n somatic dysfunction (units unknown) (unknown) (unknown) (no date) (unknown) (unknown) Tobacco + Subs tance Use (units unknown) (unknown) (unknown) (no date) (unknown) (unknown) Tobacco Status (unit s unknown) (unknown) (unknown) (no date) (unknown) (unknown) Tobacco: How m any years used: 13 (units unknown) (unknown) (unknown) (no date) (unknown) (unknown) Visit Reasons: Painful lump in breast (units unknown) (unknown) (unknown) (no date) (unknown) (unknown) Vitals (units unknown) (unknown) (unknown) (no date) (unknown) (unknown) Weight 165 lb 2 oz ( units unknown) (unknown) (unknown) (no date) (unknown) (unknown) [Rx Confirmed 01/04/23] (units unknown) (unknown) (unknown) (no date) (unknown) (unknown) alcohol intake : current (units unknown) (unknown) (unknown) (no date) (unknown) (unknown) benzonatate 10 0 mg capsule 100 mg PO BID-TID PRN cough #60 caps 09/09/22 [Rx (units unknown) (unknown) (unknown) (no date) (unknown) (unknown) breast. She robert s recently had a Mammogram and a breast ultra sound. She states it (units unknown) (unknown) (unknown) (no date) (unknown) (unknown) budesonide-for motero l HFA 160 mcg-4.5 mcg/actuation aerosol inhaler (Symbicort) (units unknown) (unknown) (unknown) (no date) (unknown) (unknown) cefazolin Mc rgy (Verified 01/04/23 15:22) (units unknown) (unknown) (unknown) (no date) (unknown) (unknown) cefprozil [CEFPROZIL] Adverse Reaction (Unknown, Verified 01/04/23 15:22) (units unknown) (unknown) (unknown) (no date) (unknown) (unknown) cholecalcifero l (vitamin D3) 1,250 mcg (50,000 unit) capsule 1,250 mcg PO QWEEK (units unknown) (unknown) (unknown) (no date) (unknown) (unknown) clindamycin phosphate 1 % topical solution See Rx Instructions .Route .COMPLEX (units unknown) (unknown) (unknown) (no date) (unknown) (unknown) doxycycline Al lergy (Verified 01/04/23 15:22) (units unknown) (unknown) (unknown) (no date) (unknown) (unknown) epinephrine 0. 3 mg/0.3 mL injection, auto-injector (EpiPen 2-Kaleb) 0.3 mg (0.3 (units unknown) (unknown) (unknown) (no date) (unknown) (unknown) has been medit ating at home exercising, working on ways to improve concentration (units unknown) (unknown) (unknown) (no date) (unknown) (unknown) have occurred. If there are any questions, please contact the Medical Records (units unknown) (unknown) (unknown) (no date) (unknown) (unknown) ibuprofen 800 mg tablet See Rx Instructions .Route .COMPLEX #90 tabs 10/17/22 (units unknown) (unknown) (unknown) (no date) (unknown) (unknown) is still hurti ng as of today. (units unknown) (unknown) (unknown) (no date) (unknown) (unknown) ketorolac [KETOROLAC] Adverse Reaction (Unknown, Verified 01/04/23 15:22) (units unknown) (unknown) (unknown) (no date) (unknown) (unknown) kidney stones being on Adderall and it was not very helpful for her. Kimberly (units unknown) (unknown) (unknown) (no date) (unknown) (unknown) latex [LATEX] Allergy (Unknown, Verified 01/04/23 15:22) (units unknown) (unknown) (unknown) (no date) (unknown) (unknown) mL) IM Q5-15M PRN anaphylaxis #2 ea 06/29/21 [Rx Confirmed 01/04/23] (units unknown) (unknown) (unknown) (no date) (unknown) (unknown) may occur. Occasional wrong-word or 'sound-alike' substitutions may have (units unknown) (unknown) (unknown) (no date) (unknown) (unknown) mecobalamin (v itamin B12) 10,000 mcg solution for injection 1,000 mcg IM MONTHLY (units unknown) (unknown) (unknown) (no date) (unknown) (unknown) metoclopramide [From Reglan] Adverse Reaction (Verified 01/04/23 15:22) (units unknown) (unknown) (unknown) (no date) (unknown) (unknown) multivitamin ( Daily Multi-Vitamin tablet) 1 tab PO DAILY 01/04/23 [History (units unknown) (unknown) (unknown) (no date) (unknown) (unknown) occurred due t o the inherent limitations of voice recognition software. Please (units unknown) (unknown) (unknown) (no date) (unknown) (unknown) phentermine 37 .5 mg tablet 18.75 mg PO DAILY #90 tabs 07/21/22 [Rx Confirmed (units unknown) (unknown) (unknown) (no date) (unknown) (unknown) quit status: considering quitting (units unknown) (unknown) (unknown) (no date) (unknown) (unknown) read the note carefully and recognize, using context, where these substitutions (units unknown) (unknown) (unknown) (no date) (unknown) (unknown) shrimp Allergy (Severe, Verified 01/04/23 15:22) (units unknown) (unknown) (unknown) (no date) (unknown) (unknown) software. Alth ough every effort is made to edit content, manager shift errors (units unknown) (unknown) (unknown) (no date) (unknown) (unknown) stimulant medi cation and is hoping for more natural option. (units unknown) (unknown) (unknown) (no date) (unknown) (unknown) substance use type: does not use (units unknown) (unknown) (unknown) (no date) (unknown) (unknown) though this robert s not been overly successful. She is nervous about starting a (units unknown) (unknown) (unknown) (no date) (unknown) (unknown) zolpidem 10 mg tablet See Rx Instructions PO BEDTIME PRN insomnia #30 tabs (units unknown) (unknown) Result panel 8 (unknown) (no date) (unknown) (unknown) (no value) (units unknown) (unknown) (unknown) (no date) (unknown) (unknown) #1 ea 10/06/22 [Rx Confirmed 01/04/23] (units unknown) (unknown) (unknown) (no date) (unknown) (unknown) #12 caps 11/07 [Rx Confirmed 01/04/23] (units unknown) (unknown) (unknown) (no date) (unknown) (unknown) #60 mL 3 [Rx Confirmed 01/04/23] (units unknown) (unknown) (unknown) (no date) (unknown) (unknown) (1) Left breas t lump: (units unknown) (unknown) (unknown) (no date) (unknown) (unknown) 12/13/22 [Rx Confirmed 01/04/23] (units unknown) (unknown) (unknown) (no date) (unknown) (unknown) 01/04/23 (units unknown) (unknown) (unknown) (no date) (unknown) (unknown) 01/04/23] (units unknown) (unknown) (unknown) (no date) (unknown) (unknown) 15:24 (units unknown) (unknown) (unknown) (no date) (unknown) (unknown) 2 puff inhalat ion BID #10.2 grams 03/17/22 [Rx Confirmed 01/04/23] (units unknown) (unknown) (unknown) (no date) (unknown) (unknown) 3 ml syringe/ 25g 1 1/2 needle #1 ea 10/06/22 [Rx Confirmed 01/04/23] (units unknown) (unknown) (unknown) (no date) (unknown) (unknown) 32 Y/O Female presents today for a follow up of a painful spot under her Left (units unknown) (unknown) (unknown) (no date) (unknown) (unknown) : [id number] (units unknown) (unknown) (unknown) (no date) (unknown) (unknown) Acute neck pain (uni ts unknown) (unknown) (unknown) (no date) (unknown) (unknown) Acute thoracic back pain (units unknown) (unknown) (unknown) (no date) (unknown) (unknown) Age/Sex: 32 / F Date of Service: (units unknown) (unknown) (unknown) (no date) (unknown) (unknown) Allergies (units unknown) (unknown) (unknown) (no date) (unknown) (unknown) [place], [place] [address] (units unknown) (unknown) (unknown) (no date) (unknown) (unknown) Anaphylaxis (units unknown) (unknown) (unknown) (no date) (unknown) (unknown) Assessment + Plan (u nits unknown) (unknown) (unknown) (no date) (unknown) (unknown) Attending Dr: Marcell Fong MD (units unknown) (unknown) (unknown) (no date) (unknown) (unknown) Autonomic dysfunction (units unknown) (unknown) (unknown) (no date) (unknown) (unknown) BD #[id number] needl es 30gx1/2 #100 ea 12/01/22 [Rx Confirmed 01/04/23] (units unknown) (unknown) (unknown) (no date) (unknown) (unknown) BMI 30.7 (units unknown) (unknown) (unknown) (no date) (unknown) (unknown) BP 116/70 (units unknown) (unknown) (unknown) (no date) (unknown) (unknown) Blood Pressure Location Lt brachial (units unknown) (unknown) (unknown) (no date) (unknown) (unknown) Cellulitis (units unknown) (unknown) (unknown) (no date) (unknown) (unknown) Cervical somat ic dysfunction (units unknown) (unknown) (unknown) (no date) (unknown) (unknown) Chaperoned by Alessandra Kamara MA (units unknown) (unknown) (unknown) (no date) (unknown) (unknown) Chief Complaint (uni ts unknown) (unknown) (unknown) (no date) (unknown) (unknown) Chief Complain t: Chest discomfort (units unknown) (unknown) (unknown) (no date) (unknown) (unknown) Chronic bilate ral low back pain without sciatica (units unknown) (unknown) (unknown) (no date) (unknown) (unknown) Chronic cough (units unknown) (unknown) (unknown) (no date) (unknown) (unknown) Confirmed 01/04/23] (units unknown) (unknown) (unknown) (no date) (unknown) (unknown) Cranial somati c dysfunction (units unknown) (unknown) (unknown) (no date) (unknown) (unknown) : 8 Acct:[id number] (units unknown) (unknown) (unknown) (no date) (unknown) (unknown) Dept at . (units unknown) (unknown) (unknown) (no date) (unknown) (unknown) Details: (units unknown) (unknown) (unknown) (no date) (unknown) (unknown) Documented By: Marcell Fong MD 04/05/23 1517 (units unknown) (unknown) (unknown) (no date) (unknown) (unknown) Draft (units unknown) (unknown) (unknown) (no date) (unknown) (unknown) Exam Narrative (unit s unknown) (unknown) (unknown) (no date) (unknown) (unknown) Exam Narrative: (uni ts unknown) (unknown) (unknown) (no date) (unknown) (unknown) Exam (units unknown) (unknown) (unknown) (no date) (unknown) (unknown) Family Practic e Office Visit (units unknown) (unknown) (unknown) (no date) (unknown) (unknown) Fibromyalgia (units unknown) (unknown) (unknown) (no date) (unknown) (unknown) [facility] (units unknown) (unknown) (unknown) (no date) (unknown) (unknown) HPI (units unknown) (unknown) (unknown) (no date) (unknown) (unknown) Height 5 ft 1.5 in ( units unknown) (unknown) (unknown) (no date) (unknown) (unknown) Intake Note: (units unknown) (unknown) (unknown) (no date) (unknown) (unknown) Intake perform ed by: Sharri Kamara (units unknown) (unknown) (unknown) (no date) (unknown) (unknown) Intake (units unknown) (unknown) (unknown) (no date) (unknown) (unknown) Intake- [facility] (units unknown) (unknown) (unknown) (no date) (unknown) (unknown) Left breast lump (un its unknown) (unknown) (unknown) (no date) (unknown) (unknown) Loc: [facility] (units unknown) (unknown) (unknown) (no date) (unknown) (unknown) Lumbar region somatic dysfunction (units unknown) (unknown) (unknown) (no date) (unknown) (unknown) Medical Histor y (units unknown) (unknown) (unknown) (no date) (unknown) (unknown) Medications (units unknown) (unknown) (unknown) (no date) (unknown) (unknown) Kimberly is a 32-year-old female with ADHD here for follow-up. She did develop (units unknown) (unknown) (unknown) (no date) (unknown) (unknown) Kimberly odonnell si tting up, pleasant, no acute distress (units unknown) (unknown) (unknown) (no date) (unknown) (unknown) Neck muscle spasm (u nits unknown) (unknown) (unknown) (no date) (unknown) (unknown) Neck stiffness (unit s unknown) (unknown) (unknown) (no date) (unknown) (unknown) Neck strain (units unknown) (unknown) (unknown) (no date) (unknown) (unknown) Oxygen Deliver y Method room air (units unknown) (unknown) (unknown) (no date) (unknown) (unknown) PFSH (units unknown) (unknown) (unknown) (no date) (unknown) (unknown) PTSD (post-tra umatic stress disorder) (units unknown) (unknown) (unknown) (no date) (unknown) (unknown) Patient: JoshuaKimberly D MR# (units unknown) (unknown) (unknown) (no date) (unknown) (unknown) Pelvic somatic dysfunction (units unknown) (unknown) (unknown) (no date) (unknown) (unknown) Position Sitting (un its unknown) (unknown) (unknown) (no date) (unknown) (unknown) Psoas syndrome (unit s unknown) (unknown) (unknown) (no date) (unknown) (unknown) Pulse 98 H (units unknown) (unknown) (unknown) (no date) (unknown) (unknown) Pulse Oximetry (%) 98 (units unknown) (unknown) (unknown) (no date) (unknown) (unknown) Pulse Source Monitor (units unknown) (unknown) (unknown) (no date) (unknown) (unknown) Reason For Visit (un its unknown) (unknown) (unknown) (no date) (unknown) (unknown) Sacral region somatic dysfunction (units unknown) (unknown) (unknown) (no date) (unknown) (unknown) Segmental and somatic dysfunction of abdomen and other regions (units unknown) (unknown) (unknown) (no date) (unknown) (unknown) Sensation of f eeling cold (units unknown) (unknown) (unknown) (no date) (unknown) (unknown) Signed By: (units unknown) (unknown) (unknown) (no date) (unknown) (unknown) Smoking Status : Former smoker (units unknown) (unknown) (unknown) (no date) (unknown) (unknown) Status: Acute (units unknown) (unknown) (unknown) (no date) (unknown) (unknown) THROAT CLOSURE (unit s unknown) (unknown) (unknown) (no date) (unknown) (unknown) Tachycardia (units unknown) (unknown) (unknown) (no date) (unknown) (unknown) This note may have been all or partially generated using voice recognition (units unknown) (unknown) (unknown) (no date) (unknown) (unknown) Thoracic regio n somatic dysfunction (units unknown) (unknown) (unknown) (no date) (unknown) (unknown) Tobacco + Subs tance Use (units unknown) (unknown) (unknown) (no date) (unknown) (unknown) Tobacco Status (unit s unknown) (unknown) (unknown) (no date) (unknown) (unknown) Tobacco: How m any years used: 13 (units unknown) (unknown) (unknown) (no date) (unknown) (unknown) Visit Reasons: Painful lump in breast (units unknown) (unknown) (unknown) (no date) (unknown) (unknown) Vitals (units unknown) (unknown) (unknown) (no date) (unknown) (unknown) Weight 165 lb 2 oz ( units unknown) (unknown) (unknown) (no date) (unknown) (unknown) [Rx Confirmed 01/04/23] (units unknown) (unknown) (unknown) (no date) (unknown) (unknown) alcohol intake : current (units unknown) (unknown) (unknown) (no date) (unknown) (unknown) benzonatate 10 0 mg capsule 100 mg PO BID-TID PRN cough #60 caps 09/09/22 [Rx (units unknown) (unknown) (unknown) (no date) (unknown) (unknown) breast. She robert s recently had a Mammogram and a breast ultra sound. She states it (units unknown) (unknown) (unknown) (no date) (unknown) (unknown) budesonide-for motero l HFA 160 mcg-4.5 mcg/actuation aerosol inhaler (Symbicort) (units unknown) (unknown) (unknown) (no date) (unknown) (unknown) cefazolin Mc rgy (Verified 01/04/23 15:22) (units unknown) (unknown) (unknown) (no date) (unknown) (unknown) cefprozil [CEFPROZIL] Adverse Reaction (Unknown, Verified 01/04/23 15:22) (units unknown) (unknown) (unknown) (no date) (unknown) (unknown) cholecalcifero l (vitamin D3) 1,250 mcg (50,000 unit) capsule 1,250 mcg PO QWEEK (units unknown) (unknown) (unknown) (no date) (unknown) (unknown) clindamycin phosphate 1 % topical solution See Rx Instructions .Route .COMPLEX (units unknown) (unknown) (unknown) (no date) (unknown) (unknown) doxycycline Al lergy (Verified 01/04/23 15:22) (units unknown) (unknown) (unknown) (no date) (unknown) (unknown) epinephrine 0. 3 mg/0.3 mL injection, auto-injector (EpiPen 2-Kaleb) 0.3 mg (0.3 (units unknown) (unknown) (unknown) (no date) (unknown) (unknown) has been medit ating at home exercising, working on ways to improve concentration (units unknown) (unknown) (unknown) (no date) (unknown) (unknown) have occurred. If there are any questions, please contact the Medical Records (units unknown) (unknown) (unknown) (no date) (unknown) (unknown) ibuprofen 800 mg tablet See Rx Instructions .Route .COMPLEX #90 tabs 10/17/22 (units unknown) (unknown) (unknown) (no date) (unknown) (unknown) is still hurti ng as of today. (units unknown) (unknown) (unknown) (no date) (unknown) (unknown) ketorolac [KETOROLAC] Adverse Reaction (Unknown, Verified 01/04/23 15:22) (units unknown) (unknown) (unknown) (no date) (unknown) (unknown) kidney stones being on Adderall and it was not very helpful for her. Kimberly (units unknown) (unknown) (unknown) (no date) (unknown) (unknown) latex [LATEX] Allergy (Unknown, Verified 01/04/23 15:22) (units unknown) (unknown) (unknown) (no date) (unknown) (unknown) mL) IM Q5-15M PRN anaphylaxis #2 ea 06/29/21 [Rx Confirmed 01/04/23] (units unknown) (unknown) (unknown) (no date) (unknown) (unknown) may occur. Occasional wrong-word or 'sound-alike' substitutions may have (units unknown) (unknown) (unknown) (no date) (unknown) (unknown) mecobalamin (v itamin B12) 10,000 mcg solution for injection 1,000 mcg IM MONTHLY (units unknown) (unknown) (unknown) (no date) (unknown) (unknown) metoclopramide [From Reglan] Adverse Reaction (Verified 01/04/23 15:22) (units unknown) (unknown) (unknown) (no date) (unknown) (unknown) multivitamin ( Daily Multi-Vitamin tablet) 1 tab PO DAILY 01/04/23 [History (units unknown) (unknown) (unknown) (no date) (unknown) (unknown) occurred due t o the inherent limitations of voice recognition software. Please (units unknown) (unknown) (unknown) (no date) (unknown) (unknown) phentermine 37 .5 mg tablet 18.75 mg PO DAILY #90 tabs 07/21/22 [Rx Confirmed (units unknown) (unknown) (unknown) (no date) (unknown) (unknown) quit status: considering quitting (units unknown) (unknown) (unknown) (no date) (unknown) (unknown) read the note carefully and recognize, using context, where these substitutions (units unknown) (unknown) (unknown) (no date) (unknown) (unknown) shrimp Allergy (Severe, Verified 01/04/23 15:22) (units unknown) (unknown) (unknown) (no date) (unknown) (unknown) software. Alth ough every effort is made to edit content, manager shift errors (units unknown) (unknown) (unknown) (no date) (unknown) (unknown) stimulant medi cation and is hoping for more natural option. (units unknown) (unknown) (unknown) (no date) (unknown) (unknown) substance use type: does not use (units unknown) (unknown) (unknown) (no date) (unknown) (unknown) though this robert s not been overly successful. She is nervous about starting a (units unknown) (unknown) (unknown) (no date) (unknown) (unknown) zolpidem 10 mg tablet See Rx Instructions PO BEDTIME PRN insomnia #30 tabs (units unknown) (unknown) Result panel 9 (unknown) (no date) (unknown) (unknown) (no value) (units unknown) (unknown) (unknown) (no date) (unknown) (unknown) #1 ea 10/06/22 [Rx Confirmed 01/04/23] (units unknown) (unknown) (unknown) (no date) (unknown) (unknown) #12 caps 11/07 [Rx Confirmed 01/04/23] (units unknown) (unknown) (unknown) (no date) (unknown) (unknown) #60 mL 3 [Rx Confirmed 01/04/23] (units unknown) (unknown) (unknown) (no date) (unknown) (unknown) (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: (units unknown) (unknown) (unknown) (no date) (unknown) (unknown) (2) Chest wall pain: (units unknown) (unknown) (unknown) (no date) (unknown) (unknown) 12/13/22 [Rx Confirmed 01/04/23] (units unknown) (unknown) (unknown) (no date) (unknown) (unknown) 01/04/23 (units unknown) (unknown) (unknown) (no date) (unknown) (unknown) 01/04/23] (units unknown) (unknown) (unknown) (no date) (unknown) (unknown) 15:24 (units unknown) (unknown) (unknown) (no date) (unknown) (unknown) 2 puff inhalat ion BID #10.2 grams 03/17/22 [Rx Confirmed 01/04/23] (units unknown) (unknown) (unknown) (no date) (unknown) (unknown) 3 ml syringe/ 25g 1 1/2 needle #1 ea 10/06/22 [Rx Confirmed 01/04/23] (units unknown) (unknown) (unknown) (no date) (unknown) (unknown) 32 Y/O Female presents today for a follow up of a painful spot under her Left (units unknown) (unknown) (unknown) (no date) (unknown) (unknown) : [id number] (units unknown) (unknown) (unknown) (no date) (unknown) (unknown) Acute neck pain (uni ts unknown) (unknown) (unknown) (no date) (unknown) (unknown) Acute thoracic back pain (units unknown) (unknown) (unknown) (no date) (unknown) (unknown) Age/Sex: 32 / F Date of Service: (units unknown) (unknown) (unknown) (no date) (unknown) (unknown) Allergies (units unknown) (unknown) (unknown) (no date) (unknown) (unknown) [place] [address] (units unknown) (unknown) (unknown) (no date) (unknown) (unknown) Anaphylaxis (units unknown) (unknown) (unknown) (no date) (unknown) (unknown) Assessment + Plan (u nits unknown) (unknown) (unknown) (no date) (unknown) (unknown) Attending Dr: Marcell Fong MD (units unknown) (unknown) (unknown) (no date) (unknown) (unknown) Autonomic dysfunction (units unknown) (unknown) (unknown) (no date) (unknown) (unknown) BD #[id number] needl es 30gx1/2 #100 ea 12/01/22 [Rx Confirmed 01/04/23] (units unknown) (unknown) (unknown) (no date) (unknown) (unknown) BMI 30.7 (units unknown) (unknown) (unknown) (no date) (unknown) (unknown) BP 116/70 (units unknown) (unknown) (unknown) (no date) (unknown) (unknown) Blood Pressure Location Lt brachial (units unknown) (unknown) (unknown) (no date) (unknown) (unknown) Cellulitis (units unknown) (unknown) (unknown) (no date) (unknown) (unknown) Cervical somat ic dysfunction (units unknown) (unknown) (unknown) (no date) (unknown) (unknown) Chaperoned by Alessandra Kamara MA (units unknown) (unknown) (unknown) (no date) (unknown) (unknown) Chief Complaint (uni ts unknown) (unknown) (unknown) (no date) (unknown) (unknown) Chief Complain t: Chest discomfort (units unknown) (unknown) (unknown) (no date) (unknown) (unknown) Chronic bilate ral low back pain without sciatica (units unknown) (unknown) (unknown) (no date) (unknown) (unknown) Chronic cough (units unknown) (unknown) (unknown) (no date) (unknown) (unknown) Confirmed 01/04/23] (units unknown) (unknown) (unknown) (no date) (unknown) (unknown) Cranial somati c dysfunction (units unknown) (unknown) (unknown) (no date) (unknown) (unknown) : 8 Acct:[id number] (units unknown) (unknown) (unknown) (no date) (unknown) (unknown) Dept at . (units unknown) (unknown) (unknown) (no date) (unknown) (unknown) Details: (units unknown) (unknown) (unknown) (no date) (unknown) (unknown) Documented By: Marcell Fong MD 01/04/23 1517 (units unknown) (unknown) (unknown) (no date) (unknown) (unknown) Draft (units unknown) (unknown) (unknown) (no date) (unknown) (unknown) Exam Narrative (unit s unknown) (unknown) (unknown) (no date) (unknown) (unknown) Exam Narrative: (uni ts unknown) (unknown) (unknown) (no date) (unknown) (unknown) Exam (units unknown) (unknown) (unknown) (no date) (unknown) (unknown) Family Practic e Office Visit (units unknown) (unknown) (unknown) (no date) (unknown) (unknown) Fibromyalgia (units unknown) (unknown) (unknown) (no date) (unknown) (unknown) [facility] (units unknown) (unknown) (unknown) (no date) (unknown) (unknown) HPI (units unknown) (unknown) (unknown) (no date) (unknown) (unknown) Height 5 ft 1.5 in ( units unknown) (unknown) (unknown) (no date) (unknown) (unknown) Hidradenitis suppurativa (units unknown) (unknown) (unknown) (no date) (unknown) (unknown) Intake Note: (units unknown) (unknown) (unknown) (no date) (unknown) (unknown) Intake perform ed by: Sharri Kamara (units unknown) (unknown) (unknown) (no date) (unknown) (unknown) Intake (units unknown) (unknown) (unknown) (no date) (unknown) (unknown) Intake- [facility] (units unknown) (unknown) (unknown) (no date) (unknown) (unknown) Left breast lump (un its unknown) (unknown) (unknown) (no date) (unknown) (unknown) Loc: [facility] (units unknown) (unknown) (unknown) (no date) (unknown) (unknown) Lumbar region somatic dysfunction (units unknown) (unknown) (unknown) (no date) (unknown) (unknown) Medical Histor y (Updated 01/04/23 @ 15:47 by Marcell Fong MD) (units unknown) (unknown) (unknown) (no date) (unknown) (unknown) Medications (units unknown) (unknown) (unknown) (no date) (unknown) (unknown) Kimberly is a 32-year-old female with ADHD here for follow-up. She did develop (units unknown) (unknown) (unknown) (no date) (unknown) (unknown) Kimberly is si tting up, pleasant, no acute distress (units unknown) (unknown) (unknown) (no date) (unknown) (unknown) Neck muscle spasm (u nits unknown) (unknown) (unknown) (no date) (unknown) (unknown) Neck stiffness (unit s unknown) (unknown) (unknown) (no date) (unknown) (unknown) Neck strain (units unknown) (unknown) (unknown) (no date) (unknown) (unknown) Oxygen Deliver y Method room air (units unknown) (unknown) (unknown) (no date) (unknown) (unknown) PFSH (units unknown) (unknown) (unknown) (no date) (unknown) (unknown) PTSD (post-tra umatic stress disorder) (units unknown) (unknown) (unknown) (no date) (unknown) (unknown) Patient: Kimberly Lewis MR# (units unknown) (unknown) (unknown) (no date) (unknown) (unknown) Pelvic somatic dysfunction (units unknown) (unknown) (unknown) (no date) (unknown) (unknown) Position Sitting (un its unknown) (unknown) (unknown) (no date) (unknown) (unknown) Psoas syndrome (unit s unknown) (unknown) (unknown) (no date) (unknown) (unknown) Pulse 98 H (units unknown) (unknown) (unknown) (no date) (unknown) (unknown) Pulse Oximetry (%) 98 (units unknown) (unknown) (unknown) (no date) (unknown) (unknown) Pulse Source Monitor (units unknown) (unknown) (unknown) (no date) (unknown) (unknown) Reason For Visit (un its unknown) (unknown) (unknown) (no date) (unknown) (unknown) Sacral region somatic dysfunction (units unknown) (unknown) (unknown) (no date) (unknown) (unknown) Segmental and somatic dysfunction of abdomen and other regions (units unknown) (unknown) (unknown) (no date) (unknown) (unknown) Sensation of f eeling cold (units unknown) (unknown) (unknown) (no date) (unknown) (unknown) Signed By: (units unknown) (unknown) (unknown) (no date) (unknown) (unknown) Smoking Status : Former smoker (units unknown) (unknown) (unknown) (no date) (unknown) (unknown) Status: Acute (units unknown) (unknown) (unknown) (no date) (unknown) (unknown) THROAT CLOSURE (unit s unknown) (unknown) (unknown) (no date) (unknown) (unknown) Tachycardia (units unknown) (unknown) (unknown) (no date) (unknown) (unknown) This note may have been all or partially generated using voice recognition (units unknown) (unknown) (unknown) (no date) (unknown) (unknown) Thoracic regio n somatic dysfunction (units unknown) (unknown) (unknown) (no date) (unknown) (unknown) Tobacco + Subs tance Use (units unknown) (unknown) (unknown) (no date) (unknown) (unknown) Tobacco Status (unit s unknown) (unknown) (unknown) (no date) (unknown) (unknown) Tobacco: How m any years used: 13 (units unknown) (unknown) (unknown) (no date) (unknown) (unknown) Visit Reasons: Painful lump in breast (units unknown) (unknown) (unknown) (no date) (unknown) (unknown) Vitals (units unknown) (unknown) (unknown) (no date) (unknown) (unknown) Weight 165 lb 2 oz ( units unknown) (unknown) (unknown) (no date) (unknown) (unknown) [Rx Confirmed 01/04/23] (units unknown) (unknown) (unknown) (no date) (unknown) (unknown) alcohol intake : current (units unknown) (unknown) (unknown) (no date) (unknown) (unknown) benzonatate 10 0 mg capsule 100 mg PO BID-TID PRN cough #60 caps 09/09/22 [Rx (units unknown) (unknown) (unknown) (no date) (unknown) (unknown) breast. She robert s recently had a Mammogram and a breast ultra sound. She states it (units unknown) (unknown) (unknown) (no date) (unknown) (unknown) budesonide-for motero l HFA 160 mcg-4.5 mcg/actuation aerosol inhaler (Symbicort) (units unknown) (unknown) (unknown) (no date) (unknown) (unknown) cefazolin Mc rgy (Verified 01/04/23 15:22) (units unknown) (unknown) (unknown) (no date) (unknown) (unknown) cefprozil [CEFPROZIL] Adverse Reaction (Unknown, Verified 01/04/23 15:22) (units unknown) (unknown) (unknown) (no date) (unknown) (unknown) cholecalcifero l (vitamin D3) 1,250 mcg (50,000 unit) capsule 1,250 mcg PO QWEEK (units unknown) (unknown) (unknown) (no date) (unknown) (unknown) clindamycin phosphate 1 % topical solution See Rx Instructions .Route .COMPLEX (units unknown) (unknown) (unknown) (no date) (unknown) (unknown) doxycycline Al lergy (Verified 01/04/23 15:22) (units unknown) (unknown) (unknown) (no date) (unknown) (unknown) epinephrine 0. 3 mg/0.3 mL injection, auto-injector (EpiPen 2-Kaleb) 0.3 mg (0.3 (units unknown) (unknown) (unknown) (no date) (unknown) (unknown) has been medit ating at home exercising, working on ways to improve concentration (units unknown) (unknown) (unknown) (no date) (unknown) (unknown) have occurred. If there are any questions, please contact the Medical Records (units unknown) (unknown) (unknown) (no date) (unknown) (unknown) ibuprofen 800 mg tablet See Rx Instructions .Route .COMPLEX #90 tabs 10/17/22 (units unknown) (unknown) (unknown) (no date) (unknown) (unknown) is still derrick krishna as of today. (units unknown) (unknown) (unknown) (no date) (unknown) (unknown) ketorolac [KETOROLAC] Adverse Reaction (Unknown, Verified 01/04/23 15:22) (units unknown) (unknown) (unknown) (no date) (unknown) (unknown) kidney stones being on Adderall and it was not very helpful for her. Kimberly (units unknown) (unknown) (unknown) (no date) (unknown) (unknown) latex [LATEX] Allergy (Unknown, Verified 01/04/23 15:22) (units unknown) (unknown) (unknown) (no date) (unknown) (unknown) mL) IM Q5-15M PRN anaphylaxis #2 ea 06/29/21 [Rx Confirmed 01/04/23] (units unknown) (unknown) (unknown) (no date) (unknown) (unknown) may occur. Occasional wrong-word or 'sound-alike' substitutions may have (units unknown) (unknown) (unknown) (no date) (unknown) (unknown) mecobalamin (v itamin B12) 10,000 mcg solution for injection 1,000 mcg IM MONTHLY (units unknown) (unknown) (unknown) (no date) (unknown) (unknown) metoclopramide [From Reglan] Adverse Reaction (Verified 01/04/23 15:22) (units unknown) (unknown) (unknown) (no date) (unknown) (unknown) multivitamin ( Daily Multi-Vitamin tablet) 1 tab PO DAILY 01/04/23 [History (units unknown) (unknown) (unknown) (no date) (unknown) (unknown) occurred due t o the inherent limitations of voice recognition software. Please (units unknown) (unknown) (unknown) (no date) (unknown) (unknown) phentermine 37 .5 mg tablet 18.75 mg PO DAILY #90 tabs 07/21/22 [Rx Confirmed (units unknown) (unknown) (unknown) (no date) (unknown) (unknown) quit status: considering quitting (units unknown) (unknown) (unknown) (no date) (unknown) (unknown) read the note carefully and recognize, using context, where these substitutions (units unknown) (unknown) (unknown) (no date) (unknown) (unknown) shrimp Allergy (Severe, Verified 01/04/23 15:22) (units unknown) (unknown) (unknown) (no date) (unknown) (unknown) software. Alth ough every effort is made to edit content, manager shift errors (units unknown) (unknown) (unknown) (no date) (unknown) (unknown) stimulant medi cation and is hoping for more natural option. (units unknown) (unknown) (unknown) (no date) (unknown) (unknown) substance use type: does not use (units unknown) (unknown) (unknown) (no date) (unknown) (unknown) though this robert s not been overly successful. She is nervous about starting a (units unknown) (unknown) (unknown) (no date) (unknown) (unknown) zolpidem 10 mg tablet See Rx Instructions PO BEDTIME PRN insomnia #30 tabs (units unknown) (unknown) Result panel 10 (unknown) (no date) (unknown) (unknown) (no value) (units unknown) (unknown) (unknown) (no date) (unknown) (unknown) #1 ea 10/06/22 [Rx Confirmed 01/04/23] (units unknown) (unknown) (unknown) (no date) (unknown) (unknown) #12 caps 11/07 [Rx Confirmed 01/04/23] (units unknown) (unknown) (unknown) (no date) (unknown) (unknown) #60 mL 3 [Rx Confirmed 01/04/23] (units unknown) (unknown) (unknown) (no date) (unknown) (unknown) (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: (units unknown) (unknown) (unknown) (no date) (unknown) (unknown) (2) Chest wall pain: (units unknown) (unknown) (unknown) (no date) (unknown) (unknown) 12/13/22 [Rx Confirmed 01/04/23] (units unknown) (unknown) (unknown) (no date) (unknown) (unknown) 01/04/23 1556 (units unknown) (unknown) (unknown) (no date) (unknown) (unknown) 01/04/23 (units unknown) (unknown) (unknown) (no date) (unknown) (unknown) 01/04/23] (units unknown) (unknown) (unknown) (no date) (unknown) (unknown) 15:24 (units unknown) (unknown) (unknown) (no date) (unknown) (unknown) 2 puff inhalat ion BID #10.2 grams 03/17/22 [Rx Confirmed 01/04/23] (units unknown) (unknown) (unknown) (no date) (unknown) (unknown) 3 ml syringe/ 25g 1 12 needle #1 ea 10/06/22 [Rx Confirmed 01/04/23] (units unknown) (unknown) (unknown) (no date) (unknown) (unknown) 32 Y/O Female presents today for a follow up of a painful spot under her Left (units unknown) (unknown) (unknown) (no date) (unknown) (unknown) : [id number] (units unknown) (unknown) (unknown) (no date) (unknown) (unknown) Acute neck pain (uni ts unknown) (unknown) (unknown) (no date) (unknown) (unknown) Acute thoracic back pain (units unknown) (unknown) (unknown) (no date) (unknown) (unknown) Age/Sex: 32 / F Date of Service: (units unknown) (unknown) (unknown) (no date) (unknown) (unknown) Allergies (units unknown) (unknown) (unknown) (no date) (unknown) (unknown) [place] [id number] (units unknown) (unknown) (unknown) (no date) (unknown) (unknown) Anaphylaxis (units unknown) (unknown) (unknown) (no date) (unknown) (unknown) Assessment + Plan (u nits unknown) (unknown) (unknown) (no date) (unknown) (unknown) Attending Dr: Marcell Fong MD (units unknown) (unknown) (unknown) (no date) (unknown) (unknown) Autonomic dysfunction (units unknown) (unknown) (unknown) (no date) (unknown) (unknown) BD #[id number] needl es 30gx1/2 #100 ea 12/01/22 [Rx Confirmed 01/04/23] (units unknown) (unknown) (unknown) (no date) (unknown) (unknown) BMI 30.7 (units unknown) (unknown) (unknown) (no date) (unknown) (unknown) BP 116/70 (units unknown) (unknown) (unknown) (no date) (unknown) (unknown) Blood Pressure Location Lt brachial (units unknown) (unknown) (unknown) (no date) (unknown) (unknown) Cellulitis (units unknown) (unknown) (unknown) (no date) (unknown) (unknown) Cervical somat ic dysfunction (units unknown) (unknown) (unknown) (no date) (unknown) (unknown) Chaperoned by Alessandra Kamara MA (units unknown) (unknown) (unknown) (no date) (unknown) (unknown) Chief Complaint (uni ts unknown) (unknown) (unknown) (no date) (unknown) (unknown) Chief Complain t: Chest discomfort (units unknown) (unknown) (unknown) (no date) (unknown) (unknown) Chronic bilate ral low back pain without sciatica (units unknown) (unknown) (unknown) (no date) (unknown) (unknown) Chronic cough (units unknown) (unknown) (unknown) (no date) (unknown) (unknown) Confirmed 01/04/23] (units unknown) (unknown) (unknown) (no date) (unknown) (unknown) Cranial somati c dysfunction (units unknown) (unknown) (unknown) (no date) (unknown) (unknown) : 8 Acct:[id number] (units unknown) (unknown) (unknown) (no date) (unknown) (unknown) Dept at . (units unknown) (unknown) (unknown) (no date) (unknown) (unknown) Details: (units unknown) (unknown) (unknown) (no date) (unknown) (unknown) Documented By: Marcell Fong MD 01/04/23 5277 (units unknown) (unknown) (unknown) (no date) (unknown) (unknown) Exam Narrative (unit s unknown) (unknown) (unknown) (no date) (unknown) (unknown) Exam Narrative: (uni ts unknown) (unknown) (unknown) (no date) (unknown) (unknown) Exam (units unknown) (unknown) (unknown) (no date) (unknown) (unknown) Family Practic e Office Visit (units unknown) (unknown) (unknown) (no date) (unknown) (unknown) Fibromyalgia (units unknown) (unknown) (unknown) (no date) (unknown) (unknown) [facility] (units unknown) (unknown) (unknown) (no date) (unknown) (unknown) HPI (units unknown) (unknown) (unknown) (no date) (unknown) (unknown) Height 5 ft 1.5 in ( units unknown) (unknown) (unknown) (no date) (unknown) (unknown) Hidradenitis suppurativa (units unknown) (unknown) (unknown) (no date) (unknown) (unknown) I do suspect h er chest wall discomfort is related to underlying hidradenitis (units unknown) (unknown) (unknown) (no date) (unknown) (unknown) Intake Note: (units unknown) (unknown) (unknown) (no date) (unknown) (unknown) Intake perform ed by: Sharri Kamara (units unknown) (unknown) (unknown) (no date) (unknown) (unknown) Intake (units unknown) (unknown) (unknown) (no date) (unknown) (unknown) Intake- [facility] (units unknown) (unknown) (unknown) (no date) (unknown) (unknown) Left breast lump (un its unknown) (unknown) (unknown) (no date) (unknown) (unknown) Left chest wal l, inferior to left breast along rib with a few, very small (units unknown) (unknown) (unknown) (no date) (unknown) (unknown) Loc: [facility] (units unknown) (unknown) (unknown) (no date) (unknown) (unknown) Lumbar region somatic dysfunction (units unknown) (unknown) (unknown) (no date) (unknown) (unknown) Medical Histor y (Updated 01/04/23 @ 15:47 by Marcell Fong MD) (units unknown) (unknown) (unknown) (no date) (unknown) (unknown) Medications (units unknown) (unknown) (unknown) (no date) (unknown) (unknown) Medications: (units unknown) (unknown) (unknown) (no date) (unknown) (unknown) Kimberly is a 32-year-old female with ADHD here for follow-up of left chest (units unknown) (unknown) (unknown) (no date) (unknown) (unknown) Kimberly is si tting up, pleasant, no acute distress (units unknown) (unknown) (unknown) (no date) (unknown) (unknown) Neck muscle spasm (u nits unknown) (unknown) (unknown) (no date) (unknown) (unknown) Neck stiffness (unit s unknown) (unknown) (unknown) (no date) (unknown) (unknown) Neck strain (units unknown) (unknown) (unknown) (no date) (unknown) (unknown) New (units unknown) (unknown) (unknown) (no date) (unknown) (unknown) Oxygen Deliver y Method room air (units unknown) (unknown) (unknown) (no date) (unknown) (unknown) PFSH (units unknown) (unknown) (unknown) (no date) (unknown) (unknown) PTSD (post-tra umatic stress disorder) (units unknown) (unknown) (unknown) (no date) (unknown) (unknown) Patient: Kimberly Lewis D MR# (units unknown) (unknown) (unknown) (no date) (unknown) (unknown) Pelvic somatic dysfunction (units unknown) (unknown) (unknown) (no date) (unknown) (unknown) Plan (units unknown) (unknown) (unknown) (no date) (unknown) (unknown) Position Sitting (un its unknown) (unknown) (unknown) (no date) (unknown) (unknown) Psoas syndrome (unit s unknown) (unknown) (unknown) (no date) (unknown) (unknown) Pulse 98 H (units unknown) (unknown) (unknown) (no date) (unknown) (unknown) Pulse Oximetry (%) 98 (units unknown) (unknown) (unknown) (no date) (unknown) (unknown) Pulse Source Monitor (units unknown) (unknown) (unknown) (no date) (unknown) (unknown) Reason For Visit (un its unknown) (unknown) (unknown) (no date) (unknown) (unknown) Sacral region somatic dysfunction (units unknown) (unknown) (unknown) (no date) (unknown) (unknown) Segmental and somatic dysfunction of abdomen and other regions (units unknown) (unknown) (unknown) (no date) (unknown) (unknown) Sensation of f eeling cold (units unknown) (unknown) (unknown) (no date) (unknown) (unknown) Signed By: <Electronically signed by Marcell Fong MD> (units unknown) (unknown) (unknown) (no date) (unknown) (unknown) Signed (units unknown) (unknown) (unknown) (no date) (unknown) (unknown) Smoking Status : Former smoker (units unknown) (unknown) (unknown) (no date) (unknown) (unknown) Status: Acute (units unknown) (unknown) (unknown) (no date) (unknown) (unknown) THROAT CLOSURE (unit s unknown) (unknown) (unknown) (no date) (unknown) (unknown) Tachycardia (units unknown) (unknown) (unknown) (no date) (unknown) (unknown) This note may have been all or partially generated using voice recognition (units unknown) (unknown) (unknown) (no date) (unknown) (unknown) Thoracic regio n somatic dysfunction (units unknown) (unknown) (unknown) (no date) (unknown) (unknown) Tobacco + Subs tance Use (units unknown) (unknown) (unknown) (no date) (unknown) (unknown) Tobacco Status (unit s unknown) (unknown) (unknown) (no date) (unknown) (unknown) Tobacco: How m any years used: 13 (units unknown) (unknown) (unknown) (no date) (unknown) (unknown) Visit Reasons: Painful lump in breast (units unknown) (unknown) (unknown) (no date) (unknown) (unknown) Vitals (units unknown) (unknown) (unknown) (no date) (unknown) (unknown) Weight 165 lb 2 oz ( units unknown) (unknown) (unknown) (no date) (unknown) (unknown) [Rx Confirmed 01/04/23] (units unknown) (unknown) (unknown) (no date) (unknown) (unknown) alcohol intake : current (units unknown) (unknown) (unknown) (no date) (unknown) (unknown) benzonatate 10 0 mg capsule 100 mg PO BID-TID PRN cough #60 caps 09/09/22 [Rx (units unknown) (unknown) (unknown) (no date) (unknown) (unknown) breast. She robert s recently had a Mammogram and a breast ultra sound. She states it (units unknown) (unknown) (unknown) (no date) (unknown) (unknown) budesonide-for motero l HFA 160 mcg-4.5 mcg/actuation aerosol inhaler (Symbicort) (units unknown) (unknown) (unknown) (no date) (unknown) (unknown) cefazolin Mc rgy (Verified 01/04/23 15:22) (units unknown) (unknown) (unknown) (no date) (unknown) (unknown) cefprozil [CEFPROZIL] Adverse Reaction (Unknown, Verified 01/04/23 15:22) (units unknown) (unknown) (unknown) (no date) (unknown) (unknown) cholecalcifero l (vitamin D3) 1,250 mcg (50,000 unit) capsule 1,250 mcg PO QWEEK (units unknown) (unknown) (unknown) (no date) (unknown) (unknown) clindamycin HC l 300 mg PO BID 60 caps 1RF (units unknown) (unknown) (unknown) (no date) (unknown) (unknown) clindamycin HC l 300 mg capsule 300 mg PO BID #60 caps 01/04/23 [Rx Confirmed (units unknown) (unknown) (unknown) (no date) (unknown) (unknown) clindamycin phosphate 1 % topical solution See Rx Instructions .Route .COMPLEX (units unknown) (unknown) (unknown) (no date) (unknown) (unknown) discomfort. Sh e does have family history of breast cancer as well as personal (units unknown) (unknown) (unknown) (no date) (unknown) (unknown) doxycycline Al lergy (Verified 01/04/23 15:22) (units unknown) (unknown) (unknown) (no date) (unknown) (unknown) epinephrine 0. 3 mg/0.3 mL injection, auto-injector (EpiPen 2-Kaleb) 0.3 mg (0.3 (units unknown) (unknown) (unknown) (no date) (unknown) (unknown) exam and tende r. Will treat with rifampin and clindamycin, treatment as well as (units unknown) (unknown) (unknown) (no date) (unknown) (unknown) fairly unremar kable. There are small nodules long chest wall that are mobile on (units unknown) (unknown) (unknown) (no date) (unknown) (unknown) have occurred. If there are any questions, please contact the Medical Records (units unknown) (unknown) (unknown) (no date) (unknown) (unknown) her symptoms. Pain is worse when she moves around or sits up. Pain is better (units unknown) (unknown) (unknown) (no date) (unknown) (unknown) history of hidradenitis suppurativa. She is had this left chest wall discomfort (units unknown) (unknown) (unknown) (no date) (unknown) (unknown) ibuprofen 800 mg tablet See Rx Instructions .Route .COMPLEX #90 tabs 10/17/22 (units unknown) (unknown) (unknown) (no date) (unknown) (unknown) is still hurti ng as of today. (units unknown) (unknown) (unknown) (no date) (unknown) (unknown) ketorolac [KETOROLAC] Adverse Reaction (Unknown, Verified 01/04/23 15:22) (units unknown) (unknown) (unknown) (no date) (unknown) (unknown) latex [LATEX] Allergy (Unknown, Verified 01/04/23 15:22) (units unknown) (unknown) (unknown) (no date) (unknown) (unknown) mL) IM Q5-15M PRN anaphylaxis #2 ea 06/29/21 [Rx Confirmed 01/04/23] (units unknown) (unknown) (unknown) (no date) (unknown) (unknown) may occur. Occasional wrong-word or 'sound-alike' substitutions may have (units unknown) (unknown) (unknown) (no date) (unknown) (unknown) mecobalamin (v itamin B12) 10,000 mcg solution for injection 1,000 mcg IM MONTHLY (units unknown) (unknown) (unknown) (no date) (unknown) (unknown) metoclopramide [From Reglan] Adverse Reaction (Verified 01/04/23 15:22) (units unknown) (unknown) (unknown) (no date) (unknown) (unknown) multivitamin ( Daily Multi-Vitamin tablet) 1 tab PO DAILY 01/04/23 [History (units unknown) (unknown) (unknown) (no date) (unknown) (unknown) naproxen 250 m g PO BID 30 tabs 0RF (units unknown) (unknown) (unknown) (no date) (unknown) (unknown) naproxen 250 m g tablet 250 mg PO BID #30 tabs 01/04/23 [Rx Confirmed 01/04/23] (units unknown) (unknown) (unknown) (no date) (unknown) (unknown) naproxen. This treatment can take up to 12 weeks to be fully effective but we (units unknown) (unknown) (unknown) (no date) (unknown) (unknown) nodules that a re tender as well as some tissue that is tender. No discharge. (units unknown) (unknown) (unknown) (no date) (unknown) (unknown) occurred due t o the inherent limitations of voice recognition software. Please (units unknown) (unknown) (unknown) (no date) (unknown) (unknown) phentermine 37 .5 mg tablet 18.75 mg PO DAILY #90 tabs 07/21/22 [Rx Confirmed (units unknown) (unknown) (unknown) (no date) (unknown) (unknown) quit status: considering quitting (units unknown) (unknown) (unknown) (no date) (unknown) (unknown) read the note carefully and recognize, using context, where these substitutions (units unknown) (unknown) (unknown) (no date) (unknown) (unknown) rifampin 300 m g PO BID 60 caps 1RF (units unknown) (unknown) (unknown) (no date) (unknown) (unknown) rifampin 300 m g capsule 300 mg PO BID #60 caps 01/04/23 [Rx Confirmed 01/04/23] (units unknown) (unknown) (unknown) (no date) (unknown) (unknown) shrimp Allergy (Severe, Verified 01/04/23 15:22) (units unknown) (unknown) (unknown) (no date) (unknown) (unknown) since about . Recently had mammogram and ultrasound without clear cause of (units unknown) (unknown) (unknown) (no date) (unknown) (unknown) software. Alth ough every effort is made to edit content, manager shift errors (units unknown) (unknown) (unknown) (no date) (unknown) (unknown) substance use type: does not use (units unknown) (unknown) (unknown) (no date) (unknown) (unknown) suppurativa, w hich is present her axilla as well. Ultrasound mammogram were (units unknown) (unknown) (unknown) (no date) (unknown) (unknown) when lays down with warm compresses. No discharge. (units unknown) (unknown) (unknown) (no date) (unknown) (unknown) will begin wit h one-month and go from there. (units unknown) (unknown) (unknown) (no date) (unknown) (unknown) zolpidem 10 mg tablet See Rx Instructions PO BEDTIME PRN insomnia #30 tabs (units unknown) (unknown) Result panel 11 (unknown) (no date) (unknown) (unknown) (no value) (units unknown) (unknown) (unknown) (no date) (unknown) (unknown) 01/23/23 (units unknown) (unknown) (unknown) (no date) (unknown) (unknown) : [id number] (units unknown) (unknown) (unknown) (no date) (unknown) (unknown) Acute neck pain (uni ts unknown) (unknown) (unknown) (no date) (unknown) (unknown) Acute thoracic back pain (units unknown) (unknown) (unknown) (no date) (unknown) (unknown) Age/Sex: 32 / F Date of Service: (units unknown) (unknown) (unknown) (no date) (unknown) (unknown) Allergies (units unknown) (unknown) (unknown) (no date) (unknown) (unknown) [place] [address] (units unknown) (unknown) (unknown) (no date) (unknown) (unknown) Anaphylaxis (units unknown) (unknown) (unknown) (no date) (unknown) (unknown) Attending Dr: Marcell Fong MD (units unknown) (unknown) (unknown) (no date) (unknown) (unknown) Autonomic dysfunction (units unknown) (unknown) (unknown) (no date) (unknown) (unknown) Cellulitis (units unknown) (unknown) (unknown) (no date) (unknown) (unknown) Cervical somat ic dysfunction (units unknown) (unknown) (unknown) (no date) (unknown) (unknown) Chronic bilate ral low back pain without sciatica (units unknown) (unknown) (unknown) (no date) (unknown) (unknown) Chronic cough (units unknown) (unknown) (unknown) (no date) (unknown) (unknown) Cranial somati c dysfunction (units unknown) (unknown) (unknown) (no date) (unknown) (unknown) : 8 Acct:[id number] (units unknown) (unknown) (unknown) (no date) (unknown) (unknown) Dept at . (units unknown) (unknown) (unknown) (no date) (unknown) (unknown) Documented By: Marcell Fong MD 01/23/23 0921 (units unknown) (unknown) (unknown) (no date) (unknown) (unknown) Draft (units unknown) (unknown) (unknown) (no date) (unknown) (unknown) Family Practic e Office Visit (units unknown) (unknown) (unknown) (no date) (unknown) (unknown) Fibromyalgia (units unknown) (unknown) (unknown) (no date) (unknown) (unknown) [facility] (units unknown) (unknown) (unknown) (no date) (unknown) (unknown) Hidradenitis suppurativa (units unknown) (unknown) (unknown) (no date) (unknown) (unknown) Intake (units unknown) (unknown) (unknown) (no date) (unknown) (unknown) Left breast lump (un its unknown) (unknown) (unknown) (no date) (unknown) (unknown) Loc: [facility] (units unknown) (unknown) (unknown) (no date) (unknown) (unknown) Lumbar region somatic dysfunction (units unknown) (unknown) (unknown) (no date) (unknown) (unknown) Medical Histor y (Updated 01/04/23 @ 15:47 by Marcell Fong MD) (units unknown) (unknown) (unknown) (no date) (unknown) (unknown) Neck muscle spasm (u nits unknown) (unknown) (unknown) (no date) (unknown) (unknown) Neck stiffness (unit s unknown) (unknown) (unknown) (no date) (unknown) (unknown) Neck strain (units unknown) (unknown) (unknown) (no date) (unknown) (unknown) PFSH (units unknown) (unknown) (unknown) (no date) (unknown) (unknown) PTSD (post-tra umatic stress disorder) (units unknown) (unknown) (unknown) (no date) (unknown) (unknown) Patient: Kimberly Lewis MR# (units unknown) (unknown) (unknown) (no date) (unknown) (unknown) Pelvic somatic dysfunction (units unknown) (unknown) (unknown) (no date) (unknown) (unknown) Psoas syndrome (unit s unknown) (unknown) (unknown) (no date) (unknown) (unknown) Reason For Visit (un its unknown) (unknown) (unknown) (no date) (unknown) (unknown) Sacral region somatic dysfunction (units unknown) (unknown) (unknown) (no date) (unknown) (unknown) Segmental and somatic dysfunction of abdomen and other regions (units unknown) (unknown) (unknown) (no date) (unknown) (unknown) Sensation of f eeling cold (units unknown) (unknown) (unknown) (no date) (unknown) (unknown) Signed By: (units unknown) (unknown) (unknown) (no date) (unknown) (unknown) Smoking Status : Former smoker (units unknown) (unknown) (unknown) (no date) (unknown) (unknown) THROAT CLOSURE (unit s unknown) (unknown) (unknown) (no date) (unknown) (unknown) Tachycardia (units unknown) (unknown) (unknown) (no date) (unknown) (unknown) This note may have been all or partially generated using voice recognition (units unknown) (unknown) (unknown) (no date) (unknown) (unknown) Thoracic regio n somatic dysfunction (units unknown) (unknown) (unknown) (no date) (unknown) (unknown) Tobacco + Subs tance Use (units unknown) (unknown) (unknown) (no date) (unknown) (unknown) Tobacco Status (unit s unknown) (unknown) (unknown) (no date) (unknown) (unknown) Tobacco: How m any years used: 13 (units unknown) (unknown) (unknown) (no date) (unknown) (unknown) Visit Reasons: follow up med reaction (units unknown) (unknown) (unknown) (no date) (unknown) (unknown) alcohol intake : current (units unknown) (unknown) (unknown) (no date) (unknown) (unknown) cefazolin Mc rgy (Verified 04/05/23 15:22) (units unknown) (unknown) (unknown) (no date) (unknown) (unknown) cefprozil [CEFPROZIL] Adverse Reaction (Unknown, Verified 01/04/23 15:22) (units unknown) (unknown) (unknown) (no date) (unknown) (unknown) doxycycline Al lergy (Verified 01/04/23 15:22) (units unknown) (unknown) (unknown) (no date) (unknown) (unknown) have occurred. If there are any questions, please contact the Medical Records (units unknown) (unknown) (unknown) (no date) (unknown) (unknown) ketorolac [KETOROLAC] Adverse Reaction (Unknown, Verified 01/04/23 15:22) (units unknown) (unknown) (unknown) (no date) (unknown) (unknown) latex [LATEX] Allergy (Unknown, Verified 01/04/23 15:22) (units unknown) (unknown) (unknown) (no date) (unknown) (unknown) may occur. Occasional wrong-word or 'sound-alike' substitutions may have (units unknown) (unknown) (unknown) (no date) (unknown) (unknown) metoclopramide [From Reglan] Adverse Reaction (Verified 01/04/23 15:22) (units unknown) (unknown) (unknown) (no date) (unknown) (unknown) occurred due t o the inherent limitations of voice recognition software. Please (units unknown) (unknown) (unknown) (no date) (unknown) (unknown) quit status: considering quitting (units unknown) (unknown) (unknown) (no date) (unknown) (unknown) read the note carefully and recognize, using context, where these substitutions (units unknown) (unknown) (unknown) (no date) (unknown) (unknown) shrimp Allergy (Severe, Verified 01/04/23 15:22) (units unknown) (unknown) (unknown) (no date) (unknown) (unknown) software. Alth ough every effort is made to edit content, manager shift errors (units unknown) (unknown) (unknown) (no date) (unknown) (unknown) substance use type: does not use (units unknown) (unknown) Result panel 12 (unknown) (no date) (unknown) (unknown) (no value) (units unknown) (unknown) (unknown) (no date) (unknown) (unknown) 01/23/23 (units unknown) (unknown) (unknown) (no date) (unknown) (unknown) : [id number] (units unknown) (unknown) (unknown) (no date) (unknown) (unknown) Acute neck pain (uni ts unknown) (unknown) (unknown) (no date) (unknown) (unknown) Acute thoracic back pain (units unknown) (unknown) (unknown) (no date) (unknown) (unknown) Age/Sex: 32 / F Date of Service: (units unknown) (unknown) (unknown) (no date) (unknown) (unknown) Allergies (units unknown) (unknown) (unknown) (no date) (unknown) (unknown) [place] [address] (units unknown) (unknown) (unknown) (no date) (unknown) (unknown) Anaphylaxis (units unknown) (unknown) (unknown) (no date) (unknown) (unknown) Attending Dr: Marcell Fong MD (units unknown) (unknown) (unknown) (no date) (unknown) (unknown) Autonomic dysfunction (units unknown) (unknown) (unknown) (no date) (unknown) (unknown) Cellulitis (units unknown) (unknown) (unknown) (no date) (unknown) (unknown) Cervical somat ic dysfunction (units unknown) (unknown) (unknown) (no date) (unknown) (unknown) Chronic bilate ral low back pain without sciatica (units unknown) (unknown) (unknown) (no date) (unknown) (unknown) Chronic cough (units unknown) (unknown) (unknown) (no date) (unknown) (unknown) Clindamycin (units unknown) (unknown) (unknown) (no date) (unknown) (unknown) Cranial somati c dysfunction (units unknown) (unknown) (unknown) (no date) (unknown) (unknown) : 8 Acct:[id number] (units unknown) (unknown) (unknown) (no date) (unknown) (unknown) Dept at . (units unknown) (unknown) (unknown) (no date) (unknown) (unknown) Details: (units unknown) (unknown) (unknown) (no date) (unknown) (unknown) Documented By: Marcell Fong MD 01/23/23 0921 (units unknown) (unknown) (unknown) (no date) (unknown) (unknown) Draft (units unknown) (unknown) (unknown) (no date) (unknown) (unknown) Family Practic e Office Visit (units unknown) (unknown) (unknown) (no date) (unknown) (unknown) Fibromyalgia (units unknown) (unknown) (unknown) (no date) (unknown) (unknown) [facility] (units unknown) (unknown) (unknown) (no date) (unknown) (unknown) HPI (units unknown) (unknown) (unknown) (no date) (unknown) (unknown) Hidradenitis suppurativa (units unknown) (unknown) (unknown) (no date) (unknown) (unknown) Intake Note: (units unknown) (unknown) (unknown) (no date) (unknown) (unknown) Intake perform ed by: Jocelyne Munoz (units unknown) (unknown) (unknown) (no date) (unknown) (unknown) Intake (units unknown) (unknown) (unknown) (no date) (unknown) (unknown) Intake- [facility] Staff (units unknown) (unknown) (unknown) (no date) (unknown) (unknown) Left breast lump (un its unknown) (unknown) (unknown) (no date) (unknown) (unknown) Loc: [facility] (units unknown) (unknown) (unknown) (no date) (unknown) (unknown) Lumbar region somatic dysfunction (units unknown) (unknown) (unknown) (no date) (unknown) (unknown) Medical Histor y (Updated 01/04/23 @ 15:47 by Marcell Fong MD) (units unknown) (unknown) (unknown) (no date) (unknown) (unknown) Neck muscle spasm (u nits unknown) (unknown) (unknown) (no date) (unknown) (unknown) Neck stiffness (unit s unknown) (unknown) (unknown) (no date) (unknown) (unknown) Neck strain (units unknown) (unknown) (unknown) (no date) (unknown) (unknown) PFSH (units unknown) (unknown) (unknown) (no date) (unknown) (unknown) PTSD (post-tra umatic stress disorder) (units unknown) (unknown) (unknown) (no date) (unknown) (unknown) Patient: Kimberly Lewis MR# (units unknown) (unknown) (unknown) (no date) (unknown) (unknown) Pelvic somatic dysfunction (units unknown) (unknown) (unknown) (no date) (unknown) (unknown) Psoas syndrome (unit s unknown) (unknown) (unknown) (no date) (unknown) (unknown) Reason For Visit (un its unknown) (unknown) (unknown) (no date) (unknown) (unknown) Rifampin: marlena ge body fluids? Flu like sx? (units unknown) (unknown) (unknown) (no date) (unknown) (unknown) Sacral region somatic dysfunction (units unknown) (unknown) (unknown) (no date) (unknown) (unknown) Segmental and somatic dysfunction of abdomen and other regions (units unknown) (unknown) (unknown) (no date) (unknown) (unknown) Sensation of f eeling cold (units unknown) (unknown) (unknown) (no date) (unknown) (unknown) Signed By: (units unknown) (unknown) (unknown) (no date) (unknown) (unknown) Smoking Status : Former smoker (units unknown) (unknown) (unknown) (no date) (unknown) (unknown) THROAT CLOSURE (unit s unknown) (unknown) (unknown) (no date) (unknown) (unknown) Tachycardia (units unknown) (unknown) (unknown) (no date) (unknown) (unknown) This note may have been all or partially generated using voice recognition (units unknown) (unknown) (unknown) (no date) (unknown) (unknown) Thoracic regio n somatic dysfunction (units unknown) (unknown) (unknown) (no date) (unknown) (unknown) Tobacco + Subs tance Use (units unknown) (unknown) (unknown) (no date) (unknown) (unknown) Tobacco Status (unit s unknown) (unknown) (unknown) (no date) (unknown) (unknown) Tobacco: How m any years used: 13 (units unknown) (unknown) (unknown) (no date) (unknown) (unknown) Visit Reasons: follow up med reaction (units unknown) (unknown) (unknown) (no date) (unknown) (unknown) alcohol intake : current (units unknown) (unknown) (unknown) (no date) (unknown) (unknown) cefazolin Mc rgy (Verified 01/04/23 15:22) (units unknown) (unknown) (unknown) (no date) (unknown) (unknown) cefprozil [CEFPROZIL] Adverse Reaction (Unknown, Verified 01/04/23 15:22) (units unknown) (unknown) (unknown) (no date) (unknown) (unknown) doxycycline Al lergy (Verified 01/04/23 15:22) (units unknown) (unknown) (unknown) (no date) (unknown) (unknown) have occurred. If there are any questions, please contact the Medical Records (units unknown) (unknown) (unknown) (no date) (unknown) (unknown) ketorolac [KETOROLAC] Adverse Reaction (Unknown, Verified 01/04/23 15:22) (units unknown) (unknown) (unknown) (no date) (unknown) (unknown) latex [LATEX] Allergy (Unknown, Verified 01/04/23 15:22) (units unknown) (unknown) (unknown) (no date) (unknown) (unknown) may occur. Occasional wrong-word or 'sound-alike' substitutions may have (units unknown) (unknown) (unknown) (no date) (unknown) (unknown) metoclopramide [From Reglan] Adverse Reaction (Verified 01/04/23 15:22) (units unknown) (unknown) (unknown) (no date) (unknown) (unknown) occurred due t o the inherent limitations of voice recognition software. Please (units unknown) (unknown) (unknown) (no date) (unknown) (unknown) once stopped t he . symptoms are resolving. (units unknown) (unknown) (unknown) (no date) (unknown) (unknown) patient had re action to rifampin and clindamycin. pain under breast might br HS. (units unknown) (unknown) (unknown) (no date) (unknown) (unknown) quit status: considering quitting (units unknown) (unknown) (unknown) (no date) (unknown) (unknown) read the note carefully and recognize, using context, where these substitutions (units unknown) (unknown) (unknown) (no date) (unknown) (unknown) shrimp Allergy (Severe, Verified 01/04/23 15:22) (units unknown) (unknown) (unknown) (no date) (unknown) (unknown) software. Alth ough every effort is made to edit content, manager shift errors (units unknown) (unknown) (unknown) (no date) (unknown) (unknown) substance use type: does not use (units unknown) (unknown) Result panel 13 (unknown) (no date) (unknown) (unknown) (no value) (units unknown) (unknown) (unknown) (no date) (unknown) (unknown) #1 ea 10/06/22 [Rx Confirmed 01/23/23] (units unknown) (unknown) (unknown) (no date) (unknown) (unknown) #12 caps 11/07 [Rx Confirmed 01/23/23] (units unknown) (unknown) (unknown) (no date) (unknown) (unknown) #60 mL 3 [Rx Confirmed 01/23/23] (units unknown) (unknown) (unknown) (no date) (unknown) (unknown) 01/10/23 [Rx Confirmed 01/23/23] (units unknown) (unknown) (unknown) (no date) (unknown) (unknown) 01/23/23 (units unknown) (unknown) (unknown) (no date) (unknown) (unknown) 2 puff inhalat ion BID #10.2 grams 03/17/22 [Rx Confirmed 01/23/23] (units unknown) (unknown) (unknown) (no date) (unknown) (unknown) 3 ml syringe/ 25g 1 2 needle #1 ea 10/06/22 [Rx Confirmed 01/23/23] (units unknown) (unknown) (unknown) (no date) (unknown) (unknown) : [id number] (units unknown) (unknown) (unknown) (no date) (unknown) (unknown) Acute neck pain (uni ts unknown) (unknown) (unknown) (no date) (unknown) (unknown) Acute thoracic back pain (units unknown) (unknown) (unknown) (no date) (unknown) (unknown) Age/Sex: 32 / F Date of Service: (units unknown) (unknown) (unknown) (no date) (unknown) (unknown) Allergies (units unknown) (unknown) (unknown) (no date) (unknown) (unknown) [place] [id number] (units unknown) (unknown) (unknown) (no date) (unknown) (unknown) Anaphylaxis (units unknown) (unknown) (unknown) (no date) (unknown) (unknown) Assessment + Plan (u nits unknown) (unknown) (unknown) (no date) (unknown) (unknown) Attending Dr: Marcell Fong MD (units unknown) (unknown) (unknown) (no date) (unknown) (unknown) Autonomic dysfunction (units unknown) (unknown) (unknown) (no date) (unknown) (unknown) BD #[id number] needl es 30gx1/2 #100 ea 12/01/22 [Rx Confirmed 01/23/23] (units unknown) (unknown) (unknown) (no date) (unknown) (unknown) Cellulitis (units unknown) (unknown) (unknown) (no date) (unknown) (unknown) Cervical somat ic dysfunction (units unknown) (unknown) (unknown) (no date) (unknown) (unknown) Chronic bilate ral low back pain without sciatica (units unknown) (unknown) (unknown) (no date) (unknown) (unknown) Chronic cough (units unknown) (unknown) (unknown) (no date) (unknown) (unknown) Clindamycin: G i upset? (units unknown) (unknown) (unknown) (no date) (unknown) (unknown) Confirmed 01/23/23] (units unknown) (unknown) (unknown) (no date) (unknown) (unknown) Cranial somati c dysfunction (units unknown) (unknown) (unknown) (no date) (unknown) (unknown) : 8 Acct:[id number] (units unknown) (unknown) (unknown) (no date) (unknown) (unknown) Date of Last Menstrual Period: 12/31/22 (units unknown) (unknown) (unknown) (no date) (unknown) (unknown) Dept at . (units unknown) (unknown) (unknown) (no date) (unknown) (unknown) Details: (units unknown) (unknown) (unknown) (no date) (unknown) (unknown) Documented By: Marcell Fong MD 01/23/23 0921 (units unknown) (unknown) (unknown) (no date) (unknown) (unknown) Draft (units unknown) (unknown) (unknown) (no date) (unknown) (unknown) Family Practic e Office Visit (units unknown) (unknown) (unknown) (no date) (unknown) (unknown) Fibromyalgia (units unknown) (unknown) (unknown) (no date) (unknown) (unknown) [facility] (units unknown) (unknown) (unknown) (no date) (unknown) (unknown) HPI (units unknown) (unknown) (unknown) (no date) (unknown) (unknown) Hidradenitis suppurativa (units unknown) (unknown) (unknown) (no date) (unknown) (unknown) Intake Note: (units unknown) (unknown) (unknown) (no date) (unknown) (unknown) Intake perform ed by: Jocelyne Munoz (units unknown) (unknown) (unknown) (no date) (unknown) (unknown) Intake (units unknown) (unknown) (unknown) (no date) (unknown) (unknown) Intake- [facility] Staff (units unknown) (unknown) (unknown) (no date) (unknown) (unknown) Last Menstural Cycle + Details (units unknown) (unknown) (unknown) (no date) (unknown) (unknown) Left breast lump (un its unknown) (unknown) (unknown) (no date) (unknown) (unknown) Loc: [facility] (units unknown) (unknown) (unknown) (no date) (unknown) (unknown) Lumbar region somatic dysfunction (units unknown) (unknown) (unknown) (no date) (unknown) (unknown) Medical Histor y (Updated 01/04/23 @ 15:47 by Marcell Fong MD) (units unknown) (unknown) (unknown) (no date) (unknown) (unknown) Medications (units unknown) (unknown) (unknown) (no date) (unknown) (unknown) Medications: (units unknown) (unknown) (unknown) (no date) (unknown) (unknown) Neck muscle spasm (u nits unknown) (unknown) (unknown) (no date) (unknown) (unknown) Neck stiffness (unit s unknown) (unknown) (unknown) (no date) (unknown) (unknown) Neck strain (units unknown) (unknown) (unknown) (no date) (unknown) (unknown) Onset, duratio n, severity (units unknown) (unknown) (unknown) (no date) (unknown) (unknown) Other cause? (units unknown) (unknown) (unknown) (no date) (unknown) (unknown) PFSH (units unknown) (unknown) (unknown) (no date) (unknown) (unknown) PTSD (post-tra umatic stress disorder) (units unknown) (unknown) (unknown) (no date) (unknown) (unknown) Patient: Kimberly Lewis MR# (units unknown) (unknown) (unknown) (no date) (unknown) (unknown) Pelvic somatic dysfunction (units unknown) (unknown) (unknown) (no date) (unknown) (unknown) Psoas syndrome (unit s unknown) (unknown) (unknown) (no date) (unknown) (unknown) Reason For Visit (un its unknown) (unknown) (unknown) (no date) (unknown) (unknown) Refilled (units unknown) (unknown) (unknown) (no date) (unknown) (unknown) Rifampin: marlena ge body fluids? Flu like sx? (units unknown) (unknown) (unknown) (no date) (unknown) (unknown) Sacral region somatic dysfunction (units unknown) (unknown) (unknown) (no date) (unknown) (unknown) Segmental and somatic dysfunction of abdomen and other regions (units unknown) (unknown) (unknown) (no date) (unknown) (unknown) Sensation of f eeling cold (units unknown) (unknown) (unknown) (no date) (unknown) (unknown) Signed By: (units unknown) (unknown) (unknown) (no date) (unknown) (unknown) Smoking Status : Former smoker (units unknown) (unknown) (unknown) (no date) (unknown) (unknown) Status of HS: have meds helped? (units unknown) (unknown) (unknown) (no date) (unknown) (unknown) THROAT CLOSURE (unit s unknown) (unknown) (unknown) (no date) (unknown) (unknown) Tachycardia (units unknown) (unknown) (unknown) (no date) (unknown) (unknown) This note may have been all or partially generated using voice recognition (units unknown) (unknown) (unknown) (no date) (unknown) (unknown) Thoracic regio n somatic dysfunction (units unknown) (unknown) (unknown) (no date) (unknown) (unknown) Tobacco + Subs tance Use (units unknown) (unknown) (unknown) (no date) (unknown) (unknown) Tobacco Status (unit s unknown) (unknown) (unknown) (no date) (unknown) (unknown) Tobacco: How m any years used: 13 (units unknown) (unknown) (unknown) (no date) (unknown) (unknown) Visit Reasons: follow up med reaction (units unknown) (unknown) (unknown) (no date) (unknown) (unknown) [Rx Confirmed 01/23/23] (units unknown) (unknown) (unknown) (no date) (unknown) (unknown) alcohol intake : current (units unknown) (unknown) (unknown) (no date) (unknown) (unknown) anaphylaxis (units unknown) (unknown) (unknown) (no date) (unknown) (unknown) benzonatate 10 0 mg capsule 100 mg PO BID-TID PRN cough #60 caps 09/09/22 [Rx (units unknown) (unknown) (unknown) (no date) (unknown) (unknown) budesonide-for motero l HFA 160 mcg-4.5 mcg/actuation aerosol inhaler (Symbicort) (units unknown) (unknown) (unknown) (no date) (unknown) (unknown) cefazolin Mc rgy (Verified 01/04/23 15:22) (units unknown) (unknown) (unknown) (no date) (unknown) (unknown) cefprozil [CEFPROZIL] Adverse Reaction (Unknown, Verified 01/04/23 15:22) (units unknown) (unknown) (unknown) (no date) (unknown) (unknown) cholecalcifero l (vitamin D3) 1,250 mcg (50,000 unit) capsule 1,250 mcg PO QWEEK (units unknown) (unknown) (unknown) (no date) (unknown) (unknown) clindamycin phosphate 1 % topical solution See Rx Instructions .Route .COMPLEX (units unknown) (unknown) (unknown) (no date) (unknown) (unknown) do not exceed 3 doses per episode 0.3 mg (0.3 mL) IM Q5-15M PRN 2 ea 0RF (units unknown) (unknown) (unknown) (no date) (unknown) (unknown) doxycycline Al lergy (Verified 01/04/23 15:22) (units unknown) (unknown) (unknown) (no date) (unknown) (unknown) epinephrine (E piPen 2-Kaleb) (units unknown) (unknown) (unknown) (no date) (unknown) (unknown) epinephrine 0. 3 mg/0.3 mL injection, auto-injector (EpiPen 2-Kaleb) 0.3 mg (0.3 (units unknown) (unknown) (unknown) (no date) (unknown) (unknown) have occurred. If there are any questions, please contact the Medical Records (units unknown) (unknown) (unknown) (no date) (unknown) (unknown) ibuprofen 800 mg tablet See Rx Instructions .Route .COMPLEX #90 tabs 10/17/22 (units unknown) (unknown) (unknown) (no date) (unknown) (unknown) ketorolac [KETOROLAC] Adverse Reaction (Unknown, Verified 01/04/23 15:22) (units unknown) (unknown) (unknown) (no date) (unknown) (unknown) latex [LATEX] Allergy (Unknown, Verified 01/04/23 15:22) (units unknown) (unknown) (unknown) (no date) (unknown) (unknown) mL) IM Q5-15M PRN anaphylaxis #2 ea 01/23/23 [Rx Confirmed 01/23/23] (units unknown) (unknown) (unknown) (no date) (unknown) (unknown) may occur. Occasional wrong-word or 'sound-alike' substitutions may have (units unknown) (unknown) (unknown) (no date) (unknown) (unknown) mecobalamin (v itamin B12) 10,000 mcg solution for injection 1,000 mcg IM MONTHLY (units unknown) (unknown) (unknown) (no date) (unknown) (unknown) metoclopramide [From Reglan] Adverse Reaction (Verified 01/04/23 15:22) (units unknown) (unknown) (unknown) (no date) (unknown) (unknown) multivitamin ( Daily Multi-Vitamin tablet) 1 tab PO DAILY 01/04/23 [History (units unknown) (unknown) (unknown) (no date) (unknown) (unknown) occurred due t o the inherent limitations of voice recognition software. Please (units unknown) (unknown) (unknown) (no date) (unknown) (unknown) once stopped t he . symptoms are resolving. (units unknown) (unknown) (unknown) (no date) (unknown) (unknown) patient had re action to rifampin and clindamycin. pain under breast might br HS. (units unknown) (unknown) (unknown) (no date) (unknown) (unknown) quit status: considering quitting (units unknown) (unknown) (unknown) (no date) (unknown) (unknown) read the note carefully and recognize, using context, where these substitutions (units unknown) (unknown) (unknown) (no date) (unknown) (unknown) shrimp Allergy (Severe, Verified 01/04/23 15:22) (units unknown) (unknown) (unknown) (no date) (unknown) (unknown) software. Alth ough every effort is made to edit content, manager shift errors (units unknown) (unknown) (unknown) (no date) (unknown) (unknown) substance use type: does not use (units unknown) (unknown) (unknown) (no date) (unknown) (unknown) zolpidem 10 mg tablet See Rx Instructions PO BEDTIME PRN insomnia #30 tabs (units unknown) (unknown) Result panel 14 (unknown) (no date) (unknown) (unknown) (no value) (units unknown) (unknown) (unknown) (no date) (unknown) (unknown) #1 ea 10/06/22 [Rx Confirmed 01/23/23] (units unknown) (unknown) (unknown) (no date) (unknown) (unknown) #12 caps 11/07 [Rx Confirmed 01/23/23] (units unknown) (unknown) (unknown) (no date) (unknown) (unknown) #60 mL 3 [Rx Confirmed 01/23/23] (units unknown) (unknown) (unknown) (no date) (unknown) (unknown) 01/10/23 [Rx Confirmed 01/23/23] (units unknown) (unknown) (unknown) (no date) (unknown) (unknown) 01/23/23 (units unknown) (unknown) (unknown) (no date) (unknown) (unknown) 2 puff inhalat ion BID #10.2 grams 03/17/22 [Rx Confirmed 01/23/23] (units unknown) (unknown) (unknown) (no date) (unknown) (unknown) 3 ml syringe/ 25g 1 2 needle #1 ea 10/06/22 [Rx Confirmed 01/23/23] (units unknown) (unknown) (unknown) (no date) (unknown) (unknown) : [id number] (units unknown) (unknown) (unknown) (no date) (unknown) (unknown) Acute neck pain (uni ts unknown) (unknown) (unknown) (no date) (unknown) (unknown) Acute thoracic back pain (units unknown) (unknown) (unknown) (no date) (unknown) (unknown) Age/Sex: 32 / F Date of Service: (units unknown) (unknown) (unknown) (no date) (unknown) (unknown) Allergies (units unknown) (unknown) (unknown) (no date) (unknown) (unknown) [place] [address] (units unknown) (unknown) (unknown) (no date) (unknown) (unknown) Anaphylaxis (units unknown) (unknown) (unknown) (no date) (unknown) (unknown) Assessment + Plan (u nits unknown) (unknown) (unknown) (no date) (unknown) (unknown) Attending Dr: Marcell Fong MD (units unknown) (unknown) (unknown) (no date) (unknown) (unknown) Autonomic dysfunction (units unknown) (unknown) (unknown) (no date) (unknown) (unknown) BD #[id number] needl es 30gx1/2 #100 ea 12/01/22 [Rx Confirmed 01/23/23] (units unknown) (unknown) (unknown) (no date) (unknown) (unknown) Cellulitis (units unknown) (unknown) (unknown) (no date) (unknown) (unknown) Cervical somat ic dysfunction (units unknown) (unknown) (unknown) (no date) (unknown) (unknown) Chronic bilate ral low back pain without sciatica (units unknown) (unknown) (unknown) (no date) (unknown) (unknown) Chronic cough (units unknown) (unknown) (unknown) (no date) (unknown) (unknown) Clindamycin: G i upset? (units unknown) (unknown) (unknown) (no date) (unknown) (unknown) Confirmed 01/23/23] (units unknown) (unknown) (unknown) (no date) (unknown) (unknown) Cranial somati c dysfunction (units unknown) (unknown) (unknown) (no date) (unknown) (unknown) : 8 Acct:[id number] (units unknown) (unknown) (unknown) (no date) (unknown) (unknown) Date of Last Menstrual Period: 12/31/22 (units unknown) (unknown) (unknown) (no date) (unknown) (unknown) Days after starting (units unknown) (unknown) (unknown) (no date) (unknown) (unknown) Dept at . (units unknown) (unknown) (unknown) (no date) (unknown) (unknown) Details: (units unknown) (unknown) (unknown) (no date) (unknown) (unknown) Documented By: Marcell Fong MD 01/23/23 0921 (units unknown) (unknown) (unknown) (no date) (unknown) (unknown) Draft (units unknown) (unknown) (unknown) (no date) (unknown) (unknown) Family Practic e Office Visit (units unknown) (unknown) (unknown) (no date) (unknown) (unknown) Fibromyalgia (units unknown) (unknown) (unknown) (no date) (unknown) (unknown) [facility] (units unknown) (unknown) (unknown) (no date) (unknown) (unknown) HPI (units unknown) (unknown) (unknown) (no date) (unknown) (unknown) Hidradenitis suppurativa (units unknown) (unknown) (unknown) (no date) (unknown) (unknown) Intake Note: (units unknown) (unknown) (unknown) (no date) (unknown) (unknown) Intake perform ed by: Jocelyne Munoz (units unknown) (unknown) (unknown) (no date) (unknown) (unknown) Intake (units unknown) (unknown) (unknown) (no date) (unknown) (unknown) Intake- [facility] (units unknown) (unknown) (unknown) (no date) (unknown) (unknown) Last Menstural Cycle + Details (units unknown) (unknown) (unknown) (no date) (unknown) (unknown) Left breast lump (un its unknown) (unknown) (unknown) (no date) (unknown) (unknown) Loc: [facility] (units unknown) (unknown) (unknown) (no date) (unknown) (unknown) Lumbar region somatic dysfunction (units unknown) (unknown) (unknown) (no date) (unknown) (unknown) Medical Histor y (Updated 01/04/23 @ 15:47 by Marcell Fong MD) (units unknown) (unknown) (unknown) (no date) (unknown) (unknown) Medications (units unknown) (unknown) (unknown) (no date) (unknown) (unknown) Medications: (units unknown) (unknown) (unknown) (no date) (unknown) (unknown) Neck muscle spasm (u nits unknown) (unknown) (unknown) (no date) (unknown) (unknown) Neck stiffness (unit s unknown) (unknown) (unknown) (no date) (unknown) (unknown) Neck strain (units unknown) (unknown) (unknown) (no date) (unknown) (unknown) Onset, duratio n, severity (units unknown) (unknown) (unknown) (no date) (unknown) (unknown) Other cause? (units unknown) (unknown) (unknown) (no date) (unknown) (unknown) PFSH (units unknown) (unknown) (unknown) (no date) (unknown) (unknown) PTSD (post-tra umatic stress disorder) (units unknown) (unknown) (unknown) (no date) (unknown) (unknown) Patient had re action to Rifampin and clindamycin. Pain under breast might br HS. (units unknown) (unknown) (unknown) (no date) (unknown) (unknown) Patient: LewisKimberly MR# (units unknown) (unknown) (unknown) (no date) (unknown) (unknown) Pelvic somatic dysfunction (units unknown) (unknown) (unknown) (no date) (unknown) (unknown) Psoas syndrome (unit s unknown) (unknown) (unknown) (no date) (unknown) (unknown) Reason For Visit (un its unknown) (unknown) (unknown) (no date) (unknown) (unknown) Refilled (units unknown) (unknown) (unknown) (no date) (unknown) (unknown) Rifampin: marlena ge body fluids? Flu like sx? (units unknown) (unknown) (unknown) (no date) (unknown) (unknown) Sacral region somatic dysfunction (units unknown) (unknown) (unknown) (no date) (unknown) (unknown) Segmental and somatic dysfunction of abdomen and other regions (units unknown) (unknown) (unknown) (no date) (unknown) (unknown) Sensation of f eeling cold (units unknown) (unknown) (unknown) (no date) (unknown) (unknown) Signed By: (units unknown) (unknown) (unknown) (no date) (unknown) (unknown) Smoking Status : Former smoker (units unknown) (unknown) (unknown) (no date) (unknown) (unknown) Status of HS: have meds helped? (units unknown) (unknown) (unknown) (no date) (unknown) (unknown) Stopped taking both. (units unknown) (unknown) (unknown) (no date) (unknown) (unknown) THROAT CLOSURE (unit s unknown) (unknown) (unknown) (no date) (unknown) (unknown) Tachycardia (units unknown) (unknown) (unknown) (no date) (unknown) (unknown) This note may have been all or partially generated using voice recognition (units unknown) (unknown) (unknown) (no date) (unknown) (unknown) Thoracic regio n somatic dysfunction (units unknown) (unknown) (unknown) (no date) (unknown) (unknown) Tobacco + Subs tance Use (units unknown) (unknown) (unknown) (no date) (unknown) (unknown) Tobacco Status (unit s unknown) (unknown) (unknown) (no date) (unknown) (unknown) Tobacco: How m any years used: 13 (units unknown) (unknown) (unknown) (no date) (unknown) (unknown) Visit Reasons: follow up med reaction (units unknown) (unknown) (unknown) (no date) (unknown) (unknown) [Rx Confirmed 01/23/23] (units unknown) (unknown) (unknown) (no date) (unknown) (unknown) alcohol intake : current (units unknown) (unknown) (unknown) (no date) (unknown) (unknown) anaphylaxis (units unknown) (unknown) (unknown) (no date) (unknown) (unknown) benzonatate 10 0 mg capsule 100 mg PO BID-TID PRN cough #60 caps 09/09/22 [Rx (units unknown) (unknown) (unknown) (no date) (unknown) (unknown) budesonide-for motero l HFA 160 mcg-4.5 mcg/actuation aerosol inhaler (Symbicort) (units unknown) (unknown) (unknown) (no date) (unknown) (unknown) cefazolin Mc rgy (Verified 01/04/23 15:22) (units unknown) (unknown) (unknown) (no date) (unknown) (unknown) cefprozil [CEFPROZIL] Adverse Reaction (Unknown, Verified 01/04/23 15:22) (units unknown) (unknown) (unknown) (no date) (unknown) (unknown) cholecalcifero l (vitamin D3) 1,250 mcg (50,000 unit) capsule 1,250 mcg PO QWEEK (units unknown) (unknown) (unknown) (no date) (unknown) (unknown) clindamycin phosphate 1 % topical solution See Rx Instructions .Route .COMPLEX (units unknown) (unknown) (unknown) (no date) (unknown) (unknown) do not exceed 3 doses per episode 0.3 mg (0.3 mL) IM Q5-15M PRN 2 ea 0RF (units unknown) (unknown) (unknown) (no date) (unknown) (unknown) doxycycline Al lergy (Verified 01/04/23 15:22) (units unknown) (unknown) (unknown) (no date) (unknown) (unknown) epinephrine (E piPen 2-Kaleb) (units unknown) (unknown) (unknown) (no date) (unknown) (unknown) epinephrine 0. 3 mg/0.3 mL injection, auto-injector (EpiPen 2-Kaleb) 0.3 mg (0.3 (units unknown) (unknown) (unknown) (no date) (unknown) (unknown) have occurred. If there are any questions, please contact the Medical Records (units unknown) (unknown) (unknown) (no date) (unknown) (unknown) ibuprofen 800 mg tablet See Rx Instructions .Route .COMPLEX #90 tabs 10/17/22 (units unknown) (unknown) (unknown) (no date) (unknown) (unknown) ketorolac [KETOROLAC] Adverse Reaction (Unknown, Verified 01/04/23 15:22) (units unknown) (unknown) (unknown) (no date) (unknown) (unknown) latex [LATEX] Allergy (Unknown, Verified 01/04/23 15:22) (units unknown) (unknown) (unknown) (no date) (unknown) (unknown) mL) IM Q5-15M PRN anaphylaxis #2 ea 01/23/23 [Rx Confirmed 01/23/23] (units unknown) (unknown) (unknown) (no date) (unknown) (unknown) may occur. Occasional wrong-word or 'sound-alike' substitutions may have (units unknown) (unknown) (unknown) (no date) (unknown) (unknown) mecobalamin (v itamin B12) 10,000 mcg solution for injection 1,000 mcg IM MONTHLY (units unknown) (unknown) (unknown) (no date) (unknown) (unknown) metoclopramide [From Reglan] Adverse Reaction (Verified 01/04/23 15:22) (units unknown) (unknown) (unknown) (no date) (unknown) (unknown) multivitamin ( Daily Multi-Vitamin tablet) 1 tab PO DAILY 01/04/23 [History (units unknown) (unknown) (unknown) (no date) (unknown) (unknown) occurred due t o the inherent limitations of voice recognition software. Please (units unknown) (unknown) (unknown) (no date) (unknown) (unknown) once stopped t he . symptoms are resolving. (units unknown) (unknown) (unknown) (no date) (unknown) (unknown) quit status: considering quitting (units unknown) (unknown) (unknown) (no date) (unknown) (unknown) read the note carefully and recognize, using context, where these substitutions (units unknown) (unknown) (unknown) (no date) (unknown) (unknown) shrimp Allergy (Severe, Verified 01/04/23 15:22) (units unknown) (unknown) (unknown) (no date) (unknown) (unknown) software. Alth ough every effort is made to edit content, manager shift errors (units unknown) (unknown) (unknown) (no date) (unknown) (unknown) substance use type: does not use (units unknown) (unknown) (unknown) (no date) (unknown) (unknown) zolpidem 10 mg tablet See Rx Instructions PO BEDTIME PRN insomnia #30 tabs (units unknown) (unknown) Result panel 15 (unknown) (no date) (unknown) (unknown) (no value) (units unknown) (unknown) (unknown) (no date) (unknown) (unknown) #1 ea 10/06/22 [Rx Confirmed 01/23/23] (units unknown) (unknown) (unknown) (no date) (unknown) (unknown) #12 caps 11/07 [Rx Confirmed 01/23/23] (units unknown) (unknown) (unknown) (no date) (unknown) (unknown) #60 mL 3 [Rx Confirmed 01/23/23] (units unknown) (unknown) (unknown) (no date) (unknown) (unknown) 01/10/23 [Rx Confirmed 01/23/23] (units unknown) (unknown) (unknown) (no date) (unknown) (unknown) 01/23/23 (units unknown) (unknown) (unknown) (no date) (unknown) (unknown) 09:38 (units unknown) (unknown) (unknown) (no date) (unknown) (unknown) 1.5 days after starting clindamycin (units unknown) (unknown) (unknown) (no date) (unknown) (unknown) 2 puff inhalat ion BID #10.2 grams 03/17/22 [Rx Confirmed 01/23/23] (units unknown) (unknown) (unknown) (no date) (unknown) (unknown) 3 ml syringe/ 25g 10/03 needle #1 ea 10/06/22 [Rx Confirmed 01/23/23] (units unknown) (unknown) (unknown) (no date) (unknown) (unknown) : [id number] (units unknown) (unknown) (unknown) (no date) (unknown) (unknown) Acute neck pain (uni ts unknown) (unknown) (unknown) (no date) (unknown) (unknown) Acute thoracic back pain (units unknown) (unknown) (unknown) (no date) (unknown) (unknown) Age/Sex: 32 / F Date of Service: (units unknown) (unknown) (unknown) (no date) (unknown) (unknown) Allergies (units unknown) (unknown) (unknown) (no date) (unknown) (unknown) SURE[place]HA [place] [id number] (units unknown) (unknown) (unknown) (no date) (unknown) (unknown) Anaphylaxis (units unknown) (unknown) (unknown) (no date) (unknown) (unknown) Assessment + Plan (u nits unknown) (unknown) (unknown) (no date) (unknown) (unknown) Attending Dr: Marcell Fong MD (units unknown) (unknown) (unknown) (no date) (unknown) (unknown) Autonomic dysfunction (units unknown) (unknown) (unknown) (no date) (unknown) (unknown) BD #[id number] needl es 30gx1/2 #100 ea 12/01/22 [Rx Confirmed 01/23/23] (units unknown) (unknown) (unknown) (no date) (unknown) (unknown) BP 106/62 (units unknown) (unknown) (unknown) (no date) (unknown) (unknown) Cellulitis (units unknown) (unknown) (unknown) (no date) (unknown) (unknown) Cervical somat ic dysfunction (units unknown) (unknown) (unknown) (no date) (unknown) (unknown) Chronic bilate ral low back pain without sciatica (units unknown) (unknown) (unknown) (no date) (unknown) (unknown) Chronic cough (units unknown) (unknown) (unknown) (no date) (unknown) (unknown) Clindamycin: G i upset? (units unknown) (unknown) (unknown) (no date) (unknown) (unknown) Confirmed 01/23/23] (units unknown) (unknown) (unknown) (no date) (unknown) (unknown) Cranial somati c dysfunction (units unknown) (unknown) (unknown) (no date) (unknown) (unknown) : 8 Acct:[id number] (units unknown) (unknown) (unknown) (no date) (unknown) (unknown) Date of Last Menstrual Period: 12/31/22 (units unknown) (unknown) (unknown) (no date) (unknown) (unknown) Dept at . (units unknown) (unknown) (unknown) (no date) (unknown) (unknown) Details: (units unknown) (unknown) (unknown) (no date) (unknown) (unknown) Documented By: Marcell Fong MD 01/23/23 0921 (units unknown) (unknown) (unknown) (no date) (unknown) (unknown) Draft (units unknown) (unknown) (unknown) (no date) (unknown) (unknown) Family Practic e Office Visit (units unknown) (unknown) (unknown) (no date) (unknown) (unknown) Fibromyalgia (units unknown) (unknown) (unknown) (no date) (unknown) (unknown) [facility] (units unknown) (unknown) (unknown) (no date) (unknown) (unknown) HPI (units unknown) (unknown) (unknown) (no date) (unknown) (unknown) Health Managem ent reviewed with patient: Yes (units unknown) (unknown) (unknown) (no date) (unknown) (unknown) Health Management (u nits unknown) (unknown) (unknown) (no date) (unknown) (unknown) Hidradenitis suppurativa (units unknown) (unknown) (unknown) (no date) (unknown) (unknown) Intake Note: (units unknown) (unknown) (unknown) (no date) (unknown) (unknown) Intake perform ed by: Jocelyne Munoz (units unknown) (unknown) (unknown) (no date) (unknown) (unknown) Intake (units unknown) (unknown) (unknown) (no date) (unknown) (unknown) Intake- [facility] (units unknown) (unknown) (unknown) (no date) (unknown) (unknown) Last Menstural Cycle + Details (units unknown) (unknown) (unknown) (no date) (unknown) (unknown) Left breast lump (un its unknown) (unknown) (unknown) (no date) (unknown) (unknown) Loc: [facility] (units unknown) (unknown) (unknown) (no date) (unknown) (unknown) Lumbar region somatic dysfunction (units unknown) (unknown) (unknown) (no date) (unknown) (unknown) Medical Histor y (Updated 01/04/23 @ 15:47 by Marcell Fong MD) (units unknown) (unknown) (unknown) (no date) (unknown) (unknown) Medications (units unknown) (unknown) (unknown) (no date) (unknown) (unknown) Medications: (units unknown) (unknown) (unknown) (no date) (unknown) (unknown) Neck muscle spasm (u nits unknown) (unknown) (unknown) (no date) (unknown) (unknown) Neck stiffness (unit s unknown) (unknown) (unknown) (no date) (unknown) (unknown) Neck strain (units unknown) (unknown) (unknown) (no date) (unknown) (unknown) Once she stopp ed the meds, symptoms are resolving. (units unknown) (unknown) (unknown) (no date) (unknown) (unknown) Onset, duratio n, severity (units unknown) (unknown) (unknown) (no date) (unknown) (unknown) Other cause? (units unknown) (unknown) (unknown) (no date) (unknown) (unknown) PFSH (units unknown) (unknown) (unknown) (no date) (unknown) (unknown) PTSD (post-tra umatic stress disorder) (units unknown) (unknown) (unknown) (no date) (unknown) (unknown) Patient had re action to Rifampin and Clindamycin. Pain under breast might be HS. (units unknown) (unknown) (unknown) (no date) (unknown) (unknown) Patient: JoshuaOrlandoKimberly D MR# (units unknown) (unknown) (unknown) (no date) (unknown) (unknown) Pelvic somatic dysfunction (units unknown) (unknown) (unknown) (no date) (unknown) (unknown) Psoas syndrome (unit s unknown) (unknown) (unknown) (no date) (unknown) (unknown) Pulse 108 H (units unknown) (unknown) (unknown) (no date) (unknown) (unknown) Pulse Oximetry (%) 99 (units unknown) (unknown) (unknown) (no date) (unknown) (unknown) Reason For Visit (un its unknown) (unknown) (unknown) (no date) (unknown) (unknown) Refilled (units unknown) (unknown) (unknown) (no date) (unknown) (unknown) Rifampin: marlena ge body fluids? yes Flu like sx? joint pain in knees (units unknown) (unknown) (unknown) (no date) (unknown) (unknown) Sacral region somatic dysfunction (units unknown) (unknown) (unknown) (no date) (unknown) (unknown) Segmental and somatic dysfunction of abdomen and other regions (units unknown) (unknown) (unknown) (no date) (unknown) (unknown) Sensation of f eeling cold (units unknown) (unknown) (unknown) (no date) (unknown) (unknown) Signed By: (units unknown) (unknown) (unknown) (no date) (unknown) (unknown) Smoking Status : Former smoker (units unknown) (unknown) (unknown) (no date) (unknown) (unknown) Status of HS: have meds helped? (units unknown) (unknown) (unknown) (no date) (unknown) (unknown) Stopped taking both. (units unknown) (unknown) (unknown) (no date) (unknown) (unknown) THROAT CLOSURE (unit s unknown) (unknown) (unknown) (no date) (unknown) (unknown) Tachycardia (units unknown) (unknown) (unknown) (no date) (unknown) (unknown) This note may have been all or partially generated using voice recognition (units unknown) (unknown) (unknown) (no date) (unknown) (unknown) Thoracic regio n somatic dysfunction (units unknown) (unknown) (unknown) (no date) (unknown) (unknown) Tobacco + Subs tance Use (units unknown) (unknown) (unknown) (no date) (unknown) (unknown) Tobacco Status (unit s unknown) (unknown) (unknown) (no date) (unknown) (unknown) Tobacco: How m any years used: 13 (units unknown) (unknown) (unknown) (no date) (unknown) (unknown) Visit Reasons: follow up med reaction (units unknown) (unknown) (unknown) (no date) (unknown) (unknown) Vitals (units unknown) (unknown) (unknown) (no date) (unknown) (unknown) Weight 163 lb (units unknown) (unknown) (unknown) (no date) (unknown) (unknown) [Rx Confirmed 01/23/23] (units unknown) (unknown) (unknown) (no date) (unknown) (unknown) alcohol intake : current (units unknown) (unknown) (unknown) (no date) (unknown) (unknown) anaphylaxis (units unknown) (unknown) (unknown) (no date) (unknown) (unknown) benzonatate 10 0 mg capsule 100 mg PO BID-TID PRN cough #60 caps 09/09/22 [Rx (units unknown) (unknown) (unknown) (no date) (unknown) (unknown) budesonide-for motero l HFA 160 mcg-4.5 mcg/actuation aerosol inhaler (Symbicort) (units unknown) (unknown) (unknown) (no date) (unknown) (unknown) cefazolin Mc rgy (Verified 01/04/23 15:22) (units unknown) (unknown) (unknown) (no date) (unknown) (unknown) cefprozil [CEFPROZIL] Adverse Reaction (Unknown, Verified 01/04/23 15:22) (units unknown) (unknown) (unknown) (no date) (unknown) (unknown) cholecalcifero l (vitamin D3) 1,250 mcg (50,000 unit) capsule 1,250 mcg PO QWEEK (units unknown) (unknown) (unknown) (no date) (unknown) (unknown) clindamycin phosphate 1 % topical solution See Rx Instructions .Route .COMPLEX (units unknown) (unknown) (unknown) (no date) (unknown) (unknown) do not exceed 3 doses per episode 0.3 mg (0.3 mL) IM Q5-15M PRN 2 ea 0RF (units unknown) (unknown) (unknown) (no date) (unknown) (unknown) doxycycline Al lergy (Verified 01/04/23 15:22) (units unknown) (unknown) (unknown) (no date) (unknown) (unknown) epinephrine (E piPen 2-Kaleb) (units unknown) (unknown) (unknown) (no date) (unknown) (unknown) epinephrine 0. 3 mg/0.3 mL injection, auto-injector (EpiPen 2-Kaleb) 0.3 mg (0.3 (units unknown) (unknown) (unknown) (no date) (unknown) (unknown) have occurred. If there are any questions, please contact the Medical Records (units unknown) (unknown) (unknown) (no date) (unknown) (unknown) ibuprofen 800 mg tablet See Rx Instructions .Route .COMPLEX #90 tabs 10/17/22 (units unknown) (unknown) (unknown) (no date) (unknown) (unknown) ketorolac [KETOROLAC] Adverse Reaction (Unknown, Verified 01/04/23 15:22) (units unknown) (unknown) (unknown) (no date) (unknown) (unknown) latex [LATEX] Allergy (Unknown, Verified 01/04/23 15:22) (units unknown) (unknown) (unknown) (no date) (unknown) (unknown) mL) IM Q5-15M PRN anaphylaxis #2 ea 01/23/23 [Rx Confirmed 01/23/23] (units unknown) (unknown) (unknown) (no date) (unknown) (unknown) may occur. Occasional wrong-word or 'sound-alike' substitutions may have (units unknown) (unknown) (unknown) (no date) (unknown) (unknown) mecobalamin (v itamin B12) 10,000 mcg solution for injection 1,000 mcg IM MONTHLY (units unknown) (unknown) (unknown) (no date) (unknown) (unknown) metoclopramide [From Reglan] Adverse Reaction (Verified 01/04/23 15:22) (units unknown) (unknown) (unknown) (no date) (unknown) (unknown) multivitamin ( Daily Multi-Vitamin tablet) 1 tab PO DAILY 01/04/23 [History (units unknown) (unknown) (unknown) (no date) (unknown) (unknown) occurred due t o the inherent limitations of voice recognition software. Please (units unknown) (unknown) (unknown) (no date) (unknown) (unknown) quit status: considering quitting (units unknown) (unknown) (unknown) (no date) (unknown) (unknown) read the note carefully and recognize, using context, where these substitutions (units unknown) (unknown) (unknown) (no date) (unknown) (unknown) shrimp Allergy (Severe, Verified 01/04/23 15:22) (units unknown) (unknown) (unknown) (no date) (unknown) (unknown) software. Alth ough every effort is made to edit content, manager shift errors (units unknown) (unknown) (unknown) (no date) (unknown) (unknown) substance use type: does not use (units unknown) (unknown) (unknown) (no date) (unknown) (unknown) zolpidem 10 mg tablet See Rx Instructions PO BEDTIME PRN insomnia #30 tabs (units unknown) (unknown) Result panel 16 (unknown) (no date) (unknown) (unknown) (no value) (units unknown) (unknown) (unknown) (no date) (unknown) (unknown) #1 ea 10/06/22 [Rx Confirmed 01/23/23] (units unknown) (unknown) (unknown) (no date) (unknown) (unknown) #12 caps 11/07 [Rx Confirmed 01/23/23] (units unknown) (unknown) (unknown) (no date) (unknown) (unknown) #60 mL 3 [Rx Confirmed 01/23/23] (units unknown) (unknown) (unknown) (no date) (unknown) (unknown) 01/10/23 [Rx Confirmed 01/23/23] (units unknown) (unknown) (unknown) (no date) (unknown) (unknown) 01/23/23 (units unknown) (unknown) (unknown) (no date) (unknown) (unknown) 09:38 (units unknown) (unknown) (unknown) (no date) (unknown) (unknown) 2 puff inhalat ion BID #10.2 grams 03/17/22 [Rx Confirmed 01/23/23] (units unknown) (unknown) (unknown) (no date) (unknown) (unknown) 3 ml syringe/ 25g 1 10/03 needle #1 ea 10/06/22 [Rx Confirmed 01/23/23] (units unknown) (unknown) (unknown) (no date) (unknown) (unknown) : [id number] (units unknown) (unknown) (unknown) (no date) (unknown) (unknown) Acute neck pain (uni ts unknown) (unknown) (unknown) (no date) (unknown) (unknown) Acute thoracic back pain (units unknown) (unknown) (unknown) (no date) (unknown) (unknown) Age/Sex: 32 / F Date of Service: (units unknown) (unknown) (unknown) (no date) (unknown) (unknown) Allergies (units unknown) (unknown) (unknown) (no date) (unknown) (unknown) [place], [place] [address] (units unknown) (unknown) (unknown) (no date) (unknown) (unknown) Anaphylaxis (units unknown) (unknown) (unknown) (no date) (unknown) (unknown) Assessment + Plan (u nits unknown) (unknown) (unknown) (no date) (unknown) (unknown) Attending Dr: Marcell Fong MD (units unknown) (unknown) (unknown) (no date) (unknown) (unknown) Autonomic dysfunction (units unknown) (unknown) (unknown) (no date) (unknown) (unknown) BD #[id number] needl es 30gx1/2 #100 ea 12/01/22 [Rx Confirmed 01/23/23] (units unknown) (unknown) (unknown) (no date) (unknown) (unknown) BP 106/62 (units unknown) (unknown) (unknown) (no date) (unknown) (unknown) Cellulitis (units unknown) (unknown) (unknown) (no date) (unknown) (unknown) Cervical somat ic dysfunction (units unknown) (unknown) (unknown) (no date) (unknown) (unknown) Chronic bilate ral low back pain without sciatica (units unknown) (unknown) (unknown) (no date) (unknown) (unknown) Chronic cough (units unknown) (unknown) (unknown) (no date) (unknown) (unknown) Clindamycin: G i upset? (units unknown) (unknown) (unknown) (no date) (unknown) (unknown) Confirmed 01/23/23] (units unknown) (unknown) (unknown) (no date) (unknown) (unknown) Cranial somati c dysfunction (units unknown) (unknown) (unknown) (no date) (unknown) (unknown) : 8 Acct:[id number] (units unknown) (unknown) (unknown) (no date) (unknown) (unknown) Date of Last Menstrual Period: 12/31/22 (units unknown) (unknown) (unknown) (no date) (unknown) (unknown) Dept at . (units unknown) (unknown) (unknown) (no date) (unknown) (unknown) Details: (units unknown) (unknown) (unknown) (no date) (unknown) (unknown) Documented By: Marcell Fong MD 01/23/23 0921 (units unknown) (unknown) (unknown) (no date) (unknown) (unknown) Draft (units unknown) (unknown) (unknown) (no date) (unknown) (unknown) Family Practic e Office Visit (units unknown) (unknown) (unknown) (no date) (unknown) (unknown) Fibromyalgia (units unknown) (unknown) (unknown) (no date) (unknown) (unknown) [facility] (units unknown) (unknown) (unknown) (no date) (unknown) (unknown) HPI (units unknown) (unknown) (unknown) (no date) (unknown) (unknown) Health Managem ent reviewed with patient: Yes (units unknown) (unknown) (unknown) (no date) (unknown) (unknown) Health Management (u nits unknown) (unknown) (unknown) (no date) (unknown) (unknown) Hidradenitis suppurativa (units unknown) (unknown) (unknown) (no date) (unknown) (unknown) Intake Note: (units unknown) (unknown) (unknown) (no date) (unknown) (unknown) Intake perform ed by: Jocelyne Munoz (units unknown) (unknown) (unknown) (no date) (unknown) (unknown) Intake (units unknown) (unknown) (unknown) (no date) (unknown) (unknown) Intake- Jose M al Staff (units unknown) (unknown) (unknown) (no date) (unknown) (unknown) Last Menstural Cycle + Details (units unknown) (unknown) (unknown) (no date) (unknown) (unknown) Left breast lump (un its unknown) (unknown) (unknown) (no date) (unknown) (unknown) Loc: [facility] (units unknown) (unknown) (unknown) (no date) (unknown) (unknown) Lumbar region somatic dysfunction (units unknown) (unknown) (unknown) (no date) (unknown) (unknown) Medical Histor y (Updated 01/04/23 @ 15:47 by Marcell Fong MD) (units unknown) (unknown) (unknown) (no date) (unknown) (unknown) Medications (units unknown) (unknown) (unknown) (no date) (unknown) (unknown) Medications: (units unknown) (unknown) (unknown) (no date) (unknown) (unknown) Kimberly is a 32 y/o female here to discuss recent adverse drug reaction. 1.5 (units unknown) (unknown) (unknown) (no date) (unknown) (unknown) Neck muscle spasm (u nits unknown) (unknown) (unknown) (no date) (unknown) (unknown) Neck stiffness (unit s unknown) (unknown) (unknown) (no date) (unknown) (unknown) Neck strain (units unknown) (unknown) (unknown) (no date) (unknown) (unknown) Once she stopp ed the meds, symptoms are resolving. (units unknown) (unknown) (unknown) (no date) (unknown) (unknown) Onset, duratio n, severity (units unknown) (unknown) (unknown) (no date) (unknown) (unknown) Other cause? (units unknown) (unknown) (unknown) (no date) (unknown) (unknown) PFSH (units unknown) (unknown) (unknown) (no date) (unknown) (unknown) PTSD (post-tra umatic stress disorder) (units unknown) (unknown) (unknown) (no date) (unknown) (unknown) Patient had re action to Rifampin and Clindamycin. Pain under breast might be HS. (units unknown) (unknown) (unknown) (no date) (unknown) (unknown) Patient: JoshuaOrlandoKimberly D MR# (units unknown) (unknown) (unknown) (no date) (unknown) (unknown) Pelvic somatic dysfunction (units unknown) (unknown) (unknown) (no date) (unknown) (unknown) Psoas syndrome (unit s unknown) (unknown) (unknown) (no date) (unknown) (unknown) Pulse 108 H (units unknown) (unknown) (unknown) (no date) (unknown) (unknown) Pulse Oximetry (%) 99 (units unknown) (unknown) (unknown) (no date) (unknown) (unknown) Reason For Visit (un its unknown) (unknown) (unknown) (no date) (unknown) (unknown) Refilled (units unknown) (unknown) (unknown) (no date) (unknown) (unknown) Rifampin: marlena ge body fluids? yes Flu like sx? joint pain in knees (units unknown) (unknown) (unknown) (no date) (unknown) (unknown) Sacral region somatic dysfunction (units unknown) (unknown) (unknown) (no date) (unknown) (unknown) Segmental and somatic dysfunction of abdomen and other regions (units unknown) (unknown) (unknown) (no date) (unknown) (unknown) Sensation of f eeling cold (units unknown) (unknown) (unknown) (no date) (unknown) (unknown) Signed By: (units unknown) (unknown) (unknown) (no date) (unknown) (unknown) Smoking Status : Former smoker (units unknown) (unknown) (unknown) (no date) (unknown) (unknown) Status of HS: have meds helped? (units unknown) (unknown) (unknown) (no date) (unknown) (unknown) Stopped taking both. (units unknown) (unknown) (unknown) (no date) (unknown) (unknown) THROAT CLOSURE (unit s unknown) (unknown) (unknown) (no date) (unknown) (unknown) Tachycardia (units unknown) (unknown) (unknown) (no date) (unknown) (unknown) This note may have been all or partially generated using voice recognition (units unknown) (unknown) (unknown) (no date) (unknown) (unknown) Thoracic regio n somatic dysfunction (units unknown) (unknown) (unknown) (no date) (unknown) (unknown) Tobacco + Subs tance Use (units unknown) (unknown) (unknown) (no date) (unknown) (unknown) Tobacco Status (unit s unknown) (unknown) (unknown) (no date) (unknown) (unknown) Tobacco: How m any years used: 13 (units unknown) (unknown) (unknown) (no date) (unknown) (unknown) Visit Reasons: follow up med reaction (units unknown) (unknown) (unknown) (no date) (unknown) (unknown) Vitals (units unknown) (unknown) (unknown) (no date) (unknown) (unknown) Weight 163 lb (units unknown) (unknown) (unknown) (no date) (unknown) (unknown) [Rx Confirmed 01/23/23] (units unknown) (unknown) (unknown) (no date) (unknown) (unknown) alcohol intake : current (units unknown) (unknown) (unknown) (no date) (unknown) (unknown) anaphylaxis (units unknown) (unknown) (unknown) (no date) (unknown) (unknown) benzonatate 10 0 mg capsule 100 mg PO BID-TID PRN cough #60 caps 09/09/22 [Rx (units unknown) (unknown) (unknown) (no date) (unknown) (unknown) budesonide-for motero l HFA 160 mcg-4.5 mcg/actuation aerosol inhaler (Symbicort) (units unknown) (unknown) (unknown) (no date) (unknown) (unknown) cefazolin Mc rgy (Verified 01/04/23 15:22) (units unknown) (unknown) (unknown) (no date) (unknown) (unknown) cefprozil [CEFPROZIL] Adverse Reaction (Unknown, Verified 01/04/23 15:22) (units unknown) (unknown) (unknown) (no date) (unknown) (unknown) cholecalcifero l (vitamin D3) 1,250 mcg (50,000 unit) capsule 1,250 mcg PO QWEEK (units unknown) (unknown) (unknown) (no date) (unknown) (unknown) clindamycin phosphate 1 % topical solution See Rx Instructions .Route .COMPLEX (units unknown) (unknown) (unknown) (no date) (unknown) (unknown) days after sta rting clindamycin (units unknown) (unknown) (unknown) (no date) (unknown) (unknown) do not exceed 3 doses per episode 0.3 mg (0.3 mL) IM Q5-15M PRN 2 ea 0RF (units unknown) (unknown) (unknown) (no date) (unknown) (unknown) doxycycline Al lergy (Verified 01/04/23 15:22) (units unknown) (unknown) (unknown) (no date) (unknown) (unknown) epinephrine (E piPen 2-Kaleb) (units unknown) (unknown) (unknown) (no date) (unknown) (unknown) epinephrine 0. 3 mg/0.3 mL injection, auto-injector (EpiPen 2-Kaleb) 0.3 mg (0.3 (units unknown) (unknown) (unknown) (no date) (unknown) (unknown) have occurred. If there are any questions, please contact the Medical Records (units unknown) (unknown) (unknown) (no date) (unknown) (unknown) ibuprofen 800 mg tablet See Rx Instructions .Route .COMPLEX #90 tabs 10/17/22 (units unknown) (unknown) (unknown) (no date) (unknown) (unknown) ketorolac [KETOROLAC] Adverse Reaction (Unknown, Verified 01/04/23 15:22) (units unknown) (unknown) (unknown) (no date) (unknown) (unknown) latex [LATEX] Allergy (Unknown, Verified 01/04/23 15:22) (units unknown) (unknown) (unknown) (no date) (unknown) (unknown) mL) IM Q5-15M PRN anaphylaxis #2 ea 01/23/23 [Rx Confirmed 01/23/23] (units unknown) (unknown) (unknown) (no date) (unknown) (unknown) may occur. Occasional wrong-word or 'sound-alike' substitutions may have (units unknown) (unknown) (unknown) (no date) (unknown) (unknown) mecobalamin (v itamin B12) 10,000 mcg solution for injection 1,000 mcg IM MONTHLY (units unknown) (unknown) (unknown) (no date) (unknown) (unknown) metoclopramide [From Reglan] Adverse Reaction (Verified 01/04/23 15:22) (units unknown) (unknown) (unknown) (no date) (unknown) (unknown) multivitamin ( Daily Multi-Vitamin tablet) 1 tab PO DAILY 01/04/23 [History (units unknown) (unknown) (unknown) (no date) (unknown) (unknown) occurred due t o the inherent limitations of voice recognition software. Please (units unknown) (unknown) (unknown) (no date) (unknown) (unknown) quit status: considering quitting (units unknown) (unknown) (unknown) (no date) (unknown) (unknown) read the note carefully and recognize, using context, where these substitutions (units unknown) (unknown) (unknown) (no date) (unknown) (unknown) shrimp Allergy (Severe, Verified 01/04/23 15:22) (units unknown) (unknown) (unknown) (no date) (unknown) (unknown) software. Alth ough every effort is made to edit content, manager shift errors (units unknown) (unknown) (unknown) (no date) (unknown) (unknown) substance use type: does not use (units unknown) (unknown) (unknown) (no date) (unknown) (unknown) zolpidem 10 mg tablet See Rx Instructions PO BEDTIME PRN insomnia #30 tabs (units unknown) (unknown) Result panel 17 (unknown) (no date) (unknown) (unknown) (no value) (units unknown) (unknown) (unknown) (no date) (unknown) (unknown) #1 ea 10/06/22 [Rx Confirmed 01/23/23] (units unknown) (unknown) (unknown) (no date) (unknown) (unknown) #12 caps 11/07 [Rx Confirmed 01/23/23] (units unknown) (unknown) (unknown) (no date) (unknown) (unknown) #60 mL 3 [Rx Confirmed 01/23/23] (units unknown) (unknown) (unknown) (no date) (unknown) (unknown) (1) Nodule of chest wall: (units unknown) (unknown) (unknown) (no date) (unknown) (unknown) 01/10/23 [Rx Confirmed 01/23/23] (units unknown) (unknown) (unknown) (no date) (unknown) (unknown) 01/23/23 (units unknown) (unknown) (unknown) (no date) (unknown) (unknown) 09:38 (units unknown) (unknown) (unknown) (no date) (unknown) (unknown) 2 puff inhalat ion BID #10.2 grams 03/17/22 [Rx Confirmed 01/23/23] (units unknown) (unknown) (unknown) (no date) (unknown) (unknown) 3 ml syringe/ 25g 1 10/03 needle #1 ea 10/06/22 [Rx Confirmed 01/23/23] (units unknown) (unknown) (unknown) (no date) (unknown) (unknown) : [id number] (units unknown) (unknown) (unknown) (no date) (unknown) (unknown) Acute neck pain (uni ts unknown) (unknown) (unknown) (no date) (unknown) (unknown) Acute thoracic back pain (units unknown) (unknown) (unknown) (no date) (unknown) (unknown) Age/Sex: 32 / F Date of Service: (units unknown) (unknown) (unknown) (no date) (unknown) (unknown) Allergies (units unknown) (unknown) (unknown) (no date) (unknown) (unknown) [place], [place] [address] (units unknown) (unknown) (unknown) (no date) (unknown) (unknown) Anaphylaxis (units unknown) (unknown) (unknown) (no date) (unknown) (unknown) Assessment + Plan (u nits unknown) (unknown) (unknown) (no date) (unknown) (unknown) Attending Dr: Marcell Fong MD (units unknown) (unknown) (unknown) (no date) (unknown) (unknown) Autonomic dysfunction (units unknown) (unknown) (unknown) (no date) (unknown) (unknown) BD #[id number] needl es 30gx1/2 #100 ea 12/01/22 [Rx Confirmed 01/23/23] (units unknown) (unknown) (unknown) (no date) (unknown) (unknown) BP 106/62 (units unknown) (unknown) (unknown) (no date) (unknown) (unknown) Cellulitis (units unknown) (unknown) (unknown) (no date) (unknown) (unknown) Cervical somat ic dysfunction (units unknown) (unknown) (unknown) (no date) (unknown) (unknown) Chronic bilate ral low back pain without sciatica (units unknown) (unknown) (unknown) (no date) (unknown) (unknown) Chronic cough (units unknown) (unknown) (unknown) (no date) (unknown) (unknown) Clindamycin: G i upset? (units unknown) (unknown) (unknown) (no date) (unknown) (unknown) Confirmed 01/23/23] (units unknown) (unknown) (unknown) (no date) (unknown) (unknown) Cranial somati c dysfunction (units unknown) (unknown) (unknown) (no date) (unknown) (unknown) : 8 Acct:[id number] (units unknown) (unknown) (unknown) (no date) (unknown) (unknown) Date of Last Menstrual Period: 12/31/22 (units unknown) (unknown) (unknown) (no date) (unknown) (unknown) Dept at . (units unknown) (unknown) (unknown) (no date) (unknown) (unknown) Details: (units unknown) (unknown) (unknown) (no date) (unknown) (unknown) Documented By: Marcell Fong MD 01/23/23 0921 (units unknown) (unknown) (unknown) (no date) (unknown) (unknown) Draft (units unknown) (unknown) (unknown) (no date) (unknown) (unknown) Family Practic e Office Visit (units unknown) (unknown) (unknown) (no date) (unknown) (unknown) Fibromyalgia (units unknown) (unknown) (unknown) (no date) (unknown) (unknown) [facility] (units unknown) (unknown) (unknown) (no date) (unknown) (unknown) HPI (units unknown) (unknown) (unknown) (no date) (unknown) (unknown) Health Managem ent reviewed with patient: Yes (units unknown) (unknown) (unknown) (no date) (unknown) (unknown) Health Management (u nits unknown) (unknown) (unknown) (no date) (unknown) (unknown) Hidradenitis suppurativa (units unknown) (unknown) (unknown) (no date) (unknown) (unknown) Intake Note: (units unknown) (unknown) (unknown) (no date) (unknown) (unknown) Intake perform ed by: Jocelyne Munoz (units unknown) (unknown) (unknown) (no date) (unknown) (unknown) Intake (units unknown) (unknown) (unknown) (no date) (unknown) (unknown) Intake- Jose M mck[facility] Staff (units unknown) (unknown) (unknown) (no date) (unknown) (unknown) Last Menstural Cycle + Details (units unknown) (unknown) (unknown) (no date) (unknown) (unknown) Left breast lump (un its unknown) (unknown) (unknown) (no date) (unknown) (unknown) Loc: [facility] (units unknown) (unknown) (unknown) (no date) (unknown) (unknown) Lumbar region somatic dysfunction (units unknown) (unknown) (unknown) (no date) (unknown) (unknown) Medical Histor y (Updated 01/23/23 @ 09:53 by Marcell Fong MD) (units unknown) (unknown) (unknown) (no date) (unknown) (unknown) Medications (units unknown) (unknown) (unknown) (no date) (unknown) (unknown) Medications: (units unknown) (unknown) (unknown) (no date) (unknown) (unknown) Kimberly is a 32 y/o female here to discuss recent adverse drug reaction. 1.5 (units unknown) (unknown) (unknown) (no date) (unknown) (unknown) Neck muscle spasm (u nits unknown) (unknown) (unknown) (no date) (unknown) (unknown) Neck stiffness (unit s unknown) (unknown) (unknown) (no date) (unknown) (unknown) Neck strain (units unknown) (unknown) (unknown) (no date) (unknown) (unknown) Nodule of chest wall (units unknown) (unknown) (unknown) (no date) (unknown) (unknown) Once she stopp ed the meds, symptoms are resolving. (units unknown) (unknown) (unknown) (no date) (unknown) (unknown) Onset, duratio n, severity (units unknown) (unknown) (unknown) (no date) (unknown) (unknown) Orders: (units unknown) (unknown) (unknown) (no date) (unknown) (unknown) Other cause? (units unknown) (unknown) (unknown) (no date) (unknown) (unknown) PFSH (units unknown) (unknown) (unknown) (no date) (unknown) (unknown) PTSD (post-tra umatic stress disorder) (units unknown) (unknown) (unknown) (no date) (unknown) (unknown) Patient had re action to Rifampin and Clindamycin. Pain under breast might be HS. (units unknown) (unknown) (unknown) (no date) (unknown) (unknown) Patient: Kimberly Lewis D MR# (units unknown) (unknown) (unknown) (no date) (unknown) (unknown) Pelvic somatic dysfunction (units unknown) (unknown) (unknown) (no date) (unknown) (unknown) Psoas syndrome (unit s unknown) (unknown) (unknown) (no date) (unknown) (unknown) Pulse 108 H (units unknown) (unknown) (unknown) (no date) (unknown) (unknown) Pulse Oximetry (%) 99 (units unknown) (unknown) (unknown) (no date) (unknown) (unknown) Reason For Visit (un its unknown) (unknown) (unknown) (no date) (unknown) (unknown) Referral Gener al Surgery R07.89 - Other chest pain, R22.2 - Localized swelling, (units unknown) (unknown) (unknown) (no date) (unknown) (unknown) Referrals (units unknown) (unknown) (unknown) (no date) (unknown) (unknown) Refilled (units unknown) (unknown) (unknown) (no date) (unknown) (unknown) Rifampin: marlena ge body fluids? yes Flu like sx? joint pain in knees (units unknown) (unknown) (unknown) (no date) (unknown) (unknown) Sacral region somatic dysfunction (units unknown) (unknown) (unknown) (no date) (unknown) (unknown) Segmental and somatic dysfunction of abdomen and other regions (units unknown) (unknown) (unknown) (no date) (unknown) (unknown) Sensation of f eeling cold (units unknown) (unknown) (unknown) (no date) (unknown) (unknown) Signed By: (units unknown) (unknown) (unknown) (no date) (unknown) (unknown) Smoking Status : Former smoker (units unknown) (unknown) (unknown) (no date) (unknown) (unknown) Status of HS: have meds helped? (units unknown) (unknown) (unknown) (no date) (unknown) (unknown) Status: Acute (units unknown) (unknown) (unknown) (no date) (unknown) (unknown) Stopped taking both. (units unknown) (unknown) (unknown) (no date) (unknown) (unknown) THROAT CLOSURE (unit s unknown) (unknown) (unknown) (no date) (unknown) (unknown) Tachycardia (units unknown) (unknown) (unknown) (no date) (unknown) (unknown) This note may have been all or partially generated using voice recognition (units unknown) (unknown) (unknown) (no date) (unknown) (unknown) Thoracic regio n somatic dysfunction (units unknown) (unknown) (unknown) (no date) (unknown) (unknown) Tobacco + Subs tance Use (units unknown) (unknown) (unknown) (no date) (unknown) (unknown) Tobacco Status (unit s unknown) (unknown) (unknown) (no date) (unknown) (unknown) Tobacco: How m any years used: 13 (units unknown) (unknown) (unknown) (no date) (unknown) (unknown) Visit Reasons: follow up med reaction (units unknown) (unknown) (unknown) (no date) (unknown) (unknown) Vitals (units unknown) (unknown) (unknown) (no date) (unknown) (unknown) Weight 163 lb (units unknown) (unknown) (unknown) (no date) (unknown) (unknown) [Rx Confirmed 01/23/23] (units unknown) (unknown) (unknown) (no date) (unknown) (unknown) alcohol intake : current (units unknown) (unknown) (unknown) (no date) (unknown) (unknown) anaphylaxis (units unknown) (unknown) (unknown) (no date) (unknown) (unknown) benzonatate 10 0 mg capsule 100 mg PO BID-TID PRN cough #60 caps 09/09/22 [Rx (units unknown) (unknown) (unknown) (no date) (unknown) (unknown) budesonide-for motero l HFA 160 mcg-4.5 mcg/actuation aerosol inhaler (Symbicort) (units unknown) (unknown) (unknown) (no date) (unknown) (unknown) cefazolin Mc rgy (Verified 01/04/23 15:22) (units unknown) (unknown) (unknown) (no date) (unknown) (unknown) cefprozil [CEFPROZIL] Adverse Reaction (Unknown, Verified 01/04/23 15:22) (units unknown) (unknown) (unknown) (no date) (unknown) (unknown) cholecalcifero l (vitamin D3) 1,250 mcg (50,000 unit) capsule 1,250 mcg PO QWEEK (units unknown) (unknown) (unknown) (no date) (unknown) (unknown) clindamycin phosphate 1 % topical solution See Rx Instructions .Route .COMPLEX (units unknown) (unknown) (unknown) (no date) (unknown) (unknown) days after sta rting clindamycin and rifampin for suspected HS under her , (units unknown) (unknown) (unknown) (no date) (unknown) (unknown) do not exceed 3 doses per episode 0.3 mg (0.3 mL) IM Q5-15M PRN 2 ea 0RF (units unknown) (unknown) (unknown) (no date) (unknown) (unknown) doxycycline Al lergy (Verified 01/04/23 15:22) (units unknown) (unknown) (unknown) (no date) (unknown) (unknown) epinephrine (E piPen 2-Kaleb) (units unknown) (unknown) (unknown) (no date) (unknown) (unknown) epinephrine 0. 3 mg/0.3 mL injection, auto-injector (EpiPen 2-Kaleb) 0.3 mg (0.3 (units unknown) (unknown) (unknown) (no date) (unknown) (unknown) evaluation. Th e ER did blood work, which returned normal, and advised her to (units unknown) (unknown) (unknown) (no date) (unknown) (unknown) have occurred. If there are any questions, please contact the Medical Records (units unknown) (unknown) (unknown) (no date) (unknown) (unknown) ibuprofen 800 mg tablet See Rx Instructions .Route .COMPLEX #90 tabs 10/17/22 (units unknown) (unknown) (unknown) (no date) (unknown) (unknown) ketorolac [KETOROLAC] Adverse Reaction (Unknown, Verified 01/04/23 15:22) (units unknown) (unknown) (unknown) (no date) (unknown) (unknown) latex [LATEX] Allergy (Unknown, Verified 01/04/23 15:22) (units unknown) (unknown) (unknown) (no date) (unknown) (unknown) mL) IM Q5-15M PRN anaphylaxis #2 ea 01/23/23 [Rx Confirmed 01/23/23] (units unknown) (unknown) (unknown) (no date) (unknown) (unknown) mass and lump, trunk (units unknown) (unknown) (unknown) (no date) (unknown) (unknown) may occur. Occasional wrong-word or 'sound-alike' substitutions may have (units unknown) (unknown) (unknown) (no date) (unknown) (unknown) mecobalamin (v itamin B12) 10,000 mcg solution for injection 1,000 mcg IM MONTHLY (units unknown) (unknown) (unknown) (no date) (unknown) (unknown) metoclopramide [From Reglan] Adverse Reaction (Verified 01/04/23 15:22) (units unknown) (unknown) (unknown) (no date) (unknown) (unknown) multivitamin ( Daily Multi-Vitamin tablet) 1 tab PO DAILY 01/04/23 [History (units unknown) (unknown) (unknown) (no date) (unknown) (unknown) occurred due t o the inherent limitations of voice recognition software. Please (units unknown) (unknown) (unknown) (no date) (unknown) (unknown) patient began experiencing joint pains, orange urine and went to ER for (units unknown) (unknown) (unknown) (no date) (unknown) (unknown) quit status: considering quitting (units unknown) (unknown) (unknown) (no date) (unknown) (unknown) read the note carefully and recognize, using context, where these substitutions (units unknown) (unknown) (unknown) (no date) (unknown) (unknown) resolved and s he feels much better now. She reports no improvement in (units unknown) (unknown) (unknown) (no date) (unknown) (unknown) shrimp Allergy (Severe, Verified 01/04/23 15:22) (units unknown) (unknown) (unknown) (no date) (unknown) (unknown) software. Alth ough every effort is made to edit content, manager shift errors (units unknown) (unknown) (unknown) (no date) (unknown) (unknown) substance use type: does not use (units unknown) (unknown) (unknown) (no date) (unknown) (unknown) terminate anti biotic use. Within a day of stopping the medications, her symptoms (units unknown) (unknown) (unknown) (no date) (unknown) (unknown) zolpidem 10 mg tablet See Rx Instructions PO BEDTIME PRN insomnia #30 tabs (units unknown) (unknown) Result panel 18 (unknown) (no date) (unknown) (unknown) (no value) (units unknown) (unknown) (unknown) (no date) (unknown) (unknown) #1 ea 10/06/22 [Rx Confirmed 01/23/23] (units unknown) (unknown) (unknown) (no date) (unknown) (unknown) #12 caps 11/07 [Rx Confirmed 01/23/23] (units unknown) (unknown) (unknown) (no date) (unknown) (unknown) #60 mL 3 [Rx Confirmed 01/23/23] (units unknown) (unknown) (unknown) (no date) (unknown) (unknown) (1) Nodule of chest wall: (units unknown) (unknown) (unknown) (no date) (unknown) (unknown) 01/10/23 [Rx Confirmed 01/23/23] (units unknown) (unknown) (unknown) (no date) (unknown) (unknown) 01/23/23 (units unknown) (unknown) (unknown) (no date) (unknown) (unknown) 09:38 (units unknown) (unknown) (unknown) (no date) (unknown) (unknown) 2 puff inhalat ion BID #10.2 grams 03/17/22 [Rx Confirmed 01/23/23] (units unknown) (unknown) (unknown) (no date) (unknown) (unknown) 3 ml syringe/ 25g 1 2 needle #1 ea 10/06/22 [Rx Confirmed 01/23/23] (units unknown) (unknown) (unknown) (no date) (unknown) (unknown) : [id number] (units unknown) (unknown) (unknown) (no date) (unknown) (unknown) Acute neck pain (uni ts unknown) (unknown) (unknown) (no date) (unknown) (unknown) Acute thoracic back pain (units unknown) (unknown) (unknown) (no date) (unknown) (unknown) Age/Sex: 32 / F Date of Service: (units unknown) (unknown) (unknown) (no date) (unknown) (unknown) Allergies (units unknown) (unknown) (unknown) (no date) (unknown) (unknown) [place] [address] (units unknown) (unknown) (unknown) (no date) (unknown) (unknown) Anaphylaxis (units unknown) (unknown) (unknown) (no date) (unknown) (unknown) Assessment + Plan (u nits unknown) (unknown) (unknown) (no date) (unknown) (unknown) Attending Dr: Marcell Fong MD (units unknown) (unknown) (unknown) (no date) (unknown) (unknown) Autonomic dysfunction (units unknown) (unknown) (unknown) (no date) (unknown) (unknown) BD #[id number] needl es 30gx1/2 #100 ea 12/01/22 [Rx Confirmed 01/23/23] (units unknown) (unknown) (unknown) (no date) (unknown) (unknown) BP 106/62 (units unknown) (unknown) (unknown) (no date) (unknown) (unknown) Cellulitis (units unknown) (unknown) (unknown) (no date) (unknown) (unknown) Cervical somat ic dysfunction (units unknown) (unknown) (unknown) (no date) (unknown) (unknown) Chronic bilate ral low back pain without sciatica (units unknown) (unknown) (unknown) (no date) (unknown) (unknown) Chronic cough (units unknown) (unknown) (unknown) (no date) (unknown) (unknown) Confirmed 01/23/23] (units unknown) (unknown) (unknown) (no date) (unknown) (unknown) Cranial somati c dysfunction (units unknown) (unknown) (unknown) (no date) (unknown) (unknown) : 8 Acct:[id number] (units unknown) (unknown) (unknown) (no date) (unknown) (unknown) Date of Last Menstrual Period: 12/31/22 (units unknown) (unknown) (unknown) (no date) (unknown) (unknown) Dept at . (units unknown) (unknown) (unknown) (no date) (unknown) (unknown) Details: (units unknown) (unknown) (unknown) (no date) (unknown) (unknown) Documented By: Marcell Fong MD 01/23/23 0921 (units unknown) (unknown) (unknown) (no date) (unknown) (unknown) Draft (units unknown) (unknown) (unknown) (no date) (unknown) (unknown) Due to persist ent pain in left chest wall with palpable nodules referral to (units unknown) (unknown) (unknown) (no date) (unknown) (unknown) Family Practic e Office Visit (units unknown) (unknown) (unknown) (no date) (unknown) (unknown) Fibromyalgia (units unknown) (unknown) (unknown) (no date) (unknown) (unknown) [facility] (units unknown) (unknown) (unknown) (no date) (unknown) (unknown) HPI (units unknown) (unknown) (unknown) (no date) (unknown) (unknown) Health Managem ent reviewed with patient: Yes (units unknown) (unknown) (unknown) (no date) (unknown) (unknown) Health Management (u nits unknown) (unknown) (unknown) (no date) (unknown) (unknown) Hidradenitis suppurativa (units unknown) (unknown) (unknown) (no date) (unknown) (unknown) Intake Note: (units unknown) (unknown) (unknown) (no date) (unknown) (unknown) Intake perform ed by: Jocelyne Munoz (units unknown) (unknown) (unknown) (no date) (unknown) (unknown) Intake (units unknown) (unknown) (unknown) (no date) (unknown) (unknown) Intake- [facility] (units unknown) (unknown) (unknown) (no date) (unknown) (unknown) Last Menstural Cycle + Details (units unknown) (unknown) (unknown) (no date) (unknown) (unknown) Left breast lump (un its unknown) (unknown) (unknown) (no date) (unknown) (unknown) Loc: [facility] (units unknown) (unknown) (unknown) (no date) (unknown) (unknown) Lumbar region somatic dysfunction (units unknown) (unknown) (unknown) (no date) (unknown) (unknown) Medical Histor y (Updated 01/23/23 @ 09:53 by Marcell Fong MD) (units unknown) (unknown) (unknown) (no date) (unknown) (unknown) Medications (units unknown) (unknown) (unknown) (no date) (unknown) (unknown) Medications: (units unknown) (unknown) (unknown) (no date) (unknown) (unknown) Kimberly is a 32 y/o female here to discuss recent adverse drug reaction. 1.5 (units unknown) (unknown) (unknown) (no date) (unknown) (unknown) Neck muscle spasm (u nits unknown) (unknown) (unknown) (no date) (unknown) (unknown) Neck stiffness (unit s unknown) (unknown) (unknown) (no date) (unknown) (unknown) Neck strain (units unknown) (unknown) (unknown) (no date) (unknown) (unknown) Nodule of chest wall (units unknown) (unknown) (unknown) (no date) (unknown) (unknown) Once she stopp ed the meds, symptoms are resolving. (units unknown) (unknown) (unknown) (no date) (unknown) (unknown) Orders: (units unknown) (unknown) (unknown) (no date) (unknown) (unknown) PFSH (units unknown) (unknown) (unknown) (no date) (unknown) (unknown) PTSD (post-tra umatic stress disorder) (units unknown) (unknown) (unknown) (no date) (unknown) (unknown) Patient had re action to Rifampin and Clindamycin. Pain under breast might be HS. (units unknown) (unknown) (unknown) (no date) (unknown) (unknown) Patient: Kimberly Lewis MR# (units unknown) (unknown) (unknown) (no date) (unknown) (unknown) Pelvic somatic dysfunction (units unknown) (unknown) (unknown) (no date) (unknown) (unknown) Plan (units unknown) (unknown) (unknown) (no date) (unknown) (unknown) Psoas syndrome (unit s unknown) (unknown) (unknown) (no date) (unknown) (unknown) Pulse 108 H (units unknown) (unknown) (unknown) (no date) (unknown) (unknown) Pulse Oximetry (%) 99 (units unknown) (unknown) (unknown) (no date) (unknown) (unknown) Reason For Visit (un its unknown) (unknown) (unknown) (no date) (unknown) (unknown) Referral Gener al Surgery R07.89 - Other chest pain, R22.2 - Localized swelling, (units unknown) (unknown) (unknown) (no date) (unknown) (unknown) Referrals (units unknown) (unknown) (unknown) (no date) (unknown) (unknown) Refilled (units unknown) (unknown) (unknown) (no date) (unknown) (unknown) Sacral region somatic dysfunction (units unknown) (unknown) (unknown) (no date) (unknown) (unknown) Segmental and somatic dysfunction of abdomen and other regions (units unknown) (unknown) (unknown) (no date) (unknown) (unknown) Sensation of f eeling cold (units unknown) (unknown) (unknown) (no date) (unknown) (unknown) She reports no improvement in discomfort on left chest wall and would like (units unknown) (unknown) (unknown) (no date) (unknown) (unknown) Signed By: (units unknown) (unknown) (unknown) (no date) (unknown) (unknown) Smoking Status : Former smoker (units unknown) (unknown) (unknown) (no date) (unknown) (unknown) Status: Acute (units unknown) (unknown) (unknown) (no date) (unknown) (unknown) THROAT CLOSURE (unit s unknown) (unknown) (unknown) (no date) (unknown) (unknown) Tachycardia (units unknown) (unknown) (unknown) (no date) (unknown) (unknown) This note may have been all or partially generated using voice recognition (units unknown) (unknown) (unknown) (no date) (unknown) (unknown) Thoracic regio n somatic dysfunction (units unknown) (unknown) (unknown) (no date) (unknown) (unknown) Tobacco + Subs tance Use (units unknown) (unknown) (unknown) (no date) (unknown) (unknown) Tobacco Status (unit s unknown) (unknown) (unknown) (no date) (unknown) (unknown) Tobacco: How m any years used: 13 (units unknown) (unknown) (unknown) (no date) (unknown) (unknown) Visit Reasons: follow up med reaction (units unknown) (unknown) (unknown) (no date) (unknown) (unknown) Vitals (units unknown) (unknown) (unknown) (no date) (unknown) (unknown) Weight 163 lb (units unknown) (unknown) (unknown) (no date) (unknown) (unknown) [Rx Confirmed 01/23/23] (units unknown) (unknown) (unknown) (no date) (unknown) (unknown) alcohol intake : current (units unknown) (unknown) (unknown) (no date) (unknown) (unknown) anaphylaxis (units unknown) (unknown) (unknown) (no date) (unknown) (unknown) benzonatate 10 0 mg capsule 100 mg PO BID-TID PRN cough #60 caps 09/09/22 [Rx (units unknown) (unknown) (unknown) (no date) (unknown) (unknown) breast, patien t began experiencing joint pains, orange urine, and 'ayon (units unknown) (unknown) (unknown) (no date) (unknown) (unknown) budesonide-for motero l HFA 160 mcg-4.5 mcg/actuation aerosol inhaler (Symbicort) (units unknown) (unknown) (unknown) (no date) (unknown) (unknown) cefazolin Mc rgy (Verified 01/04/23 15:22) (units unknown) (unknown) (unknown) (no date) (unknown) (unknown) cefprozil [CEFPROZIL] Adverse Reaction (Unknown, Verified 01/04/23 15:22) (units unknown) (unknown) (unknown) (no date) (unknown) (unknown) cholecalcifero l (vitamin D3) 1,250 mcg (50,000 unit) capsule 1,250 mcg PO QWEEK (units unknown) (unknown) (unknown) (no date) (unknown) (unknown) clindamycin phosphate 1 % topical solution See Rx Instructions .Route .COMPLEX (units unknown) (unknown) (unknown) (no date) (unknown) (unknown) days after sta rting clindamycin and rifampin for suspected HS under her left (units unknown) (unknown) (unknown) (no date) (unknown) (unknown) do not exceed 3 doses per episode 0.3 mg (0.3 mL) IM Q5-15M PRN 2 ea 0RF (units unknown) (unknown) (unknown) (no date) (unknown) (unknown) doxycycline Al lergy (Verified 01/04/23 15:22) (units unknown) (unknown) (unknown) (no date) (unknown) (unknown) epinephrine (E piPen 2-Kaleb) (units unknown) (unknown) (unknown) (no date) (unknown) (unknown) epinephrine 0. 3 mg/0.3 mL injection, auto-injector (EpiPen 2-Kaleb) 0.3 mg (0.3 (units unknown) (unknown) (unknown) (no date) (unknown) (unknown) further evaluation. (units unknown) (unknown) (unknown) (no date) (unknown) (unknown) general surger y for further evaluation is next step as course of antibiotics had (units unknown) (unknown) (unknown) (no date) (unknown) (unknown) have occurred. If there are any questions, please contact the Medical Records (units unknown) (unknown) (unknown) (no date) (unknown) (unknown) ibuprofen 800 mg tablet See Rx Instructions .Route .COMPLEX #90 tabs 10/17/22 (units unknown) (unknown) (unknown) (no date) (unknown) (unknown) ketorolac [KETOROLAC] Adverse Reaction (Unknown, Verified 01/04/23 15:22) (units unknown) (unknown) (unknown) (no date) (unknown) (unknown) latex [LATEX] Allergy (Unknown, Verified 01/04/23 15:22) (units unknown) (unknown) (unknown) (no date) (unknown) (unknown) mL) IM Q5-15M PRN anaphylaxis #2 ea 01/23/23 [Rx Confirmed 01/23/23] (units unknown) (unknown) (unknown) (no date) (unknown) (unknown) mass and lump, trunk (units unknown) (unknown) (unknown) (no date) (unknown) (unknown) may occur. Occasional wrong-word or 'sound-alike' substitutions may have (units unknown) (unknown) (unknown) (no date) (unknown) (unknown) mecobalamin (v itamin B12) 10,000 mcg solution for injection 1,000 mcg IM MONTHLY (units unknown) (unknown) (unknown) (no date) (unknown) (unknown) metoclopramide [From Reglan] Adverse Reaction (Verified 01/04/23 15:22) (units unknown) (unknown) (unknown) (no date) (unknown) (unknown) multivitamin ( Daily Multi-Vitamin tablet) 1 tab PO DAILY 01/04/23 [History (units unknown) (unknown) (unknown) (no date) (unknown) (unknown) occurred due t o the inherent limitations of voice recognition software. Please (units unknown) (unknown) (unknown) (no date) (unknown) (unknown) quit status: considering quitting (units unknown) (unknown) (unknown) (no date) (unknown) (unknown) read the note carefully and recognize, using context, where these substitutions (units unknown) (unknown) (unknown) (no date) (unknown) (unknown) returned rosana l, and advised her to terminate antibiotic use. Within a day of (units unknown) (unknown) (unknown) (no date) (unknown) (unknown) shrimp Allergy (Severe, Verified 01/04/23 15:22) (units unknown) (unknown) (unknown) (no date) (unknown) (unknown) skin/flushing' and went to ER for evaluation. The ER did blood work, which (units unknown) (unknown) (unknown) (no date) (unknown) (unknown) software. Alth ough every effort is made to edit content, manager shift errors (units unknown) (unknown) (unknown) (no date) (unknown) (unknown) stopping the medications, her symptoms resolved and she feels much better now. (units unknown) (unknown) (unknown) (no date) (unknown) (unknown) substance use type: does not use (units unknown) (unknown) (unknown) (no date) (unknown) (unknown) to be terminat ed early due to adverse effects. Patient (units unknown) (unknown) (unknown) (no date) (unknown) (unknown) zolpidem 10 mg tablet See Rx Instructions PO BEDTIME PRN insomnia #30 tabs (units unknown) (unknown) Result panel 19 (unknown) (no date) (unknown) (unknown) (no value) (units unknown) (unknown) (unknown) (no date) (unknown) (unknown) #1 ea 10/06/22 [Rx Confirmed 01/23/23] (units unknown) (unknown) (unknown) (no date) (unknown) (unknown) #12 caps 11/07 [Rx Confirmed 01/23/23] (units unknown) (unknown) (unknown) (no date) (unknown) (unknown) #60 mL 3 [Rx Confirmed 01/23/23] (units unknown) (unknown) (unknown) (no date) (unknown) (unknown) (1) Nodule of chest wall: (units unknown) (unknown) (unknown) (no date) (unknown) (unknown) 01/10/23 [Rx Confirmed 01/23/23] (units unknown) (unknown) (unknown) (no date) (unknown) (unknown) 01/23/23 (units unknown) (unknown) (unknown) (no date) (unknown) (unknown) 09:38 (units unknown) (unknown) (unknown) (no date) (unknown) (unknown) 2 puff inhalat ion BID #10.2 grams 03/17/22 [Rx Confirmed 01/23/23] (units unknown) (unknown) (unknown) (no date) (unknown) (unknown) 3 ml syringe/ 25g 1 12 needle #1 ea 10/06/22 [Rx Confirmed 01/23/23] (units unknown) (unknown) (unknown) (no date) (unknown) (unknown) : [id number] (units unknown) (unknown) (unknown) (no date) (unknown) (unknown) Acute neck pain (uni ts unknown) (unknown) (unknown) (no date) (unknown) (unknown) Acute thoracic back pain (units unknown) (unknown) (unknown) (no date) (unknown) (unknown) Age/Sex: 32 / F Date of Service: (units unknown) (unknown) (unknown) (no date) (unknown) (unknown) Allergies (units unknown) (unknown) (unknown) (no date) (unknown) (unknown) [place] [address] (units unknown) (unknown) (unknown) (no date) (unknown) (unknown) Anaphylaxis (units unknown) (unknown) (unknown) (no date) (unknown) (unknown) Assessment + Plan (u nits unknown) (unknown) (unknown) (no date) (unknown) (unknown) Attending Dr: Marcell Fong MD (units unknown) (unknown) (unknown) (no date) (unknown) (unknown) Autonomic dysfunction (units unknown) (unknown) (unknown) (no date) (unknown) (unknown) BD #[id number] needl es 30gx1/2 #100 ea 12/01/22 [Rx Confirmed 01/23/23] (units unknown) (unknown) (unknown) (no date) (unknown) (unknown) BP 106/62 (units unknown) (unknown) (unknown) (no date) (unknown) (unknown) Cellulitis (units unknown) (unknown) (unknown) (no date) (unknown) (unknown) Cervical somat ic dysfunction (units unknown) (unknown) (unknown) (no date) (unknown) (unknown) Chief Complaint (uni ts unknown) (unknown) (unknown) (no date) (unknown) (unknown) Chief Complain t: Follow up medication reaction (units unknown) (unknown) (unknown) (no date) (unknown) (unknown) Chronic bilate ral low back pain without sciatica (units unknown) (unknown) (unknown) (no date) (unknown) (unknown) Chronic cough (units unknown) (unknown) (unknown) (no date) (unknown) (unknown) Confirmed 01/23/23] (units unknown) (unknown) (unknown) (no date) (unknown) (unknown) Cranial somati c dysfunction (units unknown) (unknown) (unknown) (no date) (unknown) (unknown) : 8 Acct:[id number] (units unknown) (unknown) (unknown) (no date) (unknown) (unknown) Date of Last Menstrual Period: 12/31/22 (units unknown) (unknown) (unknown) (no date) (unknown) (unknown) Dept at . (units unknown) (unknown) (unknown) (no date) (unknown) (unknown) Details: (units unknown) (unknown) (unknown) (no date) (unknown) (unknown) Documented By: Marcell Fong MD 01/23/23 0921 (units unknown) (unknown) (unknown) (no date) (unknown) (unknown) Draft (units unknown) (unknown) (unknown) (no date) (unknown) (unknown) Due to persist ent pain in left chest wall with palpable nodules, referral to (units unknown) (unknown) (unknown) (no date) (unknown) (unknown) Exam Narrative (unit s unknown) (unknown) (unknown) (no date) (unknown) (unknown) Exam Narrative: (uni ts unknown) (unknown) (unknown) (no date) (unknown) (unknown) Exam (units unknown) (unknown) (unknown) (no date) (unknown) (unknown) Family Practic e Office Visit (units unknown) (unknown) (unknown) (no date) (unknown) (unknown) Fibromyalgia (units unknown) (unknown) (unknown) (no date) (unknown) (unknown) [facility] (units unknown) (unknown) (unknown) (no date) (unknown) (unknown) HPI (units unknown) (unknown) (unknown) (no date) (unknown) (unknown) Health Managem ent reviewed with patient: Yes (units unknown) (unknown) (unknown) (no date) (unknown) (unknown) Health Management (u nits unknown) (unknown) (unknown) (no date) (unknown) (unknown) Hidradenitis suppurativa (units unknown) (unknown) (unknown) (no date) (unknown) (unknown) Intake Note: (units unknown) (unknown) (unknown) (no date) (unknown) (unknown) Intake perform ed by: Jocelyne Munoz (units unknown) (unknown) (unknown) (no date) (unknown) (unknown) Intake (units unknown) (unknown) (unknown) (no date) (unknown) (unknown) Intake- [facility] (units unknown) (unknown) (unknown) (no date) (unknown) (unknown) Last Menstural Cycle + Details (units unknown) (unknown) (unknown) (no date) (unknown) (unknown) Left breast lump (un its unknown) (unknown) (unknown) (no date) (unknown) (unknown) Loc: [facility] (units unknown) (unknown) (unknown) (no date) (unknown) (unknown) Lumbar region somatic dysfunction (units unknown) (unknown) (unknown) (no date) (unknown) (unknown) Medical Histor y (Updated 01/23/23 @ 09:53 by Marcell Fong MD) (units unknown) (unknown) (unknown) (no date) (unknown) (unknown) Medications (units unknown) (unknown) (unknown) (no date) (unknown) (unknown) Medications: (units unknown) (unknown) (unknown) (no date) (unknown) (unknown) Kimberly is a 32 y/o female here to discuss recent adverse drug reaction. 1.5 (units unknown) (unknown) (unknown) (no date) (unknown) (unknown) Neck muscle spasm (u nits unknown) (unknown) (unknown) (no date) (unknown) (unknown) Neck stiffness (unit s unknown) (unknown) (unknown) (no date) (unknown) (unknown) Neck strain (units unknown) (unknown) (unknown) (no date) (unknown) (unknown) Nodule of chest wall (units unknown) (unknown) (unknown) (no date) (unknown) (unknown) Once she stopp ed the meds, symptoms are resolving. (units unknown) (unknown) (unknown) (no date) (unknown) (unknown) Orders: (units unknown) (unknown) (unknown) (no date) (unknown) (unknown) PFSH (units unknown) (unknown) (unknown) (no date) (unknown) (unknown) PTSD (post-tra umatic stress disorder) (units unknown) (unknown) (unknown) (no date) (unknown) (unknown) Patient had re action to Rifampin and Clindamycin. Pain under breast might be HS. (units unknown) (unknown) (unknown) (no date) (unknown) (unknown) Patient sittin g on exam table, alert, in no acute distress (units unknown) (unknown) (unknown) (no date) (unknown) (unknown) Patient: JoshuaKimberly Hernandez MR# (units unknown) (unknown) (unknown) (no date) (unknown) (unknown) Pelvic somatic dysfunction (units unknown) (unknown) (unknown) (no date) (unknown) (unknown) Plan (units unknown) (unknown) (unknown) (no date) (unknown) (unknown) Psoas syndrome (unit s unknown) (unknown) (unknown) (no date) (unknown) (unknown) Pulse 108 H (units unknown) (unknown) (unknown) (no date) (unknown) (unknown) Pulse Oximetry (%) 99 (units unknown) (unknown) (unknown) (no date) (unknown) (unknown) Reason For Visit (un its unknown) (unknown) (unknown) (no date) (unknown) (unknown) Referral Gener al Surgery R07.89 - Other chest pain, R22.2 - Localized swelling, (units unknown) (unknown) (unknown) (no date) (unknown) (unknown) Referrals (units unknown) (unknown) (unknown) (no date) (unknown) (unknown) Refilled (units unknown) (unknown) (unknown) (no date) (unknown) (unknown) Sacral region somatic dysfunction (units unknown) (unknown) (unknown) (no date) (unknown) (unknown) Segmental and somatic dysfunction of abdomen and other regions (units unknown) (unknown) (unknown) (no date) (unknown) (unknown) Sensation of f eeling cold (units unknown) (unknown) (unknown) (no date) (unknown) (unknown) She reports no improvement in discomfort on left chest wall and would like (units unknown) (unknown) (unknown) (no date) (unknown) (unknown) Signed By: (units unknown) (unknown) (unknown) (no date) (unknown) (unknown) Smoking Status : Former smoker (units unknown) (unknown) (unknown) (no date) (unknown) (unknown) Status: Acute (units unknown) (unknown) (unknown) (no date) (unknown) (unknown) THROAT CLOSURE (unit s unknown) (unknown) (unknown) (no date) (unknown) (unknown) Tachycardia (units unknown) (unknown) (unknown) (no date) (unknown) (unknown) This note may have been all or partially generated using voice recognition (units unknown) (unknown) (unknown) (no date) (unknown) (unknown) Thoracic regio n somatic dysfunction (units unknown) (unknown) (unknown) (no date) (unknown) (unknown) Tobacco + Subs tance Use (units unknown) (unknown) (unknown) (no date) (unknown) (unknown) Tobacco Status (unit s unknown) (unknown) (unknown) (no date) (unknown) (unknown) Tobacco: How m any years used: 13 (units unknown) (unknown) (unknown) (no date) (unknown) (unknown) Visit Reasons: follow up med reaction (units unknown) (unknown) (unknown) (no date) (unknown) (unknown) Vitals (units unknown) (unknown) (unknown) (no date) (unknown) (unknown) Weight 163 lb (units unknown) (unknown) (unknown) (no date) (unknown) (unknown) [Rx Confirmed 01/23/23] (units unknown) (unknown) (unknown) (no date) (unknown) (unknown) alcohol intake : current (units unknown) (unknown) (unknown) (no date) (unknown) (unknown) anaphylaxis (units unknown) (unknown) (unknown) (no date) (unknown) (unknown) benzonatate 10 0 mg capsule 100 mg PO BID-TID PRN cough #60 caps 09/09/22 [Rx (units unknown) (unknown) (unknown) (no date) (unknown) (unknown) breast, patien t began experiencing joint pains, orange urine, and 'ayon (units unknown) (unknown) (unknown) (no date) (unknown) (unknown) budesonide-for motero l HFA 160 mcg-4.5 mcg/actuation aerosol inhaler (Symbicort) (units unknown) (unknown) (unknown) (no date) (unknown) (unknown) cefazolin Mc rgy (Verified 01/04/23 15:22) (units unknown) (unknown) (unknown) (no date) (unknown) (unknown) cefprozil [CEFPROZIL] Adverse Reaction (Unknown, Verified 01/04/23 15:22) (units unknown) (unknown) (unknown) (no date) (unknown) (unknown) cholecalcifero l (vitamin D3) 1,250 mcg (50,000 unit) capsule 1,250 mcg PO QWEEK (units unknown) (unknown) (unknown) (no date) (unknown) (unknown) clindamycin phosphate 1 % topical solution See Rx Instructions .Route .COMPLEX (units unknown) (unknown) (unknown) (no date) (unknown) (unknown) days after sta rting clindamycin and rifampin for suspected HS under her left (units unknown) (unknown) (unknown) (no date) (unknown) (unknown) do not exceed 3 doses per episode 0.3 mg (0.3 mL) IM Q5-15M PRN 2 ea 0RF (units unknown) (unknown) (unknown) (no date) (unknown) (unknown) doxycycline Al lergy (Verified 01/04/23 15:22) (units unknown) (unknown) (unknown) (no date) (unknown) (unknown) epinephrine (E piPen 2-Kaleb) (units unknown) (unknown) (unknown) (no date) (unknown) (unknown) epinephrine 0. 3 mg/0.3 mL injection, auto-injector (EpiPen 2-Kaleb) 0.3 mg (0.3 (units unknown) (unknown) (unknown) (no date) (unknown) (unknown) further evaluation. (units unknown) (unknown) (unknown) (no date) (unknown) (unknown) general surger y for further evaluation is best next step. Patient agreeable to (units unknown) (unknown) (unknown) (no date) (unknown) (unknown) have occurred. If there are any questions, please contact the Medical Records (units unknown) (unknown) (unknown) (no date) (unknown) (unknown) ibuprofen 800 mg tablet See Rx Instructions .Route .COMPLEX #90 tabs 10/17/22 (units unknown) (unknown) (unknown) (no date) (unknown) (unknown) ketorolac [KETOROLAC] Adverse Reaction (Unknown, Verified 01/04/23 15:22) (units unknown) (unknown) (unknown) (no date) (unknown) (unknown) latex [LATEX] Allergy (Unknown, Verified 01/04/23 15:22) (units unknown) (unknown) (unknown) (no date) (unknown) (unknown) mL) IM Q5-15M PRN anaphylaxis #2 ea 01/23/23 [Rx Confirmed 01/23/23] (units unknown) (unknown) (unknown) (no date) (unknown) (unknown) mass and lump, trunk (units unknown) (unknown) (unknown) (no date) (unknown) (unknown) may occur. Occasional wrong-word or 'sound-alike' substitutions may have (units unknown) (unknown) (unknown) (no date) (unknown) (unknown) mecobalamin (v itamin B12) 10,000 mcg solution for injection 1,000 mcg IM MONTHLY (units unknown) (unknown) (unknown) (no date) (unknown) (unknown) metoclopramide [From Reglan] Adverse Reaction (Verified 01/04/23 15:22) (units unknown) (unknown) (unknown) (no date) (unknown) (unknown) multivitamin ( Daily Multi-Vitamin tablet) 1 tab PO DAILY 01/04/23 [History (units unknown) (unknown) (unknown) (no date) (unknown) (unknown) occurred due t o the inherent limitations of voice recognition software. Please (units unknown) (unknown) (unknown) (no date) (unknown) (unknown) plan. Referral sent. (units unknown) (unknown) (unknown) (no date) (unknown) (unknown) quit status: considering quitting (units unknown) (unknown) (unknown) (no date) (unknown) (unknown) read the note carefully and recognize, using context, where these substitutions (units unknown) (unknown) (unknown) (no date) (unknown) (unknown) returned rosana fairchild, and advised her to terminate antibiotic use. Within a day of (units unknown) (unknown) (unknown) (no date) (unknown) (unknown) shrimp Allergy (Severe, Verified 01/04/23 15:22) (units unknown) (unknown) (unknown) (no date) (unknown) (unknown) skin/flushing' and went to ER for evaluation. The ER did blood work, which (units unknown) (unknown) (unknown) (no date) (unknown) (unknown) software. Alth ough every effort is made to edit content, manager shift errors (units unknown) (unknown) (unknown) (no date) (unknown) (unknown) stopping the medications, her symptoms resolved and she feels much better now. (units unknown) (unknown) (unknown) (no date) (unknown) (unknown) substance use type: does not use (units unknown) (unknown) (unknown) (no date) (unknown) (unknown) zolpidem 10 mg tablet See Rx Instructions PO BEDTIME PRN insomnia #30 tabs (units unknown) (unknown) Result panel 20 (unknown) (no date) (unknown) (unknown) (no value) (units unknown) (unknown) (unknown) (no date) (unknown) (unknown) #1 ea 10/06/22 [Rx Confirmed 01/23/23] (units unknown) (unknown) (unknown) (no date) (unknown) (unknown) #12 caps 11/07 [Rx Confirmed 01/23/23] (units unknown) (unknown) (unknown) (no date) (unknown) (unknown) #60 mL 3 [Rx Confirmed 01/23/23] (units unknown) (unknown) (unknown) (no date) (unknown) (unknown) (1) Nodule of chest wall: (units unknown) (unknown) (unknown) (no date) (unknown) (unknown) 01/10/23 [Rx Confirmed 01/23/23] (units unknown) (unknown) (unknown) (no date) (unknown) (unknown) 01/23/23 (units unknown) (unknown) (unknown) (no date) (unknown) (unknown) 09:38 (units unknown) (unknown) (unknown) (no date) (unknown) (unknown) 2 puff inhalat ion BID #10.2 grams 03/17/22 [Rx Confirmed 01/23/23] (units unknown) (unknown) (unknown) (no date) (unknown) (unknown) 3 ml syringe/ 25g 1 12 needle #1 ea 10/06/22 [Rx Confirmed 01/23/23] (units unknown) (unknown) (unknown) (no date) (unknown) (unknown) : [id number] (units unknown) (unknown) (unknown) (no date) (unknown) (unknown) Acute neck pain (uni ts unknown) (unknown) (unknown) (no date) (unknown) (unknown) Acute thoracic back pain (units unknown) (unknown) (unknown) (no date) (unknown) (unknown) Age/Sex: 32 / F Date of Service: (units unknown) (unknown) (unknown) (no date) (unknown) (unknown) Allergies (units unknown) (unknown) (unknown) (no date) (unknown) (unknown) [place] [address] (units unknown) (unknown) (unknown) (no date) (unknown) (unknown) Anaphylaxis (units unknown) (unknown) (unknown) (no date) (unknown) (unknown) Assessment + Plan (u nits unknown) (unknown) (unknown) (no date) (unknown) (unknown) Attending Dr: Marcell Fong MD (units unknown) (unknown) (unknown) (no date) (unknown) (unknown) Autonomic dysfunction (units unknown) (unknown) (unknown) (no date) (unknown) (unknown) BD #[id number] needl es 30gx1/2 #100 ea 12/01/22 [Rx Confirmed 01/23/23] (units unknown) (unknown) (unknown) (no date) (unknown) (unknown) BP 106/62 (units unknown) (unknown) (unknown) (no date) (unknown) (unknown) Cellulitis (units unknown) (unknown) (unknown) (no date) (unknown) (unknown) Cervical somat ic dysfunction (units unknown) (unknown) (unknown) (no date) (unknown) (unknown) Chief Complaint (uni ts unknown) (unknown) (unknown) (no date) (unknown) (unknown) Chief Complain t: Follow up medication reaction (units unknown) (unknown) (unknown) (no date) (unknown) (unknown) Chronic bilate ral low back pain without sciatica (units unknown) (unknown) (unknown) (no date) (unknown) (unknown) Chronic cough (units unknown) (unknown) (unknown) (no date) (unknown) (unknown) Confirmed 01/23/23] (units unknown) (unknown) (unknown) (no date) (unknown) (unknown) Cranial somati c dysfunction (units unknown) (unknown) (unknown) (no date) (unknown) (unknown) : 8 Acct:[id number] (units unknown) (unknown) (unknown) (no date) (unknown) (unknown) Date of Last Menstrual Period: 12/31/22 (units unknown) (unknown) (unknown) (no date) (unknown) (unknown) Dept at . (units unknown) (unknown) (unknown) (no date) (unknown) (unknown) Details: (units unknown) (unknown) (unknown) (no date) (unknown) (unknown) Documented By: Marcell Fong MD 01/23/23 0921 (units unknown) (unknown) (unknown) (no date) (unknown) (unknown) Draft (units unknown) (unknown) (unknown) (no date) (unknown) (unknown) Due to persist ent pain in left chest wall with palpable nodules, referral to (units unknown) (unknown) (unknown) (no date) (unknown) (unknown) Exam Narrative (unit s unknown) (unknown) (unknown) (no date) (unknown) (unknown) Exam Narrative: (uni ts unknown) (unknown) (unknown) (no date) (unknown) (unknown) Exam (units unknown) (unknown) (unknown) (no date) (unknown) (unknown) Family Practic e Office Visit (units unknown) (unknown) (unknown) (no date) (unknown) (unknown) Fibromyalgia (units unknown) (unknown) (unknown) (no date) (unknown) (unknown) [facility] (units unknown) (unknown) (unknown) (no date) (unknown) (unknown) HPI (units unknown) (unknown) (unknown) (no date) (unknown) (unknown) Health Managem ent reviewed with patient: Yes (units unknown) (unknown) (unknown) (no date) (unknown) (unknown) Health Management (u nits unknown) (unknown) (unknown) (no date) (unknown) (unknown) Hidradenitis suppurativa (units unknown) (unknown) (unknown) (no date) (unknown) (unknown) Intake Note: (units unknown) (unknown) (unknown) (no date) (unknown) (unknown) Intake perform ed by: Jocelyne Munoz (units unknown) (unknown) (unknown) (no date) (unknown) (unknown) Intake (units unknown) (unknown) (unknown) (no date) (unknown) (unknown) Intake- Jose M mckenzie Staff (units unknown) (unknown) (unknown) (no date) (unknown) (unknown) Last Menstural Cycle + Details (units unknown) (unknown) (unknown) (no date) (unknown) (unknown) Left breast lump (un its unknown) (unknown) (unknown) (no date) (unknown) (unknown) Loc: [facility] (units unknown) (unknown) (unknown) (no date) (unknown) (unknown) Lumbar region somatic dysfunction (units unknown) (unknown) (unknown) (no date) (unknown) (unknown) Medical Histor y (Updated 01/23/23 @ 09:53 by Marcell Fong MD) (units unknown) (unknown) (unknown) (no date) (unknown) (unknown) Medications (units unknown) (unknown) (unknown) (no date) (unknown) (unknown) Medications: (units unknown) (unknown) (unknown) (no date) (unknown) (unknown) Kimberly is a 32 y/o female here to discuss recent adverse drug reaction. 1.5 (units unknown) (unknown) (unknown) (no date) (unknown) (unknown) Neck muscle spasm (u nits unknown) (unknown) (unknown) (no date) (unknown) (unknown) Neck stiffness (unit s unknown) (unknown) (unknown) (no date) (unknown) (unknown) Neck strain (units unknown) (unknown) (unknown) (no date) (unknown) (unknown) Nodule of chest wall (units unknown) (unknown) (unknown) (no date) (unknown) (unknown) Once she stopp ed the meds, symptoms are resolving. (units unknown) (unknown) (unknown) (no date) (unknown) (unknown) Orders: (units unknown) (unknown) (unknown) (no date) (unknown) (unknown) PFSH (units unknown) (unknown) (unknown) (no date) (unknown) (unknown) PTSD (post-tra umatic stress disorder) (units unknown) (unknown) (unknown) (no date) (unknown) (unknown) Patient had re action to Rifampin and Clindamycin. Pain under breast might be HS. (units unknown) (unknown) (unknown) (no date) (unknown) (unknown) Patient sittin g on exam table, alert, in no acute distress (units unknown) (unknown) (unknown) (no date) (unknown) (unknown) Patient: LewisKimberly David MR# (units unknown) (unknown) (unknown) (no date) (unknown) (unknown) Pelvic somatic dysfunction (units unknown) (unknown) (unknown) (no date) (unknown) (unknown) Plan (units unknown) (unknown) (unknown) (no date) (unknown) (unknown) Psoas syndrome (unit s unknown) (unknown) (unknown) (no date) (unknown) (unknown) Pulse 108 H (units unknown) (unknown) (unknown) (no date) (unknown) (unknown) Pulse Oximetry (%) 99 (units unknown) (unknown) (unknown) (no date) (unknown) (unknown) Reason For Visit (un its unknown) (unknown) (unknown) (no date) (unknown) (unknown) Referral Gener al Surgery R07.89 - Other chest pain, R22.2 - Localized swelling, (units unknown) (unknown) (unknown) (no date) (unknown) (unknown) Referrals (units unknown) (unknown) (unknown) (no date) (unknown) (unknown) Refilled (units unknown) (unknown) (unknown) (no date) (unknown) (unknown) Sacral region somatic dysfunction (units unknown) (unknown) (unknown) (no date) (unknown) (unknown) Segmental and somatic dysfunction of abdomen and other regions (units unknown) (unknown) (unknown) (no date) (unknown) (unknown) Sensation of f eeling cold (units unknown) (unknown) (unknown) (no date) (unknown) (unknown) Signed By: (units unknown) (unknown) (unknown) (no date) (unknown) (unknown) Smoking Status : Former smoker (units unknown) (unknown) (unknown) (no date) (unknown) (unknown) Status: Acute (units unknown) (unknown) (unknown) (no date) (unknown) (unknown) THROAT CLOSURE (unit s unknown) (unknown) (unknown) (no date) (unknown) (unknown) Tachycardia (units unknown) (unknown) (unknown) (no date) (unknown) (unknown) This note may have been all or partially generated using voice recognition (units unknown) (unknown) (unknown) (no date) (unknown) (unknown) Thoracic regio n somatic dysfunction (units unknown) (unknown) (unknown) (no date) (unknown) (unknown) Tobacco + Subs tance Use (units unknown) (unknown) (unknown) (no date) (unknown) (unknown) Tobacco Status (unit s unknown) (unknown) (unknown) (no date) (unknown) (unknown) Tobacco: How m any years used: 13 (units unknown) (unknown) (unknown) (no date) (unknown) (unknown) Visit Reasons: follow up med reaction (units unknown) (unknown) (unknown) (no date) (unknown) (unknown) Vitals (units unknown) (unknown) (unknown) (no date) (unknown) (unknown) Weight 163 lb (units unknown) (unknown) (unknown) (no date) (unknown) (unknown) [Rx Confirmed 01/23/23] (units unknown) (unknown) (unknown) (no date) (unknown) (unknown) a day of stopp ing the medications, her symptoms resolved and she feels much (units unknown) (unknown) (unknown) (no date) (unknown) (unknown) alcohol intake : current (units unknown) (unknown) (unknown) (no date) (unknown) (unknown) anaphylaxis (units unknown) (unknown) (unknown) (no date) (unknown) (unknown) benzonatate 10 0 mg capsule 100 mg PO BID-TID PRN cough #60 caps 09/09/22 [Rx (units unknown) (unknown) (unknown) (no date) (unknown) (unknown) better now. Sh e reports no improvement in discomfort on left chest wall and (units unknown) (unknown) (unknown) (no date) (unknown) (unknown) breast, patien t began experiencing joint pains, orange urine, and 'ayon (units unknown) (unknown) (unknown) (no date) (unknown) (unknown) budesonide-for motero l HFA 160 mcg-4.5 mcg/actuation aerosol inhaler (Symbicort) (units unknown) (unknown) (unknown) (no date) (unknown) (unknown) cefazolin Mc rgy (Verified 01/04/23 15:22) (units unknown) (unknown) (unknown) (no date) (unknown) (unknown) cefprozil [CEFPROZIL] Adverse Reaction (Unknown, Verified 01/04/23 15:22) (units unknown) (unknown) (unknown) (no date) (unknown) (unknown) cholecalcifero l (vitamin D3) 1,250 mcg (50,000 unit) capsule 1,250 mcg PO QWEEK (units unknown) (unknown) (unknown) (no date) (unknown) (unknown) clindamycin phosphate 1 % topical solution See Rx Instructions .Route .COMPLEX (units unknown) (unknown) (unknown) (no date) (unknown) (unknown) days after sta rting clindamycin and rifampin for suspected HS under her left (units unknown) (unknown) (unknown) (no date) (unknown) (unknown) do not exceed 3 doses per episode 0.3 mg (0.3 mL) IM Q5-15M PRN 2 ea 0RF (units unknown) (unknown) (unknown) (no date) (unknown) (unknown) doxycycline Al lergy (Verified 01/04/23 15:22) (units unknown) (unknown) (unknown) (no date) (unknown) (unknown) epinephrine (E piPen 2-Kaleb) (units unknown) (unknown) (unknown) (no date) (unknown) (unknown) epinephrine 0. 3 mg/0.3 mL injection, auto-injector (EpiPen 2-Kaleb) 0.3 mg (0.3 (units unknown) (unknown) (unknown) (no date) (unknown) (unknown) general surger y for further evaluation is best next step. Patient agreeable to (units unknown) (unknown) (unknown) (no date) (unknown) (unknown) have occurred. If there are any questions, please contact the Medical Records (units unknown) (unknown) (unknown) (no date) (unknown) (unknown) ibuprofen 800 mg tablet See Rx Instructions .Route .COMPLEX #90 tabs 10/17/22 (units unknown) (unknown) (unknown) (no date) (unknown) (unknown) ketorolac [KETOROLAC] Adverse Reaction (Unknown, Verified 01/04/23 15:22) (units unknown) (unknown) (unknown) (no date) (unknown) (unknown) latex [LATEX] Allergy (Unknown, Verified 01/04/23 15:22) (units unknown) (unknown) (unknown) (no date) (unknown) (unknown) mL) IM Q5-15M PRN anaphylaxis #2 ea 01/23/23 [Rx Confirmed 01/23/23] (units unknown) (unknown) (unknown) (no date) (unknown) (unknown) mass and lump, trunk (units unknown) (unknown) (unknown) (no date) (unknown) (unknown) may occur. Occasional wrong-word or 'sound-alike' substitutions may have (units unknown) (unknown) (unknown) (no date) (unknown) (unknown) mecobalamin (v itamin B12) 10,000 mcg solution for injection 1,000 mcg IM MONTHLY (units unknown) (unknown) (unknown) (no date) (unknown) (unknown) metoclopramide [From Reglan] Adverse Reaction (Verified 01/04/23 15:22) (units unknown) (unknown) (unknown) (no date) (unknown) (unknown) multivitamin ( Daily Multi-Vitamin tablet) 1 tab PO DAILY 01/04/23 [History (units unknown) (unknown) (unknown) (no date) (unknown) (unknown) occurred due t o the inherent limitations of voice recognition software. Please (units unknown) (unknown) (unknown) (no date) (unknown) (unknown) plan. Referral sent. (units unknown) (unknown) (unknown) (no date) (unknown) (unknown) quit status: considering quitting (units unknown) (unknown) (unknown) (no date) (unknown) (unknown) read the note carefully and recognize, using context, where these substitutions (units unknown) (unknown) (unknown) (no date) (unknown) (unknown) shrimp Allergy (Severe, Verified 01/04/23 15:22) (units unknown) (unknown) (unknown) (no date) (unknown) (unknown) skin/flushing' and went to [facility] ER for evaluation. The ER did blood (units unknown) (unknown) (unknown) (no date) (unknown) (unknown) software. Alth ough every effort is made to edit content, manager shift errors (units unknown) (unknown) (unknown) (no date) (unknown) (unknown) substance use type: does not use (units unknown) (unknown) (unknown) (no date) (unknown) (unknown) work, which re turned normal, and advised her to terminate antibiotic use. Within (units unknown) (unknown) (unknown) (no date) (unknown) (unknown) would like fur ther evaluation. (units unknown) (unknown) (unknown) (no date) (unknown) (unknown) zolpidem 10 mg tablet See Rx Instructions PO BEDTIME PRN insomnia #30 tabs (units unknown) (unknown) Result panel 21 (unknown) (no date) (unknown) (unknown) (no value) (units unknown) (unknown) (unknown) (no date) (unknown) (unknown) #1 ea 10/06/22 [Rx Confirmed 01/23/23] (units unknown) (unknown) (unknown) (no date) (unknown) (unknown) #12 caps 11/07 [Rx Confirmed 01/23/23] (units unknown) (unknown) (unknown) (no date) (unknown) (unknown) #60 mL 3 [Rx Confirmed 01/23/23] (units unknown) (unknown) (unknown) (no date) (unknown) (unknown) (1) Nodule of chest wall: (units unknown) (unknown) (unknown) (no date) (unknown) (unknown) (2) Drug reaction: ( units unknown) (unknown) (unknown) (no date) (unknown) (unknown) 01/10/23 [Rx Confirmed 01/23/23] (units unknown) (unknown) (unknown) (no date) (unknown) (unknown) 01/23/23 1414 (units unknown) (unknown) (unknown) (no date) (unknown) (unknown) 01/23/23 (units unknown) (unknown) (unknown) (no date) (unknown) (unknown) 09:38 (units unknown) (unknown) (unknown) (no date) (unknown) (unknown) 2 puff inhalat ion BID #10.2 grams 03/17/22 [Rx Confirmed 01/23/23] (units unknown) (unknown) (unknown) (no date) (unknown) (unknown) 3 ml syringe/ 25g 1 2 needle #1 ea 10/06/22 [Rx Confirmed 01/23/23] (units unknown) (unknown) (unknown) (no date) (unknown) (unknown) : [id number] (units unknown) (unknown) (unknown) (no date) (unknown) (unknown) Acute neck pain (uni ts unknown) (unknown) (unknown) (no date) (unknown) (unknown) Acute thoracic back pain (units unknown) (unknown) (unknown) (no date) (unknown) (unknown) Adverse effect of unspecified drugs, medicaments and biological substances, (units unknown) (unknown) (unknown) (no date) (unknown) (unknown) Age/Sex: 32 / F Date of Service: (units unknown) (unknown) (unknown) (no date) (unknown) (unknown) Allergies (units unknown) (unknown) (unknown) (no date) (unknown) (unknown) [place] [address] (units unknown) (unknown) (unknown) (no date) (unknown) (unknown) Anaphylaxis (units unknown) (unknown) (unknown) (no date) (unknown) (unknown) Assessment + Plan (u nits unknown) (unknown) (unknown) (no date) (unknown) (unknown) Attending Dr: Marcell Fong MD (units unknown) (unknown) (unknown) (no date) (unknown) (unknown) Autonomic dysfunction (units unknown) (unknown) (unknown) (no date) (unknown) (unknown) BD #[id number] needl es 30gx1/2 #100 ea 12/01/22 [Rx Confirmed 01/23/23] (units unknown) (unknown) (unknown) (no date) (unknown) (unknown) BP 106/62 (units unknown) (unknown) (unknown) (no date) (unknown) (unknown) Cellulitis (units unknown) (unknown) (unknown) (no date) (unknown) (unknown) Cervical somat ic dysfunction (units unknown) (unknown) (unknown) (no date) (unknown) (unknown) Chief Complaint (uni ts unknown) (unknown) (unknown) (no date) (unknown) (unknown) Chief Complain t: Follow up medication reaction (units unknown) (unknown) (unknown) (no date) (unknown) (unknown) Chronic bilate ral low back pain without sciatica (units unknown) (unknown) (unknown) (no date) (unknown) (unknown) Chronic cough (units unknown) (unknown) (unknown) (no date) (unknown) (unknown) Confirmed 01/23/23] (units unknown) (unknown) (unknown) (no date) (unknown) (unknown) Cranial somati c dysfunction (units unknown) (unknown) (unknown) (no date) (unknown) (unknown) : 8 Acct:[id number] (units unknown) (unknown) (unknown) (no date) (unknown) (unknown) Date of Last Menstrual Period: 12/31/22 (units unknown) (unknown) (unknown) (no date) (unknown) (unknown) Dept at . (units unknown) (unknown) (unknown) (no date) (unknown) (unknown) Details: (units unknown) (unknown) (unknown) (no date) (unknown) (unknown) Documented By: Marcell Fong MD 01/23/23 0921 (units unknown) (unknown) (unknown) (no date) (unknown) (unknown) Due to persist ent pain in left chest wall with palpable nodules, referral to (units unknown) (unknown) (unknown) (no date) (unknown) (unknown) Encounter type : subsequent encounter Qualified Code(s): T50.905D (units unknown) (unknown) (unknown) (no date) (unknown) (unknown) Exam Narrative (unit s unknown) (unknown) (unknown) (no date) (unknown) (unknown) Exam Narrative: (uni ts unknown) (unknown) (unknown) (no date) (unknown) (unknown) Exam (units unknown) (unknown) (unknown) (no date) (unknown) (unknown) [facility] Office Visit (units unknown) (unknown) (unknown) (no date) (unknown) (unknown) Fibromyalgia (units unknown) (unknown) (unknown) (no date) (unknown) (unknown) [facility] (units unknown) (unknown) (unknown) (no date) (unknown) (unknown) HPI (units unknown) (unknown) (unknown) (no date) (unknown) (unknown) Health Managem ent reviewed with patient: Yes (units unknown) (unknown) (unknown) (no date) (unknown) (unknown) Health Management (u nits unknown) (unknown) (unknown) (no date) (unknown) (unknown) Hidradenitis suppurativa (units unknown) (unknown) (unknown) (no date) (unknown) (unknown) I verified the documentation by the medical student in the medical record. I (units unknown) (unknown) (unknown) (no date) (unknown) (unknown) Intake Note: (units unknown) (unknown) (unknown) (no date) (unknown) (unknown) Intake perform ed by: Jocelyne Munoz (units unknown) (unknown) (unknown) (no date) (unknown) (unknown) Intake (units unknown) (unknown) (unknown) (no date) (unknown) (unknown) Intake- Jose M mckenzie Staff (units unknown) (unknown) (unknown) (no date) (unknown) (unknown) Last Menstural Cycle + Details (units unknown) (unknown) (unknown) (no date) (unknown) (unknown) Left breast lump (un its unknown) (unknown) (unknown) (no date) (unknown) (unknown) Loc: [facility] (units unknown) (unknown) (unknown) (no date) (unknown) (unknown) Lumbar region somatic dysfunction (units unknown) (unknown) (unknown) (no date) (unknown) (unknown) Medical Histor y (Updated 01/23/23 @ 09:53 by Marcell Fong MD) (units unknown) (unknown) (unknown) (no date) (unknown) (unknown) Medications (units unknown) (unknown) (unknown) (no date) (unknown) (unknown) Medications: (units unknown) (unknown) (unknown) (no date) (unknown) (unknown) Kimberly is a 32 y/o female here to discuss recent adverse drug reaction. 1.5 (units unknown) (unknown) (unknown) (no date) (unknown) (unknown) Neck muscle spasm (u nits unknown) (unknown) (unknown) (no date) (unknown) (unknown) Neck stiffness (unit s unknown) (unknown) (unknown) (no date) (unknown) (unknown) Neck strain (units unknown) (unknown) (unknown) (no date) (unknown) (unknown) Nodule of chest wall (units unknown) (unknown) (unknown) (no date) (unknown) (unknown) Once she stopp ed the meds, symptoms are resolving. (units unknown) (unknown) (unknown) (no date) (unknown) (unknown) Orders: (units unknown) (unknown) (unknown) (no date) (unknown) (unknown) PFSH (units unknown) (unknown) (unknown) (no date) (unknown) (unknown) PTSD (post-tra umatic stress disorder) (units unknown) (unknown) (unknown) (no date) (unknown) (unknown) Patient had re action to Rifampin and Clindamycin. Pain under breast might be HS. (units unknown) (unknown) (unknown) (no date) (unknown) (unknown) Patient sittin g on exam table, alert, in no acute distress (units unknown) (unknown) (unknown) (no date) (unknown) (unknown) Patient: Kimberly Lewis D MR# (units unknown) (unknown) (unknown) (no date) (unknown) (unknown) Pelvic somatic dysfunction (units unknown) (unknown) (unknown) (no date) (unknown) (unknown) Plan (units unknown) (unknown) (unknown) (no date) (unknown) (unknown) Psoas syndrome (unit s unknown) (unknown) (unknown) (no date) (unknown) (unknown) Pulse 108 H (units unknown) (unknown) (unknown) (no date) (unknown) (unknown) Pulse Oximetry (%) 99 (units unknown) (unknown) (unknown) (no date) (unknown) (unknown) Qualifiers: (units unknown) (unknown) (unknown) (no date) (unknown) (unknown) Reason For Visit (un its unknown) (unknown) (unknown) (no date) (unknown) (unknown) Referral Gener al Surgery R07.89 - Other chest pain, R22.2 - Localized swelling, (units unknown) (unknown) (unknown) (no date) (unknown) (unknown) Referrals (units unknown) (unknown) (unknown) (no date) (unknown) (unknown) Refilled (units unknown) (unknown) (unknown) (no date) (unknown) (unknown) Sacral region somatic dysfunction (units unknown) (unknown) (unknown) (no date) (unknown) (unknown) Segmental and somatic dysfunction of abdomen and other regions (units unknown) (unknown) (unknown) (no date) (unknown) (unknown) Sensation of f eeling cold (units unknown) (unknown) (unknown) (no date) (unknown) (unknown) Signed By: <Electronically signed by Marcell Fong MD> (units unknown) (unknown) (unknown) (no date) (unknown) (unknown) Signed (units unknown) (unknown) (unknown) (no date) (unknown) (unknown) Smoking Status : Former smoker (units unknown) (unknown) (unknown) (no date) (unknown) (unknown) Status: Acute (units unknown) (unknown) (unknown) (no date) (unknown) (unknown) THROAT CLOSURE (unit s unknown) (unknown) (unknown) (no date) (unknown) (unknown) Tachycardia (units unknown) (unknown) (unknown) (no date) (unknown) (unknown) This note may have been all or partially generated using voice recognition (units unknown) (unknown) (unknown) (no date) (unknown) (unknown) Thoracic regio n somatic dysfunction (units unknown) (unknown) (unknown) (no date) (unknown) (unknown) Tobacco + Subs tance Use (units unknown) (unknown) (unknown) (no date) (unknown) (unknown) Tobacco Status (unit s unknown) (unknown) (unknown) (no date) (unknown) (unknown) Tobacco: How m any years used: 13 (units unknown) (unknown) (unknown) (no date) (unknown) (unknown) Visit Reasons: follow up med reaction (units unknown) (unknown) (unknown) (no date) (unknown) (unknown) Vitals (units unknown) (unknown) (unknown) (no date) (unknown) (unknown) Weight 163 lb (units unknown) (unknown) (unknown) (no date) (unknown) (unknown) [Rx Confirmed 01/23/23] (units unknown) (unknown) (unknown) (no date) (unknown) (unknown) a day of stopp ing the medications, her symptoms resolved and she feels much (units unknown) (unknown) (unknown) (no date) (unknown) (unknown) agreeable to dorys patel Referral sent. No evidence of persistent drug reaction at (units unknown) (unknown) (unknown) (no date) (unknown) (unknown) alcohol intake : current (units unknown) (unknown) (unknown) (no date) (unknown) (unknown) anaphylaxis (units unknown) (unknown) (unknown) (no date) (unknown) (unknown) benzonatate 10 0 mg capsule 100 mg PO BID-TID PRN cough #60 caps 09/09/22 [Rx (units unknown) (unknown) (unknown) (no date) (unknown) (unknown) better now. Sh e reports no improvement in discomfort on left chest wall and (units unknown) (unknown) (unknown) (no date) (unknown) (unknown) breast, patien t began experiencing joint pains, orange urine, and 'ayon (units unknown) (unknown) (unknown) (no date) (unknown) (unknown) budesonide-for motero l HFA 160 mcg-4.5 mcg/actuation aerosol inhaler (Symbicort) (units unknown) (unknown) (unknown) (no date) (unknown) (unknown) cefazolin Mc rgy (Verified 01/04/23 15:22) (units unknown) (unknown) (unknown) (no date) (unknown) (unknown) cefprozil [CEFPROZIL] Adverse Reaction (Unknown, Verified 01/04/23 15:22) (units unknown) (unknown) (unknown) (no date) (unknown) (unknown) cholecalcifero l (vitamin D3) 1,250 mcg (50,000 unit) capsule 1,250 mcg PO QWEEK (units unknown) (unknown) (unknown) (no date) (unknown) (unknown) clindamycin phosphate 1 % topical solution See Rx Instructions .Route .COMPLEX (units unknown) (unknown) (unknown) (no date) (unknown) (unknown) days after sta rting clindamycin and rifampin for suspected HS under her left (units unknown) (unknown) (unknown) (no date) (unknown) (unknown) do not exceed 3 doses per episode 0.3 mg (0.3 mL) IM Q5-15M PRN 2 ea 0RF (units unknown) (unknown) (unknown) (no date) (unknown) (unknown) doxycycline Al lergy (Verified 01/04/23 15:22) (units unknown) (unknown) (unknown) (no date) (unknown) (unknown) epinephrine (E piPen 2-Kaleb) (units unknown) (unknown) (unknown) (no date) (unknown) (unknown) epinephrine 0. 3 mg/0.3 mL injection, auto-injector (EpiPen 2-Kaleb) 0.3 mg (0.3 (units unknown) (unknown) (unknown) (no date) (unknown) (unknown) general surger y for further evaluation is best next step. Ultrasound and (units unknown) (unknown) (unknown) (no date) (unknown) (unknown) have occurred. If there are any questions, please contact the Medical Records (units unknown) (unknown) (unknown) (no date) (unknown) (unknown) iate changes t o the documentation and agree with the assessment and plan based (units unknown) (unknown) (unknown) (no date) (unknown) (unknown) ibuprofen 800 mg tablet See Rx Instructions .Route .COMPLEX #90 tabs 10/17/22 (units unknown) (unknown) (unknown) (no date) (unknown) (unknown) ketorolac [KETOROLAC] Adverse Reaction (Unknown, Verified 01/04/23 15:22) (units unknown) (unknown) (unknown) (no date) (unknown) (unknown) latex [LATEX] Allergy (Unknown, Verified 01/04/23 15:22) (units unknown) (unknown) (unknown) (no date) (unknown) (unknown) mL) IM Q5-15M PRN anaphylaxis #2 ea 01/23/23 [Rx Confirmed 01/23/23] (units unknown) (unknown) (unknown) (no date) (unknown) (unknown) mammogram fair ly unremarkable. This could be radicular symptom but given (units unknown) (unknown) (unknown) (no date) (unknown) (unknown) mass and lump, trunk (units unknown) (unknown) (unknown) (no date) (unknown) (unknown) may occur. Occasional wrong-word or 'sound-alike' substitutions may have (units unknown) (unknown) (unknown) (no date) (unknown) (unknown) mecobalamin (v itamin B12) 10,000 mcg solution for injection 1,000 mcg IM MONTHLY (units unknown) (unknown) (unknown) (no date) (unknown) (unknown) metoclopramide [From Reglan] Adverse Reaction (Verified 01/04/23 15:22) (units unknown) (unknown) (unknown) (no date) (unknown) (unknown) multivitamin ( Daily Multi-Vitamin tablet) 1 tab PO DAILY 01/04/23 [History (units unknown) (unknown) (unknown) (no date) (unknown) (unknown) occurred due t o the inherent limitations of voice recognition software. Please (units unknown) (unknown) (unknown) (no date) (unknown) (unknown) on my verifica tion, exam and medical decision making. (units unknown) (unknown) (unknown) (no date) (unknown) (unknown) palpable area of nodularity, will have surgery evaluate further. Patient (units unknown) (unknown) (unknown) (no date) (unknown) (unknown) personally per formed a physical exam and medical decision making. I made appropr (units unknown) (unknown) (unknown) (no date) (unknown) (unknown) quit status: considering quitting (units unknown) (unknown) (unknown) (no date) (unknown) (unknown) read the note carefully and recognize, using context, where these substitutions (units unknown) (unknown) (unknown) (no date) (unknown) (unknown) shrimp Allergy (Severe, Verified 01/04/23 15:22) (units unknown) (unknown) (unknown) (no date) (unknown) (unknown) skin/flushing' and went to [facility] ER for evaluation. The ER did blood (units unknown) (unknown) (unknown) (no date) (unknown) (unknown) software. Alth ough every effort is made to edit content, manager shift errors (units unknown) (unknown) (unknown) (no date) (unknown) (unknown) subsequent encounter (units unknown) (unknown) (unknown) (no date) (unknown) (unknown) substance use type: does not use (units unknown) (unknown) (unknown) (no date) (unknown) (unknown) this point. (units unknown) (unknown) (unknown) (no date) (unknown) (unknown) work, which re turned normal, and advised her to terminate antibiotic use. Within (units unknown) (unknown) (unknown) (no date) (unknown) (unknown) would like fur ther evaluation. (units unknown) (unknown) (unknown) (no date) (unknown) (unknown) zolpidem 10 mg tablet See Rx Instructions PO BEDTIME PRN insomnia #30 tabs (units unknown) (unknown) Result panel 22 (unknown) (no date) (unknown) (unknown) (no value) (units unknown) (unknown) (unknown) (no date) (unknown) (unknown) #1 ea 10/06/22 [Rx Confirmed 01/25/23] (units unknown) (unknown) (unknown) (no date) (unknown) (unknown) #12 caps 11/07 [Rx Confirmed 01/25/23] (units unknown) (unknown) (unknown) (no date) (unknown) (unknown) #60 mL 3 [Rx Confirmed 01/25/23] (units unknown) (unknown) (unknown) (no date) (unknown) (unknown) 01/10/23 [Rx Confirmed 01/25/23] (units unknown) (unknown) (unknown) (no date) (unknown) (unknown) 01/25/23 (units unknown) (unknown) (unknown) (no date) (unknown) (unknown) 2 puff inhalat ion BID #10.2 grams 03/17/22 [Rx Confirmed 01/25/23] (units unknown) (unknown) (unknown) (no date) (unknown) (unknown) 3 ml syringe/ 25g 1 1/2 needle #1 ea 10/06/22 [Rx Confirmed 01/25/23] (units unknown) (unknown) (unknown) (no date) (unknown) (unknown) : [id number] (units unknown) (unknown) (unknown) (no date) (unknown) (unknown) Acute neck pain (uni ts unknown) (unknown) (unknown) (no date) (unknown) (unknown) Acute thoracic back pain (units unknown) (unknown) (unknown) (no date) (unknown) (unknown) Age/Sex: 33 / F Date of Service: (units unknown) (unknown) (unknown) (no date) (unknown) (unknown) Allergies (units unknown) (unknown) (unknown) (no date) (unknown) (unknown) [place] [address] (units unknown) (unknown) (unknown) (no date) (unknown) (unknown) Anaphylaxis (units unknown) (unknown) (unknown) (no date) (unknown) (unknown) Attending Dr: Alton Shirley MD (units unknown) (unknown) (unknown) (no date) (unknown) (unknown) Autonomic dysfunction (units unknown) (unknown) (unknown) (no date) (unknown) (unknown) BD #[id number] needl es 30gx1/2 #100 ea 12/01/22 [Rx Confirmed 01/25/23] (units unknown) (unknown) (unknown) (no date) (unknown) (unknown) Cellulitis (units unknown) (unknown) (unknown) (no date) (unknown) (unknown) Cervical somat ic dysfunction (units unknown) (unknown) (unknown) (no date) (unknown) (unknown) Chief Complaint (uni ts unknown) (unknown) (unknown) (no date) (unknown) (unknown) Chief Complain t: Left breast tender nodule (units unknown) (unknown) (unknown) (no date) (unknown) (unknown) Chronic bilate ral low back pain without sciatica (units unknown) (unknown) (unknown) (no date) (unknown) (unknown) Chronic cough (units unknown) (unknown) (unknown) (no date) (unknown) (unknown) Confirmed 01/25/23] (units unknown) (unknown) (unknown) (no date) (unknown) (unknown) Cranial somati c dysfunction (units unknown) (unknown) (unknown) (no date) (unknown) (unknown) : 8 Acct:[id number] (units unknown) (unknown) (unknown) (no date) (unknown) (unknown) Dept at . (units unknown) (unknown) (unknown) (no date) (unknown) (unknown) Details: (units unknown) (unknown) (unknown) (no date) (unknown) (unknown) Documented By: Alton Shirley MD 01/25/23 1009 (units unknown) (unknown) (unknown) (no date) (unknown) (unknown) Draft (units unknown) (unknown) (unknown) (no date) (unknown) (unknown) Fibromyalgia (units unknown) (unknown) (unknown) (no date) (unknown) (unknown) HPI (units unknown) (unknown) (unknown) (no date) (unknown) (unknown) Hidradenitis suppurativa (units unknown) (unknown) (unknown) (no date) (unknown) (unknown) Intake Clinica l Staff (units unknown) (unknown) (unknown) (no date) (unknown) (unknown) Intake perform ed by: Ale Sneed (units unknown) (unknown) (unknown) (no date) (unknown) (unknown) Intake (units unknown) (unknown) (unknown) (no date) (unknown) (unknown) Is patient in pain?: Yes (units unknown) (unknown) (unknown) (no date) (unknown) (unknown) [facility] (uni ts unknown) (unknown) (unknown) (no date) (unknown) (unknown) Left breast lump (un its unknown) (unknown) (unknown) (no date) (unknown) (unknown) Loc: [facility] (units unknown) (unknown) (unknown) (no date) (unknown) (unknown) Lumbar region somatic dysfunction (units unknown) (unknown) (unknown) (no date) (unknown) (unknown) Medical Histor y (Updated 01/23/23 @ 09:53 by Marcell Fong MD) (units unknown) (unknown) (unknown) (no date) (unknown) (unknown) Medications (units unknown) (unknown) (unknown) (no date) (unknown) (unknown) Kimberly is a 33-year-old woman with a tender left breast nodule located along (units unknown) (unknown) (unknown) (no date) (unknown) (unknown) Neck muscle spasm (u nits unknown) (unknown) (unknown) (no date) (unknown) (unknown) Neck stiffness (unit s unknown) (unknown) (unknown) (no date) (unknown) (unknown) Neck strain (units unknown) (unknown) (unknown) (no date) (unknown) (unknown) Nodule of chest wall (units unknown) (unknown) (unknown) (no date) (unknown) (unknown) PFSH (units unknown) (unknown) (unknown) (no date) (unknown) (unknown) PTSD (post-tra umatic stress disorder) (units unknown) (unknown) (unknown) (no date) (unknown) (unknown) Pain Scale (units unknown) (unknown) (unknown) (no date) (unknown) (unknown) Patient: Kimberly Lewis MR# (units unknown) (unknown) (unknown) (no date) (unknown) (unknown) Pelvic somatic dysfunction (units unknown) (unknown) (unknown) (no date) (unknown) (unknown) Psoas syndrome (unit s unknown) (unknown) (unknown) (no date) (unknown) (unknown) Reason For Visit (un its unknown) (unknown) (unknown) (no date) (unknown) (unknown) Sacral region somatic dysfunction (units unknown) (unknown) (unknown) (no date) (unknown) (unknown) Segmental and somatic dysfunction of abdomen and other regions (units unknown) (unknown) (unknown) (no date) (unknown) (unknown) Sensation of f eeling cold (units unknown) (unknown) (unknown) (no date) (unknown) (unknown) Signed By: (units unknown) (unknown) (unknown) (no date) (unknown) (unknown) Smoking Status : Former smoker (units unknown) (unknown) (unknown) (no date) (unknown) (unknown) Social History (units unknown) (unknown) (unknown) (no date) (unknown) (unknown) Surgery Office Visit (units unknown) (unknown) (unknown) (no date) (unknown) (unknown) THROAT CLOSURE (unit s unknown) (unknown) (unknown) (no date) (unknown) (unknown) Tachycardia (units unknown) (unknown) (unknown) (no date) (unknown) (unknown) This note may have been all or partially generated using voice recognition (units unknown) (unknown) (unknown) (no date) (unknown) (unknown) Thoracic regio n somatic dysfunction (units unknown) (unknown) (unknown) (no date) (unknown) (unknown) Tobacco Status (unit s unknown) (unknown) (unknown) (no date) (unknown) (unknown) Tobacco: How m any years used: 13 (units unknown) (unknown) (unknown) (no date) (unknown) (unknown) Visit Reasons: cons/horras/breast pain (units unknown) (unknown) (unknown) (no date) (unknown) (unknown) [Rx Confirmed 01/25/23] (units unknown) (unknown) (unknown) (no date) (unknown) (unknown) alcohol intake : current (units unknown) (unknown) (unknown) (no date) (unknown) (unknown) benzonatate 10 0 mg capsule 100 mg PO BID-TID PRN cough #60 caps 09/09/22 [Rx (units unknown) (unknown) (unknown) (no date) (unknown) (unknown) budesonide-for motero l HFA 160 mcg-4.5 mcg/actuation aerosol inhaler (Symbicort) (units unknown) (unknown) (unknown) (no date) (unknown) (unknown) cefazolin Mc rgy (Verified 01/25/23 10:10) (units unknown) (unknown) (unknown) (no date) (unknown) (unknown) cefprozil [CEFPROZIL] Adverse Reaction (Unknown, Verified 01/25/23 10:10) (units unknown) (unknown) (unknown) (no date) (unknown) (unknown) cholecalcifero l (vitamin D3) 1,250 mcg (50,000 unit) capsule 1,250 mcg PO QWEEK (units unknown) (unknown) (unknown) (no date) (unknown) (unknown) clindamycin phosphate 1 % topical solution See Rx Instructions .Route .COMPLEX (units unknown) (unknown) (unknown) (no date) (unknown) (unknown) doxycycline Al lergy (Verified 01/25/23 10:10) (units unknown) (unknown) (unknown) (no date) (unknown) (unknown) epinephrine 0. 3 mg/0.3 mL injection, auto-injector (EpiPen 2-Kaleb) 0.3 mg (0.3 (units unknown) (unknown) (unknown) (no date) (unknown) (unknown) have occurred. If there are any questions, please contact the Medical Records (units unknown) (unknown) (unknown) (no date) (unknown) (unknown) ibuprofen 800 mg tablet See Rx Instructions .Route .COMPLEX #90 tabs 10/17/22 (units unknown) (unknown) (unknown) (no date) (unknown) (unknown) irritate the n odule. It does not fluctuate in size or tenderness throughout the (units unknown) (unknown) (unknown) (no date) (unknown) (unknown) it in October and it has been constant since then. Her bra strap tends to (units unknown) (unknown) (unknown) (no date) (unknown) (unknown) ketorolac [KETOROLAC] Adverse Reaction (Unknown, Verified 01/25/23 10:10) (units unknown) (unknown) (unknown) (no date) (unknown) (unknown) latex [LATEX] Allergy (Unknown, Verified 01/25/23 10:10) (units unknown) (unknown) (unknown) (no date) (unknown) (unknown) mL) IM Q5-15M PRN anaphylaxis #2 ea 01/23/23 [Rx Confirmed 01/25/23] (units unknown) (unknown) (unknown) (no date) (unknown) (unknown) may occur. Occasional wrong-word or 'sound-alike' substitutions may have (units unknown) (unknown) (unknown) (no date) (unknown) (unknown) mecobalamin (v itamin B12) 10,000 mcg solution for injection 1,000 mcg IM MONTHLY (units unknown) (unknown) (unknown) (no date) (unknown) (unknown) metoclopramide [From Reglan] Adverse Reaction (Verified 01/25/23 10:10) (units unknown) (unknown) (unknown) (no date) (unknown) (unknown) month or throu ghout the day. (units unknown) (unknown) (unknown) (no date) (unknown) (unknown) multivitamin ( Daily Multi-Vitamin tablet) 1 tab PO DAILY 01/04/23 [History (units unknown) (unknown) (unknown) (no date) (unknown) (unknown) occurred due t o the inherent limitations of voice recognition software. Please (units unknown) (unknown) (unknown) (no date) (unknown) (unknown) quit status: considering quitting (units unknown) (unknown) (unknown) (no date) (unknown) (unknown) read the note carefully and recognize, using context, where these substitutions (units unknown) (unknown) (unknown) (no date) (unknown) (unknown) shrimp Allergy (Severe, Verified 01/25/23 10:10) (units unknown) (unknown) (unknown) (no date) (unknown) (unknown) software. Alth ough every effort is made to edit content, manager shift errors (units unknown) (unknown) (unknown) (no date) (unknown) (unknown) substance use type: does not use (units unknown) (unknown) (unknown) (no date) (unknown) (unknown) the inferior p ortion of her left breast near the chest wall. She first noticed (units unknown) (unknown) (unknown) (no date) (unknown) (unknown) zolpidem 10 mg tablet See Rx Instructions PO BEDTIME PRN insomnia #30 tabs (units unknown) (unknown) Result panel 23 (unknown) (no date) (unknown) (unknown) (no value) (units unknown) (unknown) (unknown) (no date) (unknown) (unknown) #1 ea 10/06/22 [Rx Confirmed 01/25/23] (units unknown) (unknown) (unknown) (no date) (unknown) (unknown) #12 caps 11/07 [Rx Confirmed 01/25/23] (units unknown) (unknown) (unknown) (no date) (unknown) (unknown) #60 mL 3 [Rx Confirmed 01/25/23] (units unknown) (unknown) (unknown) (no date) (unknown) (unknown) 01/10/23 [Rx Confirmed 01/25/23] (units unknown) (unknown) (unknown) (no date) (unknown) (unknown) 01/25/23 (units unknown) (unknown) (unknown) (no date) (unknown) (unknown) 10:14 (units unknown) (unknown) (unknown) (no date) (unknown) (unknown) 2 puff inhalat ion BID #10.2 grams 03/17/22 [Rx Confirmed 01/25/23] (units unknown) (unknown) (unknown) (no date) (unknown) (unknown) 3 ml syringe/ 25g 1 12 needle #1 ea 10/06/22 [Rx Confirmed 01/25/23] (units unknown) (unknown) (unknown) (no date) (unknown) (unknown) : [id number] (units unknown) (unknown) (unknown) (no date) (unknown) (unknown) Acute neck pain (uni ts unknown) (unknown) (unknown) (no date) (unknown) (unknown) Acute thoracic back pain (units unknown) (unknown) (unknown) (no date) (unknown) (unknown) Age at menarche: 8 (units unknown) (unknown) (unknown) (no date) (unknown) (unknown) Age when first child born?: 19 (units unknown) (unknown) (unknown) (no date) (unknown) (unknown) Age/Sex: 33 / F Date of Service: (units unknown) (unknown) (unknown) (no date) (unknown) (unknown) Allergies (units unknown) (unknown) (unknown) (no date) (unknown) (unknown) [place] [address] (units unknown) (unknown) (unknown) (no date) (unknown) (unknown) Anaphylaxis (units unknown) (unknown) (unknown) (no date) (unknown) (unknown) Attending Dr: Alton Shirley MD (units unknown) (unknown) (unknown) (no date) (unknown) (unknown) Autonomic dysfunction (units unknown) (unknown) (unknown) (no date) (unknown) (unknown) BD #[id number] needl es 30gx1/2 #100 ea 12/01/22 [Rx Confirmed 01/25/23] (units unknown) (unknown) (unknown) (no date) (unknown) (unknown) BMI 30.1 (units unknown) (unknown) (unknown) (no date) (unknown) (unknown) BP 110/72 (units unknown) (unknown) (unknown) (no date) (unknown) (unknown) Blood Pressure Location Lt brachial (units unknown) (unknown) (unknown) (no date) (unknown) (unknown) Cellulitis (units unknown) (unknown) (unknown) (no date) (unknown) (unknown) Cervical somat ic dysfunction (units unknown) (unknown) (unknown) (no date) (unknown) (unknown) Chief Complaint (uni ts unknown) (unknown) (unknown) (no date) (unknown) (unknown) Chief Complain t: Left breast tender nodule (units unknown) (unknown) (unknown) (no date) (unknown) (unknown) Chronic bilate ral low back pain without sciatica (units unknown) (unknown) (unknown) (no date) (unknown) (unknown) Chronic cough (units unknown) (unknown) (unknown) (no date) (unknown) (unknown) Confirmed 01/25/23] (units unknown) (unknown) (unknown) (no date) (unknown) (unknown) Cranial somati c dysfunction (units unknown) (unknown) (unknown) (no date) (unknown) (unknown) : 8 Acct:[id number] (units unknown) (unknown) (unknown) (no date) (unknown) (unknown) Date of Last Menstrual Period: 12/31/22 (units unknown) (unknown) (unknown) (no date) (unknown) (unknown) Dept at . (units unknown) (unknown) (unknown) (no date) (unknown) (unknown) Details: (units unknown) (unknown) (unknown) (no date) (unknown) (unknown) Did you breast feed?: Yes (units unknown) (unknown) (unknown) (no date) (unknown) (unknown) Documented By: Alton Shirley MD 01/25/23 1009 (units unknown) (unknown) (unknown) (no date) (unknown) (unknown) Draft (units unknown) (unknown) (unknown) (no date) (unknown) (unknown) Fibromyalgia (units unknown) (unknown) (unknown) (no date) (unknown) (unknown) : 1 (units unknown) (unknown) (unknown) (no date) (unknown) (unknown) HPI (units unknown) (unknown) (unknown) (no date) (unknown) (unknown) Height 5 ft 1.5 in ( units unknown) (unknown) (unknown) (no date) (unknown) (unknown) Hidradenitis suppurativa (units unknown) (unknown) (unknown) (no date) (unknown) (unknown) Intake Clinica l Staff (units unknown) (unknown) (unknown) (no date) (unknown) (unknown) Intake perform ed by: Ale Sneed (units unknown) (unknown) (unknown) (no date) (unknown) (unknown) Intake (units unknown) (unknown) (unknown) (no date) (unknown) (unknown) Is patient in pain?: Yes (units unknown) (unknown) (unknown) (no date) (unknown) (unknown) [facility] (uni ts unknown) (unknown) (unknown) (no date) (unknown) (unknown) Left breast lump (un its unknown) (unknown) (unknown) (no date) (unknown) (unknown) Loc: [facility] (units unknown) (unknown) (unknown) (no date) (unknown) (unknown) Lumbar region somatic dysfunction (units unknown) (unknown) (unknown) (no date) (unknown) (unknown) Medical Histor y (units unknown) (unknown) (unknown) (no date) (unknown) (unknown) Medications (units unknown) (unknown) (unknown) (no date) (unknown) (unknown) Kimberly is a 33-year-old woman with a tender left breast nodule located along (units unknown) (unknown) (unknown) (no date) (unknown) (unknown) Neck muscle spasm (u nits unknown) (unknown) (unknown) (no date) (unknown) (unknown) Neck stiffness (unit s unknown) (unknown) (unknown) (no date) (unknown) (unknown) Neck strain (units unknown) (unknown) (unknown) (no date) (unknown) (unknown) Nodule of chest wall (units unknown) (unknown) (unknown) (no date) (unknown) (unknown) [employer] and Kala [facility] History (units unknown) (unknown) (unknown) (no date) (unknown) (unknown) Oxygen Deliver y Method room air (units unknown) (unknown) (unknown) (no date) (unknown) (unknown) PFSH (units unknown) (unknown) (unknown) (no date) (unknown) (unknown) PTSD (post-tra umatic stress disorder) (units unknown) (unknown) (unknown) (no date) (unknown) (unknown) Pain Location (units unknown) (unknown) (unknown) (no date) (unknown) (unknown) Pain Scale (units unknown) (unknown) (unknown) (no date) (unknown) (unknown) Pain location( s):: 5/10 (units unknown) (unknown) (unknown) (no date) (unknown) (unknown) Para: 1 (units unknown) (unknown) (unknown) (no date) (unknown) (unknown) Patient: Kimberly Lewis MR# (units unknown) (unknown) (unknown) (no date) (unknown) (unknown) Pelvic somatic dysfunction (units unknown) (unknown) (unknown) (no date) (unknown) (unknown) Position Sitting (un its unknown) (unknown) (unknown) (no date) (unknown) (unknown) Psoas syndrome (unit s unknown) (unknown) (unknown) (no date) (unknown) (unknown) Pulse 90 (units unknown) (unknown) (unknown) (no date) (unknown) (unknown) Pulse Oximetry (%) 98 (units unknown) (unknown) (unknown) (no date) (unknown) (unknown) Pulse Source Monitor (units unknown) (unknown) (unknown) (no date) (unknown) (unknown) Reason For Visit (un its unknown) (unknown) (unknown) (no date) (unknown) (unknown) Sacral region somatic dysfunction (units unknown) (unknown) (unknown) (no date) (unknown) (unknown) Segmental and somatic dysfunction of abdomen and other regions (units unknown) (unknown) (unknown) (no date) (unknown) (unknown) Sensation of f eeling cold (units unknown) (unknown) (unknown) (no date) (unknown) (unknown) Signed By: (units unknown) (unknown) (unknown) (no date) (unknown) (unknown) Smoking Status : Former smoker (units unknown) (unknown) (unknown) (no date) (unknown) (unknown) Social History (units unknown) (unknown) (unknown) (no date) (unknown) (unknown) Surgery Office Visit (units unknown) (unknown) (unknown) (no date) (unknown) (unknown) THROAT CLOSURE (unit s unknown) (unknown) (unknown) (no date) (unknown) (unknown) Tachycardia (units unknown) (unknown) (unknown) (no date) (unknown) (unknown) Temp 97.9 F (units unknown) (unknown) (unknown) (no date) (unknown) (unknown) Temp Source Te mporal Artery Scan (units unknown) (unknown) (unknown) (no date) (unknown) (unknown) This note may have been all or partially generated using voice recognition (units unknown) (unknown) (unknown) (no date) (unknown) (unknown) Thoracic regio n somatic dysfunction (units unknown) (unknown) (unknown) (no date) (unknown) (unknown) Tobacco Status (unit s unknown) (unknown) (unknown) (no date) (unknown) (unknown) Tobacco: How m any years used: 13 (units unknown) (unknown) (unknown) (no date) (unknown) (unknown) Visit Reasons: cons/horras/breast pain (units unknown) (unknown) (unknown) (no date) (unknown) (unknown) Vitals (units unknown) (unknown) (unknown) (no date) (unknown) (unknown) Weight 162 lb 4 oz ( units unknown) (unknown) (unknown) (no date) (unknown) (unknown) [Rx Confirmed 01/25/23] (units unknown) (unknown) (unknown) (no date) (unknown) (unknown) alcohol intake : current (units unknown) (unknown) (unknown) (no date) (unknown) (unknown) benzonatate 10 0 mg capsule 100 mg PO BID-TID PRN cough #60 caps 09/09/22 [Rx (units unknown) (unknown) (unknown) (no date) (unknown) (unknown) budesonide-for motero l HFA 160 mcg-4.5 mcg/actuation aerosol inhaler (Symbicort) (units unknown) (unknown) (unknown) (no date) (unknown) (unknown) cefazolin Mc rgy (Verified 01/25/23 10:10) (units unknown) (unknown) (unknown) (no date) (unknown) (unknown) cefprozil [CEFPROZIL] Adverse Reaction (Unknown, Verified 01/25/23 10:10) (units unknown) (unknown) (unknown) (no date) (unknown) (unknown) cholecalcifero l (vitamin D3) 1,250 mcg (50,000 unit) capsule 1,250 mcg PO QWEEK (units unknown) (unknown) (unknown) (no date) (unknown) (unknown) clindamycin phosphate 1 % topical solution See Rx Instructions .Route .COMPLEX (units unknown) (unknown) (unknown) (no date) (unknown) (unknown) doxycycline Al lergy (Verified 01/25/23 10:10) (units unknown) (unknown) (unknown) (no date) (unknown) (unknown) epinephrine 0. 3 mg/0.3 mL injection, auto-injector (EpiPen 2-Kaleb) 0.3 mg (0.3 (units unknown) (unknown) (unknown) (no date) (unknown) (unknown) have occurred. If there are any questions, please contact the Medical Records (units unknown) (unknown) (unknown) (no date) (unknown) (unknown) ibuprofen 800 mg tablet See Rx Instructions .Route .COMPLEX #90 tabs 10/17/22 (units unknown) (unknown) (unknown) (no date) (unknown) (unknown) irritate the n odule. It does not fluctuate in size or tenderness throughout the (units unknown) (unknown) (unknown) (no date) (unknown) (unknown) it in October and it has been constant since then. Her bra strap tends to (units unknown) (unknown) (unknown) (no date) (unknown) (unknown) ketorolac [KETOROLAC] Adverse Reaction (Unknown, Verified 01/25/23 10:10) (units unknown) (unknown) (unknown) (no date) (unknown) (unknown) latex [LATEX] Allergy (Unknown, Verified 01/25/23 10:10) (units unknown) (unknown) (unknown) (no date) (unknown) (unknown) mL) IM Q5-15M PRN anaphylaxis #2 ea 01/23/23 [Rx Confirmed 01/25/23] (units unknown) (unknown) (unknown) (no date) (unknown) (unknown) may occur. Occasional wrong-word or 'sound-alike' substitutions may have (units unknown) (unknown) (unknown) (no date) (unknown) (unknown) mecobalamin (v itamin B12) 10,000 mcg solution for injection 1,000 mcg IM MONTHLY (units unknown) (unknown) (unknown) (no date) (unknown) (unknown) metoclopramide [From Reglan] Adverse Reaction (Verified 01/25/23 10:10) (units unknown) (unknown) (unknown) (no date) (unknown) (unknown) month or throu ghout the day. (units unknown) (unknown) (unknown) (no date) (unknown) (unknown) multivitamin ( Daily Multi-Vitamin tablet) 1 tab PO DAILY 01/04/23 [History (units unknown) (unknown) (unknown) (no date) (unknown) (unknown) occurred due t o the inherent limitations of voice recognition software. Please (units unknown) (unknown) (unknown) (no date) (unknown) (unknown) quit status: considering quitting (units unknown) (unknown) (unknown) (no date) (unknown) (unknown) read the note carefully and recognize, using context, where these substitutions (units unknown) (unknown) (unknown) (no date) (unknown) (unknown) shrimp Allergy (Severe, Verified 01/25/23 10:10) (units unknown) (unknown) (unknown) (no date) (unknown) (unknown) software. Alth ough every effort is made to edit content, manager shift errors (units unknown) (unknown) (unknown) (no date) (unknown) (unknown) substance use type: does not use (units unknown) (unknown) (unknown) (no date) (unknown) (unknown) the inferior p ortion of her left breast near the chest wall. She first noticed (units unknown) (unknown) (unknown) (no date) (unknown) (unknown) zolpidem 10 mg tablet See Rx Instructions PO BEDTIME PRN insomnia #30 tabs (units unknown) (unknown) Result panel 24 (unknown) (no date) (unknown) (unknown) (no value) (units unknown) (unknown) (unknown) (no date) (unknown) (unknown) #1 ea 10/06/22 [Rx Confirmed 01/25/23] (units unknown) (unknown) (unknown) (no date) (unknown) (unknown) #12 caps 11/07 [Rx Confirmed 01/25/23] (units unknown) (unknown) (unknown) (no date) (unknown) (unknown) #60 mL 3 [Rx Confirmed 01/25/23] (units unknown) (unknown) (unknown) (no date) (unknown) (unknown) (1) Nodule of chest wall: (units unknown) (unknown) (unknown) (no date) (unknown) (unknown) 01/10/23 [Rx Confirmed 01/25/23] (units unknown) (unknown) (unknown) (no date) (unknown) (unknown) 01/25/23 (units unknown) (unknown) (unknown) (no date) (unknown) (unknown) 10:14 (units unknown) (unknown) (unknown) (no date) (unknown) (unknown) 2 puff inhalat ion BID #10.2 grams 03/17/22 [Rx Confirmed 01/25/23] (units unknown) (unknown) (unknown) (no date) (unknown) (unknown) 3 ml syringe/ 25g 1 2 needle #1 ea 10/06/22 [Rx Confirmed 01/25/23] (units unknown) (unknown) (unknown) (no date) (unknown) (unknown) : [id number] (units unknown) (unknown) (unknown) (no date) (unknown) (unknown) Acute neck pain (uni ts unknown) (unknown) (unknown) (no date) (unknown) (unknown) Acute thoracic back pain (units unknown) (unknown) (unknown) (no date) (unknown) (unknown) Age at menarche: 8 (units unknown) (unknown) (unknown) (no date) (unknown) (unknown) Age when first child born?: 19 (units unknown) (unknown) (unknown) (no date) (unknown) (unknown) Age/Sex: 33 / F Date of Service: (units unknown) (unknown) (unknown) (no date) (unknown) (unknown) Allergies (units unknown) (unknown) (unknown) (no date) (unknown) (unknown) [place] [address] (units unknown) (unknown) (unknown) (no date) (unknown) (unknown) Anaphylaxis (units unknown) (unknown) (unknown) (no date) (unknown) (unknown) Assessment + Plan (u nits unknown) (unknown) (unknown) (no date) (unknown) (unknown) Attending : Alton Shirley MD (units unknown) (unknown) (unknown) (no date) (unknown) (unknown) Autonomic dysfunction (units unknown) (unknown) (unknown) (no date) (unknown) (unknown) BD #[id number] needl es 30gx1/2 #100 ea 12/01/22 [Rx Confirmed 01/25/23] (units unknown) (unknown) (unknown) (no date) (unknown) (unknown) BMI 30.1 (units unknown) (unknown) (unknown) (no date) (unknown) (unknown) BP 110/72 (units unknown) (unknown) (unknown) (no date) (unknown) (unknown) Blood Pressure Location Lt brachial (units unknown) (unknown) (unknown) (no date) (unknown) (unknown) Cellulitis (units unknown) (unknown) (unknown) (no date) (unknown) (unknown) Cervical somat ic dysfunction (units unknown) (unknown) (unknown) (no date) (unknown) (unknown) Chief Complaint (uni ts unknown) (unknown) (unknown) (no date) (unknown) (unknown) Chief Complain t: Left breast tender nodule (units unknown) (unknown) (unknown) (no date) (unknown) (unknown) Chronic bilate ral low back pain without sciatica (units unknown) (unknown) (unknown) (no date) (unknown) (unknown) Chronic cough (units unknown) (unknown) (unknown) (no date) (unknown) (unknown) Confirmed 01/25/23] (units unknown) (unknown) (unknown) (no date) (unknown) (unknown) Cranial somati c dysfunction (units unknown) (unknown) (unknown) (no date) (unknown) (unknown) : 8 Acct:[id number] (units unknown) (unknown) (unknown) (no date) (unknown) (unknown) Date of Last Menstrual Period: 12/31/22 (units unknown) (unknown) (unknown) (no date) (unknown) (unknown) September. She has been taking ibuprofen approximately 800 mg every 2-3 days. (units unknown) (unknown) (unknown) (no date) (unknown) (unknown) Dept at . (units unknown) (unknown) (unknown) (no date) (unknown) (unknown) Details: (units unknown) (unknown) (unknown) (no date) (unknown) (unknown) Did you breast feed?: Yes (units unknown) (unknown) (unknown) (no date) (unknown) (unknown) Documented By: Alton Shirley MD 01/25/23 1009 (units unknown) (unknown) (unknown) (no date) (unknown) (unknown) Draft (units unknown) (unknown) (unknown) (no date) (unknown) (unknown) Exam Narrative (unit s unknown) (unknown) (unknown) (no date) (unknown) (unknown) Exam Narrative: (uni ts unknown) (unknown) (unknown) (no date) (unknown) (unknown) Exam (units unknown) (unknown) (unknown) (no date) (unknown) (unknown) Fibromyalgia (units unknown) (unknown) (unknown) (no date) (unknown) (unknown) : 1 (units unknown) (unknown) (unknown) (no date) (unknown) (unknown) HPI (units unknown) (unknown) (unknown) (no date) (unknown) (unknown) Height 5 ft 1.5 in ( units unknown) (unknown) (unknown) (no date) (unknown) (unknown) Hidradenitis suppurativa (units unknown) (unknown) (unknown) (no date) (unknown) (unknown) I suspect the tender nodule is dense cystic breast tissue as I can feel other (units unknown) (unknown) (unknown) (no date) (unknown) (unknown) Intake Clinica l Staff (units unknown) (unknown) (unknown) (no date) (unknown) (unknown) Intake perform ed by: Ale Sneed (units unknown) (unknown) (unknown) (no date) (unknown) (unknown) Intake (units unknown) (unknown) (unknown) (no date) (unknown) (unknown) Is patient in pain?: Yes (units unknown) (unknown) (unknown) (no date) (unknown) (unknown) [facility] (uni ts unknown) (unknown) (unknown) (no date) (unknown) (unknown) Left breast lump (un its unknown) (unknown) (unknown) (no date) (unknown) (unknown) Loc: [facility] (units unknown) (unknown) (unknown) (no date) (unknown) (unknown) Lumbar region somatic dysfunction (units unknown) (unknown) (unknown) (no date) (unknown) (unknown) Medical Histor y (Updated 01/23/23 @ 09:53 by Marcell Fong MD) (units unknown) (unknown) (unknown) (no date) (unknown) (unknown) Medications (units unknown) (unknown) (unknown) (no date) (unknown) (unknown) Kimberly is a 33-year-old woman with a tender left breast nodule located along (units unknown) (unknown) (unknown) (no date) (unknown) (unknown) Neck muscle spasm (u nits unknown) (unknown) (unknown) (no date) (unknown) (unknown) Neck stiffness (unit s unknown) (unknown) (unknown) (no date) (unknown) (unknown) Neck strain (units unknown) (unknown) (unknown) (no date) (unknown) (unknown) Nodule of chest wall (units unknown) (unknown) (unknown) (no date) (unknown) (unknown) [employer] and [facility] History (units unknown) (unknown) (unknown) (no date) (unknown) (unknown) On examination there is a tender nodule in the inner lower quadrant of the left (units unknown) (unknown) (unknown) (no date) (unknown) (unknown) Oxygen Deliver y Method room air (units unknown) (unknown) (unknown) (no date) (unknown) (unknown) PFSH (units unknown) (unknown) (unknown) (no date) (unknown) (unknown) PTSD (post-tra umatic stress disorder) (units unknown) (unknown) (unknown) (no date) (unknown) (unknown) Pain Location (units unknown) (unknown) (unknown) (no date) (unknown) (unknown) Pain Scale (units unknown) (unknown) (unknown) (no date) (unknown) (unknown) Pain location( s):: 5/10 (units unknown) (unknown) (unknown) (no date) (unknown) (unknown) Para: 1 (units unknown) (unknown) (unknown) (no date) (unknown) (unknown) Patient: Kimberly Lewis MR# (units unknown) (unknown) (unknown) (no date) (unknown) (unknown) Pelvic somatic dysfunction (units unknown) (unknown) (unknown) (no date) (unknown) (unknown) Plan (units unknown) (unknown) (unknown) (no date) (unknown) (unknown) Position Sitting (un its unknown) (unknown) (unknown) (no date) (unknown) (unknown) Psoas syndrome (unit s unknown) (unknown) (unknown) (no date) (unknown) (unknown) Pulse 90 (units unknown) (unknown) (unknown) (no date) (unknown) (unknown) Pulse Oximetry (%) 98 (units unknown) (unknown) (unknown) (no date) (unknown) (unknown) Pulse Source Monitor (units unknown) (unknown) (unknown) (no date) (unknown) (unknown) Reason For Visit (un its unknown) (unknown) (unknown) (no date) (unknown) (unknown) Sacral region somatic dysfunction (units unknown) (unknown) (unknown) (no date) (unknown) (unknown) Segmental and somatic dysfunction of abdomen and other regions (units unknown) (unknown) (unknown) (no date) (unknown) (unknown) Sensation of f eeling cold (units unknown) (unknown) (unknown) (no date) (unknown) (unknown) She drinks a c up of coffee every other day on average. She quit smoking in (units unknown) (unknown) (unknown) (no date) (unknown) (unknown) She is previou sly had hidradenitis of the left axilla and lower breasts. (units unknown) (unknown) (unknown) (no date) (unknown) (unknown) Signed By: (units unknown) (unknown) (unknown) (no date) (unknown) (unknown) Smoking Status : Former smoker (units unknown) (unknown) (unknown) (no date) (unknown) (unknown) Social History (units unknown) (unknown) (unknown) (no date) (unknown) (unknown) Status: Acute (units unknown) (unknown) (unknown) (no date) (unknown) (unknown) Surgery Office Visit (units unknown) (unknown) (unknown) (no date) (unknown) (unknown) THROAT CLOSURE (unit s unknown) (unknown) (unknown) (no date) (unknown) (unknown) Tachycardia (units unknown) (unknown) (unknown) (no date) (unknown) (unknown) Temp 97.9 F (units unknown) (unknown) (unknown) (no date) (unknown) (unknown) Temp Source Te mporal Artery Scan (units unknown) (unknown) (unknown) (no date) (unknown) (unknown) There are some scars in the left axilla from prior hidradenitis (units unknown) (unknown) (unknown) (no date) (unknown) (unknown) This note may have been all or partially generated using voice recognition (units unknown) (unknown) (unknown) (no date) (unknown) (unknown) Thoracic regio n somatic dysfunction (units unknown) (unknown) (unknown) (no date) (unknown) (unknown) Tobacco Status (unit s unknown) (unknown) (unknown) (no date) (unknown) (unknown) Tobacco: How m any years used: 13 (units unknown) (unknown) (unknown) (no date) (unknown) (unknown) Visit Reasons: cons/horras/breast pain (units unknown) (unknown) (unknown) (no date) (unknown) (unknown) Vitals (units unknown) (unknown) (unknown) (no date) (unknown) (unknown) Weight 162 lb 4 oz ( units unknown) (unknown) (unknown) (no date) (unknown) (unknown) [Rx Confirmed 01/25/23] (units unknown) (unknown) (unknown) (no date) (unknown) (unknown) alcohol intake : current (units unknown) (unknown) (unknown) (no date) (unknown) (unknown) an MRI and kala ast ultrasound which showed no malignant appearing lesions in the (units unknown) (unknown) (unknown) (no date) (unknown) (unknown) area. (units unknown) (unknown) (unknown) (no date) (unknown) (unknown) benzonatate 10 0 mg capsule 100 mg PO BID-TID PRN cough #60 caps 09/09/22 [Rx (units unknown) (unknown) (unknown) (no date) (unknown) (unknown) breast. There are also nontender nodules along the periphery of bilateral (units unknown) (unknown) (unknown) (no date) (unknown) (unknown) breasts (units unknown) (unknown) (unknown) (no date) (unknown) (unknown) budesonide-for motero l HFA 160 mcg-4.5 mcg/actuation aerosol inhaler (Symbicort) (units unknown) (unknown) (unknown) (no date) (unknown) (unknown) cefazolin Mc rgy (Verified 01/25/23 10:10) (units unknown) (unknown) (unknown) (no date) (unknown) (unknown) cefprozil [CEFPROZIL] Adverse Reaction (Unknown, Verified 01/25/23 10:10) (units unknown) (unknown) (unknown) (no date) (unknown) (unknown) cholecalcifero l (vitamin D3) 1,250 mcg (50,000 unit) capsule 1,250 mcg PO QWEEK (units unknown) (unknown) (unknown) (no date) (unknown) (unknown) clindamycin phosphate 1 % topical solution See Rx Instructions .Route .COMPLEX (units unknown) (unknown) (unknown) (no date) (unknown) (unknown) doxycycline Al lergy (Verified 01/25/23 10:10) (units unknown) (unknown) (unknown) (no date) (unknown) (unknown) epinephrine 0. 3 mg/0.3 mL injection, auto-injector (EpiPen 2-Kaleb) 0.3 mg (0.3 (units unknown) (unknown) (unknown) (no date) (unknown) (unknown) have occurred. If there are any questions, please contact the Medical Records (units unknown) (unknown) (unknown) (no date) (unknown) (unknown) ibuprofen 800 mg tablet See Rx Instructions .Route .COMPLEX #90 tabs 10/17/22 (units unknown) (unknown) (unknown) (no date) (unknown) (unknown) ibuprofen alternating with Tylenol as well as topical Voltaren. If her symptoms (units unknown) (unknown) (unknown) (no date) (unknown) (unknown) irritate the n odule. It does not fluctuate in size or tenderness throughout the (units unknown) (unknown) (unknown) (no date) (unknown) (unknown) it in October and it has been constant since then. Her bra strap tends to (units unknown) (unknown) (unknown) (no date) (unknown) (unknown) ketorolac [KETOROLAC] Adverse Reaction (Unknown, Verified 01/25/23 10:10) (units unknown) (unknown) (unknown) (no date) (unknown) (unknown) latex [LATEX] Allergy (Unknown, Verified 01/25/23 10:10) (units unknown) (unknown) (unknown) (no date) (unknown) (unknown) mL) IM Q5-15M PRN anaphylaxis #2 ea 01/23/23 [Rx Confirmed 01/25/23] (units unknown) (unknown) (unknown) (no date) (unknown) (unknown) may occur. Occasional wrong-word or 'sound-alike' substitutions may have (units unknown) (unknown) (unknown) (no date) (unknown) (unknown) mecobalamin (v itamin B12) 10,000 mcg solution for injection 1,000 mcg IM MONTHLY (units unknown) (unknown) (unknown) (no date) (unknown) (unknown) metoclopramide [From Reglan] Adverse Reaction (Verified 01/25/23 10:10) (units unknown) (unknown) (unknown) (no date) (unknown) (unknown) month or throu ghout the day. Her bra tends to irritate the nodule. She is had (units unknown) (unknown) (unknown) (no date) (unknown) (unknown) multivitamin ( Daily Multi-Vitamin tablet) 1 tab PO DAILY 01/04/23 [History (units unknown) (unknown) (unknown) (no date) (unknown) (unknown) nodules around the periphery of bilateral breasts. Recommend she continue (units unknown) (unknown) (unknown) (no date) (unknown) (unknown) occurred due t o the inherent limitations of voice recognition software. Please (units unknown) (unknown) (unknown) (no date) (unknown) (unknown) persist in ano ther month or 2 she can come back and we can talk about further (units unknown) (unknown) (unknown) (no date) (unknown) (unknown) quit status: considering quitting (units unknown) (unknown) (unknown) (no date) (unknown) (unknown) read the note carefully and recognize, using context, where these substitutions (units unknown) (unknown) (unknown) (no date) (unknown) (unknown) shrimp Allergy (Severe, Verified 01/25/23 10:10) (units unknown) (unknown) (unknown) (no date) (unknown) (unknown) software. Alth ough every effort is made to edit content, manager shift errors (units unknown) (unknown) (unknown) (no date) (unknown) (unknown) substance use type: does not use (units unknown) (unknown) (unknown) (no date) (unknown) (unknown) the inferior p ortion of her left breast near the chest wall. She first noticed (units unknown) (unknown) (unknown) (no date) (unknown) (unknown) therapy. (units unknown) (unknown) (unknown) (no date) (unknown) (unknown) zolpidem 10 mg tablet See Rx Instructions PO BEDTIME PRN insomnia #30 tabs (units unknown) (unknown) Result panel 25 (unknown) (no date) (unknown) (unknown) (no value) (units unknown) (unknown) (unknown) (no date) (unknown) (unknown) #1 ea 10/06/22 [Rx Confirmed 01/25/23] (units unknown) (unknown) (unknown) (no date) (unknown) (unknown) #12 caps 11/07 [Rx Confirmed 01/25/23] (units unknown) (unknown) (unknown) (no date) (unknown) (unknown) #60 mL 3 [Rx Confirmed 01/25/23] (units unknown) (unknown) (unknown) (no date) (unknown) (unknown) (1) Nodule of chest wall: (units unknown) (unknown) (unknown) (no date) (unknown) (unknown) 01/10/23 [Rx Confirmed 01/25/23] (units unknown) (unknown) (unknown) (no date) (unknown) (unknown) 01/25/23 1051 (units unknown) (unknown) (unknown) (no date) (unknown) (unknown) 01/25/23 (units unknown) (unknown) (unknown) (no date) (unknown) (unknown) 10:14 (units unknown) (unknown) (unknown) (no date) (unknown) (unknown) 2 puff inhalat ion BID #10.2 grams 03/17/22 [Rx Confirmed 01/25/23] (units unknown) (unknown) (unknown) (no date) (unknown) (unknown) 3 ml syringe/ 25g 1 1/2 needle #1 ea 10/06/22 [Rx Confirmed 01/25/23] (units unknown) (unknown) (unknown) (no date) (unknown) (unknown) : [id number] (units unknown) (unknown) (unknown) (no date) (unknown) (unknown) Acute neck pain (uni ts unknown) (unknown) (unknown) (no date) (unknown) (unknown) Acute thoracic back pain (units unknown) (unknown) (unknown) (no date) (unknown) (unknown) Age at menarche: 8 (units unknown) (unknown) (unknown) (no date) (unknown) (unknown) Age when first child born?: 19 (units unknown) (unknown) (unknown) (no date) (unknown) (unknown) Age/Sex: 33 / F Date of Service: (units unknown) (unknown) (unknown) (no date) (unknown) (unknown) Allergies (units unknown) (unknown) (unknown) (no date) (unknown) (unknown) [place] [address] (units unknown) (unknown) (unknown) (no date) (unknown) (unknown) Anaphylaxis (units unknown) (unknown) (unknown) (no date) (unknown) (unknown) Assessment + Plan (u nits unknown) (unknown) (unknown) (no date) (unknown) (unknown) Attending Dr: Alton Shirley MD (units unknown) (unknown) (unknown) (no date) (unknown) (unknown) Autonomic dysfunction (units unknown) (unknown) (unknown) (no date) (unknown) (unknown) BD #[id number] needl es 30gx1/2 #100 ea 12/01/22 [Rx Confirmed 01/25/23] (units unknown) (unknown) (unknown) (no date) (unknown) (unknown) BMI 30.1 (units unknown) (unknown) (unknown) (no date) (unknown) (unknown) BP 110/72 (units unknown) (unknown) (unknown) (no date) (unknown) (unknown) Blood Pressure Location Lt brachial (units unknown) (unknown) (unknown) (no date) (unknown) (unknown) Cellulitis (units unknown) (unknown) (unknown) (no date) (unknown) (unknown) Cervical somat ic dysfunction (units unknown) (unknown) (unknown) (no date) (unknown) (unknown) Chief Complaint (uni ts unknown) (unknown) (unknown) (no date) (unknown) (unknown) Chief Complain t: Left breast tender nodule (units unknown) (unknown) (unknown) (no date) (unknown) (unknown) Chronic bilate ral low back pain without sciatica (units unknown) (unknown) (unknown) (no date) (unknown) (unknown) Chronic cough (units unknown) (unknown) (unknown) (no date) (unknown) (unknown) Confirmed 01/25/23] (units unknown) (unknown) (unknown) (no date) (unknown) (unknown) Counseling and educating the patient/family/careg iver: 9 (units unknown) (unknown) (unknown) (no date) (unknown) (unknown) Cranial somati c dysfunction (units unknown) (unknown) (unknown) (no date) (unknown) (unknown) : 8 Acct:[id number] (units unknown) (unknown) (unknown) (no date) (unknown) (unknown) Date of Last Menstrual Period: 12/31/22 (units unknown) (unknown) (unknown) (no date) (unknown) (unknown) September. She has been taking ibuprofen approximately 800 mg every 2-3 days. (units unknown) (unknown) (unknown) (no date) (unknown) (unknown) Dept at . (units unknown) (unknown) (unknown) (no date) (unknown) (unknown) Details: (units unknown) (unknown) (unknown) (no date) (unknown) (unknown) Did you breast feed?: Yes (units unknown) (unknown) (unknown) (no date) (unknown) (unknown) Documented By: Alton Shirley MD 01/25/23 1009 (units unknown) (unknown) (unknown) (no date) (unknown) (unknown) Documenting cl inical information in EHR/Medical record: 8 (units unknown) (unknown) (unknown) (no date) (unknown) (unknown) Exam Narrative (unit s unknown) (unknown) (unknown) (no date) (unknown) (unknown) Exam Narrative: (uni ts unknown) (unknown) (unknown) (no date) (unknown) (unknown) Exam (units unknown) (unknown) (unknown) (no date) (unknown) (unknown) Fibromyalgia (units unknown) (unknown) (unknown) (no date) (unknown) (unknown) : 1 (units unknown) (unknown) (unknown) (no date) (unknown) (unknown) HPI (units unknown) (unknown) (unknown) (no date) (unknown) (unknown) Height 5 ft 1.5 in ( units unknown) (unknown) (unknown) (no date) (unknown) (unknown) Hidradenitis suppurativa (units unknown) (unknown) (unknown) (no date) (unknown) (unknown) I suspect the tender nodule is dense cystic breast tissue as I can feel other (units unknown) (unknown) (unknown) (no date) (unknown) (unknown) Intake Clinica l Staff (units unknown) (unknown) (unknown) (no date) (unknown) (unknown) Intake perform ed by: Ale Sneed (units unknown) (unknown) (unknown) (no date) (unknown) (unknown) Intake (units unknown) (unknown) (unknown) (no date) (unknown) (unknown) Is patient in pain?: Yes (units unknown) (unknown) (unknown) (no date) (unknown) (unknown) [facility] (uni ts unknown) (unknown) (unknown) (no date) (unknown) (unknown) Left breast lump (un its unknown) (unknown) (unknown) (no date) (unknown) (unknown) Loc: [facility] (units unknown) (unknown) (unknown) (no date) (unknown) (unknown) Lumbar region somatic dysfunction (units unknown) (unknown) (unknown) (no date) (unknown) (unknown) Medical Histor y (Updated 01/23/23 @ 09:53 by Marcell Fong MD) (units unknown) (unknown) (unknown) (no date) (unknown) (unknown) Medications (units unknown) (unknown) (unknown) (no date) (unknown) (unknown) Medications: (units unknown) (unknown) (unknown) (no date) (unknown) (unknown) Kimberly is a 33-year-old woman with a tender left breast nodule located along (units unknown) (unknown) (unknown) (no date) (unknown) (unknown) Neck muscle spasm (u nits unknown) (unknown) (unknown) (no date) (unknown) (unknown) Neck stiffness (unit s unknown) (unknown) (unknown) (no date) (unknown) (unknown) Neck strain (units unknown) (unknown) (unknown) (no date) (unknown) (unknown) New (units unknown) (unknown) (unknown) (no date) (unknown) (unknown) Nodule of chest wall (units unknown) (unknown) (unknown) (no date) (unknown) (unknown) [employer] and [facility] History (units unknown) (unknown) (unknown) (no date) (unknown) (unknown) On examination there is a tender nodule in the inner lower quadrant of the left (units unknown) (unknown) (unknown) (no date) (unknown) (unknown) Ordering medications, tests, or procedures: 3 (units unknown) (unknown) (unknown) (no date) (unknown) (unknown) Oxygen Deliver y Method room air (units unknown) (unknown) (unknown) (no date) (unknown) (unknown) PFSH (units unknown) (unknown) (unknown) (no date) (unknown) (unknown) PTSD (post-tra umatic stress disorder) (units unknown) (unknown) (unknown) (no date) (unknown) (unknown) Pain Location (units unknown) (unknown) (unknown) (no date) (unknown) (unknown) Pain Scale (units unknown) (unknown) (unknown) (no date) (unknown) (unknown) Pain location( s):: 5/10 (units unknown) (unknown) (unknown) (no date) (unknown) (unknown) Para: 1 (units unknown) (unknown) (unknown) (no date) (unknown) (unknown) Patient: LewisKimberly David MR# (units unknown) (unknown) (unknown) (no date) (unknown) (unknown) Pelvic somatic dysfunction (units unknown) (unknown) (unknown) (no date) (unknown) (unknown) Performing a medically appropriate exam and/or evaluation: 11 (units unknown) (unknown) (unknown) (no date) (unknown) (unknown) Plan (units unknown) (unknown) (unknown) (no date) (unknown) (unknown) Position Sitting (un its unknown) (unknown) (unknown) (no date) (unknown) (unknown) Preparing to s ee the patient, i.e., chart review, review of tests: 9 (units unknown) (unknown) (unknown) (no date) (unknown) (unknown) Psoas syndrome (unit s unknown) (unknown) (unknown) (no date) (unknown) (unknown) Pulse 90 (units unknown) (unknown) (unknown) (no date) (unknown) (unknown) Pulse Oximetry (%) 98 (units unknown) (unknown) (unknown) (no date) (unknown) (unknown) Pulse Source Monitor (units unknown) (unknown) (unknown) (no date) (unknown) (unknown) Reason For Visit (un its unknown) (unknown) (unknown) (no date) (unknown) (unknown) Sacral region somatic dysfunction (units unknown) (unknown) (unknown) (no date) (unknown) (unknown) Segmental and somatic dysfunction of abdomen and other regions (units unknown) (unknown) (unknown) (no date) (unknown) (unknown) Sensation of f eeling cold (units unknown) (unknown) (unknown) (no date) (unknown) (unknown) She drinks a c up of coffee every other day on average. She quit smoking in (units unknown) (unknown) (unknown) (no date) (unknown) (unknown) She is previou sly had hidradenitis of the left axilla and lower breasts. (units unknown) (unknown) (unknown) (no date) (unknown) (unknown) Signed By: <Electronically signed by Alton Shirley MD> (units unknown) (unknown) (unknown) (no date) (unknown) (unknown) Signed (units unknown) (unknown) (unknown) (no date) (unknown) (unknown) Smoking Status : Former smoker (units unknown) (unknown) (unknown) (no date) (unknown) (unknown) Social History (units unknown) (unknown) (unknown) (no date) (unknown) (unknown) Status: Acute (units unknown) (unknown) (unknown) (no date) (unknown) (unknown) Surgery Office Visit (units unknown) (unknown) (unknown) (no date) (unknown) (unknown) THROAT CLOSURE (unit s unknown) (unknown) (unknown) (no date) (unknown) (unknown) Tachycardia (units unknown) (unknown) (unknown) (no date) (unknown) (unknown) Temp 97.9 F (units unknown) (unknown) (unknown) (no date) (unknown) (unknown) Temp Source Te mporal Artery Scan (units unknown) (unknown) (unknown) (no date) (unknown) (unknown) There are some scars in the left axilla from prior hidradenitis (units unknown) (unknown) (unknown) (no date) (unknown) (unknown) This note may have been all or partially generated using voice recognition (units unknown) (unknown) (unknown) (no date) (unknown) (unknown) Thoracic regio n somatic dysfunction (units unknown) (unknown) (unknown) (no date) (unknown) (unknown) Time Coding Mi nutes Spent: (must be on same date of service/appointment) (units unknown) (unknown) (unknown) (no date) (unknown) (unknown) Time Spent (units unknown) (unknown) (unknown) (no date) (unknown) (unknown) Tobacco Status (unit s unknown) (unknown) (unknown) (no date) (unknown) (unknown) Tobacco: How m any years used: 13 (units unknown) (unknown) (unknown) (no date) (unknown) (unknown) Total Time: 40 (unit s unknown) (unknown) (unknown) (no date) (unknown) (unknown) Visit Reasons: cons/horras/breast pain (units unknown) (unknown) (unknown) (no date) (unknown) (unknown) Vitals (units unknown) (unknown) (unknown) (no date) (unknown) (unknown) Weight 162 lb 4 oz ( units unknown) (unknown) (unknown) (no date) (unknown) (unknown) [Rx Confirmed 01/25/23] (units unknown) (unknown) (unknown) (no date) (unknown) (unknown) alcohol intake : current (units unknown) (unknown) (unknown) (no date) (unknown) (unknown) an MRI and k[facility] ultrasound which showed no malignant appearing lesions in the (units unknown) (unknown) (unknown) (no date) (unknown) (unknown) apply to singl e elbow, wrist or hand; for hand includes palm/fingers/back of (units unknown) (unknown) (unknown) (no date) (unknown) (unknown) area. (units unknown) (unknown) (unknown) (no date) (unknown) (unknown) benzonatate 10 0 mg capsule 100 mg PO BID-TID PRN cough #60 caps 09/09/22 [Rx (units unknown) (unknown) (unknown) (no date) (unknown) (unknown) breast. There are also nontender nodules along the periphery of bilateral (units unknown) (unknown) (unknown) (no date) (unknown) (unknown) breasts (units unknown) (unknown) (unknown) (no date) (unknown) (unknown) budesonide-for motero l HFA 160 mcg-4.5 mcg/actuation aerosol inhaler (Symbicort) (units unknown) (unknown) (unknown) (no date) (unknown) (unknown) cefazolin Mc rgy (Verified 01/25/23 10:10) (units unknown) (unknown) (unknown) (no date) (unknown) (unknown) cefprozil [CEFPROZIL] Adverse Reaction (Unknown, Verified 01/25/23 10:10) (units unknown) (unknown) (unknown) (no date) (unknown) (unknown) cholecalcifero l (vitamin D3) 1,250 mcg (50,000 unit) capsule 1,250 mcg PO QWEEK (units unknown) (unknown) (unknown) (no date) (unknown) (unknown) clindamycin phosphate 1 % topical solution See Rx Instructions .Route .COMPLEX (units unknown) (unknown) (unknown) (no date) (unknown) (unknown) diclofenac sod ium 1 % topical gel (Voltaren Arthritis Pain) 2 g topical QID #100 (units unknown) (unknown) (unknown) (no date) (unknown) (unknown) diclofenac sod ium 1% (Voltaren Arthritis Pain) (units unknown) (unknown) (unknown) (no date) (unknown) (unknown) doxycycline Al lergy (Verified 01/25/23 10:10) (units unknown) (unknown) (unknown) (no date) (unknown) (unknown) epinephrine 0. 3 mg/0.3 mL injection, auto-injector (EpiPen 2-Kaleb) 0.3 mg (0.3 (units unknown) (unknown) (unknown) (no date) (unknown) (unknown) grams 01/25/23 [Rx Confirmed 01/25/23] (units unknown) (unknown) (unknown) (no date) (unknown) (unknown) hand 2 grams t opical QID 100 grams 0RF (units unknown) (unknown) (unknown) (no date) (unknown) (unknown) have occurred. If there are any questions, please contact the Medical Records (units unknown) (unknown) (unknown) (no date) (unknown) (unknown) ibuprofen 800 mg tablet See Rx Instructions .Route .COMPLEX #90 tabs 10/17/22 (units unknown) (unknown) (unknown) (no date) (unknown) (unknown) ibuprofen alternating with Tylenol as well as topical Voltaren. If her symptoms (units unknown) (unknown) (unknown) (no date) (unknown) (unknown) irritate the n odule. It does not fluctuate in size or tenderness throughout the (units unknown) (unknown) (unknown) (no date) (unknown) (unknown) it in October and it has been constant since then. Her bra strap tends to (units unknown) (unknown) (unknown) (no date) (unknown) (unknown) ketorolac [KETOROLAC] Adverse Reaction (Unknown, Verified 01/25/23 10:10) (units unknown) (unknown) (unknown) (no date) (unknown) (unknown) latex [LATEX] Allergy (Unknown, Verified 01/25/23 10:10) (units unknown) (unknown) (unknown) (no date) (unknown) (unknown) mL) IM Q5-15M PRN anaphylaxis #2 ea 01/23/23 [Rx Confirmed 01/25/23] (units unknown) (unknown) (unknown) (no date) (unknown) (unknown) may occur. Occasional wrong-word or 'sound-alike' substitutions may have (units unknown) (unknown) (unknown) (no date) (unknown) (unknown) mecobalamin (v itamin B12) 10,000 mcg solution for injection 1,000 mcg IM MONTHLY (units unknown) (unknown) (unknown) (no date) (unknown) (unknown) metoclopramide [From Reglan] Adverse Reaction (Verified 01/25/23 10:10) (units unknown) (unknown) (unknown) (no date) (unknown) (unknown) month or throu ghout the day. Her bra tends to irritate the nodule. She is had (units unknown) (unknown) (unknown) (no date) (unknown) (unknown) multivitamin ( Daily Multi-Vitamin tablet) 1 tab PO DAILY 01/04/23 [History (units unknown) (unknown) (unknown) (no date) (unknown) (unknown) nodules around the periphery of bilateral breasts. Recommend she continue (units unknown) (unknown) (unknown) (no date) (unknown) (unknown) occurred due t o the inherent limitations of voice recognition software. Please (units unknown) (unknown) (unknown) (no date) (unknown) (unknown) persist in ano ther month or 2 she can come back and we can talk about further (units unknown) (unknown) (unknown) (no date) (unknown) (unknown) quit status: considering quitting (units unknown) (unknown) (unknown) (no date) (unknown) (unknown) read the note carefully and recognize, using context, where these substitutions (units unknown) (unknown) (unknown) (no date) (unknown) (unknown) shrimp Allergy (Severe, Verified 01/25/23 10:10) (units unknown) (unknown) (unknown) (no date) (unknown) (unknown) software. Alth ough every effort is made to edit content, manager shift errors (units unknown) (unknown) (unknown) (no date) (unknown) (unknown) substance use type: does not use (units unknown) (unknown) (unknown) (no date) (unknown) (unknown) the inferior p ortion of her left breast near the chest wall. She first noticed (units unknown) (unknown) (unknown) (no date) (unknown) (unknown) therapy. (units unknown) (unknown) (unknown) (no date) (unknown) (unknown) zolpidem 10 mg tablet See Rx Instructions PO BEDTIME PRN insomnia #30 tabs (units unknown) (unknown) Social History date description facility 2022-12-27 00:00 Smokes tobacco daily (finding) [facility] 2023-01-04 00:00 Ex-smoker (finding) [facility] 2023-01-23 00:00 Ex-smoker (finding) [facility] 2023-01-25 00:00 Ex-smoker (finding) [facility] Vital Signs date measurement value units 2023-01-04 00:00 BMI 30.7 kg/m2 2023-01-04 00:00 BP_diastolic 70 mmHg 2023-01-04 00:00 BP_systolic 116 mmHg 2023-01-04 00:00 heart_rate 98 /min 2023-01-04 00:00 height_metric 156.21 cm 2023-01-04 00:00 height_standard 61.5 in 2023-01-04 00:00 o2_saturation 98 % 2023-01-04 00:00 weight_metric 74.89 kg 2023-01-04 00:00 weight_standard 165.1 lb 2023-01-23 00:00 BP_diastolic 62 mmHg 2023-01-23 00:00 BP_systolic 106 mmHg 2023-01-23 00:00 heart_rate 108 /min 2023-01-23 00:00 o2_saturation 99 % 2023-01-23 00:00 weight_metric 73.93 kg 2023-01-23 00:00 weight_standard 162.99 lb 2023-01-25 00:00 BMI 30.1 kg/m2 2023-01-25 00:00 BP_diastolic 72 mmHg 2023-01-25 00:00 BP_systolic 110 mmHg 2023-01-25 00:00 heart_rate 90 /min 2023-01-25 00:00 height_metric 156.21 cm 2023-01-25 00:00 height_standard 61.5 in 2023-01-25 00:00 o2_saturation 98 % 2023-01-25 00:00 temperature_metric 36.61 C 2023-01-25 00:00 temperature_standard 97.9 F 2023-01-25 00:00 weight_metric 73.59 kg 2023-01-25 00:00 weight_standard 162.24 lb
[2023-02-27 19:20] VITALS: BP 110/63
--- NOTE | 2023-02-27 20:34 | XRAY Report ---
PROCEDURE: Foot 3 View RT INDICATIONS: Trauma TECHNIQUE: 3 views of the foot were acquired. COMPARISON: None. FINDINGS: Bones: No acute fractures or dislocations. Postsurgical changes are seen at the first metatarsal he ad and first proximal phalanx. Mild first metatarsophalangeal joint degenerative changes. No suspicio us bony lesions. Soft tissues: No suspicious soft tissue calcifications or masses. IMPRESSION: No acute osseous abnormality. If there is clinical concern or persistent symptoms, additional imaging such as repeat radiographs or advanced imaging (e.g. CT, MRI) may be helpful for further evaluation. Reviewed by: Earle Salguero MD on 02/27/2023 8:32 PM PDT Approved by: Earle Salguero MD on 02/27/2023 8:32 PM PDT Station ID: [id number]
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
== END 2023-02-27 20:57 | disposition home or self-care (01) ==
LOC: ED 18:55
DX: S90.31XA Contusion of right foot, initial encounter (principal); W21.03XA Struck by baseball, initial encounter; Y93.64 Activity, baseball; Z87.891 Personal history of nicotine dependence
CPT/HCPCS: 99283

== ENCOUNTER 2023-10-04 09:57 | Emergency (ER) | payer BC, OTHER ==
[2023-10-04 10:52] LABS: BASOPHILS % (AUTO) 0.4 %; EOSINOPHILS # (AUTO) 0.1 10^3/uL (0.0-0.7); EOSINOPHILS % (AUTO) 1.6 %; HCT - HEMATOCRIT 41.6 % (37.0-47.0); HGB - HEMOGLOBIN 13.7 g/dL (12.0-16.0); LYMPHOCYTES # (AUTO) 3.3 10^3/uL (1.5-3.5); LYMPHOCYTES % (AUTO) 47.2 %; MEAN CORPUSCULAR HEMOGLOBIN 28.4 pg (27.0-31.0); MEAN CORPUSCULAR HGB CONC 32.9 g/dL (32.0-36.0); MEAN CORPUSCULAR VOLUME 86.1 fL (81.0-99.0); MEAN PLATELET VOLUME 8.5 fL (7.9-10.8); MONOCYTES # (AUTO) 0.4 10^3/uL (0.0-1.0); MONOCYTES % (AUTO) 5.4 %; NEUTROPHILS # (AUTO) 3.2 10^3/uL (1.5-6.6); NEUTROPHILS % (AUTO) 45.3 %; PLT - PLATELET COUNT 366 10^3/uL (130-450); RED BLOOD COUNT 4.83 10^6/uL (4.20-5.40); RED CELL DISTRIBUTION WIDTH 12.5 % (12.0-15.0)
--- NOTE | 2023-10-04 11:06 | XRAY Report ---
PROCEDURE: Chest 1V INDICATIONS: Chest pain TECHNIQUE: One view of the chest was acquired. COMPARISON: 08/09/2018 FINDINGS: Surgical changes and devices: None. Lungs and pleura: No pleural effusions or pneumothorax. Lungs are clear. Mediastinum: Mediastinal contours appear normal. Heart size is normal. Bones and chest wall: No suspicious bony lesions. Overlying soft tissues appear unremarkable. IMPRESSION: No acute process. Reviewed by: Eli Mehta MD on 10/04/2023 11:04 AM [facility] Approved by: Eli Mehta MD on 10/04/2023 11:04 AM [facility] Station ID: [id number]
[2023-10-04 11:28] LABS: TROPONIN I HIGH SENSITIVITY 2.3 ng/L (2.3-14.8)
[2023-10-04 11:30] LABS: ALBUMIN 4.1 g/dL (3.2-5.5); ALBUMIN/GLOBULIN RATIO 1.3 (1.0-2.2); ALKALINE PHOSPHATASE 44 IU/L (42-121); ALT ALANINE AMINOTRANSFERASE 12 IU/L (10-60); AST ASPARTATE AMINOTRANSFERASE 11 IU/L (10-42); BILIRUBIN,TOTAL 0.3 mg/dL (0.2-1.0); BUN - BLOOD UREA NITROGEN 12 mg/dL (6-20); CALCIUM 9.2 mg/dL (8.5-10.3); CARBON DIOXIDE - CO2 25 mmol/L (21-32); CHLORIDE 106 mmol/L (101-111); CREATININE 0.7 mg/dL (0.6-1.3); GFR - MDRD 95 (>89); GLUCOSE 96 mg/dL (74-104); POTASSIUM 4.1 mmol/L (3.5-4.5); SODIUM 138 mmol/L (135-145); TOTAL PROTEIN 7.3 g/dL (6.4-8.9)
[2023-10-04 11:33] LABS: LIPASE < 10 U/L (11-82)
--- NOTE | 2023-10-04 13:54 | ED Physician Documentation ---
PD HPI CHEST PAIN - Stated complaint Stated Complaint: CP - Chief complaint Chief Complaint: Cardiac - History obtained from History obtained from: Patient - History of Present Illness Timing - onset: Last night Timing - onset during: Rest, Light activity. No: Exertion Timing - duration: Hours Timing - details: Abrupt onset, Still present, Waxing and waning Quality: Aching, Sharp, Pain Location: Substernal, Left chest Radiation: Left upper extremity Improved by: No: Rest, Antacids Worsened by: Movement, Palpation. No: Exertion, Inspiration Associated symptoms: Feeling faint / dizzy. No: Shortness of air, Nausea, Vomiting, General Weakness Similar symptoms before: Has not had sx before Review of Systems Constitutional: denies: Fever Nose: denies: Rhinorrhea / runny nose, Congestion Throat: denies: Sore throat Cardiac: reports: Chest pain / pressure. 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 : Kidney stones HEENT: None Psych: Depression, Claustrophobia Musculoskeletal: Fibromyalgia, Chronic back pain Derm: None - Past Surgical History Past Surgical History: Yes General: Cholecystectomy, Appendectomy Ortho: Other - Present Medications Home Medications: Ambulatory Orders Medication Instructions Recorded Confirmed Budesonide/Formoterol Fumarate 2 puffs IH Q6HR PRN 12/14/21 02/27/23 [Symbicort 160-4.5 Mcg Inhaler] Cholecalciferol [Vitamin D3] 50,000 unit PO Q7D 12/14/21 02/27/23 Zolpidem Tartrate [Ambien] 10 mg PO HS PRN 12/14/21 02/27/23 HYDROcodone/ACET 7.5/325 [[place] 1 each PO Q8H PRN #14 tablet 10/04/23 7.5/325] Meloxicam [Mobic] 7.5 mg PO BID 10 Days #20 tablet 10/04/23 - Allergies Allergies/Adverse Reactions: Allergies Allergy/AdvReac Type Severity Reaction Status Date / Time ketorolac tromethamine * Allergy Severe Respiratory Verified 10/04/23 10:20 [From Toradol] cefazolin Allergy Itching Verified 10/04/23 10:20 doxycycline Allergy Hives Verified 10/04/23 10:20 latex AdvReac Mild Itching Verified 10/04/23 10:20 metoclopramide [From Reglan] AdvReac Cramps Verified 10/04/23 10:20 - Social History Does the pt smoke?: No Smoking Status: Never smoker Does the pt drink ETOH?: No Does the pt have substance abuse?: No - Immunizations Immunizations are current?: Yes Immunizations: TDAP >10years/unknown - POLST Patient has POLST: No PD ED PE NORMAL - Vitals Vital signs reviewed: Yes - General General: Alert and oriented X 3, Well developed/nourished - Neck Neck: Supple, no meningeal sign, No adenopathy - Cardiac Cardiac: RRR, No murmur - Respiratory Respiratory: Clear bilaterally, Other (tender to palpation left sternal cartil age lower and also some at left lower costal margin. ) - Abdomen Abdomen: Soft, Non tender, No organomegaly - Derm Derm: Normal color - Extremities Extremities: No edema, No calf tenderness / cord - Neuro Neuro: Alert and oriented X 3, No motor deficit, Normal speech Results - Vitals Vitals: Oxygen O2 Source Room air - EKG (time done) 10:24 EKG releavant findings:: EKG personally interpreted by author of this note. Relevant findings are: Rate: Rate (enter#) (67) Rhythm: NSR [place]: Normal Intervals: Normal CO QRS: Normal Ischemia: Normal ST segments. No: ST elevation c/w ischemia, ST depression Compare to prior EKG: Old EKG unavailable - Labs Labs: Laboratory Tests 10/04/23 10/04/23 10:40 10:40 WBC 7.0 RBC 4.83 Hgb 13.7 Hct 41.6 MCV 86.1 MCH 28.4 MCHC 32.9 RDW 12.5 Plt Count 366 MPV 8.5 Neut # (Auto) 3.2 Lymph # (Auto) 3.3 [place] # (Auto) 0.4 Eos # (Auto) 0.1 Baso # (Auto) 0.0 Absolute Nucleated RBC 0.00 Nucleated RBC % 0.0 Sodium 138 Potassium 4.1 Chloride 106 Carbon Dioxide 25 Anion Gap 7.0 BUN 12 Creatinine 0.7 Estimated GFR (MDRD) 95 Glucose 96 Calcium 9.2 Total Bilirubin 0.3 AST 11 ALT 12 Alkaline Phosphatase 44 Troponin I High Sens 2.3 Total Protein 7.3 Albumin 4.1 Globulin 3.2 Albumin/Globulin Ratio 1.3 Lipase < 10 L - Rads (name of study) chest xray Relevant Findings:: Prelim report reviewed (no acute process), EMP independent interpretation of test PD Medical Decision Making - ED course Complexity details: reviewed results (CXR ECG and labs nromal.), considered differential (has chest pain left chest anteriorly radiating to lef shoulder. Not pleuritic. Tender left sternal border and some lower left costal margin. Abd not tender. ), d/w patient Reviewed Lab Results: Labs are okay with normal LFTs and Lipase. Not pancreatic cause. Not tender RUQ and does not sound biliary. Lungs clear and CXR without acute findings. ECG normal. Trop and basic other labs normal. heart size normal on CXR. Does not seem AMI nor cardiomyopathy. Without more significant causes found and with some chestwall/ chondral tenderness, presume is costchondritis. Departure - Departure Disposition: 01 Home, Self Care Clinical Impression: Acute chest pain, Acute costochondritis Condition: Stable Record reviewed to determine appropriate education?: Yes Instructions: ED Chest Pain Costochondritis Follow-Up: CYNTHIA LOWERY MD [Primary Care Provider] - Prescriptions: Meloxicam [Mobic] 7.5 mg PO BID 10 Days #20 tablet HYDROcodone/ACET 7.5/325 [[place] 7.5/325] 1 each PO Q8H PRN #14 tablet PRN Reason: Pain 1-4 Comments: Your EKG, chest x-ray, blood tests are normal without any signs of heart or lung abnormality causing your pain. There is some element of tenderness in the cartilage along the sternum so presume some costochondritis which is an inflammation of the cartilage. This can be following or consequence of recent viral illnesses. No signs of enlargement or inflammation of the heart based on testing today. I would suggest some anti-inflammatories. You could use naproxen or meloxicam type anti-inflammatory as they are longer half-life and only need to be twice daily. Take this with food. Add Tylenol 500 to 650 mg every 4-6 hours if needed for pain. Add hydrocodone if needed for worse pain. I prescribed a limited amount for this as hopefully this will be improved over the next few days. I sent your prescriptions to your preferred pharmacy. Recheck if not improving well over the next several days and resolved by 4 to 5 days. Return if worse or other symptoms develop. I am prescribing a short course of narcotic pain medication for you. These are potentially dangerous and addictive medications that should be used carefully. These medications may constipate you. Take an toao-zit-wvhbubx stool softener such as docusate twice daily with plenty of water while taking these medications. If you go 24 hours without a bowel movement, take asuk-wby-npnyoxb MiraLAX, per package instructions. Do not drink or drive while taking these medications. If you received narcotic or sedating medications while in the emergency departm ent do not drive for 24 hours. Store this medication in a safe, secure place and out of reach of children. It is a violation of federal law to give or sell this medication to another person or to use in a manner other than prescribed. The ED will not refill narcotic prescriptions, including prescriptions lost or stolen. You can dispose of unwanted medications at the [facility]'s office or at several pharmacies such as [facility]. Forms: PCP List Discharge Date/Time: 10/04/23 14:58
[2023-10-04 14:04] VITALS: BP 114/76; O2SAT 100
[2023-10-04] MEDS ORDERED: HYDROcod/ACETAM 5/325 MG TABLET PO STA (14:21)
[2023-10-04] MEDS ORDERED: NAPROXEN 250 MG TABLET PO STA (14:21)
== END 2023-10-04 14:58 | disposition home or self-care (01) ==
LOC: ED 09:57 → SUPCPDRO 09:57 → ED 14:58
DX: R07.9 Chest pain, unspecified (principal); M94.0 Chondrocostal junction syndrome [Tietze]
CPT/HCPCS: 36415; 71045; 80053; 83690; 84484; 85025; 93005; 99284; A9270

== ENCOUNTER 2024-03-03 11:10 | Outpatient (CLI) | payer BC, OTHER ==
--- NOTE | 2024-03-04 02:05 | XRAY Report ---
PROCEDURE: Ankle 3+V LT INDICATIONS: ANKLE PAIN TECHNIQUE: 3 views of the ankle were acquired. COMPARISON: Left ankle radiographs 02/19/2024 FINDINGS: Bones: No acute fractures or dislocations. Ankle mortise is normally aligned. No suspicious bony l esions. Mild screws are seen in the 1st metatarsal. Soft tissues: No suspicious soft tissue calcifications. IMPRESSION: No acute or healing osseous fracture. If symptoms persist or there is continued clinical concern, fur ther evaluation with MRI or CT may be helpful. Reviewed by: Earle Salguero MD on 03/04/2024 2:04 AM PDT Approved by: Earle Salguero MD on 03/04/2024 2:04 AM PDT Station ID: [id number]
== END 2024-03-03 11:11 | disposition home or self-care (01) ==
LOC: DI 11:10
PROVIDERS: ATTEND Physician Assistant Surgical
DX: M25.572 Pain in left ankle and joints of left foot (principal)

== ENCOUNTER 2024-03-14 10:10 | Outpatient (CLI) | payer BC, OTHER ==
--- NOTE | 2024-03-14 11:22 | XRAY Report ---
PROCEDURE: Ankle 3+V LT INDICATIONS: LEFT ANKLE SPRAIN TECHNIQUE: 3 views of the ankle were acquired. COMPARISON: None. FINDINGS: Bones: Foot findings are separately dictated. Partially seen metatarsal screws. The ankle mortise is intact. There is no acute displaced fracture. Soft tissues: No suspicious calcifications. There is minimal and talonavicular osteophytes. IMPRESSION: No acute radiographic abnormality. Given continued clinical concern, consider MRI for evaluation of s oft tissue or nondisplaced injuries. Reviewed by: Stan Dias MD on 03/14/2024 11:21 AM PDT Approved by: Stan Dias MD on 03/14/2024 11:21 AM PDT Station ID: [id number]
--- NOTE | 2024-03-14 16:20 | XRAY Report ---
PROCEDURE: Foot 3+V LT INDICATIONS: LEFT FOOT PAIN TECHNIQUE: 3 views of the foot were acquired. COMPARISON: Left ankle radiograph dated 03/03/2024 and 02/19/2024. FINDINGS: Bones: Postsurgical changes are noted in first metatarsal shaft and first proximal phalangeal base. M oderate hallux valgus. No gross hardware loosening or failure. No acute fracture or dislocation. No s uspicious bony lesions. Soft tissues: No tibiotalar joint effusion. Achilles tendon appears normal. IMPRESSION: Prior left great toe surgery with post surgical changes. No gross hardware loosening or failure. Mode rate hallux valgus. No acute fracture or dislocation. First MTP joint osteoarthritic arthritis. Reviewed by: Gordon Amezcua MD on 03/14/2024 4:19 PM PDT Approved by: Gordon Amezcua MD on 03/14/2024 4:19 PM PDT Station ID: [id number]
== END 2024-03-14 10:11 | disposition home or self-care (01) ==
LOC: DI 10:10
PROVIDERS: ATTEND Physician Assistant Surgical
DX: M19.072 Primary osteoarthritis, left ankle and foot (principal); M20.12 Hallux valgus (acquired), left foot